=== PATIENT | female | born 1970 | race Caucasian/White ===

== ENCOUNTER 2023-01-23 13:32 | Outpatient (AMB) | payer MEDICARE, MEDICAID, SELFPAY ==
--- NOTE | 2023-01-23 13:34 | MHC.OFFVIS ---
Intake Vital Signs 01/23/23 13:39 Height 5 ft 1 in Weight 235 lb BMI 44.4 BP 168/77 H Blood Pressure Location Rt brachial Position Sitting Pulse 77 Intake Visit Reasons: Hyperparathyroidism Intake Note: Patient referred for hyperparathyroidism. Has records from Memo Eddy MD from [facility]. Recent labs dated October 2022. Director Of Strategic Initiatives Required: No Accompanied by: Self / Same As Patient Allergies No Known Allergies Allergy (Verified 01/23/23 13:41) HPI HPI Comments History of Present Illness Details Patient presents for evaluation of hypercalcemia from presumed left pa rathyroid adenoma. Patient initially have her workup in [place] where she was found have hypercalcemia. She had extensive workup from the outside facilities which according to the patient demonstrated the above-mentioned pathology. At present, we have written records but no other radiographic studies put the paperwork demonstrates findings of a parathyroid nuclear study suggestive of the above-mentioned pathology. Chart was reviewed patient evaluated. Patient has a collection of other comorbidities as well. [facility] Medical History (Updated 01/23/23 @ 13:45 by LUCIANO Villavicencio) Cataract Seasonal allergies Anxiety Depression HTN (hypertension) Sciatic leg pain Surgical History (Updated 01/26/23 @ 09:48 by Troy Hamlin MD) History of tonsillectomy Social History (Updated 01/23/23 @ 13:47 by LUCIANO Villavicencio) Alcohol intake: current Alcohol intake frequency: holidays/special occasions only Alcohol type: wine Patient Tobacco Use Status: Never used Tobacco Substance Use Type: Marijuana Substance Use Type Other:: Vape Substance Use Frequency: Daily Physical Exam Vital Signs: Last Vital Signs Pulse 77 01/23/23 13:39 BP 168/77 H 01/23/23 13:39 BMI result Body Mass Index 44.4 HEENT Other: No cervical periclavicular or axillary or groin adenopathy. No obvious neck soft tissue mass identified. Chest Other: Chest breath sounds bilaterally, HS 1 in 2 GI Other: Abdomen soft, corpulent, benign Extrem Other: Extremities all 4 grossly intact. Assessment & Plan Assessment & Plan (1) Hypercalcemia: Code(s): E83.52 - Hypercalcemia Plan Current plan is to obtain the patient's remaining records a radiographic studies and direct further therapy based on these results. Patient will contact us next week for further follow-up once we have received these from her prior facility. All questions were answered. Coding Level of Care Code New Pt Level 4 (07124) Diagnoses Hypercalcemia E83.52
[2023-01-23 13:39] VITALS: BP 168/77; PULSE 77; BMI 44.4
== END 2023-01-23 14:02 | disposition home or self-care (01) ==
PROVIDERS: Visit Provider Surgery
DX: E83.52 Hypercalcemia (principal)
CPT/HCPCS: 99204

== ENCOUNTER → 2023-01-23 13:32 | Outpatient (BNVA) | payer MEDICARE, MEDICAID, SELFPAY | PROVIDERS: Visit Provider Surgery ==

== ENCOUNTER 2023-02-02 10:45 | Outpatient (AMB) | payer MEDICARE, MEDICAID, SELFPAY ==
[2023-02-02 10:52] VITALS: PULSE 67; BMI 44.8
--- NOTE | 2023-02-02 10:52 | A.OFFVIS_ITS ---
Intake Vital Signs 02/02/23 10:52 Height 5 ft 1 in Weight 237 lb BMI 44.8 Pulse 67 Intake Visit Reasons: f/u Hyperparathyroidism Intake Note: Patient here to f/u hyperparathyroidism. Records from [place] received and reviewed. Casing Fluid Tender Required: No Accompanied by: Self / Same As Patient Allergies No Known Allergies Allergy (Verified 02/02/23 10:53) HPI HPI Comments History of Present Illness Details Patient presents for follow-up. We have received all her paperwork and credentials from her [place] facility regarding her left inferior parathyroid adenoma. Extensive discussion was had regarding risks, benefits and alternatives of left inferior parathyroidectomy which included but not limited to bleeding, infection, recurrence, numbness, pain, scarring, recurrent laryngeal nerve injury (with hoarseness) and the patient wishes to proceed. All questions were answered. The meantime, the hospital laboratory is in the process of obtaining a rapid PTH assay test. At the earliest, this may take approximately 2 weeks time to have this at the facility. The reason for the this availability is important for surgery because at the initial time of induction, patient will have a PTH level drawn and post tumor excision, approximately 15 minutes later a repeat value will be obtained to document reduction in PTH level, help to confirm that adenoma was removed. Consideration will also be made for day prior sestamibi/isotope injection to allow probe a identification of parathyroid adenoma at the time of surgery. [facility] Medical History Sleep apnea Type 2 diabetes mellitus Snoring Rosacea Iliotibial band syndrome, right leg Mitral valve prolapse Asymptomatic menopausal state Mitral valve disorder Neuralgia of both lower extremities Leg heaviness Morbid obesity Tendinosis of rotator cuff Vitamin D deficiency SANTI on CPAP Localized edema Chronic kidney disease, stage 3a PTSD (post-traumatic stress disorder) Bipolar 1 disorder Hyperparathyroidism Suicidal ideations Cataract Seasonal allergies Anxiety Depression HTN (hypertension) Sciatic leg pain Surgical History History of tonsillectomy Social History Alcohol intake: current Alcohol intake frequency: holidays/special occasions only Alcohol type: wine Patient Tobacco Use Status: Never used Tobacco Substance Use Type: Marijuana Physical Exam Vital Signs: Last Vital Signs Pulse 67 02/02/23 10:52 BMI result Body Mass Index 44.8 HEENT Other: No cervical, periclavicular, or axillary adenopathy. No obvious anterior neck pathology. Chest Other: Chest breath sounds bilaterally, HS 1 in 2 GI Other: Moderately corpulent, soft, benign Assessment & Plan Assessment & Plan (1) Parathyroid adenoma: Code(s): D35.1 - Benign neoplasm of parathyroid gland (2) Hypercalcemia: Code(s): E83.52 - Hypercalcemia Plan Current plan is to tentatively scheduled for surgery ,provided all the above- mentioned arrangements can be appropriately obtained. Coding Level of Care Code Est Pt Level 5 (57203) Diagnoses Parathyroid adenoma D35.1 Hypercalcemia E83.52
== END 2023-02-02 11:00 | disposition home or self-care (01) ==
PROVIDERS: Visit Provider Surgery
DX: D35.1 Benign neoplasm of parathyroid gland (principal); E83.52 Hypercalcemia
CPT/HCPCS: 99214

== ENCOUNTER → 2023-02-02 10:45 | Outpatient (BNVA) | payer MEDICARE, MEDICAID, SELFPAY | PROVIDERS: Visit Provider Surgery | DX: D35.1 Benign neoplasm of parathyroid gland (principal); E83.52 Hypercalcemia | CPT/HCPCS: 99212 ==

== ENCOUNTER 2023-02-04 08:57 | Emergency (ER) | payer MEDICARE, MEDICAID, SELFPAY ==
--- NOTE | ~2023-02-04 | XR_ITS ---
EXAMINATION: XR SHOULDER, RIGHT CLINICAL INFORMATION: Right shoulder pain. COMPARISON: None available. TECHNIQUE: AP, Grashey, and scapular Y views of the right shoulder. FINDINGS: Moderate glenohumeral joint space narrowing with small marginal osteophytes. Unremarkable acromioclavicular joint. No acute fracture or dislocation. No concerning lytic or blastic osseous lesion. No abnormal soft tissue calcification. XR/XR shoulder RT min 2V IMPRESSION: Moderate glenohumeral osteoarthritis.
[2023-02-04 09:16] VITALS: BP 193/98; PULSE 100; RESP 20; TEMP 36.6; O2SAT 96; BMI 44.3
--- NOTE | 2023-02-04 10:54 | ED.EXTPRO ---
HPI - Extremity Problem General Chief complaint: Extremity Problem Stated complaint: R shoulder/ L leg pain Time Seen by Provider: 02/04/23 10:37 Source: patient Mode of arrival: ambulatory Limitations: no limitations History of Present Illness HPI Narrative: This is a 52-year-old female history of parathyroid adenoma, hypercalcemia presenting to the emergency department for evaluation of right shoulder pain, patient reports right shoulder pain has been going on for months on improved in seems to be worsening. Patient recently got an MRI back in [place] has not yet received the results she recently moved here from [place]. Patient reports pain is worse with movement better at rest. She reports she is scheduled to see a new PCP here in the area in April and is scheduled to see the orthopedic team in March. Also reporting left-sided hip and leg pain however her primary concern is shoulder pain, she thinks her left leg pain is sciatica she has a history of this and has had imaging before.. Denies shortness of breath, leg swelling, long travel, smoking, sedentary lifestyle. No history of PE/DVT., Related Data Home Medications Medication Instructions Recorded Confirmed aripiprazole 5 mg tablet (Abilify) 5 mg PO BEDTIME 01/23/23 cholecalciferol (vitamin D3) 50 50 mcg PO DAILY 01/23/23 mcg (2,000 unit) capsule escitalopram oxalate 10 mg tablet 10 mg PO DAILY 01/23/23 (Lexapro) lamotrigine 150 mg tablet 150 mg PO BID 01/23/23 (Lamictal) loratadine 10 mg tablet (Claritin) 10 mg PO DAILY 01/23/23 losartan 100 mg tablet 100 mg PO DAILY 01/23/23 metoprolol succinate 100 mg 100 mg PO DAILY 01/23/23 tablet,extended release 24 hr Previous Rx's Medication Instructions Recorded ketorolac 10 mg tablet 10 mg PO TID PRN pain 5 days #15 02/04/23 tabs prednisone 50 mg tablet 50 mg PO DAILY 5 days #5 tabs 02/04/23 Allergies Allergy/AdvReac Type Severity Reaction Status Date / Time No Known Allergies Allergy Verified 02/04/23 09:16 Review of Systems Review of Systems: Constitutional : No Weight loss, No Fever, No Chills, No Fatigue, No Malaise ENT/Mouth : No sore throat, No Rhinorrhea Eyes: No Eye Pain, No Swelling, No Redness Cardiovascular : No Chest Pain, No SOB, No Dyspnea on Exertion, No Orthopnea, No Edema, No Palpitations Respiratory : No Cough, No Sputum, No Wheezing Gastrointestinal : No Nausea, No Vomiting, No Diarrhea, No Constipation, No abdominal Pain, No Hematochezia, No Melena Genitourinary : No Dysuria, No Urinary Frequency, No Hematuria, Musculoskeletal : + joint pain, No Myalgias, + Joint Swelling Skin : No Skin Lesions, No rash Neuro : No Weakness, No Numbness, No Dizziness, No Headache Psych : No Anxiety/Panic, No Depression All other systems reviewed and are negative Yes all other systems are reviewed and are negative [facility] Past Medical History Attestation statement: The following information was validated with the patient. Source: old records reviewed and nursing notes reviewed Medical History Sleep apnea Type 2 diabetes mellitus Snoring Rosacea Iliotibial band syndrome, right leg Mitral valve prolapse Asymptomatic menopausal state Mitral valve disorder Neuralgia of both lower extremities Leg heaviness Morbid obesity Tendinosis of rotator cuff Vitamin D deficiency SANTI on CPAP Localized edema Chronic kidney disease, stage 3a PTSD (post-traumatic stress disorder) Bipolar 1 disorder Hyperparathyroidism Suicidal ideations Cataract Seasonal allergies Anxiety Depression HTN (hypertension) Sciatic leg pain Surgical History History of tonsillectomy Social History Social History Alcohol intake: current Alcohol intake frequency: holidays/special occasions only Alcohol type: wine Patient Tobacco Use Status: Never used Tobacco Substance Use Type: Marijuana Advance Directives: No Advance Directives Information Provided: No Physical Exam Vital Signs: Vital Signs: Last Vital Signs Temp 98.5 F 02/04/23 11:28 Pulse 85 02/04/23 11:28 Resp 14 02/04/23 11:28 BP 187/83 H 02/04/23 11:28 Pulse Ox 95 02/04/23 11:28 O2 Del Method Room Air 02/04/23 11:28 BMI result Body Mass Index 44.3 vss Appearance: Alert.? Oriented X3.? No acute distress.? Head: Normocephalic, atraumatic, no step-offs or deformities Eyes: Pupils equal, round and reactive to light.? ENT: Pharynx normal.? Neck: Normal inspection.? Neck supple.? CVS: Normal heart rate and rhythm.? Pulses normal.? Respiratory: No respiratory distress.? Breath sounds normal.? Abdomen: Soft and nontender.? Skin: Skin warm and dry.? Normal skin color.? Normal skin turgor.? Extremities: No lower extremity edema.? No calf ttp, negative Carla. 5/5 strength to bilateral upper and lower extremities. Normal hand loaf counter bilaterally. No wrist drop. 2+ radial pulses equal bilateral. Capillary refill less than 2 seconds to bilateral upper extremities. Limited range of motion secondary to pain to right shoulder with tenderness to palpation overlying the right radial head/distal clavicle region. No step-offs or deformities. Normal left shoulder Back: No midline tenderness, no C-spine tenderness, full range of motion, no CVA tenderness bilaterally Neuro: Oriented X 3.? No motor deficit.? No sensory deficit. CN 2-12 intact . Ambulating with steady gait normal coordination. No saddle paresthesias Course Reevaluation(s) Reevaluation #1: X-ray pending. Educated patient on diagnosis and treatment plan, answered all question, patient verbalizes understanding. At this time patient will be discharged home, advised to return with new or worsening symptoms. Educated on worrisome signs and symptoms and when to return. At this time I feel comfortable discharge home. Time: 10:59 Reevaluation #2: I will call patient if there is any abnormalities on x-ray, however on my evaluation of x-ray no acute finding Time: 11:54 Medications Administered Discontinued Medications Generic Name Dose Route Start Last Admin Trade Name Sylvia PRN Reason Stop Dose Admin Ketorolac Tromethamine 30 mg 02/04/23 10:53 02/04/23 11:01 Ketorolac Tromethamine 30 Mg/Ml Vial IM 02/04/23 10:54 30 mg ONCE ONE Administration Medical Decision Making Medical Decision Making MDM Narrative: 52-year-old female presents with left-sided like pain/hip pain and right-sided shoulder pain, primary concern today is right shoulder. These pains have been going on unchanged for months. Physical exam significant for No lower extremity edema.? No calf ttp. 5/5 strength to bilateral upper and lower extremities. Normal hand loaf counter bilaterally. No wrist drop. 2+ radial pulses equal bilateral. Capillary refill less than 2 seconds to bilateral upper extremities. Limited range of motion secondary to pain to right shoulder with tenderness to palpation overlying the right radial head/distal clavicle region. No step-offs or deformities. Normal left shoulder Concerns for rotator cuff injury versus inflammatory arthritis lower extremity likely sciatic/arthritis. Unlikely threat to [place], neurovascular compromise, DVT, arterial occlusion, fracture dislocation. No signs of cauda equina or epidural abscess Plan x-ray of right shoulder. Patient has had imaging of lower back and hip, atraumatic no need for imaging at this time. Will give Toradol for pain control. Differential Diagnosis Differential Diagnoses: The differential diagnosis associated with the presentation includes Concerns for rotator cuff injury versus inflammatory arthritis lower extremity likely sciatic/arthritis. Unlikely threat to [place], neurovascular compromise, DVT, arterial occlusion, fracture dislocation. No signs of cauda equina or epidural abscess Admission/Observation Consideration of admission/observation: Escalation of care including admission/observation considered Unlikely Independent Interpretation I performed an independent interpretation of an: Plain X-Ray Radiology Impression Discussion of test interpretation with radiology: I have reviewed the radiologist's reading. Tests considered The following testing was considered but not selected: Pain to left lower extremity has been there for months, unchanged has had imaging in the past, no trauma no need for imaging of left lower extremity or hip, palpable pulses unlikely arterial occlusion no need for arterial scan, unlikely DVT no need for venous duplex. Prescription Management I considered prescription management with: Pain Medication Critical Care Time Critical Care Time Critical Care Time: No Discharge Plan Discharge Clinical Impression: Pain in right shoulder, Sciatica Patient Disposition: Home, Self-Care Instructions: Shoulder Pain (ED), Arm Pain (ED), Warm Compress or Soak (ED), Shoulder Impingement Syndrome (ED) Additional Instructions: Take your medications as prescribed. If you were prescribed antibiotics today, it is important that you take your medication to their entirety, do not skip any doses, do not finish them early. Follow-up with your primary care provider this week. Follow up with the orthopedic team. Return to the emergency department with new or worsening symptoms. Such as fevers, chills, chest pain, shortness of breath, nausea, vomiting, dizziness, headache, vision changes, lethargy In case of emergency call 911 Prednisone can increase her sugars please keep a close eye on your sugar levels, if there high please seek medical attention. Toradol has been sent to your pharmacy, you tolerated this well in the department. Please take this as prescribed do not take this with ibuprofen, or other NSAIDs, do not mix this with alcohol. Side effects of this medication including increased risk for bleeding and possible kidney injury. Prescriptions: New ketorolac 10 mg tablet 10 mg PO TID PRN (Reason: pain) 5 Days Qty: 15 0RF prednisone 50 mg tablet 50 mg PO DAILY 5 Days Qty: 5 0RF No Action losartan 100 mg tablet 100 mg PO DAILY metoprolol succinate 100 mg tablet extended release 24 hr 100 mg PO DAILY escitalopram oxalate [Lexapro] 10 mg tablet 10 mg PO DAILY aripiprazole [Abilify] 5 mg tablet 5 mg PO BEDTIME lamotrigine [Lamictal] 150 mg tablet 150 mg PO BID cholecalciferol (vitamin D3) 50 mcg (2,000 unit) capsule 50 mcg PO DAILY loratadine [Claritin] 10 mg tablet 10 mg PO DAILY Referrals: [facility] [facility] Surgeons [Provider Group] - 1 week Ashlee Tejeda MD [Physician] - 2 days Stand Alone Forms: Work/School Release
[2023-02-04] MEDS: Ketorolac Tromethamine 30 MG/ML VIAL IM (11:01)
[2023-02-04 11:28] VITALS: BP 187/83; PULSE 85; RESP 14; TEMP 36.9; O2SAT 95
== END 2023-02-04 12:41 | disposition home or self-care (01) ==
PROVIDERS: Emergency Provider Emergency Medicine Emergency Medical Services
DX: M25.511 Pain in right shoulder (principal); M54.32 Sciatica, left side; E11.22 Type 2 diabetes mellitus with diabetic chronic kidney disease; I12.9 Hypertensive chronic kidney disease with stage 1 through stage 4 chronic kidney disease, or unspecified chronic kidney disease; N18.30 Chronic kidney disease, stage 3 unspecified; F12.90 Cannabis use, unspecified, uncomplicated
CPT/HCPCS: 73030; 96372; 99284; J1885

== ENCOUNTER → 2023-03-04 08:02 | Outpatient (REF) | payer MEDICARE, MEDICAID, SELFPAY | LOC: HO.NUCMED 08:02 | PROVIDERS: Visit Provider Surgery | DX: Z13.89 Encounter for screening for other disorder (principal) ==

== ENCOUNTER 2023-03-10 09:55 | Outpatient (AMB) | payer MEDICARE, MEDICAID, SELFPAY ==
[2023-03-10 09:57] VITALS: BP 148/84; PULSE 74; BMI 45.4
--- NOTE | 2023-03-10 09:57 | MHC.OFFVIS ---
Intake Vital Signs 03/10/23 09:57 Height 5 ft 1 in Weight 240 lb 4.862 oz BMI 45.4 BP 148/84 H Blood Pressure Location Lt brachial Position Sitting Pulse 74 Intake Visit Reasons: Preop /Dr. Hamlin/ parathyroid surgery Intake Note: Pre-op parathyroid surgery with Dr Hamlin dx MVR c/o sob with little movement has chest pains at times Iron Pourer Required: No Allergies No Known Allergies Allergy (Verified 02/04/23 09:16) Medication List - Last Reconciled 03/10/23 by Yohan Sen MD aripiprazole (Abilify) 5 mg PO BEDTIME cholecalciferol (vitamin D3) 50 mcg PO DAILY escitalopram oxalate (Lexapro) 10 mg PO DAILY ketorolac 10 mg PO TID PRN lamotrigine (Lamictal) 150 mg PO BID loratadine (Claritin) 10 mg PO DAILY losartan 100 mg PO DAILY metoprolol succinate ER 100 mg PO DAILY HPI HPI Comments History of Present Illness Details I was consulted to see Leann in cardiology consultation today for preoperative cardiovascular risk stratification. Patient is a 52-year-old woman with prior history of hypertension, mild hyperlipidemia as per her, obstructive sleep apnea currently compliant with CPAP therapy and questionable mitral valve disease as per her total many years ago, noted to hypercalcemia secondary to parathyroid adenoma and plan to undergo parathyroid surgery under general anesthesia. Patient however says that with minimal exertion she does get symptoms of exertional shortness of breath and nighttime she also sometimes gets feeling of incomplete treatment with CPAP and choking sensation. Although she denies any clear orthopnea or PND as well as denies any significant leg edema or abdominal distension. She denies any exertional chest pain. Denies any prolonged palpitation irregular heartbeat. She says she cannot exercise much due to the left hip issue. In the last few months she has gained 20 lb as per her and said might be contributing to her suboptimal CPAP response. She is scheduled to undergo parathyroid surgery under general anesthesia which is considered intermediate risk surgery. FORMERLY [facility], [facility] Medical History Sleep apnea Type 2 diabetes mellitus Snoring Rosacea Iliotibial band syndrome, right leg Mitral valve prolapse Asymptomatic menopausal state Mitral valve disorder Neuralgia of both lower extremities Leg heaviness Morbid obesity Tendinosis of rotator cuff Vitamin D deficiency SANTI on CPAP Localized edema Chronic kidney disease, stage 3a PTSD (post-traumatic stress disorder) Bipolar 1 disorder Hyperparathyroidism Suicidal ideations Cataract Seasonal allergies Anxiety Depression HTN (hypertension) Sciatic leg pain Surgical History History of tonsillectomy Social History Alcohol intake: current Alcohol intake frequency: holidays/special occasions only Alcohol type: wine Patient Tobacco Use Status: Never used Tobacco Substance Use Type: Marijuana Review of Systems Const Denies chills, Denies daytime sleepiness, Denies fatigue, Denies fever(s), Denies frequent falls, Denies poor appetite, Denies snoring, Denies stops breathing during sleep, Denies weakness, Denies weight gain and Denies weight loss Eyes Denies loss of vision ENT Denies dizziness and Denies hearing loss Card Denies chest pain, Denies claudication, Denies leg edema, Denies lightheadedness, Denies palpitations, Denies dyspnea, Denies dyspnea on exertion and Denies orthopnea Resp Denies cough, Denies excessive phlegm production, Denies dyspnea, Denies dyspnea on exertion, Denies snoring and Denies wheezing GI Denies abdominal pain, Denies hematochezia, Denies change in bowel habits, Denies nausea and Denies vomiting Denies urinary frequency and Denies dysuria Musc Denies arthralgias, Denies muscle weakness, Denies numbness and Denies other (frequent falls) Skin/Breast Denies nail changes and Denies rash Neuro Denies Abnormal speech present, Denies dizziness, Denies frequent falls, Denies loss of vision, Denies memory loss, Denies numbness and Denies weakness Psych Denies depression and Denies memory loss Endo Denies fatigue and Denies palpitations To/Lymph Reports easy bruising and Reports other (anemia) Aller/Immun Denies wheezing Physical Exam Vital Signs: Last Vital Signs Pulse 74 03/10/23 09:57 BP 148/84 H 03/10/23 09:57 BMI result Body Mass Index 45.4 Const General: cooperative, comfortable, no acute distress, alert and awake Nutritional Appearance: obese Orientation/consciousness: patient oriented x3 Limitations: no limitations HEENT Head: Yes normocephalic and Yes atraumatic Neck Neck: Yes trachea midline, Yes supple and Yes no JVD Resp Effort & Inspection: normal respiratory effort Auscultation: clear to auscultation bilaterally Cardio Jugular venous distension: no JVD Palpation: other (Difficult to appreciate PMI) Rate: regular rate Rhythm: regular rhythm Heart sounds: S1 normal heart sound present, S2 normal heart sound present, no click, no gallops and no murmurs GI Inspection: Yes obesity Auscultation: normal bowel sounds Skin General skin exam: no rashes or lesions noted Neuro General: patient oriented x3 and no focal motor deficits Speech: No Abnormal speech present Extrem General: Yes no clubbing, cyanosis or edema Office Procedures EKG Details: EKG shows normal sinus rhythm with normal EKG [id number], Complete Assessment & Plan Assessment & Plan (1) SOB (shortness of breath) on exertion: Code(s): R06.02 - Shortness of breath Plan: Patient with limiting exertional shortness of breath with minimal exertion with multiple risk factors for coronary artery disease including hypertension, hyperlipidemia as well as obesity and poor functional status. Underlying cardiovascular disease needs to be ruled out. She does have prior history of questionable mitral valve disease. Will obtain echocardiogram to evaluate for valvular heart disease, LV systolic and diastolic function as well as to evaluate for pulmonary hypertension and chamber size. Also will assess for myocardial ischemia and given her inability to exercise pursue vasodilating myocardial perfusion imaging in near future. Further treatment based on the findings. If cardiac workup is within acceptable limits, focus on pulmonary workup with PFT to evaluate for pulmonary parenchymal disease and/or restrictive pulmonary disease needs to be pursued. Also possible shortness of breath is related to deconditioning and weight. This was discussed with her. If her myocardial perfusion imaging is within normal limits can pursue coronary calcium score for further risk assessment for atherosclerosis. (2) Preoperative cardiovascular examination: Code(s): Z01.810 - Encounter for preprocedural cardiovascular examination Plan: Preoperative cardiovascular risk stratification in middle-aged woman to undergo intermediate risk surgery with limited exercise capacity and symptoms of exertional shortness of breath. Workup as above including myocardial perfusion imaging as well as an echocardiogram. If these tests are within acceptable limits, her risk for perioperative cardiovascular morbidity mortality to be low. Continue management of blood pressure through surgery with losartan and metoprolol. Will follow up in the clinic in 2-3 weeks time, sooner p.r.n.. Thank you for allowing me to partake in her care Orders: Orders CA echo transthoracic complete Today R06.02 - Shortness of breath CA lexiscan stress w rosy Today R06.02 - Shortness of breath Medications: Changed From ketorolac 10 mg PO TID 5 days PRN 15 tabs 0RF pain To ketorolac 10 mg PO TID PRN pain Coding Level of Care Code New Pt Level 4 (88603) Diagnoses SOB (shortness of breath) on exertion R06.02 Preoperative cardiovascular examination Z01.810 CPT Codes EKG - CPT: 71651-[id number], Complete ([id number])
== END 2023-03-10 10:50 | disposition home or self-care (01) ==
PROVIDERS: PCP Nurse Practitioner Family; Visit Provider Internal Medicine Cardiovascular Disease
DX: R06.02 Shortness of breath (principal); Z01.810 Encounter for preprocedural cardiovascular examination
CPT/HCPCS: 93010; 99204

== ENCOUNTER → 2023-03-10 09:55 | Outpatient (BNVA) | payer MEDICARE, MEDICAID, SELFPAY | PROVIDERS: PCP Nurse Practitioner Family; Visit Provider Internal Medicine Cardiovascular Disease | DX: Z01.810 Encounter for preprocedural cardiovascular examination (principal); R06.02 Shortness of breath | CPT/HCPCS: 93005; 99202 ==

== ENCOUNTER → 2023-04-27 07:40 | Outpatient (REF) | payer MEDICARE, MEDICAID, SELFPAY ==
--- NOTE | ~2023-04-27 | NM_ITS ---
Lexiscan Myocardial perfusion study Indication: Shortness of breath, assess for coronary disease and ischemia Technique: The patient was brought in for a Lexiscan perfusion study on 04/27/2023 and was injected 0.4 mg of Lexiscan intravenously. Within a minute of this injection 35 mCi of sestamibi was given intravenously. Images were obtained using the SPECT gamma camera interlaced with the gating device. Images were obtained in supine position. Resting perfusion study was performed on 04/29/2023. Patient was administered 35 mCi of sestamibi intravenously at rest. Images were then obtained in supine position. Images were processed with the software and compared side to side in short axis, horizontal long axis and vertical long axis views. Total DLP 134mGy-cm. Findings: Raw acquisition reviewed. The stress perfusion study showed diminished tracer uptake in the distal part of anterior wall, septum as well as parts of inferior wall. However, with CT attenuation correction there is significant improvement and hence could all be from attenuation artifacts. The gated study shows normal LV systolic function with calculated LVEF of 71%. LV cavity is normal in size. The gated study shows normal wall thickening and contraction of segments. Resting study shows no significant perfusion abnormality. Gating at rest reveals normal wall motion with ejection fraction at 49%, but visually normal. The findings are consistent with mild reversible defects in the anterior wall, apex, lateral wall but improving with CT attenuation correction and hence probably artifactual. NM/NM rosy perf SPECT rest & str Impression: 1. Myocardial perfusion imaging study shows no clear evidence of any ischemia or infarction. Probably normal perfusion. 2. Gated LVEF is 71% during stress. Visually normal during rest. 3. Transient ischemic dilatation not present. EKG component of the test reported separately.
--- NOTE | 2023-04-27 07:43 | CA_ITS ---
Acquisition Time: 2023-04-27 09:12:35 Total Exercise Time: 00:02:00 Test Indications: SOB Medications: LEXAPRO LOSRATAN METOPROLOL Protocol: LEXISCAN Max HR: 096 BPM 57% of Pred: 167 BPM Max BP: 152/090 mmHG Max Work Load: 1.0 METS Pharmacological stress test with Lexsican injection, while sitting and kicking her legs, without anginal symptoms, without arrythmia, with normotensive response to injection, with nondiagnostic EKG for ischemia. Nuclear images pending. Test reviewed with Dr Perez. Referred By: Yohan Sen Overread By: YURY BREWER
--- NOTE | 2023-04-27 07:43 | CA_ITS ---
Transthoracic Echocardiogram Patient (Last, First, Middle): Tona Fischer Denise Gender: Female Date of : 1970 Age: 52 Procedure Date: 04/27/2023 Procedure Type: Transthoracic Echocardiogram Location: OP Height: 154.94 cm Weight: 106.6 kg BSA: 2.02 m2 Heart Rate: bpm BP: 140 / 98 mmHg Health/Safety Job Titles: TEE Referring MD: Yohan Sen MD Symptoms: R06.02 - Shortness of breath Study Quality: Adequate with contrast ECG Rhythm: Sinus Conclusions: - The left ventricular systolic function is normal. The calculated ejection fraction is 68% by biplane method. - No obvious valvular pathology seen on this study. Findings Procedure Information Contrast agent, definity, is being given per protocol without apparent complications. Left Ventricle Normal left ventricular cavity size. The left ventricular systolic function is normal. The calculated ejection fraction is 68% by biplane method. There is no evidence of regional wall motion abnormalities. Diastolic function is normal for age. There is mild septal asymmetric hypertrophy. Right Ventricle Mildly increased right ventricular cavity size. There is normal right ventricular systolic function. Atria The left atrium is mildly dilated. The right atrium is normal in size. Aortic Valve There is a normal trileaflet aortic valve. There is no aortic valve stenosis. There is no aortic valve regurgitation. Mitral Valve The mitral valve appears normal. There is mild mitral annular calcification. There is no mitral valve regurgitation. There is no mitral valve stenosis. Pulmonic Valve The pulmonic valve is likely normal. Tricuspid Valve Normal tricuspid valve structure. There is trace tricuspid valve regurgitation. Borderline RVSP. Great Vessels The asc aorta is normal in size. Venous The inferior vena cava is normal in size and collapses greater than 50% with inspiration. Pericardium/Pleural There is no evidence of pericardial effusion. Prior Study Comparison No prior study available for comparison. Recommendations, Care & Conclusions No obvious valvular pathology seen on this study. Measurements 2D Linear Measurements IVSd: 1.19 0.6-0.9/0.6-1.0 cm LVIDd: 4.45 3.9-5.3/4.2-5.9 cm LVIDd Index: 2.20 2.4-3.2/2.2-3.1 cm/m2 LVIDs: 2.74 2.0-3.6 cm LVPWd: 0.99 0.7-1.1 cm LA Diam: 3.00 2.7-3.8/3.0-4.0 cm LAIDs Index: 1.49 1.5-2.3 cm/m2 LV Mass: 211.99 67-162/88-224 g LV Mass Index: 104.95 43-95/49-115 g/m2 LVOT Diam: 2.00 3.0+(-)1.3 cm 2D Systolic Function EF 4C: 68.40 >55% EF 2C: 67.20 >55% EF BiP: 68.00 >55% Mitral Valve MV Pk E: 0.76 MV PK A: 0.80 MV Decel Time: 223.00 E/A: 1.00 E'Lateral: 11.20 E'Medial: 7.29 E/E' Med: 10.50 E/E' Lat: 6.80 PHT: 65.00 MVA PHT: 3.38 Decel [place]: 3.42 Aortic Valve AoV Pk Bridger: 1.46 AoV Mn Bridger: 1.03 AoV VTI: 0.34 AoV Pk Grad: 9.00 Aov Mn Grad: 5.00 RAHAT Cont.VTI: 2.47 LVOT LVOT Pk Bridger: 1.12 LVOT Mn Bridger: 0.77 LVOT VTI: 0.27 LVOT Pk Grad: 5.00 LVOT Mn Grad: 3.00 LVOT Diam: 2.00 LVOT Area: 3.14 Diastolic Function MV Pk E: 0.76 MV Pk A: 0.80 E/A: 1.00 E'Medial: 7.29 E/E' Med: 10.50 E' Laterial: 11.20 E/E' Lat: 6.80 Right Ventricle TAPSE (mm): 24.40 TVS' Bridger: 10.90 Tricuspid Valve TR Pk Bridger: 2.81 TR Pk Grad: 32.00 RA Press: 3.00 RVSP: 35.00 Great Vessels Aorta Sinus of Valsalva: 3.47 2.0-3.[address] [place]: 2.82 1.7-3.4 cm Ao Asc: 3.50 2.1-3.4 cm Updated in Other Vendor System with Status of Final Vince Blum MD electronically signed on 04/29/2023 6:12:33 AM with status of Final
== END ==
LOC: HO.CARD 07:40
PROVIDERS: PCP Nurse Practitioner Family; Visit Provider Internal Medicine Cardiovascular Disease
DX: R06.02 Shortness of breath (principal)
CPT/HCPCS: 78452; 93017; 93306; A9500; J0280; J2785; Q9957

== ENCOUNTER → 2023-04-27 07:43 | Outpatient (BNV) | payer MEDICARE, MEDICAID, SELFPAY | PROVIDERS: PCP Nurse Practitioner Family; Visit Provider Nurse Practitioner Family | DX: R06.02 Shortness of breath (principal) | CPT/HCPCS: 78452; 93016; 93018; 93306 ==

== ENCOUNTER 2023-05-05 09:36 | Outpatient (AMB) | payer MEDICARE, MEDICAID, SELFPAY ==
[2023-05-05 09:57] VITALS: BP 140/70; PULSE 72; BMI 44.5
--- NOTE | 2023-05-05 09:57 | A.OFFVIS_ITS ---
Intake Vital Signs 05/05/23 09:57 Height 5 ft 1 in Weight 235 lb 7.259 oz BMI 44.5 BP 140/70 H Blood Pressure Location Lt brachial Position Sitting Pulse 72 Pulse Source Pulse Oximeter Intake Visit Reasons: f/up echo/ nicolas preop surg Intake Note: f/up echo/nicolas preop surg pt its feeling fine Time Analysis Clerk Required: No Accompanied by: Self / Same As Patient Allergies No Known Allergies Allergy (Verified 02/04/23 09:16) Medication List - Last Reconciled 05/05/23 by Rosy Bolaños, PROCESS AUTOMATION ENGINEER-C aripiprazole (Abilify) 5 mg PO BEDTIME cholecalciferol (vitamin D3) 50 mcg PO DAILY escitalopram oxalate (Lexapro) 10 mg PO DAILY lamotrigine (Lamictal) 150 mg PO BID loratadine (Claritin) 10 mg PO DAILY losartan 100 mg PO DAILY metoprolol succinate ER 100 mg PO DAILY HPI f/up echo/ nicolas preop surg HPI Details Tona is a 52-year-old female with past medical history of hypertension, hyperlipidemia, diabetes, obstructive sleep apnea with CPAP use, reported mitral valve disorder who 1st presented to cardiology for preop evaluation. On last visit a echocardiogram and nuclear stress test were ordered. She now presents for follow-up. Today she reports that she has been feeling generally well. She has no chest discomfort at rest or with activity. She does have some exertional shortness of breath which she feels is related to her weight. No shortness of breath at rest, PND, orthopnea or edema. No lightheadedness, presyncope, syncope, falls. She has discomfort with her left leg that is being evaluated. This limits her ability to do routine physical activity. She takes her meds as directed. [facility] Medical History (Updated 05/05/23 @ 12:32 by Rosy Bolaños, PROCESS AUTOMATION ENGINEER-C) Sleep apnea Type 2 diabetes mellitus Snoring Rosacea Iliotibial band syndrome, right leg Mitral valve prolapse Asymptomatic menopausal state Mitral valve disorder Neuralgia of both lower extremities Leg heaviness Morbid obesity Tendinosis of rotator cuff Vitamin D deficiency SANTI on CPAP Localized edema Chronic kidney disease, stage 3a PTSD (post-traumatic stress disorder) Bipolar 1 disorder Hyperparathyroidism Suicidal ideations Cataract Seasonal allergies Anxiety Depression HTN (hypertension) Sciatic leg pain Surgical History History of tonsillectomy Social History Alcohol intake: current Alcohol intake frequency: holidays/special occasions only Alcohol type: wine Patient Tobacco Use Status: Never used Tobacco Substance Use Type: Marijuana Review of Systems Const Denies chills, Denies fatigue, Denies fever(s), Denies frequent falls, Denies weakness, Denies weight gain and Denies weight loss ENT Denies dizziness Card Denies chest pain, Denies leg edema, Denies lightheadedness, Denies palpitations, Denies dyspnea and Reports dyspnea on exertion Resp Denies cough, Denies dyspnea and Reports dyspnea on exertion GI Denies hematochezia Musc Denies abnormal gait, Denies muscle weakness, Denies numbness, Denies radiating pain into limb and Denies tingling Neuro Details: left leg pain Denies abnormal gait, Denies dizziness, Denies frequent falls, Denies numbness, Denies tingling and Denies weakness Endo Denies fatigue and Denies palpitations Physical Exam Vital Signs: Last Vital Signs Pulse 72 05/05/23 09:57 BP 140/70 H 05/05/23 09:57 BMI result Body Mass Index 44.5 Const General: cooperative, healthy appearing, comfortable and no acute distress Orientation/consciousness: patient oriented x3 Neck Neck: Yes normal visual inspection and Yes no JVD Carotids: normal carotid upstroke Resp Effort & Inspection: normal respiratory effort Auscultation: clear to auscultation bilaterally, no rales, no rhonchi and no wheezes Cardio Jugular venous distension: no JVD Rate: regular rate Rhythm: regular rhythm Heart sounds: S1 normal heart sound present, S2 normal heart sound present, no murmurs and no rubs Neuro General: patient oriented x3 Extrem General: Yes normal to inspection and No no pedal edema Psych Appearance: grossly normal Mental Status: mental status grossly normal Speech and movement: Normal speech and movement present Assessment & Plan Assessment & Plan (1) SOB (shortness of breath) on exertion: Code(s): R06.02 - Shortness of breath Plan: Reports of shortness of breath with activity. She is morbidly obese which can contribute. She has history of obstructive sleep apnea and reports compliance with CPAP. She does have multiple cardiac risk factors including hypertension, hyperlipidemia, diabetes and obesity. An EKG done last visit showed normal sinus rhythm with no acute ST or T-wave abnormalities, rate 74. Echocardiogram done 04/27/2023 showed EF 68%, no significant valve abnormalities, no regional wall motion abnormalities, mild septal asymmetric hypertrophy. A pharmacological nuclear stress test was done on 04/29/2023 showing no clear e vidence of ischemia or infarct, probably normal perfusion, EF 71%. Test results reviewed with her. Today she reports no anginal sounding symptoms. Reviewed cardiac risk factor modification with her. Need for good blood pressure control. Blood pressure mildly elevated. She is currently on losartan and metoprolol XL. Reviewed benefits of weight loss and she states understanding. She has inability to exercise due to left hip and leg issues. Reviewed need for good cholesterol and diabetic control. Offered coronary calcium score to further evaluate possibility of coronary artery disease and she declines as it is a self-pay test. Signs and symptoms of angina reviewed. Cardiology follow- up as needed (2) SANTI on CPAP: Code(s): G47.33 - Obstructive sleep apnea (adult) (pediatric) Plan: She reports compliance (3) Pre-operative cardiovascular examination: Code(s): Z01.810 - Encounter for preprocedural cardiovascular examination Plan: Preop for parathyroid surgery for adenoma with Dr. Hamlin. Requires general anesthesia. No date yet. She is low cardiac risk and may proceed as planned. Continue current antihypertensives. Call/consult Cardiology if needed. (4) Parathyroid adenoma: Code(s): D35.1 - Benign neoplasm of parathyroid gland Plan: As above (5) HTN (hypertension): Code(s): I10 - Essential (primary) hypertension Plan: Blood pressure mildly elevated today. Current reading 140/70. She is on losartan 100 mg daily metoprolol XL 100 mg daily. States blood pressure is managed by her PCP and it is checked frequently at office visits. Reviewed low- salt diet, weight loss and she states understanding. Plan Time spent on chart review, documentation, interview and assessment Coding Level of Care Code Est Pt Level 3 (73302) Diagnoses SOB (shortness of breath) on exertion R06.02 SANTI on CPAP G47.33 Pre-operative cardiovascular examination Z01.810 Parathyroid adenoma D35.1 HTN (hypertension) I10 Time Spent (min) 24
== END 2023-05-05 10:23 | disposition home or self-care (01) ==
PROVIDERS: PCP Nurse Practitioner Family; Visit Provider Nurse Practitioner Family
DX: R06.02 Shortness of breath (principal); G47.33 Obstructive sleep apnea (adult) (pediatric); Z01.810 Encounter for preprocedural cardiovascular examination; D35.1 Benign neoplasm of parathyroid gland; I10 Essential (primary) hypertension
CPT/HCPCS: 99213

== ENCOUNTER → 2023-05-05 09:36 | Outpatient (BNVA) | payer MEDICARE, MEDICAID, SELFPAY | PROVIDERS: PCP Nurse Practitioner Family; Visit Provider Nurse Practitioner Family | DX: Z01.810 Encounter for preprocedural cardiovascular examination (principal); R06.02 Shortness of breath; I10 Essential (primary) hypertension; G47.33 Obstructive sleep apnea (adult) (pediatric); D35.1 Benign neoplasm of parathyroid gland; Z79.899 Other long term (current) drug therapy; Z99.89 Dependence on other enabling machines and devices | CPT/HCPCS: 99212 ==

== ENCOUNTER → 2023-06-03 07:43 | Outpatient (REF) | payer MEDICARE, MEDICAID, SELFPAY ==
--- NOTE | ~2023-06-03 | NM_ITS ---
EXAMINATION: PARATHYROID SCAN WITH THYROID SCAN COMPARISON CLINICAL INFORMATION: Benign neoplasm of parathyroid. Patient scheduled for surgery 06/04/2023. COMPARISON: No previous radionuclide parathyroid or thyroid imaging studies are available for comparison. TECHNIQUE: A double radionuclide study of the thyroid bed region and upper chest in multiple projections was performed 2 hours after the oral administration of 980 microcuries I-123 sodium iodide. After completion of those images, 30 mCi technetium 99m sestamibi was injected intravenously and planar and SPECT images of the neck and upper chest were obtained approximately 2 hours later. FINDINGS: PLANAR IMAGES: There is homogeneous uptake of radioiodine throughout both lobes. The thyroid gland appears to be normal in size and shape. There are no focal areas of increased or diminished uptake. The technetium 99m Sestamibi images demonstrate homogeneous thyroid activity. There is a small discrete focus of increased activity adjacent to the mid left lobe. On the ARGENTINE spot view at both 20 minutes and 2 hours post injection this is demonstrated to be extrinsic to the thyroid gland, located posterior to the mid left lobe. On the other spot views, this is visualized as a focus of activity significantly more intense than the adjacent thyroid but is clearly from the thyroid gland only on the ARGENTINE views. The digital subtraction images show a very distinct focus of sestamibi excess posterior to the mid left lobe, corresponding to the focus described above on the sestamibi images and clearly extrinsic to the thyroid gland and posterior to approximately the junction of the middle and superior thirds of the left thyroid lobe. No other foci of abnormal sestamibi excess are present. NM/NM parathyroid IMPRESSION: A discrete focus of abnormal sestamibi excess is present posterior to the mid left thyroid lobe, at approximately the junction of the middle and superior thirds although this appears to be closer to the mid lobe. This is most consistent with a solitary parathyroid adenoma at this site. No additional abnormalities suspicious for other parathyroid lesions are present. The thyroid gland appears normal.
== END ==
LOC: HO.NUCMED 07:43
PROVIDERS: PCP Nurse Practitioner Family; Visit Provider Surgery
DX: D35.1 Benign neoplasm of parathyroid gland (principal)
CPT/HCPCS: 78070; A9500; A9516

== ENCOUNTER 2023-06-04 05:58 | Day surgery (SDC) | payer MEDICARE, MEDICAID, SELFPAY ==
--- NOTE | 2023-03-04 09:06 | HO.ANESPROP2 ---
HPI - Anesthesia Eval Consult details Narrative: 52yo F for Parathyroidectomy PMFSH Active Problems Active Problems: All Active Problems (Updated 02/02/23 @ 11:17 by Troy Hamlin MD) Parathyroid adenoma (Acute) Hypercalcemia (Acute) Past Medical History Medical History Sleep apnea Type 2 diabetes mellitus Snoring Rosacea Iliotibial band syndrome, right leg Mitral valve prolapse Asymptomatic menopausal state Mitral valve disorder Neuralgia of both lower extremities Leg heaviness Morbid obesity Tendinosis of rotator cuff Vitamin D deficiency SANTI on CPAP Localized edema Chronic kidney disease, stage 3a PTSD (post-traumatic stress disorder) Bipolar 1 disorder Hyperparathyroidism Suicidal ideations Cataract Seasonal allergies Anxiety Depression HTN (hypertension) Sciatic leg pain Surgical History Surgical History History of tonsillectomy Social History Social History Alcohol intake: current Alcohol intake frequency: holidays/special occasions only Alcohol type: wine Patient Tobacco Use Status: Never used Tobacco Substance Use Type: Marijuana Meds Allergies Allergy/AdvReac Type Severity Reaction Status Date / Time No Known Allergies Allergy Verified 02/04/23 09:16 Home Medications Medication Instructions Recorded Confirmed Last Taken Type aripiprazole 5 mg tablet (Abilify) 5 mg PO BEDTIME 01/23/23 Unknown History cholecalciferol (vitamin D3) 50 50 mcg PO DAILY 01/23/23 Unknown History mcg (2,000 unit) capsule escitalopram oxalate 10 mg tablet 10 mg PO DAILY 01/23/23 Unknown History (Lexapro) lamotrigine 150 mg tablet 150 mg PO BID 01/23/23 Unknown History (Lamictal) loratadine 10 mg tablet (Claritin) 10 mg PO DAILY 01/23/23 Unknown History losartan 100 mg tablet 100 mg PO DAILY 01/23/23 Unknown History metoprolol succinate 100 mg 100 mg PO DAILY 01/23/23 Unknown History tablet,extended release 24 hr
[2023-05-29 13:17] VITALS: BP 189/85; PULSE 66; RESP 16; O2SAT 94; BMI 44.4
--- NOTE | 2023-05-29 13:43 | P.CONAN_ITS ---
HPI - Anesthesia Eval Consult details Narrative: 52yo F for parathyroidectomy Cardiac cleared Pt declines blood products (no PRBC, platelets, plasma.) OK to receive immunoglobulins. No cell saver per Dr Boubacar srivastava possible malignancy. No recent illness Mild CP with anxiety (longstanding hx of anxiety), BP up at [facility]. Will monitor at home and bring log DOS. SANTI severe. CPAP QHS. Borderline DM. Does not check POC. Never been rx'd meds Mitral valve prolapse dx'd many years ago. Nml on 2023 echo [facility] Active Problems Active Problems: All Active Problems (Updated 05/29/23 @ 13:15 by Samantha Sandoval, CYRUS) Pre-operative cardiovascular examination (Acute) SOB (shortness of breath) on exertion (Acute) Parathyroid adenoma (Acute) Hypercalcemia (Acute) HTN (hypertension) (Acute) SANTI on CPAP (Acute) Past Medical History Medical History History of electroconvulsive therapy Sleep apnea Type 2 diabetes mellitus Snoring Rosacea Iliotibial band syndrome, right leg Mitral valve prolapse Asymptomatic menopausal state Mitral valve disorder Neuralgia of both lower extremities Leg heaviness Morbid obesity Tendinosis of rotator cuff Vitamin D deficiency SANTI on CPAP Localized edema Chronic kidney disease, stage 3a PTSD (post-traumatic stress disorder) Bipolar 1 disorder Hyperparathyroidism Suicidal ideations Cataract Seasonal allergies Anxiety Depression HTN (hypertension) Sciatic leg pain Family History Family history of problems with anesthesia: No (? mom to wake) Surgical History Surgical History Hx of colonoscopy History of surgery (2014) History of tonsillectomy History of Problems with Anesthesia: No Social History Social History Household Members: Significant Other Housing: Apartment Are you a primary lawn care professional to a significant other at home: No Do you presently have visiting nurse or other home services: No Alcohol intake: current Alcohol intake frequency: does not drink Alcohol type: wine Comment: COUNTS CORRECT Patient Tobacco Use Status: Never used Tobacco e-Cigarette/Vaping Use: Currently Using Substance Use Type: Marijuana Meds Allergies Allergy/AdvReac Type Severity Reaction Status Date / Time No Known Allergies Allergy Verified 06/04/23 06:13 Home Medications Medication Instructions Recorded Confirmed Last Taken Type aripiprazole 5 mg tablet (Abilify) 5 mg PO DAILY 01/23/23 06/04/23 06/04/23 05:30 History cholecalciferol (vitamin D3) 50 100 mcg PO DAILY 01/23/23 06/04/23 06/03/23 History mcg (2,000 unit) capsule escitalopram oxalate 10 mg tablet 10 mg PO DAILY 01/23/23 06/04/23 06/04/23 05:30 History (Lexapro) lamotrigine 150 mg tablet 300 mg PO DAILY 01/23/23 06/04/23 06/04/23 05:30 History (Lamictal) loratadine 10 mg tablet (Claritin) 10 mg PO DAILY 01/23/23 06/04/23 06/04/23 05:30 History losartan 100 mg tablet 100 mg PO DAILY 01/23/23 06/04/23 06/03/23 07:30 History metoprolol succinate 100 mg 100 mg PO DAILY 01/23/23 06/04/23 06/04/23 05:30 H istory tablet,extended release 24 hr acetaminophen 500 mg tablet 1,000 mg PO Q6H PRN Pain 05/29/23 06/04/23 06/03/23 18:00 History clonazepam 1 mg tablet 0.5 mg PO DAILY PRN Anxiety 05/29/23 06/04/23 05/28/23 History diphenhydramine HCl 50 mg capsule 50 mg PO Q6H PRN Pain 05/29/23 06/04/23 06/03/23 18:00 History gabapentin 300 mg capsule 300 mg PO BID 05/29/23 06/04/23 06/04/23 05:30 History ibuprofen 600 mg tablet 600 mg PO Q6H PRN Pain 05/29/23 06/04/23 06/03/23 18:00 History Exam Height,Weight and Vital Signs: Height 5 ft 1 in Weight 106.594 kg Last Vital Signs Pulse 66 05/29/23 13:17 Resp 16 05/29/23 13:17 BP 189/85 H 05/29/23 13:17 Pulse Ox 94 05/29/23 13:17 O2 Del Method Room Air 05/29/23 13:17 Pertinent Lab Results Pertinent Lab Results: Lab Results 02/23/24 Range/Units 14:14 WBC 11.1 H (4.8-10.8) X10*3/uL RBC 4.56 (4.20-5.50) X10*6/uL Hgb 14.3 (12.0-16.0) g/dl Hct 42.5 (37.0-47.0) % MCV 93.2 (80.0-98.0) fL MCH 31.4 (27.0-33.0) pg MCHC 33.6 (31.0-35.0) g/dl RDW 12.6 (11.0-16.0) % Plt Count 331 (160-400) X10*3/uL MPV 9.0 L (9.4-12.3) fL Absolute Nucleated RBC 0.000 (0.0-0.012) X10*3/uL Nucleated RBC % (auto) 0.0 (0.0-0.2) /100WBC Sodium 142 (135-145) mmol/L Potassium 4.0 (3.3-5.1) mmol/L Chloride 102 (96-108) mmol/L Carbon Dioxide 35 H (22-29) mmol/L Anion Gap 9 L (12-20) BUN 17 H (9-16) mg/dL Creatinine 0.76 (0.5-1.4) mg/dL Estim Creat Clear Calc 96.3 Estimated GFR > 60 Random Glucose 137 H (60-115) mg/dL Estimat Average Glucose 140 mg/dL Hemoglobin A1c % 6.5 H (<6.0) % Calcium 12.0 H (8.4-10.2) mg/dL Phosphorus 2.8 (2.7-4.5) mg/dL Magnesium 1.8 (1.6-2.6) mg/dL Total Bilirubin 0.4 (0.0-1.0) mg/dL AST 17 (5-31) U/L ALT 31 (0-31) U/L Alkaline Phosphatase 75 (39-117) U/L Total Protein 7.3 (6.5-8.0) g/dL Albumin 4.3 (3.5-5.0) g/dL 25-OH Vitamin D Total 34.7 (>30) ng/mL Narrative Narrative: EKG 03/2023 normal sinus rhythm with normal EKG ECHO 04/2023 Conclusions: - The left ventricular systolic function is normal. The calculated ejection fraction is 68% by biplane method. - No obvious valvular pathology seen on this study. NM rosy perf SPECT rest & str 04/2023 Impression: 1. Myocardial perfusion imaging study shows no clear evidence of any ischemia or infarction. Probably normal perfusion. 2. Gated LVEF is 71% during stress. Visually normal during rest. 3. Transient ischemic dilatation not present. EKG component of the test reported separately. Airway Mallampati Class: III (small mouth) TM Dist: <=3cm Neck ROM: Full Loose/Missing/Broken Teeth: Yes (molars slightly loose d/t gum disease, 2 x crowned molars) Heart: RRR Lungs: CTAB Assessment and Plan Assessment Anesthesia Assessment: Anesthesia Plan Discussed and PAT Visit Final Anesthetic Review Family History of Problems with Anesthesia: No (? mom to wake) History of Problems with Anesthesia: No
[2023-05-29 14:45] LABS: Hematocrit 42.5 % (37.0-47.0); Hemoglobin 14.3 g/dl (12.0-16.0); Mean Corpuscular HGB Conc 33.6 g/dl (31.0-35.0); Mean Corpuscular Hemoglobin 31.4 pg (27.0-33.0); Mean Corpuscular Volume 93.2 fL (80.0-98.0); Platelet Count 331 X10*3/uL (160-400); Red Blood Count 4.56 X10*6/uL (4.20-5.50); Red Cell Distribution Width 12.6 % (11.0-16.0); White Blood Count 11.1 X10*3/uL (4.8-10.8)
[2023-05-29 15:00] LABS: Estimated Average Glucose 140 mg/dL; Hemoglobin A1c % 6.5 % (<6.0)
[2023-05-29 15:44] LABS: Alanine Aminotransferase 31 U/L (0-31); Albumin Level 4.3 g/dL (3.5-5.0); Alkaline Phosphatase 75 U/L (39-117); Anion Gap 9 (12-20); Aspartate Amino Transferase 17 U/L (5-31); Bilirubin Total 0.4 mg/dL (0.0-1.0); Blood Urea Nitrogen 17 mg/dL (9-16); Carbon Dioxide 35 mmol/L (22-29); Chloride 102 mmol/L (96-108); Creatinine Clr Calc Pharmacy 96.3; Estimated Glomerular Filt Rate > 60; Glucose Random 137 mg/dL (60-115); Sodium 142 mmol/L (135-145); Total Protein 7.3 g/dL (6.5-8.0)
[2023-05-29 16:00] LABS: Vitamin D 25-OH Total 34.7 ng/mL (>30)
[2023-05-29 20:23] LABS: Magnesium 1.8 mg/dL (1.6-2.6); Phosphorus 2.8 mg/dL (2.7-4.5)
--- NOTE | 2023-06-03 13:16 | MHC.SHP ---
Pre-Procedural Eval Section A - 24 Hr Update-Section A only Date of Service: 06/03/23 The patient is an INPATIENT: No Changes since office visit: No Cold of Flu in the past 2 weeks, No New Medical Problems, No Changes in Medication and No Patient answered all questions The patient has been examined within 24 hours of the surgical procedure. The History & Physical has been completed within 30 days and I have reviewed it.: Yes Section B - Complete if H&P > 30 days Chief Complaint: Benign neoplasm of parathyroid gland,hypercalcemia Allergies: Allergies Allergy/AdvReac Type Severity Reaction Status Date / Time No Known Allergies Allergy Verified 05/29/23 13:12 Plan I have reviewed the history and physical and performed a pertinent physical examination on my patient. No changes have occurred unless specified. Time Spent With Patient Time: Total time managing care of this patient today ____ minutes.
[2023-06-04] VITALS (13 sets, daily range): BP systolic 141–188; BP diastolic 83–98; PULSE 59–95; RESP 16–20; TEMP 36–36.3; O2SAT 93–97; BMI 46.5
[2023-06-04 06:26] LABS: Glucose, Whole Blood 157 mg/dL (60-115)
[2023-06-04] MEDS: Lactated Ringers 1,000 ML 100 ML IVCONT ×2 (06:47→15:51)
--- NOTE | 2023-06-04 07:27 | MHC.SHP ---
Pre-Procedural Eval Section A - 24 Hr Update-Section A only Date of Service: 06/04/23 The patient is an INPATIENT: No Changes since office visit: No Cold of Flu in the past 2 weeks, No New Medical Problems, No Changes in Medication and No Patient answered all questions The patient has been examined within 24 hours of the surgical procedure. The History & Physical has been completed within 30 days and I have reviewed it.: Yes Section B - Complete if H&P > 30 days Chief Complaint: Benign neoplasm of parathyroid gland,hypercalcemia Details of Present Illness: Left inferior parathyroid adenoma Relevant Family History (Specify if Yes): No Relevant Social History: None Present Medications: see Short Stay Collaborative assessment Medical History: No relevant PMH History of Previous Operations: No relevant previous surgery Allergies: Allergies Allergy/AdvReac Type Severity Reaction Status Date / Time No Known Allergies Allergy Verified 06/04/23 06:13 Review of Systems Sugical H&P ROS: Negative: Constitution, Cardiovascular, Respiratory, Neurological, Psychiatric, Hem-Onc, Allergic/Immunologic, Gastrointestinal, Genitourinary, Musculoskeletal, Integumentary, Endocrine and Eyes/Ears/Nose/Throat Exam Surgical H&P Exam: Normal: Heart, Normal: Lungs and Normal: Abdomen Plan Diagnosis/Plan: Unchanged I have reviewed the history and physical and performed a pertinent physical examination on my patient. No changes have occurred unless specified. Time Spent With Patient Time: Total time managing care of this patient today ____ minutes.
--- NOTE | 2023-06-04 07:30 | PC.NURSE ---
Patient in preop. Last office note from Dr. Hamlin discussed PTH levels to be drawn day of surgery. Dr. Hamlin at bedside. New verbal order for PTH level to be drawn preop as well as repeat PTH level 10 minutes after parathyroid removal. Orders put in. Undergraduate Intern at bedside. Multiple green top no gel vials sent into OR with Anesthesiologist Dr. Fontenot for her to obtain. Verbal order from Dr. Fontenot for Calcium draw post parathyroid removal. Order put in and correct vial for this also sent into OR with her. OR nurse Mony Cruz made aware. All vials to be labeled with patient label, time, date, and pneumonics, as well as collected in computer when complete.
[2023-06-04 08:08] LABS: PTH Intact Intraoperative 133.2 pg/mL (8.7-77.1)
[2023-06-04 09:35] LABS: Calcium 9.7 mg/dL (8.4-10.2)
--- NOTE | 2023-06-04 09:37 | P.CONAN_ITS ---
[facility] Active Problems Active Problems: All Active Problems (Updated 05/29/23 @ 13:15 by Samantha Sandoval RN) Pre-operative cardiovascular examination (Acute) SOB (shortness of breath) on exertion (Acute) Parathyroid adenoma (Acute) Hypercalcemia (Acute) HTN (hypertension) (Acute) SANTI on CPAP (Acute) Past Medical History Medical History History of electroconvulsive therapy Sleep apnea Type 2 diabetes mellitus Snoring Rosacea Iliotibial band syndrome, right leg Mitral valve prolapse Asymptomatic menopausal state Mitral valve disorder Neuralgia of both lower extremities Leg heaviness Morbid obesity Tendinosis of rotator cuff Vitamin D deficiency SANTI on CPAP Localized edema Chronic kidney disease, stage 3a PTSD (post-traumatic stress disorder) Bipolar 1 disorder Hyperparathyroidism Suicidal ideations Cataract Seasonal allergies Anxiety Depression HTN (hypertension) Sciatic leg pain Functional capacity: independent ambulation Family History Family history of problems with anesthesia: No (? mom to wake) Surgical History Surgical History Hx of colonoscopy History of surgery (2014) History of tonsillectomy History of Problems with Anesthesia: No Social History Social History Are you a primary plant health care technician to a significant other at home: No Do you presently have visiting nurse or other home services: No Alcohol intake: current Alcohol intake frequency: does not drink Alcohol type: wine Patient Tobacco Use Status: Never used Tobacco Use of substances other than those prescribed or required for medical reasons: Yes Substance Use Type: Marijuana Substance Use Type Other:: vapes marijuana 3 x week Substance Use Frequency: Weekly Have you been hit, kicked, punched, or otherwise hurt by someone within the past year? If so, by whom?: No Are you DNR?: No Advance Directives: No Advance Directives Information Provided: Yes Advance Directives on File: No Recently lost weight without trying: No Nutrition Risks: No Nutritional Risk Patient : No : No Poor oral hygiene: No Meds Allergies Allergy/AdvReac Type Severity Reaction Status Date / Time No Known Allergies Allergy Verified 06/04/23 06:13 Active Medications: Current Medications Lactated Ringer's (Lr) 1,000 mls @ 100 mls/hr IVCONT .Q10H ARIADNA Last Admin: 06/04/23 06:47 Dose: 100 mls/hr Home Medications Medication Instructions Recorded Confirmed Last Taken Type aripiprazole 5 mg tablet (Abilify) 5 mg PO DAILY 01/23/23 06/04/23 06/04/23 05:30 History cholecalciferol (vitamin D3) 50 100 mcg PO DAILY 01/23/23 06/04/23 06/03/23 History mcg (2,000 unit) capsule escitalopram oxalate 10 mg tablet 10 mg PO DAILY 01/23/23 06/04/23 06/04/23 05:30 History (Lexapro) lamotrigine 150 mg tablet 300 mg PO DAILY 01/23/23 06/04/23 06/04/23 05:30 History (Lamictal) loratadine 10 mg tablet (Claritin) 10 mg PO DAILY 01/23/23 06/04/23 06/04/23 05:30 History losartan 100 mg tablet 100 mg PO DAILY 01/23/23 06/04/23 06/03/23 07:30 History metoprolol succinate 100 mg 100 mg PO DAILY 01/23/23 06/04/23 06/04/23 05:30 History tablet,extended release 24 hr acetaminophen 500 mg tablet 1,000 mg PO QID PRN Pain 05/29/23 06/04/23 06/03/23 18:00 History clonazepam 1 mg tablet 0.5 mg PO DAILY PRN Anxiety 05/29/23 06/04/23 05/28/23 History diphenhydramine HCl 50 mg capsule 50 mg PO TID PRN Pain 05/29/23 06/04/23 06/03/23 18:00 History gabapentin 300 mg capsule 300 mg PO BID 05/29/23 06/04/23 06/04/23 05:30 History ibuprofen 600 mg tablet 600 mg PO Q8H PRN Pain 05/29/23 06/04/23 06/03/23 18:00 History Exam Height,Weight and Vital Signs: Height 5 ft 1 in Weight 111.674 kg Last Vital Signs Temp 97.1 F 06/04/23 06:32 Pulse 73 06/04/23 06:32 Resp 16 06/04/23 06:32 BP 188/98 H 06/04/23 06:32 Pulse Ox 97 02/29/24 06:32 O2 Del Method Room Air 06/04/23 06:32 Pertinent Lab Results Pertinent Lab Results: Laboratory Tests 05/29/23 06/04/23 06/04/23 14:14 06:21 07:44 WBC 11.1 H RBC 4.56 Hgb 14.3 Hct 42.5 MCV 93.2 MCH 31.4 MCHC 33.6 RDW 12.6 Plt Count 331 MPV 9.0 L Absolute Nucleated RBC 0.000 Nucleated RBC % (auto) 0.0 Sodium 142 Potassium 4.0 Chloride 102 Carbon Dioxide 35 H Anion Gap 9 L BUN 17 H Creatinine 0.76 Estim Creat Clear Calc 96.3 Estimated GFR > 60 POC Glucose 157 H Random Glucose 137 H Estimat Average Glucose 140 Hemoglobin A1c % 6.5 H Calcium 12.0 H Phosphorus 2.8 Magnesium 1.8 Total Bilirubin 0.4 AST 17 ALT 31 Alkaline Phosphatase 75 Total Protein 7.3 Albumin 4.3 25-OH Vitamin D Total 34.7 PTH Intact Intraop 133.2 H 06/04/23 09:18 WBC RBC Hgb Hct MCV MCH MCHC RDW Plt Count MPV Absolute Nucleated RBC Nucleated RBC % (auto) Sodium Potassium Chloride Carbon Dioxide Anion Gap BUN Creatinine Estim Creat Clear Calc Estimated GFR POC Glucose Random Glucose Estimat Average Glucose Hemoglobin A1c % Calcium 9.7 D Phosphorus Magnesium Total Bilirubin AST ALT Alkaline Phosphatase Total Protein Albumin 25-OH Vitamin D Total PTH Intact Intraop Airway Mallampati Class: IV TM Dist: >3cm Neck ROM: Full Heart: RRR Lungs: CTA Assessment and Plan Assessment Anesthesia Assessment: Anesthesia Plan Discussed Final Anesthetic Review Family History of Problems with Anesthesia: No (? mom to wake) History of Problems with Anesthesia: No ASA Class: III Final Preanesthetic Review: Meds/Allgs Chart Reviewed, Consent Obtained/Reviewed and Anes Risks/Benef Reviewed Patient Risk: Intermediate Procedure Risk: Intermediate Anesthetic Plan Anesthetic Plan: GA Disposition: Standard PACU
[2023-06-04 09:48] LABS: PTH Intact Intraoperative 176.7 pg/mL (8.7-77.1)
[2023-06-04 10:18] LABS: PTH Intact Intraoperative 183.1 pg/mL (8.7-77.1)
[2023-06-04 11:18] LABS: PTH Intact Intraoperative 54.5 pg/mL (8.7-77.1)
--- NOTE | 2023-06-04 11:32 | W.PM.OPN ---
Operative Note Operative Note Date of Service: 06/04/23 Narrative: Preoperative diagnosis: Left inferior parathyroid adenoma Postop diagnosis: Same Procedure [] neck exploration, left inferior parathyroid resection, incidental excision of left lower lobe lateral thyroid mass. Surgeon: [] Boubacar Brand Recorder: [] Leland Sultana Anesthesia; general Findings: [] Patient had incidental finding of a left upper lobe thyroid mass. Using intraop localizer device, this initially identified with the probe as highly active area which was thought to be the parathyroid adenoma.. This was resected and a frozen section demonstrated the above. Next the left inferior parathyroid adenoma was identified in the retro parathyroid area in proximity to the left carotid sheath. During intubation and extubation, patient had symmetrical vocal cord motion. Intraoperative parathyroid assay demonstrated marked decrease to a normal level once the parathyroid adenoma was removed with a 10 minute wake for blood draw. Procedure; patient brought to the operating room, placed on operative table supine position, after adequate level of general anesthesia was induced, patient had a shoulder roll placed, neck extended, and the premarked area, sestamibi scan was identified. Neck and upper chest area were prepped and draped in usual sterile fashion. Using a transverse incision approximately 2 fingerbreadths above the sternal notch, this carried down through skin, subcutaneous tissue, down to platysma. Superior and inferior skin flaps were developed to the level of the thyroid cartilage and sternal notch respectively. Linea cervicalis was identified and opened. Strap muscles were retracted laterally. Left lobe of thyroid was brought onto the field. Left thyroid middle vein was isolated, skeletonized, and ligated proximally and distally with 2-0 silk ties, and transected. Using the Manuela counter probe which identified a hot spot in the left lower lobe part of the thyroid gland which was initially felt to be the parathyroid adenoma. During mobilization, left recurrent laryngeal in general nerve was identified and preserved throughout the procedure. This ?hot area ?was transected using clamps and tied using 2-0 silk ties, and sent for frozen section which demonstrated a thyroid nodule and not the parathyroid. Further exploration including the along the left carotid sheath demonstrated the pathologic left inferior parathyroid adenoma. This was circumferentially bluntly dissected down and uneventfully excised. Frozen section confirmed parathyroid adenoma. Once this was excised, and parathyroid hormone redrawn, there was a precipitous drop to a normal level of the parathyroid hormone compared to the pre surgery level.. Neck wound was irrigated and secured hemostasis. The wound Was closed in the following manner; linea cervicalis was reapproximated using running 2-0 Vicryl suture. Platysma muscle was closed using interrupted 3-0 Vicryl sutures. Interrupted inverted deep dermal 3-0 Vicryl sutures followed by running subcuticular 4-0 Vicryl sutures were placed. Steri-Strips and sterile dressings were applied. Wound was infiltrated 0.5% Marcaine at completion. EBL minimal Sponge, needle, and instrument counts reported correct. Patient tolerated the procedure well and emerged from anesthesia uneventfully. Both on initial intubation and Upon extubation, symmetrical bilateral vocal cord motion was demonstrated.
[2023-06-04] MEDS: Acetaminophen 1,000 MG/100 ML PIGGYBACK 400 MG IV ×2 (11:53→18:14)
--- NOTE | 2023-06-04 14:18 | PHA.MEDREC ---
Pharmacy Consult ? Medication Reconciliation Pharmacy has completed the medication reconciliation. Use pharmacy claims and spoke with patient. Patient is on a pain cocktail containing bendyl, tylenol, and ibuprofen Q6H.
[2023-06-04] MEDS: HYDROmorphone HCl 0.5 MG/0.5 ML SYRINGE IVPUSH (15:50)
[2023-06-04] MEDS: 0.9 % Sodium Chloride Flush 3 ML SYRINGE IVFLUSH (15:51)
[2023-06-04] MEDS: Docusate Sodium 100 MG CAPSULE PO (19:27)
[2023-06-04] MEDS: Gabapentin 300 MG CAPSULE PO (19:27)
[2023-06-04 20:44] LABS: Calcium 9.8 mg/dL (8.4-10.2)
[2023-06-05] MEDS: Acetaminophen 1,000 MG/100 ML PIGGYBACK 400 MG IV ×2 (00:08→05:55)
[2023-06-05] MEDS: Lactated Ringers 1,000 ML 100 ML IVCONT (02:02)
[2023-06-05 03:32] VITALS: BP 149/71; PULSE 79; RESP 18; TEMP 36.8; O2SAT 94
[2023-06-05 06:09] LABS: MANUAL DIFF FLAG NO
[2023-06-05 06:13] LABS: Basophils Percent Auto 0.2 % (0-2); Hematocrit 36.6 % (37.0-47.0); Hemoglobin 12.1 g/dl (12.0-16.0); Imm Gran Abs Auto 0.04 X10*3/uL (0.00-0.03); Imm Gran Pct Auto 0.3 % (0.0-0.4); Lymphocytes Absolute Auto 1.7 X10*3/uL (1.2-4.9); Lymphocytes Percent Auto 13.9 % (20-40); Mean Corpuscular HGB Conc 33.1 g/dl (31.0-35.0); Mean Corpuscular Hemoglobin 31.6 pg (27.0-33.0); Mean Corpuscular Volume 95.6 fL (80.0-98.0); Mean Platelet Volume 9.3 fL (9.4-12.3); Monocytes Absolute Auto 0.8 X10*3/uL (0.1-1.2); Monocytes Percent Auto 6.7 % (2-11); Neutrophils Absolute Auto 9.5 x10*3/uL (2.0-8.3); Neutrophils Percent Auto 78.9 % (45-73); Platelet Count 282 X10*3/uL (160-400); Red Blood Count 3.83 X10*6/uL (4.20-5.50); Red Cell Distribution Width 12.8 % (11.0-16.0); White Blood Count 12.1 X10*3/uL (4.8-10.8)
[2023-06-05 06:25] LABS: Anion Gap 14 (12-20); Blood Urea Nitrogen 17 mg/dL (9-16); Calcium 9.7 mg/dL (8.4-10.2); Carbon Dioxide 28 mmol/L (22-29); Chloride 104 mmol/L (96-108); Creatinine Clr Calc Pharmacy 112.4; Estimated Glomerular Filt Rate > 60; Glucose Fasting 181 mg/dL (60-99); Potassium 4.1 mmol/L (3.3-5.1); Sodium 142 mmol/L (135-145)
[2023-06-05 07:11] VITALS: BP 155/73; PULSE 81; RESP 18; TEMP 36.3; O2SAT 92
--- NOTE | 2023-06-05 07:39 | P.PNGS_ITS ---
Subjective Subjective Date of Service: 06/05/23 Interval history: Feels well this morning. Mild incisional pain. Tolerating solid diet. OOB to bathroom. Overall feels well and denies hoarseness but mild throat discomfort from ET tube. Physical Exam 2 Vital Signs: Vital Signs: Last Vital Signs Temp 97.3 F 06/05/23 07:11 Pulse 81 06/05/23 07:11 Resp 18 06/05/23 07:11 BP 155/73 H 06/05/23 07:11 Pulse Ox 92 06/05/23 07:11 O2 Del Method Room Air 06/05/23 07:11 O2 Flow Rate 2 06/04/23 19:32 BMI result Body Mass Index 46.5 Const: General: comfortable, no acute distress and alert O rientation/consciousness: patient oriented x3 Neck: Other: incision clean, steris intact, no edema or erythema, no evidence of hematoma Neck: Yes trachea midline and Yes no JVD Resp: Effort & Inspection: normal respiratory effort Skin: General skin exam: no rashes or lesions noted Neuro: General: patient oriented x3 and moves all extremities Objective Data Active Medications Al Hydroxide/Mg Hydroxide (Magnesium Hydrox/Alum Hydrox 30 Ml Oral.Susp) 30 ml PO Q4H PRN PRN Reason: Heartburn/Nausea Aripiprazole (Aripiprazole 5 Mg Tablet) 5 mg PO DAILY [facility] Clonazepam (Clonazepam 0.5 Mg Tablet) 0.5 mg PO DAILY PRN PRN Reason: Anxiety Docusate Sodium (Docusate Sodium 100 Mg Capsule) 100 mg PO BID [facility] Last Admin: 06/04/23 19:27 Dose: 100 mg Documented By: RENETTA Escitalopram Oxalate (Escitalopram Oxalate 10 Mg Tablet) 10 mg PO DAILY [facility] Gabapentin (Gabapentin 300 Mg Capsule) 300 mg PO BID [facility] Last Admin: 06/04/23 19:27 Dose: 300 mg Documented By: RENETTA Hydromorphone HCl (Hydromorphone Hcl 0.5 Mg/0.5 Ml Syringe) 0.5 mg IVPUSH Q3H PRN; Protocol PRN Reason: Pain, Severe (Pain Scale 7-10) Last Admin: 06/04/23 15:50 Dose: 0.5 mg Documented By: RENETTA Lactated Ringer's (Lr) 1,000 mls @ 100 mls/hr IVCONT .Q10H [facility] Last Admin: 06/05/23 02:02 Dose: 100 mls/hr Documented By: WIL Acetaminophen (Ofirmev) 1,000 mg in 100 mls @ 400 mls/hr IV Q6H [facility] Last Infusion: 06/05/23 06:19 Dose: Infused Documented By: WIL Lamotrigine (Lamotrigine 100 Mg Tablet) 300 mg PO DAILY [facility] Losartan Potassium (Losartan Potassium 50 Mg Tablet) 100 mg PO DAILY [facility]; Protocol Melatonin (Melatonin 3 Mg Tablet) 6 mg PO BEDTIME PRN PRN Reason: Insomnia Metoprolol Succinate (Metoprolol Succinate Er 100 Mg Tab.Er.24h) 100 mg PO DAILY [facility]; Protocol Ondansetron HCl (Ondansetron Hcl 4 Mg/2 Ml Vial) 4 mg IVPUSH Q8H PRN PRN Reason: Nausea and Vomiting Oxycodone HCl (Oxycodone Hcl Immed Release 5 Mg Tablet) 5 mg PO Q4H PRN PRN Reason: Pain, Moderate(Pain Scale 4-6) Sodium Chloride (0.9 % Sodium Chloride Flush 3 Ml Syringe) 3 ml IVFLUSH QSHIFT [facility] Last Admin: 06/05/23 00:13 Dose: Not Given Documented By: WIL Non-Admin Reason: IV Running Labs 06/05/23 05:31 06/05/23 05:31 Labs: Laboratory Results - last 24 hr 06/04/23 06/04/23 06/04/23 07:44 09:18 09:53 MCV MCH MCHC RDW Plt Count MPV Immature Gran % (Auto) Neut % (Auto) Lymph % (Auto) [place] % (Auto) Eos % (Auto) Baso % (Auto) Lymph # (Auto) [place] # (Auto) Eos # (Auto) Baso # (Auto) Abs Immat Gran (auto) Absolute Neuts (auto) Absolute Nucleated RBC Nucleated RBC % (auto) Anion Gap Estim Creat Clear Calc Estimated GFR Fasting Glucose Calcium 9.7 D PTH Intact Intraop 133.2 H 176.7 H 183.1 H 06/04/23 06/04/23 06/05/23 10:52 20:29 05:31 MCV 95.6 MCH 31.6 MCHC 33.1 RDW 12.8 Plt Count 282 MPV 9.3 L Immature Gran % (Auto) 0.3 Neut % (Auto) 78.9 H Lymph % (Auto) 13.9 L [place] % (Auto) 6.7 Eos % (Auto) 0.0 Baso % (Auto) 0.2 Lymph # (Auto) 1.7 [place] # (Auto) 0.8 Eos # (Auto) 0.0 Baso # (Auto) 0.0 Abs Immat Gran (auto) 0.04 H Absolute Neuts (auto) 9.5 H Absolute Nucleated RBC 0.000 Nucleated RBC % (auto) 0.0 Anion Gap 14 Estim Creat Clear Calc 112.4 Estimated GFR > 60 Fasting Glucose 181 H Calcium 9.8 9.7 PTH Intact Intraop 54.5 Procedures Date of Service Date of Service: 06/05/23 Progress Note: A&P Assessment and plan (1) S/P parathyroidectomy: Status: Acute Plan POD #1 s/p neck exploration, left inferior parathyroid resection, incidental excision of left lower lobe lateral thyroid mass. Doing well post op, mild incisional pain. Incision clean without evidence of hematoma. AM labs reveiwed- calcium remains stable and WNL. Stable for dc to home today. F/u in office in 1 week. Patient comfortable with plan. Time Spent With Patient Time: Total time managing care of this patient today ____ minutes. Quality Stroke Does the patient have a stroke diagnosis?: No VTE Prior VTE?: No VTE Risk Level:: Surgical - moderate VTE Device Contraindication: N/A - Device Ordered VTE Drug Contraindication: N/A - Med Ordered
[2023-06-05] MEDS: Metoprolol Succinate ER 100 MG TAB.ER.24H PO (08:35)
[2023-06-05] MEDS: Losartan Potassium 50 MG TABLET 100 MG PO (08:35)
[2023-06-05] MEDS: Escitalopram Oxalate 10 MG TABLET PO (08:35)
[2023-06-05] MEDS: Docusate Sodium 100 MG CAPSULE PO (08:35)
[2023-06-05] MEDS: Gabapentin 300 MG CAPSULE PO (08:35)
[2023-06-05] MEDS: lamoTRIgine 100 MG TABLET 300 MG PO (08:35)
[2023-06-05] MEDS: ARIPiprazole 5 MG TABLET PO (08:36)
--- NOTE | 2023-06-05 09:56 | MHC.CM.PN ---
CM ATTEMPTED TO SEE PT WHO WAS RECEIVING RN CARE WHEN CM RETURNED, PT HAD DISCHARGED PT DISCHARGED HOME WITH NO SERVICES VIA PRIVATE TRANSPORT
--- NOTE | 2023-06-05 15:04 | HO.POSTANES ---
Post Anesthesia Evaluation Post Anesthesia Evaluation Date of Service: 06/05/23 Vital Signs: Vital Signs Temp Pulse Resp BP Pulse Ox O2 Del Method 06/05/23 07:11 97.3 F 81 18 155/73 H 92 Room Air 06/05/23 03:32 98.3 F 79 18 149/71 H 94 CPAP Anesthesia: General Endotracheal-GETA Mental Status: Awake Pain Control: Satisfactory Nausea/Vomiting: None Hydration: Adequate Anesthesia-Related Issues: No Anes. Related Issues
--- NOTE | 2023-06-09 09:10 | PM.DS ---
DS: Providers Provider Date of Service: 06/05/23 Date of discharge: 06/05/23 Primary care physician: Cindy Llamas NP Attending physician on admission: Troy Hamlin Attending physician on discharge: Troy Hamlin DS: Diagnosis Discharge Diagnosis (1) S/P parathyroidectomy: Status: Acute DS: Summary Hospital Course Hospital Course: HPI AT ADMISSION: Patient presents for follow-up. We have received all her paperwork and credentials from her [place] facility regarding her left inferior parathyroid adenoma. Extensive discussion was had regarding risks, benefits and alternatives of left inferior parathyroidectomy which included but not limited to bleeding, infection, recurrence, numbness, pain, scarring, recurrent laryngeal nerve injury (with hoarseness) and the patient wishes to proceed. All questions were answered. The meantime, the hospital laboratory is in the process of obtaining a rapid PTH assay test. At the earliest, this may take approximately 2 weeks time to have this at the facility. The reason for the this availability is important for surgery because at the initial time of induction, patient will have a PTH level drawn and post tumor excision, approximately 15 minutes later a repeat value will be obtained to document reduction in PTH level, help to confirm that adenoma was removed. Consideration will also be made for day prior sestamibi/isotope injection to allow probe a identification of parathyroid adenoma at the time of surgery. HOSPITAL COURSE: On 06/04/23, neck exploration, left inferior parathyroid resection, incidental excision of left lower lobe lateral thyroid mass was performed by Dr. Hamlin without immediate complication. Frozen section confirmed parathyroid adenoma and parathyroid hormone was redrawn post excision and there was a precipitous drop to a normal level of the parathyroid hormone compared to the pre surgery level. The patient tolerated the procedure well and was admitted post operatively for observation. She had an uncomplicated recovery course. On POD #1, she felt well with mild incisional pain. She denied any hoarseness or throat pain. She was tolerating a solid diet. She was ambulating without difficulty. Her incision was clean. Her labs were WNL and calcium was stable. She felt ready for discharge. She was discharged to home on 06/05/23 in stable condition. She is to follow up with Dr. Hamlin in the office in 1 week. Status at Discharge Functional status at discharge: independent ambulation Overall status at discharge: patient is progressing back to baseline Time Attestation Discharge Coordination Time: discharge time of ____ minutes Quality: Safe Use of Opioids Does Pt have an Active Cancer Diagnosis on the Problem List?: No Quality: Stroke Does the patient have a stroke diagnosis?: No Physical Exam Vital Signs: Vital Signs: Last Vital Signs Temp 97.3 F 06/05/23 07:11 Pulse 81 06/05/23 07:11 Resp 18 06/05/23 07:11 BP 155/73 H 06/05/23 07:11 Pulse Ox 92 06/05/23 07:11 O2 Del Method Room Air 06/05/23 07:11 O2 Flow Rate 2 06/04/23 19:32 BMI result Body Mass Index 46.5 Const: General: comfortable, no acute distress, well developed and alert Orientation/consciousness: patient oriented x3 Neck: Other: incision clean and dry Resp: Effort & Inspection: normal respiratory effort, able to speak in complete sentences and no respiratory distress Cardio: Rate: regular rate Skin: General skin exam: no rashes or lesions noted and no jaundice Neuro: General: patient oriented x3 and moves all extremities DS: Data Data Completed and Pending Completed studies during hospitalization [Text1]: 06/04/23 09:09 Surgical [PTH] Stat A. Labeled left inferior parathyroid , excision: Benign thyroid tissue; no parathyroid present. B. Labeled tissue status post left parathyroidectomy , excision: Benign thyroid tissue; no parathyroid present. C. Labeled left inferior parathyroid #2 , excision: Fibrovascular and adipose tissue; no parathyroid present. D. Labeled left inferior parathyroid #3 , excision: Hypercellular parathyroid consistent with parathyroid adenoma. Pending studies at discharge: Pending at discharge 06/04/23 09:44 Surgical [PTH] Routine 06/04/23 10:35 Surgical [PTH] Stat 06/04/23 10:44 Surgical [PTH] Stat Discharge Plan Discharge Patient Disposition: Home, Self-Care Referrals: Cindy Llamas NP [Primary Care Provider] - 1 Week Troy Hamlin MD [Physician] - 1 Week Discharge Medications: New docusate sodium [Colace] 100 mg capsule 100 mg PO BID PRN (Reason: constipation) Qty: 30 0RF oxycodone 5 mg tablet 5 mg PO Q4H PRN (Reason: pain (scale score 7-10)) Qty: 24 0RF Rx Instructions: Partial Fill upon patient request. Continued diphenhydramine HCl 50 mg Capsule 50 mg PO Q6H PRN (Reason: Pain) clonazepam 1 mg tablet 0.5 mg PO DAILY PRN (Reason: Anxiety) acetaminophen 500 mg Tablet 1,000 mg PO Q6H PRN (Reason: Pain) gabapentin 300 mg capsule 300 mg PO BID ibuprofen 600 mg Tablet 600 mg PO Q6H PRN (Reason: Pain) losartan 100 mg tablet 100 mg PO DAILY metoprolol succinate 100 mg tablet extended release 24 hr 100 mg PO DAILY escitalopram oxalate [Lexapro] 10 mg tablet 10 mg PO DAILY aripiprazole [Abilify] 5 mg tablet 5 mg PO DAILY lamotrigine [Lamictal] 150 mg tablet 300 mg PO DAILY cholecalciferol (vitamin D3) 50 mcg (2,000 unit) capsule 100 mcg PO DAILY loratadine [Claritin] 10 mg tablet 10 mg PO DAILY No Action cefuroxime axetil 500 mg tablet 500 mg PO BID Qty: 14 0RF Discharge Orders: Discharge Order (Routine); Ordered 06/05/23 Ordered By: Dipti Ha Diet: Advance to usual diet Activity on Discharge: No heavy lifting Activity Restrictions/Additional Instructions: Apply an ice pack for short intervals (20 minutes on, followed by at least 20 minutes off) for the first 2 days. Do not apply heat. Do not use creams, lotions, or topical antibiotics. These can cause infection or allergic reaction. Ok to shower 48 hours after your surgery. You have steri strips (small white cloth strips) covering your incision- these will fall off ~1 week. Follow up in office with Dr. Hamlin in 1 week. ([phone]) No heavy lifting (>10lbs) or strenuous activity! Call Your Doctor If: -Your temperature exceeds 101.5? F -You experience excessive pain or swelling -You have an unexpected reaction to medication -You have excessive bleeding -You experience continued vomiting/nausea -Your incision begins to separate -Your incision shows signs of infection such as increased redness, swelling, excessive pain, drainage (light blood or clear fluid is normal) or heat Discharge Date/Time: 06/05/23 10:56
== END 2023-06-05 10:56 | disposition home or self-care (01) ==
LOC: HO.SSS 05:59 → HO.S3 12:44
PROVIDERS: Anesthesiology; Nurse Practitioner; Physician Assistant Surgical; PCP Nurse Practitioner Family; Visit Provider Surgery
PROC: (CPT 60500; principal; 2023-06-04 07:30)
DX: D35.1 Benign neoplasm of parathyroid gland (principal); E83.52 Hypercalcemia; G47.33 Obstructive sleep apnea (adult) (pediatric); R06.83 Snoring; R06.02 Shortness of breath; F31.9 Bipolar disorder, unspecified; I12.9 Hypertensive chronic kidney disease with stage 1 through stage 4 chronic kidney disease, or unspecified chronic kidney disease; E11.22 Type 2 diabetes mellitus with diabetic chronic kidney disease; N18.31 Chronic kidney disease, stage 3a; R45.851 Suicidal ideations; Z79.1 Long term (current) use of non-steroidal anti-inflammatories (NSAID); Z99.89 Dependence on other enabling machines and devices; Z79.899 Other long term (current) drug therapy
CPT/HCPCS: 60500; 36415; 78070; 80048; 80053; 82306; 82310; 82947; 83036; 83735; 83970; 84100; 85025; 85027; 88161; 88304; 88305; 88331; 88332; A9500; A9516; J0131; J0690; J1100; J1170; J1596; J2250; J2405; J2704; J2795; J3010; J7120

== ENCOUNTER → 2023-06-04 05:58 | Outpatient (BNV) | payer MEDICARE, MEDICAID, SELFPAY | PROVIDERS: PCP Nurse Practitioner Family; Visit Provider Physician Assistant Surgical | DX: Z98.890 Other specified postprocedural states (principal); Z90.89 Acquired absence of other organs | CPT/HCPCS: 60210; 60500; 99024 ==

== ENCOUNTER 2023-06-08 16:25 | Emergency (ER) | payer MEDICARE, MEDICAID, SELFPAY ==
--- NOTE | ~2023-06-08 | XR_ITS ---
EXAMINATION: XR CHEST CLINICAL INFORMATION: Chest pain and shortness of breath. Recent parathyroid surgery COMPARISON: None available. TECHNIQUE: 2 views of the chest were obtained. FINDINGS: Heart and pulmonary vessels appear normal. There is atelectasis/scarring at the left lung base. No infiltrates, effusions or lung masses are seen. Degenerative changes are seen in the spine. XR/XR chest 2V IMPRESSION: No acute intrathoracic disease.
--- NOTE | ~2023-06-08 | CT_ITS ---
EXAMINATION: CT ANGIOGRAM OF THE CHEST WITH AND WITHOUT CONTRAST (CT PULMONARY ANGIOGRAM FOR PE) CLINICAL INFORMATION: Reason for Exam S/p parathyroidectomy 3 days ago, SOB COMPARISON: Chest radiograph earlier today TECHNIQUE: Prior to contrast administration, noncontrast localization images were obtained. Subsequently, multidetector volumetric imaging was performed from the thoracic inlet to below the diaphragms following the administration of 65 mL Omnipaque 350 intravenous contrast. No contrast reaction reported Sagittal, coronal, and MIP oblique sagittal reformatted images were obtained on the CT workstation, uploaded to PACS, and reviewed. This CT examination was performed using dose optimization techniques as appropriate, variously including the following: *Automated exposure control *Adjustment of mA and/or kV according to patient size (this includes techniques or standardized protocols for targeted exams where dose is matched to indication/reason for exam; i.e. extremities or head) *Use of iterative reconstruction technique Total exam dose-length product 352 mGy-cm FINDINGS: QUALITY OF STUDY/CONTRAST BOLUS: Satisfactory. PULMONARY ARTERIES: No pulmonary emboli. THORACIC AORTA: No aneurysm. LUNG: No focal consolidation, nodules or masses. PLEURA: No pleural effusion or pneumothorax. MEDIASTINUM: Normal heart size. No pericardial effusion. No hilar or mediastinal lymphadenopathy. No evidence of septal bowing or right heart strain. CORONARY ARTERY CALCIFICATION: None visualized on this study. CHEST WALL/AXILLA: No axillary or internal mammary lymphadenopathy. OSSEOUS STRUCTURES: No acute or suspicious osseous abnormality. UPPER ABDOMEN: Small hiatal hernia is present. No reflux of contrast into the hepatic veins to suggest elevated right heart pressures. CT/CT angio chest PE protocol IMPRESSION: No evidence of pulmonary emboli. VTE: negative.
[2023-06-08 16:37] VITALS: BP 156/84; PULSE 79; RESP 18; TEMP 37; O2SAT 96; BMI 44.4
--- NOTE | 2023-06-08 16:37 | ED.GENADULT ---
HPI - General Adult General Chief complaint: General Medical Stated complaint: post surgery high bp Time Seen by Provider: 06/08/23 21:09 Source: patient and family (Spouse) Mode of arrival: ambulatory Limitations: no limitations History of Present Illness HPI narrative: This is a 52-year-old female s/p parathyroidectomy 3 days ago, patient was told surgery was uncomplicated just needed hospitalization for overnight patient was discharged with no complaint after the today at known time patient started to have chest pain and heaviness on her chest with exertional dyspnea. Patient declined lower extremity swelling or tenderness. Patient also is complaining of generalized weakness, blood pressure today was high. No fever, no chills, no discharge from the surgery site. Related Data Home Medications ?Medication ?Instructions ?Recorded ?Confirmed aripiprazole 5 mg tablet (Abilify) 5 mg PO DAILY 01/23/23 11/30/23 escitalopram oxalate 10 mg tablet 10 mg PO DAILY 01/23/23 11/30/23 (Lexapro) lamotrigine 150 mg tablet 300 mg PO DAILY 01/23/23 11/30/23 (Lamictal) loratadine 10 mg tablet (Claritin) 10 mg PO DAILY 01/23/23 11/30/23 losartan 100 mg tablet 100 mg PO DAILY 01/23/23 11/30/23 metoprolol succinate 100 mg 100 mg PO DAILY 01/23/23 11/30/23 tablet,extended release 24 hr acetaminophen 500 mg tablet 1,000 mg PO Q6H PRN Pain 05/29/23 11/30/23 clonazepam 1 mg tablet 0.5 mg PO DAILY PRN Anxiety 05/29/23 11/30/23 diphenhydramine HCl 50 mg capsule 50 mg PO Q6H PRN Pain 05/29/23 11/30/23 gabapentin 300 mg capsule 300 mg PO BID 05/29/23 11/30/23 ibuprofen 600 mg tablet 600 mg PO Q6H PRN Pain 05/29/23 11/30/23 tirzepatide 2.5 mg/0.5 mL mg subcut 07/30/23 11/30/23 subcutaneous pen injector (Treva) pregabalin 75 mg capsule (Lyrica) 75 mg PO DAILY 11/30/23 11/30/23 Previous Rx's ?Medication ?Instructions ?Recorded docusate sodium 100 mg capsule 100 mg PO BID PRN constipation #30 06/05/23 (Colace) sera oxycodone 5 mg tablet 5 mg PO Q4H PRN pain (scale score 06/05/23 7-10) #24 tabs cefuroxime axetil 500 mg tablet 500 mg PO BID #14 tabs 06/08/23 cholecalciferol (vitamin D3) 50 100 mcg (2 x 50 mcg (2,000 unit)) 07/30/23 mcg (2,000 unit) capsule PO DAILY #30 caps Allergies Allergy/AdvReac Type Severity Reaction Status Date / Time No Known Allergies Allergy Verified 11/30/23 08:57 Review of Systems Review of Systems: All other systems are reviewed and are negative Constitutional: Reports as per HPI and Reports no additional constitutional complaints Eyes: Reports as per HPI and Reports no additional eye complaints Reports system reviewed and no additional complaints, except as documented Cardiovascular: Reports as per HPI and Reports no additional cardiovascular complaints Respiratory: Reports as per HPI and Reports no additional respiratory complaints Gastrointestinal: Reports as per HPI and Reports no additional gastrointestinal complaints Genitourinary: Reports no additional female genitourinary complaints Musculoskeletal: Reports no additional musculoskeletal complaints Skin/Breast: Reports system reviewed and no additional complaints, except as docu Psychiatric: Reports no additional psychiatric complaints Endocrine: Reports no additional endocrine complaints Hematologic/Lymphatic: Reports no additional hematologic/lymphatic complaints Allergic/Immunologic: Reports no additional allergic/immunologic complaints Reports system reviewed and no additional complaints, except as documented and Reports Abnormal speech present [facility] Past Medical History Medical History History of electroconvulsive therapy Sleep apnea Type 2 diabetes mellitus Snoring Rosacea Iliotibial band syndrome, right leg Mitral valve prolapse Asymptomatic menopausal state Mitral valve disorder Neuralgia of both lower extremities Leg heaviness Morbid obesity Tendinosis of rotator cuff Vitamin D deficiency SANTI on CPAP Localized edema Chronic kidney disease, stage 3a PTSD (post-traumatic stress disorder) Bipolar 1 disorder Hyperparathyroidism Suicidal ideations Cataract Seasonal allergies Anxiety Depression HTN (hypertension) Sciatic leg pain Surgical History History of parathyroidectomy (06/04/23) Hx of colonoscopy History of surgery (2014) History of tonsillectomy Social History Social History Household Members: Significant Other Housing: Apartment Are you a primary home health aide caregiver to a significant other at home: No Do you presently have visiting nurse or other home services: No Alcohol intake: never Comment: COUNTS CORRECT Patient Tobacco Use Status: Never used Tobacco e-Cigarette/Vaping Use: Currently Using Substance Use Type: Marijuana Physical Exam ED Vital Signs: Vital Signs - 24 hr 06/08/23 16:37 06/08/23 19:41 06/08/23 20:57 Temperature 98.6 F 97.5 F 98.0 F Pulse Rate 79 89 76 Respiratory Rate 18 18 15 Blood Pressure 156/84 H 196/131 H 152/87 H Pulse Oximetry 96 94 93 Oxygen Delivery Method Room Air Room Air Room Air 06/08/23 23:16 Temperature Pulse Rate 75 Respiratory Rate 19 Blood Pressure 148/81 H Pulse Oximetry 90 L Oxygen Delivery Method Room Air BMI result Body Mass Index 44.4 Vital signs have been reviewed and appear to be correct. Blood pressure elevated. Heart rate normal. Respiratory rate normal. Temperature normal. Oxygen saturation normal. Appearance: Alert. Oriented X3. No acute distress. Head: Normal external exam. Normocephalic. Atraumatic. No [place] signs noted. No raccoon eyes noted Eyes: PERRLA. EOMI. Conjunctiva and sclera normal. Eyelids normal. ENT: Incision site is dry, clean, and intact no palpable fluctuation, no discharge. TM's Normal. Pharynx normal. Uvula midline. Moist mucous membranes. No trismus noted. No drooling noted. No muffled voice noted. Neck: Normal inspection. Neck supple. FROM. No adenopathy. Thyroid Normal. No meningeal signs. No neck mass noted. CVS: Normal heart rate and rhythm. Heart sound normal. No murmurs noted. Pulses normal throughout. Respiratory: No respiratory distress. Painless inspiration. Breath sounds normal. No wheezes/rales/rhonchi noted. Chest nontender. No accessory muscle usage noted or decreased air movement noted. Abdomen: Soft and nontender. Bowel sounds normal in all 4 quadrants. No distention noted. No organomegaly noted. No visible injury noted. Back: No CVA tenderness. Full range of motion noted. Skin: Skin warm and dry. Normal skin color. Normal skin turgor. No rashes/lesions/lacerations noted. Extremities: No lower extremity edema. Extremities exhibit normal range of motion. Extremities nontender. Neuro: Oriented X 3. Cranial nerve exam: II-XII are grossly intact No motor deficit. No sensory deficit. Reflexes normal. Course Course Course Narrative: OK 16:38PM 52-year-old female with a past medical history of parathyroid surgery on by PCP who is presenting to the ER with complaints of denies fatigue, malaise, weakness, dizziness, chest pain, sob, body aches. She denies any cough. She also noted her blood pressure was high she took all her medications today including her blood pressure medication. Plan: Will obtain labs, UA, COVID/RSV/flu swab, chest x-ray and EKG. Patient is stable to go back to the waiting room to be evaluated the ED. Reevaluation(s) Reevaluation #1: A/P parathyroidectomy presented with chest pain and shortness of breath 4 days after the surgery. ACS was ruled by 2 troponin with 3 hours apart and unremarkable EKG and the pain character is more or less constant. Pulmonary embolism was ruled out by diagnostic D-dimer and CT angiogram of the chest. Patient is hypomagnesemia magnesium was repleted. UTI will treat with cefuroxime and hydration. Will discharge and follow-up with PCP. Time: 23:22 Medications Administered Discontinued Medications Generic Name Dose Route Start Last Admin Trade Name Freq PRN Reason Stop Dose Admin Cefuroxime Axetil 500 mg 06/08/23 22:06 06/08/23 22:37 Cefuroxime Axetil 500 Mg Tablet PO 06/08/23 22:07 500 mg ONCE ONE Administration Magnesium Sulfate 2 gm in 50 mls @ 25 mls/hr 06/08/23 21:19 06/08/23 21:50 Magnesium Sulfate/H2o IV 06/08/23 23:18 25 mls/hr ONCE ONE Administration Iohexol 65 ml 06/08/23 22:09 06/08/23 22:10 Iohexol 350 Mg/Ml 100 Ml Infus..Btl IV 06/08/23 22:10 65 ml ONCE ONE Administration Ondansetron HCl 4 mg 06/08/23 21:47 06/08/23 21:50 Ondansetron Hcl 4 Mg/2 Ml Vial IVPUSH 06/08/23 21:48 4 mg ONCE ONE Administration Medical Decision Making Differential Diagnosis Differential Diagnoses: The differential diagnosis associated with the presentation includes (ACS, pneumonia, pleural effusion, rib fracture, costochondritis, electrolyte abnormality, dehydration, severe anemia, UTI, surgical incision infection.) Admission/Observation Consideration of admission/observation: Escalation of care including admission/observation considered Lab Data MDM Lab Attestation statement: I reviewed the patient's lab results. 06/08/23 16:57 06/08/23 16:57 Labs: Lab Results 06/08/23 06/08/23 06/08/23 Range/Units 16:57 21:29 21:30 WBC 12.6 H (4.8-10.8) X10*3/uL RBC 4.25 (4.20-5.50) X10*6/uL Hgb 13.5 (12.0-16.0) g/dl Hct 39.6 (37.0-47.0) % MCV 93.2 (80.0-98.0) fL MCH 31.8 (27.0-33.0) pg MCHC 34.1 (31.0-35.0) g/dl RDW 12.7 (11.0-16.0) % Plt Count 336 (160-400) X10*3/uL MPV 8.8 L (9.4-12.3) fL Immature Gran % (Auto) 0.4 (0.0-0.4) % Neut % (Auto) 72.2 (45-73) % Lymph % (Auto) 21.2 (20-40) % [place] % (Auto) 5.6 (2-11) % Eos % (Auto) 0.0 (0-4) % Baso % (Auto) 0.6 (0-2) % Lymph # (Auto) 2.7 (1.2-4.9) X10*3/uL [place] # (Auto) 0.7 (0.1-1.2) X10*3/uL Eos # (Auto) 0.0 (0.0-0.4) X10*3/uL Baso # (Auto) 0.1 (0.0-0.2) X10*3/uL Abs Immat Gran (auto) 0.05 H (0.00-0.03) X10*3/uL Absolute Neuts (auto) 9.1 H (2.0-8.3) x10*3/uL Absolute Nucleated RBC 0.000 (0.0-0.012) X10*3/uL Nucleated RBC % (auto) 0.0 (0.0-0.2) /100WBC PT 11.7 (11.1-13.3) SEC INR 1.0 (0.9-1.1) D-Dimer High Sensitivty 215 NG/ML Sodium 143 (135-145) mmol/L Potassium 3.8 (3.3-5.1) mmol/L Chloride 99 (96-108) mmol/L Carbon Dioxide 35 H (22-29) mmol/L Anion Gap 13 (12-20) BUN 15 (9-16) mg/dL Creatinine 0.77 (0.5-1.4) mg/dL Estim Creat Clear Calc 95.1 Estimated GFR > 60 Random Glucose 169 H (60-115) mg/dL Calcium 9.6 (8.4-10.2) mg/dL Magnesium 1.4 L* (1.6-2.6) mg/dL Total Bilirubin 0.5 (0.0-1.0) mg/dL AST 18 (5-31) U/L ALT 40 H (0-31) U/L Alkaline Phosphatase 71 (39-117) U/L Troponin I High Sens < 2.7 < 2.7 (<3.5-17.0) ng/L Total Protein 7.2 (6.5-8.0) g/dL Albumin 4.2 (3.5-5.0) g/dL Urine Color Yellow Urine Appearance Cloudy Urine pH 6.5 (5.0-9.0) Ur Specific [place] 1.020 (1.005-1.025) Urine Protein Negative (Neg-Trace) mg/dL Urine Glucose (UA) Negative (Negative) mg/dL Urine Ketones Negative (Negative) mg/dL Urine Blood Negative (Negative) Urine Nitrite Negative (Negative) Ur Leukocyte Esterase Small (1+) H (Negative) Urine RBC 0-2 (0-2) /HPF Urine WBC 21-50 H (0-5) /HPF Ur Squamous Epith Cells 11-20 (0-2) /HPF Urine Bacteria 2+ (None Seen) Hyaline Casts 0-2 (0-2) /LPF Urine Test NEGATIVE (NEGATIVE) Influenza Type A (PCR) NEGATIVE (Negative) Influenza Type B (PCR) NEGATIVE (Negative) RSV RNA Qual (PCR) NEGATIVE (Negative) SARS-CoV-2 RNA (RT-PCR) NEGATIVE (Negative) Independent Interpretation I performed an independent interpretation of an: EKG (Normal sinus rhythm at 73 beats per minutes, normal intervals, no ST-T changes.), Plain X-Ray (Chest: No acute pathology.) and CT Scan (Chest: No pulmonary embolism.) Radiology Impression Discussion of test interpretation with radiology: I have reviewed the radiologist's reading. Discharge Plan Discharge Clinical Impression: Hypomagnesemia, UTI (urinary tract infection) Patient Disposition: Home, Self-Care Instructions: Urinary Tract Infection in Women (ED) Prescriptions: New cefuroxime axetil 500 mg tablet 500 mg PO BID Qty: 14 0RF No Action diphenhydramine HCl 50 mg Capsule 50 mg PO Q6H PRN (Reason: Pain) clonazepam 1 mg tablet 0.5 mg PO DAILY PRN (Reason: Anxiety) acetaminophen 500 mg Tablet 1,000 mg PO Q6H PRN (Reason: Pain) gabapentin 300 mg capsule 300 mg PO BID ibuprofen 600 mg Tablet 600 mg PO Q6H PRN (Reason: Pain) docusate sodium [Colace] 100 mg capsule 100 mg PO BID PRN (Reason: constipation) Qty: 30 0RF oxycodone 5 mg tablet 5 mg PO Q4H PRN (Reason: pain (scale score 7-10)) Qty: 24 0RF Rx Instructions: Partial Fill upon patient request. losartan 100 mg tablet 100 mg PO DAILY metoprolol succinate 100 mg tablet extended release 24 hr 100 mg PO DAILY escitalopram oxalate [Lexapro] 10 mg tablet 10 mg PO DAILY aripiprazole [Abilify] 5 mg tablet 5 mg PO DAILY lamotrigine [Lamictal] 150 mg tablet 300 mg PO DAILY loratadine [Claritin] 10 mg tablet 10 mg PO DAILY Mounjaro 2.5 mg/0.5 mL pen injector subcut cholecalciferol (vitamin D3) 50 mcg (2,000 unit) capsule 100 mcg PO DAILY Qty: 30 4RF pregabalin [Lyrica] 75 mg capsule 75 mg PO DAILY Referrals: Trinity Chen PA [Primary Care Provider] - Interventions: ED Discharge Assessment Last Done: 06/08/23 23:50 Discharge Date/Time: 06/08/23 23:50 Print Language: Romansh
--- NOTE | 2023-06-08 16:40 | ECG_ITS ---
Test Reason : CHEST PAIN/SOB Blood Pressure : / mmHG Vent. Rate : 073 BPM Atrial Rate : 073 BPM P-R Int : 138 ms QRS Dur : 088 ms QT Int : 398 ms P-R-T Axes : 004 027 032 degrees QTc Int : 438 ms Normal sinus rhythm Normal ECG No previous ECGs available Referred By: Lisbet Israel Electronically Signed By:Sergey Perez
[2023-06-08 17:03] LABS: MANUAL DIFF FLAG NO
[2023-06-08 17:12] LABS: Basophils Absolute Auto 0.1 X10*3/uL (0.0-0.2); Basophils Percent Auto 0.6 % (0-2); Hematocrit 39.6 % (37.0-47.0); Hemoglobin 13.5 g/dl (12.0-16.0); Imm Gran Abs Auto 0.05 X10*3/uL (0.00-0.03); Imm Gran Pct Auto 0.4 % (0.0-0.4); Lymphocytes Absolute Auto 2.7 X10*3/uL (1.2-4.9); Lymphocytes Percent Auto 21.2 % (20-40); Mean Corpuscular HGB Conc 34.1 g/dl (31.0-35.0); Mean Corpuscular Hemoglobin 31.8 pg (27.0-33.0); Mean Corpuscular Volume 93.2 fL (80.0-98.0); Mean Platelet Volume 8.8 fL (9.4-12.3); Monocytes Absolute Auto 0.7 X10*3/uL (0.1-1.2); Monocytes Percent Auto 5.6 % (2-11); Neutrophils Absolute Auto 9.1 x10*3/uL (2.0-8.3); Neutrophils Percent Auto 72.2 % (45-73); Platelet Count 336 X10*3/uL (160-400); Red Blood Count 4.25 X10*6/uL (4.20-5.50); Red Cell Distribution Width 12.7 % (11.0-16.0); White Blood Count 12.6 X10*3/uL (4.8-10.8)
[2023-06-08 17:23] LABS: Prothrombin Time 11.7 SEC (11.1-13.3)
[2023-06-08 17:36] LABS: Alanine Aminotransferase 40 U/L (0-31); Albumin Level 4.2 g/dL (3.5-5.0); Alkaline Phosphatase 71 U/L (39-117); Anion Gap 13 (12-20); Aspartate Amino Transferase 18 U/L (5-31); Bilirubin Total 0.5 mg/dL (0.0-1.0); Blood Urea Nitrogen 15 mg/dL (9-16); Calcium 9.6 mg/dL (8.4-10.2); Carbon Dioxide 35 mmol/L (22-29); Chloride 99 mmol/L (96-108); Creatinine Clr Calc Pharmacy 95.1; Estimated Glomerular Filt Rate > 60; Glucose Random 169 mg/dL (60-115); Magnesium 1.4 mg/dL (1.6-2.6); Potassium 3.8 mmol/L (3.3-5.1); Sodium 143 mmol/L (135-145); Total Protein 7.2 g/dL (6.5-8.0); Troponin-I High Sensitivity < 2.7 ng/L (<3.5-17.0)
[2023-06-08 17:49] LABS: Influenza A PCR NEGATIVE (Negative); Influenza B PCR NEGATIVE (Negative); Resp Syncy Virus RNA Qual PCR NEGATIVE (Negative); SARS COV2 PCR INHOUSE NEGATIVE (Negative)
[2023-06-08 19:41] VITALS: BP 196/131; PULSE 89; RESP 18; TEMP 36.4; O2SAT 94
[2023-06-08 20:57] VITALS: BP 152/87; PULSE 76; RESP 15; TEMP 36.7; O2SAT 93
[2023-06-08 21:45] LABS: Appearance Urine Cloudy; Color Urine Yellow; Glucose Urine UA Negative (Negative); Leukocyte Esterase Urine Small (1+) (Negative); Nitrite Urine Negative (Negative); PH 6.5 (5.0-9.0); UMIC TRIGGER UACC YES; UPreg QC Valid YES; Urine Blood Negative (Negative); Urine Ketones Negative (Negative); Urine Pregnancy NEGATIVE (NEGATIVE); Urine Protein Negative (Neg-Trace)
[2023-06-08 21:49] LABS: Bacteria Urine 2+ (None Seen); Hyaline Casts Urine 0-2 /LPF (0-2); RBC Urine 0-2 /HPF (0-2); UACC Culture Trigger YES; WBC Urine 21-50 /HPF (0-5)
[2023-06-08] MEDS: ondansetron HCL 4 MG/2 ML VIAL IVPUSH (21:50)
[2023-06-08] MEDS: Magnesium Sulfate/H2O 2 GM/50 ML PIGGYBACK IV (21:50)
[2023-06-08 21:51] LABS: D Dimer High Sensitivity 215 NG/ML
[2023-06-08 22:06] LABS: Troponin-I High Sensitivity < 2.7 ng/L (<3.5-17.0)
[2023-06-08] MEDS: iohexoL 350 MG/ML 100 ML INFUS..BTL 65 ML IV (22:10)
[2023-06-08] MEDS: cefuroxime axetiL 500 MG TABLET PO (22:37)
[2023-06-08 23:16] VITALS: BP 148/81; PULSE 75; RESP 19; O2SAT 90
[2023-06-08 23:50] VITALS: BP 169/90; PULSE 87; RESP 22; TEMP 36.8; O2SAT 95
== END 2023-06-08 23:50 | disposition home or self-care (01) ==
PROVIDERS: Physician Assistant Medical; Emergency Provider Emergency Medicine; PCP Physician Assistant
DX: N39.0 Urinary tract infection, site not specified (principal); E83.42 Hypomagnesemia; I12.9 Hypertensive chronic kidney disease with stage 1 through stage 4 chronic kidney disease, or unspecified chronic kidney disease; E11.22 Type 2 diabetes mellitus with diabetic chronic kidney disease; N18.31 Chronic kidney disease, stage 3a; Z98.890 Other specified postprocedural states; Z11.52 Encounter for screening for COVID-19; Z20.828 Contact with and (suspected) exposure to other viral communicable diseases
CPT/HCPCS: 0241U; 36415; 71046; 71275; 80053; 81001; 81025; 83735; 84484; 85025; 85379; 85610; 87086; 93005; 96374; 96375; 99284; J2405; J3475; Q9967

== ENCOUNTER → 2023-06-08 16:40 | Outpatient (BNV) | payer MEDICARE, MEDICAID, SELFPAY | PROVIDERS: Emergency Provider Emergency Medicine; PCP Physician Assistant; Visit Provider Internal Medicine Cardiovascular Disease | DX: R07.9 Chest pain, unspecified (principal); R06.02 Shortness of breath | CPT/HCPCS: 93010 ==

== ENCOUNTER 2023-06-15 10:45 | Outpatient (AMB) | payer MEDICARE, MEDICAID, SELFPAY ==
[2023-06-15 10:55] VITALS: BP 172/78; PULSE 78
--- NOTE | 2023-06-15 10:55 | A.OFFVIS_ITS ---
Intake Vital Signs 06/15/23 10:55 Weight 243 lb BP 172/78 H Blood Pressure Location Rt brachial Position Sitting Pulse 78 Intake Visit Reasons: S/P Lt. parathyroidectomy Intake Note: Patient here s/p parathyroidectomy on 06-04-23. Reports incision healing well. Denies bleeding, pain. Was seen at ER on 06-08-23 and diagnosed with UTI. Lithographic Etcher Required: No Accompanied by: Self / Same As Patient Allergies No Known Allergies Allergy (Verified 06/15/23 10:57) HPI HPI Comments History of Present Illness Details Patient presents for follow-up. She has no wound issues or complaints. She is tolerating her diet. She is having regular bowel habits. She has no respiratory issues. No voice issues Patient had last week some respiratory issues which were worked up and ER all negative. Pathology was reviewed. [facility] Medical History History of electroconvulsive therapy Sleep apnea Type 2 diabetes mellitus Snoring Rosacea Iliotibial band syndrome, right leg Mitral valve prolapse Asymptomatic menopausal state Mitral valve disorder Neuralgia of both lower extremities Leg heaviness Morbid obesity Tendinosis of rotator cuff Vitamin D deficiency SANTI on CPAP Localized edema Chronic kidney disease, stage 3a PTSD (post-traumatic stress disorder) Bipolar 1 disorder Hyperparathyroidism Suicidal ideations Cataract Seasonal allergies Anxiety Depression HTN (hypertension) Sciatic leg pain Surgical History History of parathyroidectomy (06/04/23) Hx of colonoscopy History of surgery (2014) History of tonsillectomy Social History Household Members: Significant Other Housing: Apartment Are you a primary pet care worker to a significant other at home: No Do you presently have visiting nurse or other home services: No Alcohol intake: never Comment: COUNTS CORRECT Patient Tobacco Use Status: Never used Tobacco e-Cigarette/Vaping Use: Currently Using Substance Use Type: Marijuana Physical Exam Vital Signs: Last Vital Signs Pulse 78 06/15/23 10:55 BP 172/78 H 06/15/23 10:55 Neck Other: Wound healing very well with 1st intention. Assessment & Plan Assessment & Plan (1) S/P parathyroidectomy: Code(s): Z98.890 - Other specified postprocedural states; Z90.89 - Acquired absence of other organs Plan Patient has been given local instructions, and will follow-up p.r.n.. We will also arrange for in-house endocrinology consult. Patient ingot passer was in [place] , but she now lives locally. All questions answered. Orders: Referrals Endocrinology Referral D35.1 - Benign neoplasm of parathyroid gland, E83.52 - Hypercalcemia Coding Level of Care Code Global (79445) Diagnoses S/P parathyroidectomy Z98.890; Z90.89
== END 2023-06-15 11:01 | disposition home or self-care (01) ==
PROVIDERS: PCP Nurse Practitioner Family; Visit Provider Surgery
DX: Z98.890 Other specified postprocedural states (principal); Z90.89 Acquired absence of other organs
CPT/HCPCS: 99024

== ENCOUNTER → 2023-06-15 10:45 | Outpatient (BNVA) | payer MEDICARE, MEDICAID, SELFPAY | PROVIDERS: PCP Nurse Practitioner Family; Visit Provider Surgery | DX: Z98.890 Other specified postprocedural states (principal); Z90.89 Acquired absence of other organs | CPT/HCPCS: 99212 ==

== ENCOUNTER 2023-07-29 14:14 | Outpatient (REF) | payer MEDICARE, MEDICAID, SELFPAY ==
[2023-07-29 15:33] LABS: Albumin Level 4.1 g/dL (3.5-5.0); Calcium 9.3 mg/dL (8.4-10.2)
[2023-07-29 15:55] LABS: Parathyroid Hormone Intact 87.9 pg/mL (8.7-77.1)
[2023-07-29 15:56] LABS: Vitamin D 25-OH Total 28.5 ng/mL (>30)
== END 2023-07-29 14:15 | disposition home or self-care (01) ==
LOC: HO.LAB 14:14
PROVIDERS: PCP Physician Assistant; Visit Provider Internal Medicine Endocrinology, Diabetes & Metabolism
DX: E83.52 Hypercalcemia (principal)
CPT/HCPCS: 36415; 82040; 82306; 82310; 83970

== ENCOUNTER 2023-07-30 16:05 | Outpatient (AMB) | payer MEDICARE, MEDICAID, SELFPAY ==
--- NOTE | 2023-07-30 16:12 | MHC.OFFVIS ---
Vital Signs 07/30/23 16:16 Height 5 ft 1 in Weight 240 lb 1.334 oz BMI 45.4 BP 152/82 H Blood Pressure Location Rt brachial Position Sitting Pulse 75 Pulse Source Pulse Oximeter Intake Visit Reasons: Hypercalcemia-scheduled per Tali/lvm Intake Note: Patient present today for Hypercalcemia follow up visit. Patient reports she is taking fish oil, unsure of the mg. Mixed Crop And Livestock Farmer Required: No Accompanied by: Self / Same As Patient Allergies No Known Allergies Allergy (Verified 07/30/23 16:16) HPI Comments Details: 52 YO F with PMHx [] who is seen in consultation at the request of PCP for Hypercalcemia. And primary hyperparathyroidism status post parathyroidectomy by Dr. Hamlin. First noted to have high calcium 2 yrs ago . Not Currently using Calcium supplement. Takes 2000 IU of Vitamin D daily. Off VitaminD Currently not using HCTZ. Kidney stones: No Osteoporosis:Had DEXA in past No History of [place] use: back in Bi[place] use: No Family history of high calcium or kidney stones: No Renal imaging: No DXA: Labs: [facility] Medical History History of electroconvulsive therapy Sleep apnea Type 2 diabetes mellitus Snoring Rosacea Iliotibial band syndrome, right leg Mitral valve prolapse Asymptomatic menopausal state Mitral valve disorder Neuralgia of both lower extremities Leg heaviness Morbid obesity Tendinosis of rotator cuff Vitamin D deficiency SANTI on CPAP Localized edema Chronic kidney disease, stage 3a PTSD (post-traumatic stress disorder) Bipolar 1 disorder Hyperparathyroidism Suicidal ideations Cataract Seasonal allergies Anxiety Depression HTN (hypertension) Sciatic leg pain Surgical History History of parathyroidectomy (06/04/23) Hx of colonoscopy History of surgery (2014) History of tonsillectomy Social History Household Members: Significant Other Housing: Apartment Are you a primary pharmacy care coordinator to a significant other at home: No Do you presently have visiting nurse or other home services: No Alcohol intake: never Comment: COUNTS CORRECT Patient Tobacco Use Status: Never used Tobacco e-Cigarette/Vaping Use: Currently Using Substance Use Type: Marijuana Physical Exam Vital Signs: BMI result Body Mass Index 45.4 Const Other: Neck examination reveals a normal size thyroid by 15 g size. There are no thyroid nodules palpated. There are no neck masses palpated Assessment & Plan Assessment & Plan (1) Parathyroid adenoma: Code(s): D35.1 - Benign neoplasm of parathyroid gland Category: Surgical Plan: This is a 52-year-old white female with a history of primary hyperparathyroidism status post parathyroidectomy with removal of left inferior parathyroid. Calcium normalized but PTH remains elevated with low normal calcium. Plan is to increase the vitamin D3 to 3000 IU/day. Will repeat calcium, PTH, 25 hydroxy vitamin-D and albumin as well as 24 hour urine for calcium and creatinine in 3 months at [facility]. If PTH remains elevated would consider obtaining previous DEXA bone density as well as a renal ultrasound to see if the patient warrants re-exploration. Orders: Orders Calcium 12 Weeks D35.1 - Benign neoplasm of parathyroid gland Albumin Level 12 Weeks D35.1 - Benign neoplasm of parathyroid gland Parathyroid Hormone Intact 12 Weeks D35.1 - Benign neoplasm of parathyroid gland Vitamin D 25-OH Total 12 Weeks D35.1 - Benign neoplasm of parathyroid gland Calcium, 24 Hr Ur 3 Months D35.1 - Benign neoplasm of parathyroid gland Creatinine, 24 Hr Group 3 Months D35.1 - Benign neoplasm of parathyroid gland Medications: New cholecalciferol (vitamin D3) 100 mcg (2 x 50 mcg (2,000 unit)) PO DAILY 30 caps 4RF Coding Level of Care Code New Pt Level 4 (46505) Diagnoses Parathyroid adenoma D35.1
[2023-07-30 16:16] VITALS: BP 152/82; PULSE 75; BMI 45.4
== END 2023-07-30 16:47 | disposition home or self-care (01) ==
PROVIDERS: PCP Nurse Practitioner Family; Visit Provider Internal Medicine Endocrinology, Diabetes & Metabolism
DX: D35.1 Benign neoplasm of parathyroid gland (principal)
CPT/HCPCS: 99204

== ENCOUNTER → 2023-07-30 16:05 | Outpatient (BNVA) | payer MEDICARE, MEDICAID, SELFPAY | PROVIDERS: PCP Nurse Practitioner Family; Visit Provider Internal Medicine Endocrinology, Diabetes & Metabolism | DX: D35.1 Benign neoplasm of parathyroid gland (principal); E83.52 Hypercalcemia | CPT/HCPCS: 99202 ==

== ENCOUNTER 2023-08-19 11:37 | Outpatient (REF) | payer MEDICARE, MEDICAID, SELFPAY ==
[2023-08-19 12:06] LABS: MANUAL DIFF FLAG NO
[2023-08-19 12:29] LABS: Basophils Absolute Auto 0.1 X10*3/uL (0.0-0.2); Basophils Percent Auto 0.6 % (0-2); Eosinophils Absolute Auto 0.1 X10*3/uL (0.0-0.4); Hemoglobin 13.8 g/dl (12.0-16.0); Imm Gran Abs Auto 0.04 X10*3/uL (0.00-0.03); Imm Gran Pct Auto 0.4 % (0.0-0.4); Lymphocytes Absolute Auto 2.5 X10*3/uL (1.2-4.9); Lymphocytes Percent Auto 21.7 % (20-40); Mean Corpuscular HGB Conc 32.9 g/dl (31.0-35.0); Mean Corpuscular Hemoglobin 31.1 pg (27.0-33.0); Mean Corpuscular Volume 94.6 fL (80.0-98.0); Mean Platelet Volume 8.8 fL (9.4-12.3); Monocytes Absolute Auto 0.7 X10*3/uL (0.1-1.2); Monocytes Percent Auto 5.8 % (2-11); Neutrophils Percent Auto 70.5 % (45-73); Platelet Count 354 X10*3/uL (160-400); Red Blood Count 4.44 X10*6/uL (4.20-5.50); Red Cell Distribution Width 12.7 % (11.0-16.0); White Blood Count 11.4 X10*3/uL (4.8-10.8)
[2023-08-19 12:46] LABS: Estimated Average Glucose 140 mg/dL; Hemoglobin A1C 170.0748 umol/L; Hemoglobin A1c % 6.5 % (<6.0)
[2023-08-19 12:57] LABS: Alanine Aminotransferase 25 U/L (0-31); Albumin Level 4.3 g/dL (3.5-5.0); Alkaline Phosphatase 57 U/L (39-117); Anion Gap 12 (12-20); Aspartate Amino Transferase 18 U/L (5-31); Bilirubin Total 0.4 mg/dL (0.0-1.0); Blood Urea Nitrogen 18 mg/dL (9-16); Calcium 10.2 mg/dL (8.4-10.2); Carbon Dioxide 32 mmol/L (22-29); Chloride 101 mmol/L (96-108); Cholesterol 194 mg/dL (<200); Estimated Glomerular Filt Rate > 60; Glucose Random 98 mg/dL (60-115); HDL Cholesterol 45 mg/dL (>40); LDL Cholesterol Calculated 123 mg/dL (<100); Potassium 4.2 mmol/L (3.3-5.1); Sodium 141 mmol/L (135-145); Total Protein 7.2 g/dL (6.5-8.0); Triglycerides 130 mg/dL (<150)
[2023-08-19 13:22] LABS: Creatinine Urine 40.03 mg/dL; Microalbum/Creatinine Ratio Ur 37.4 ug/mg cr (<30)
== END 2023-08-19 11:38 | disposition home or self-care (01) ==
LOC: HO.LAB 11:37
PROVIDERS: PCP Family Medicine; Visit Provider Family Medicine
DX: E11.65 Type 2 diabetes mellitus with hyperglycemia (principal); E21.3 Hyperparathyroidism, unspecified; I10 Essential (primary) hypertension
CPT/HCPCS: 36415; 80053; 80061; 82043; 82570; 83036; 85025

== ENCOUNTER 2023-10-30 10:02 | Outpatient (REF) | payer MEDICARE, MEDICAID, SELFPAY ==
[2023-10-30 10:29] LABS: MANUAL DIFF FLAG NO
[2023-10-30 10:41] LABS: Basophils Absolute Auto 0.1 X10*3/uL (0.0-0.2); Basophils Percent Auto 0.7 % (0-2); Eosinophils Absolute Auto 0.4 X10*3/uL (0.0-0.4); Eosinophils Percent Auto 3.1 % (0-4); Hematocrit 41.1 % (37.0-47.0); Hemoglobin 13.8 g/dl (12.0-16.0); Imm Gran Abs Auto 0.06 X10*3/uL (0.00-0.03); Imm Gran Pct Auto 0.5 % (0.0-0.4); Lymphocytes Absolute Auto 2.6 X10*3/uL (1.2-4.9); Lymphocytes Percent Auto 21.1 % (20-40); Mean Corpuscular HGB Conc 33.6 g/dl (31.0-35.0); Mean Corpuscular Hemoglobin 31.4 pg (27.0-33.0); Mean Corpuscular Volume 93.4 fL (80.0-98.0); Mean Platelet Volume 8.8 fL (9.4-12.3); Monocytes Absolute Auto 0.6 X10*3/uL (0.1-1.2); Monocytes Percent Auto 4.9 % (2-11); Neutrophils Absolute Auto 8.6 x10*3/uL (2.0-8.3); Neutrophils Percent Auto 69.7 % (45-73); Platelet Count 359 X10*3/uL (160-400); Red Cell Distribution Width 13.6 % (11.0-16.0); White Blood Count 12.4 X10*3/uL (4.8-10.8)
[2023-10-30 10:58] LABS: Estimated Average Glucose 114 mg/dL; Hemoglobin A1c % 5.6 % (<6.0)
[2023-10-30 11:00] LABS: Albumin Level 4.5 g/dL (3.5-5.0); Calcium 9.8 mg/dL (8.4-10.2)
[2023-10-30 11:08] LABS: Alanine Aminotransferase 21 U/L (0-31); Albumin Level 4.5 g/dL (3.5-5.0); Alkaline Phosphatase 75 U/L (39-117); Anion Gap 13 (12-20); Aspartate Amino Transferase 15 U/L (5-31); Bilirubin Total 0.7 mg/dL (0.0-1.0); Blood Urea Nitrogen 17 mg/dL (9-16); Carbon Dioxide 29 mmol/L (22-29); Chloride 104 mmol/L (96-108); Cholesterol 216 mg/dL (<200); Estimated Glomerular Filt Rate > 60; Glucose Random 107 mg/dL (60-115); HDL Cholesterol 42 mg/dL (>40); LDL Cholesterol Calculated 146 mg/dL (<100); Potassium 4.4 mmol/L (3.3-5.1); Sodium 142 mmol/L (135-145); Total Protein 7.6 g/dL (6.5-8.0); Triglycerides 142 mg/dL (<150)
[2023-10-30 11:11] LABS: Parathyroid Hormone Intact 88.9 pg/mL (8.7-77.1)
[2023-10-30 11:29] LABS: Vitamin D 25-OH Total 55.5 ng/mL (>30)
== END 2023-10-30 10:03 | disposition home or self-care (01) ==
LOC: HO.LAB 10:02
PROVIDERS: Absent Provider Internal Medicine Endocrinology, Diabetes & Metabolism; PCP Family Medicine; Visit Provider Nurse Practitioner Family
DX: Z00.00 Encounter for general adult medical examination without abnormal findings (principal); E21.3 Hyperparathyroidism, unspecified; D72.829 Elevated white blood cell count, unspecified; E11.65 Type 2 diabetes mellitus with hyperglycemia; Z13.220 Encounter for screening for lipoid disorders; D35.1 Benign neoplasm of parathyroid gland
CPT/HCPCS: 36415; 80053; 80061; 82040; 82306; 82310; 83036; 83970; 85025

== ENCOUNTER 2023-11-13 11:30 | Outpatient (REF) | payer OTHER, SELFPAY ==
[2023-11-13 12:18] LABS: Creatinine, mg/dL 54.65
[2023-11-13 15:47] LABS: Creatinine, 24Hr Urine 1.2 G/Day (1.0-2.0); Total Volume 24 Hour Urine 2275 mL
[2023-11-16 18:23] LABS: Calcium, 24 Hr Urine 187 mg/24 h; Calcium/Creatinine Ratio 141 mg/g creat (30-275); Creatinine 24Hr Urine 1.32 g/24 h (0.50-2.15)
== END 2023-11-13 11:31 | disposition home or self-care (01) ==
LOC: HO.LNP 11:30
PROVIDERS: Visit Provider Internal Medicine Endocrinology, Diabetes & Metabolism
DX: D35.1 Benign neoplasm of parathyroid gland (principal)
CPT/HCPCS: 82340; 82570

== ENCOUNTER 2023-11-30 08:49 | Outpatient (AMB) | payer MEDICARE, MEDICAID, SELFPAY ==
[2023-11-30 08:55] VITALS: BP 124/88; PULSE 79; BMI 43.3
--- NOTE | 2023-11-30 08:55 | A.OFFVIS_ITS ---
Vital Signs 11/30/23 08:55 Height 5 ft 1 in Weight 229 lb 4.492 oz BMI 43.3 BP 124/88 Blood Pressure Location Rt brachial Position Sitting Pulse 79 Pulse Source Pulse Oximeter Intake Visit Reasons: f/u hyperparathyroidism-lvm Intake Note: Patient present today for Hyperparathyroidism follow up visit. Float Operator Required: No Accompanied by: Self / Same As Patient Allergies No Known Allergies Allergy (Verified 11/30/23 08:57) Medication List - Last Reconciled 11/30/23 by Magdaleno Mae MD acetaminophen 1,000 mg PO Q6H PRN aripiprazole (Abilify) 5 mg PO DAILY cefuroxime axetil 500 mg PO BID cholecalciferol (vitamin D3) 100 mcg (2 x 50 mcg (2,000 unit)) PO DAILY clonazepam 0.5 mg PO DAILY PRN diphenhydramine HCl 50 mg PO Q6H PRN docusate sodium (Colace) 100 mg PO BID PRN escitalopram oxalate (Lexapro) 10 mg PO DAILY gabapentin 300 mg PO BID ibuprofen 600 mg PO Q6H PRN lamotrigine (Lamictal) 300 mg PO DAILY loratadine (Claritin) 10 mg PO DAILY losartan 100 mg PO DAILY metoprolol succinate ER 100 mg PO DAILY oxycodone 5 mg PO Q4H PRN pregabalin (Lyrica) 75 mg PO DAILY tirzepatide (Mounjaro) mg subcut HPI Comments Details: 53 YO F with PMHx [] who is seen in consultation at the request of PCP for Hypercalcemia. And primary hyperparathyroidism status post parathyroidectomy by Dr. Hamlin. First noted to have high calcium 2 yrs ago . Not Currently using Calcium supplement. Takes 2000 IU of Vitamin D daily. Off VitaminD Currently not using HCTZ. Kidney stones: No Osteoporosis:Had DEXA in past No History of [place] use: back in 1990s Biotin use: No Family history of high calcium or kidney stones: No Renal imaging: No DXA: Labs: Laboratory values shows persistent elevation of PTH with normal calcium, normal vitamin-D and normal 24 hour urine for calcium [facility] Medical History History of electroconvulsive therapy Sleep apnea Type 2 diabetes mellitus Snoring Rosacea Iliotibial band syndrome, right leg Mitral valve prolapse Asymptomatic menopausal state Mitral valve disorder Neuralgia of both lower extremities Leg heaviness Morbid obesity Tendinosis of rotator cuff Vitamin D deficiency SANTI on CPAP Localized edema Chronic kidney disease, stage 3a PTSD (post-traumatic stress disorder) Bipolar 1 disorder Hyperparathyroidism Suicidal ideations Cataract Seasonal allergies Anxiety Depression HTN (hypertension) Sciatic leg pain Surgical History History of parathyroidectomy (06/04/23) Hx of colonoscopy History of surgery (2014) History of tonsillectomy Social History Household Members: Significant Other Housing: Apartment Are you a primary health care law specialist to a significant other at home: No Do you presently have visiting nurse or other home services: No Alcohol intake: never Comment: COUNTS CORRECT Patient Tobacco Use Status: Never used Tobacco e-Cigarette/Vaping Use: Currently Using Substance Use Type: Marijuana Physical Exam Vital Signs: BMI result Body Mass Index 43.3 Assessment & Plan Assessment & Plan (1) Parathyroid adenoma: Code(s): D35.1 - Benign neoplasm of parathyroid gland Category: Surgical Plan: This is a 53-year-old white female with a history of primary hyperparathyroidism status post parathyroidectomy with removal of left inferior parathyroid. Calcium normalized but PTH remains elevated with normal calcium. Plan is to repeat calcium and PTH at [facility]). If PTH remains elevated would consider obtaining previous DEXA bone density as well as a renal ultrasound to see if the patient warrants re-exploration. Orders: Orders Parathyroid Hormone Intact Today D35.1 - Benign neoplasm of parathyroid gland Calcium Today D35.1 - Benign neoplasm of parathyroid gland Albumin Level Today D35.1 - Benign neoplasm of parathyroid gland Coding Level of Care Code Est Pt Level 3 (73201) Diagnoses Parathyroid adenoma D35.1
== END 2023-11-30 09:18 | disposition home or self-care (01) ==
PROVIDERS: PCP Nurse Practitioner Family; Visit Provider Internal Medicine Endocrinology, Diabetes & Metabolism
DX: D35.1 Benign neoplasm of parathyroid gland (principal)
CPT/HCPCS: 99213

== ENCOUNTER → 2023-11-30 08:49 | Outpatient (BNVA) | payer OTHER, SELFPAY | PROVIDERS: PCP Nurse Practitioner Family; Visit Provider Internal Medicine Endocrinology, Diabetes & Metabolism | DX: D35.1 Benign neoplasm of parathyroid gland (principal); E83.52 Hypercalcemia | CPT/HCPCS: 99212 ==

== ENCOUNTER 2024-03-24 08:57 | Outpatient (AMB) | payer MEDICARE, MEDICAID, SELFPAY ==
--- NOTE | 2024-03-24 09:03 | A.OFFVIS_ITS ---
Vital Signs 03/24/24 09:04 Height 5 ft 1 in Weight 223 lb 5.252 oz BMI 42.2 BP 100/70 Blood Pressure Location Rt brachial Position Sitting Pulse 82 Pulse Source Pulse Oximeter Intake Visit Reasons: Hyperthyroidism Intake Note: Patient present today for Hyperthyroidism follow up. Information Services Manager Required: No Accompanied by: Self / Same As Patient Allergies No Known Allergies Allergy (Verified 03/24/24 09:04) Medication List - Last Reconciled 03/24/24 by Magdaleno Mae MD acetaminophen 1,000 mg PO Q6H PRN aripiprazole (Abilify) 5 mg PO DAILY cefuroxime axetil 500 mg PO BID cholecalciferol (vitamin D3) 100 mcg (2 x 50 mcg (2,000 unit)) PO DAILY clonazepam 0.5 mg PO DAILY PRN diphenhydramine HCl 50 mg PO Q6H PRN docusate sodium (Colace) 100 mg PO BID PRN escitalopram oxalate (Lexapro) 10 mg PO DAILY gabapentin 300 mg PO BID ibuprofen 600 mg PO Q6H PRN lamotrigine (Lamictal) 300 mg PO DAILY loratadine (Claritin) 10 mg PO DAILY losartan 100 mg PO DAILY metoprolol succinate ER 100 mg PO DAILY oxycodone 5 mg PO Q4H PRN pregabalin (Lyrica) 75 mg PO DAILY tirzepatide (Mounjaro) 5 mg subcut HPI Comments Details: 53 YO F with PMHx [] who is seen in consultation at the request of PCP for Hypercalcemia. And primary hyperparathyroidism status post parathyroidectomy by Dr. Hamlin. First noted to have high calcium 2 yrs ago . Not Currently using Calcium supplement. Takes 2000 IU of Vitamin D daily. Off V itaminD Currently not using HCTZ. Kidney stones: No Osteoporosis:Had DEXA in past No History of [place] use: back in Biotin use: No Family history of high calcium or kidney stones: No Renal imaging: No DXA: Labs: Laboratory values shows persistent elevation of PTH with normal calcium, normal vitamin-D and normal 24 hour urine for calcium Repeat labs at [facility] ([facility]) showed normal PTH and calcium PFSH Medical History History of electroconvulsive therapy Sleep apnea Type 2 diabetes mellitus Snoring Rosacea Iliotibial band syndrome, right leg Mitral valve prolapse Asymptomatic menopausal state Mitral valve disorder Neuralgia of both lower extremities Leg heaviness Morbid obesity Tendinosis of rotator cuff Vitamin D deficiency SANTI on CPAP Localized edema Chronic kidney disease, stage 3a PTSD (post-traumatic stress disorder) Bipolar 1 disorder Hyperparathyroidism Suicidal ideations Cataract Seasonal allergies Anxiety Depression HTN (hypertension) Sciatic leg pain Surgical History History of parathyroidectomy (06/04/23) Hx of colonoscopy History of surgery (2014) History of tonsillectomy Social History Household Members: Significant Other Housing: Apartment Are you a primary district manager primary care sales to a significant other at home: No Do you presently have visiting nurse or other home services: No Alcohol intake: never Comment: COUNTS CORRECT Patient Tobacco Use Status: Never used Tobacco e-Cigarette/Vaping Use: Currently Using Substance Use Type: Marijuana Physical Exam Vital Signs: BMI result Body Mass Index 42.2 Assessment & Plan Assessment & Plan (1) Parathyroid adenoma: Code(s): D35.1 - Benign neoplasm of parathyroid gland Category: Surgical Plan: This is a 53-year-old white female with a history of primary hyperparathyroidism status post parathyroidectomy with removal of left inferior parathyroid. Repeat calcium and PTH were normal at [facility] There was no need for any further endocrine workup or follow-up with this point. Patient has returned to care of her primary care provider returned back to endocrinology as needed Coding Level of Care Code Est Pt Level 3 (70222) Diagnoses Parathyroid adenoma D35.1
[2024-03-24 09:04] VITALS: BP 100/70; PULSE 82; BMI 42.2
--- OUTSIDE RECORDS SUMMARY | 2024-03-24 09:12 | XMS_ITS | Continuity of Care Document ---
Author Organization [facility] [place], [facility] Address [address] [place] [address]- Care Team Providers Care Electrical Power Station Technician Name Role Phone Magdaleno Goodson DO Primary Care Physician Encounter [facility] ACCT R [id number] Date(s): 01/25/24 - 02/24/24 [facility] [place] [address] [place] [address]- Encounter Type: Triage Allergies, Adverse Reactions, Alerts No Known Medication Allergies Immunizations Given and Recorded Vaccine Date Status Refusal Reason influenza virus vaccine, inactivated 01/03/23 Jorge rded SARS-CoV-2(COVID-19)mRNA-LNP vac([id number]) 01/03/23 Recorded tetanus/diphtheria/pertussis, acel(Tdap) 1 12/27/20 Recorded SARS-CoV-2 (COVID-19) mRNA BNT-162b2 vac 07/26/20 Recorded SARS-CoV-2 (COVID-19) mRNA BNT-162b2 vac 07/05/20 Recorded 1Result Comment: [facility] Problem List Condition Confirmation Course Effective Dates Status Health Status Informant Bipolar disorder Confirmed Active Diverticulosis Confirmed Active Leg edema, right Confirmed Active Essential hypertension Confirmed Active Hyperparathyroidism Confirmed Active Leukocytosis Confirmed Active Low back pain Confirmed Active Lumbar radiculopathy Confirmed Active Major depression in remission Confirmed Active Left leg pain Confirmed Active Palpitations Confirmed Active PTSD (post-traumatic stress disorder) Confirmed Active Severe obesity Confirmed Active Controlled type 2 diabetes mellitus Confirmed Active Social History Social History Type Response Smoking Status Never (less than 100 in lifetime) entered on: 07/09/23 Sex Sex Representation Female (finding) Patient Care team information Care Team Personnel Name: Magdaleno Goodson DO Position: [facility] Physician - Primary Care Member Role: PCP Address: [address] [place] [phone] Telecom: Care Team Related Persons Name: SHANEL CORBETT Name: KARISSA REES Name: RENNY HA Insurance Providers Guarantor name: DESTINEE MCGRATH Health Plan Information #: 1 Payer: [facility] Member Number: NA Policy Number: NA Group Number: NA Health Plan Information #: 2 Payer: [facility] Member Number: NA Policy Number: NA Group Number: NA
== END 2024-03-24 09:13 | disposition home or self-care (01) ==
PROVIDERS: PCP Nurse Practitioner Family; Visit Provider Internal Medicine Endocrinology, Diabetes & Metabolism
DX: D35.1 Benign neoplasm of parathyroid gland (principal)
CPT/HCPCS: 99213

== ENCOUNTER → 2024-03-24 08:57 | Outpatient (BNVA) | payer MEDICARE, MEDICAID, SELFPAY | PROVIDERS: PCP Nurse Practitioner Family; Visit Provider Internal Medicine Endocrinology, Diabetes & Metabolism | DX: E89.2 Postprocedural hypoparathyroidism (principal) | CPT/HCPCS: 99212 ==

== ENCOUNTER 2024-04-18 08:48 | Outpatient (REF) | payer OTHER, SELFPAY ==
--- NOTE | ~2024-04-18 | XR_ITS ---
EXAMINATION: XR ANKLE 1-2 VIEWS LEFT HISTORY: PAIN COMPARISON: There are no prior studies available for comparison. FINDINGS: Three views of the left ankle are submitted. Osseous mineralization is normal. There is no fracture or dislocation. The joint spaces are preserved. The soft tissues are unremarkable. XR/XR ankle LT 2V IMPRESSION: Unremarkable examination of the left ankle. Electronically signed by: Magdaleno Ochoa MD 04/21/2024 09:17 AM BAUDILIO
--- NOTE | ~2024-04-18 | XR_ITS ---
EXAMINATION: XR ANKLE 2 VIEWS RIGHT HISTORY: PAIN COMPARISON: There are no prior studies available for comparison. FINDINGS: Three views of the right ankle are submitted. Osseous mineralization is normal. There is no fracture or dislocation. The joint spaces are preserved. The soft tissues are unremarkable. XR/XR ankle RT 2V IMPRESSION: Unremarkable examination of the right ankle. Electronically signed by: Magdaleno Ochoa MD 04/21/2024 09:18 AM EST
--- OUTSIDE RECORDS SUMMARY | 2024-04-18 09:11 | XMS_ITS | Continuity of Care Document ---
Author Organization [facility] ter Address [address] [place] [id number]- Care Team Providers Care Local Sales Associate Name Role Phone Magdaleno Goodson DO Primary Care Physician Encounter 04/15/24 - 04/16/[address] [address]- Attending Physician: Not on Staff, Attending MD Referring Physician: Not on Staff, Referring MD Encounter Type: SMRI Allergies, Adverse Reactions, Alerts Substance Criticality Severity Reaction Reaction Severity Status Haldol throat swells Active Immunizations Given and Recorded Vaccine Date Status Refusal Reason influenza virus vaccine, inactivated 01/03/23 Jorge rded SARS-CoV-2(COVID-19)mRNA-LNP vac([id number]) 01/03/23 Recorded tetanus/diphtheria/pertussis, acel(Tdap) 1 12/27/20 Recorded SARS-CoV-2 (COVID-19) mRNA BNT-162b2 vac 07/26/20 Recorded SARS-CoV-2 (COVID-19) mRNA BNT-162b2 vac 07/05/20 Recorded 1Result Comment: [facility] Department Family Health Problem List Condition Confirmation Course [...] Team Personnel Name: Magdaleno Goodson DO Position: [facility] Physician - Primary Care Member Role: PCP Address: [address] [place] [id number]- Telecom: Care Team Related Persons Name: SHANEL CORBETT Name: KARISSA REES Name: RENNY HA Insurance Providers Guarantor name: DESTINEE [facility] Plan Information #: 1 Payer: [facility] Member Number: NA Policy Number: NA Group Number: NA
--- OUTSIDE RECORDS SUMMARY | 2024-04-18 09:11 | XMS_ITS | Continuity of Care Document ---
Author Organization [facility] Edis lt Address [address] [place] [address]- Care Team Providers Care Regulatory Assistant Name Role Phone Magdlaeno Goodson DO Primary Care Physician [id number] Date(s): 03/04/24 - 04/03/24 [facility] Adult [address] [place] [address]- Encounter Type: Triage Allergies, Adverse Reactions, Alerts No Known Medication Allergies Immunizations Given and Recorded Vaccine Date Status Refusal Reason influenza virus vaccine, inactivated 01/03/23 Jorge rded SARS-CoV-2(COVID-19)mRNA-LNP vac([id number]) 01/03/23 Recorded tetanus/diphtheria/pertussis, acel(Tdap) 1 12/27/20 Recorded SARS-CoV-2 (COVID-19) mRNA BNT-162b2 vac 07/26/20 Recorded SARS-CoV-2 (COVID-19) mRNA BNT-162b2 vac 07/05/20 Recorded 1Result Comment: [facility] Family Health Problem List Condition Confirmation Course [...] Team Personnel Name: Magdaleno Goodson DO Position: [facility] Physician - Primary Care Member Role: PCP Address: [address] [place] [address]- Telecom: Care Team Related Persons Name: SHANEL CORBETT Name: KARISSA REES Name: RENNY HA Insurance Providers Guarantor name: DESTINEE [facility] Health Plan Information #: 1 Payer: NA Member Number: NA Policy Number: NA Group Number: NA Health Plan Information #: 2 Payer: MEDICARE PART B OUTPT Member Number: NA Policy Number: NA Group Number: NA Health Plan Information #: 3 Payer: [place] Member Number: NA Policy Number: NA Group Number: NA
[2024-04-18 10:44] LABS: Thyroid Stimulating Hormone 0.96 uIU/mL (0.32-4.0)
[2024-04-18 11:39] LABS: Folate 4.6 ng/mL (> or = 4.0); Vitamin B12 393 pg/mL (200-900)
[2024-04-19 21:58] LABS: Ceruloplasmin 32 mg/dL (14-48)
== END 2024-04-18 08:49 | disposition home or self-care (01) ==
LOC: HO.XRAY 08:48
PROVIDERS: Absent Provider Student in an Organized Health Care Education/Training Program; PCP Family Medicine; Visit Provider Psychiatry & Neurology Neurology
DX: M25.571 Pain in right ankle and joints of right foot (principal); R25.1 Tremor, unspecified
CPT/HCPCS: 36415; 73600; 82390; 82607; 82746; 84443

== ENCOUNTER → 2024-04-18 09:17 | Outpatient (BNV) | payer OTHER, SELFPAY | PROVIDERS: Absent Provider Student in an Organized Health Care Education/Training Program; PCP Family Medicine; Visit Provider Radiology Diagnostic Radiology | DX: M25.572 Pain in left ankle and joints of left foot (principal); M25.571 Pain in right ankle and joints of right foot | CPT/HCPCS: 73600 ==

== ENCOUNTER 2024-06-22 10:15 | Outpatient (REF) | payer OTHER, SELFPAY ==
[2024-06-22 10:43] LABS: MANUAL DIFF FLAG NO
[2024-06-22 11:07] LABS: Basophils Absolute Auto 0.1 X10*3/uL (0.0-0.2); Basophils Percent Auto 0.8 % (0-2); Eosinophils Absolute Auto 0.4 X10*3/uL (0.0-0.4); Eosinophils Percent Auto 3.3 % (0-4); Hematocrit 42.4 % (37.0-47.0); Hemoglobin 14.4 g/dl (12.0-16.0); Imm Gran Abs Auto 0.06 X10*3/uL (0.00-0.03); Imm Gran Pct Auto 0.6 % (0.0-0.4); Lymphocytes Absolute Auto 3.4 X10*3/uL (1.2-4.9); Lymphocytes Percent Auto 32.2 % (20-40); Mean Corpuscular Hemoglobin 31.2 pg (27.0-33.0); Mean Corpuscular Volume 91.8 fL (80.0-98.0); Mean Platelet Volume 8.9 fL (9.4-12.3); Monocytes Absolute Auto 0.6 X10*3/uL (0.1-1.2); Monocytes Percent Auto 5.7 % (2-11); Neutrophils Absolute Auto 6.1 x10*3/uL (2.0-8.3); Neutrophils Percent Auto 57.4 % (45-73); Platelet Count 357 X10*3/uL (160-400); Red Blood Count 4.62 X10*6/uL (4.20-5.50); White Blood Count 10.6 X10*3/uL (4.8-10.8)
[2024-06-22 11:50] LABS: Alanine Aminotransferase 27 U/L (0-31); Albumin Level 4.4 g/dL (3.5-5.0); Alkaline Phosphatase 71 U/L (39-117); Anion Gap 12 (12-20); Aspartate Amino Transferase 19 U/L (5-31); Bilirubin Total 0.4 mg/dL (0.0-1.0); Blood Urea Nitrogen 14 mg/dL (9-16); Calcium 9.8 mg/dL (8.4-10.2); Carbon Dioxide 31 mmol/L (22-29); Chloride 103 mmol/L (96-108); Estimated Glomerular Filt Rate > 60; Glucose Random 95 mg/dL (60-115); Sodium 142 mmol/L (135-145); Total Protein 7.9 g/dL (6.5-8.0)
[2024-06-22 12:12] LABS: Creatinine Urine 15.31 mg/dL; Microalbumin Urine < 5.0 mg/L
== END 2024-06-22 10:16 | disposition home or self-care (01) ==
LOC: HO.LAB 10:15
PROVIDERS: PCP Family Medicine; Visit Provider Family Medicine
DX: Z00.00 Encounter for general adult medical examination without abnormal findings (principal); E11.9 Type 2 diabetes mellitus without complications; E21.3 Hyperparathyroidism, unspecified; E66.01 Morbid (severe) obesity due to excess calories; I10 Essential (primary) hypertension
CPT/HCPCS: 36415; 80053; 82043; 82570; 85025

== ENCOUNTER 2024-06-23 15:07 | Outpatient (REF) | payer OTHER, SELFPAY ==
[2024-06-23 15:56] LABS: Appearance Urine Clear; Color Urine Yellow; Glucose Urine UA Negative (Negative); Leukocyte Esterase Urine Moderate (2+) (Negative); Nitrite Urine Negative (Negative); UMIC TRIGGER UA YES; UMIC TRIGGER UACC YES; Urine Blood Negative (Negative); Urine Ketones Negative (Negative); Urine Protein Negative (Neg-Trace)
[2024-06-23 15:58] LABS: Bacteria Urine Trace (None Seen); Hyaline Casts Urine 0-2 /LPF (0-2); RBC Urine 0-2 /HPF (0-2); Squamous Epithelial Cell Urine 0-2 /HPF (0-2); UACC Culture Trigger YES; WBC Urine >50 /HPF (0-5)
== END 2024-06-23 15:08 | disposition home or self-care (01) ==
LOC: HO.LAB 15:07
PROVIDERS: PCP Family Medicine; Visit Provider Family Medicine
DX: R30.9 Painful micturition, unspecified (principal)
CPT/HCPCS: 81001; 87086; 87088; 87186

== ENCOUNTER 2024-07-01 20:20 | Emergency (ER) | payer OTHER, SELFPAY ==
--- NOTE | ~2024-07-01 | XR_ITS ---
CLINICAL HISTORY: pain after fall 4 view left shoulder Comparison: None Findings: No fractures or dislocations. The left humeral head is appropriately positioned with respect to the left glenoid. No radiopaque foreign body. IMPRESSION: 1. No acute fracture or dislocation injury identified at the left shoulder. This document has been electronically signed by: Jayant Dillard MD on 07/01/2024 21:13:16
[2024-07-01 20:28] VITALS: BP 131/78; PULSE 76; RESP 17; TEMP 36.9; O2SAT 98; BMI 41.3
--- NOTE | 2024-07-01 20:29 | ED_ITS ---
HPI - General Adult General Chief complaint: Fall Stated complaint: Fall at work/left sided pain shoulder hip Time Seen by Provider: 07/02/24 01:20 Source: patient Limitations: no limitations History of Present Illness ED Provider: Tona Garcia PA-C HPI narrative: 53-year-old female presents for evaluation of left shoulder pain radiating into her neck after a fall today. Patient states she was sitting in a chair, leaning on a table there was a prop, it collapse, she subsequently landed with her full weight onto her left side. Now patient has left shoulder pain. Patient able to range the left upper extremity. Denies weakness or paresthesia. Related Data Home Medications ?Medication ?Instructions ?Recorded ?Confirmed aripiprazole 5 mg tablet (Abilify) 5 mg PO DAILY 01/23/23 03/24/24 escitalopram oxalate 10 mg tablet 10 mg PO DAILY 01/23/23 03/24/24 (Lexapro) lamotrigine 150 mg tablet 300 mg PO DAILY 01/23/23 03/24/24 (Lamictal) loratadine 10 mg tablet (Claritin) 10 mg PO DAILY 01/23/23 03/24/24 losartan 100 mg tablet 100 mg PO DAILY 01/23/23 03/24/24 metoprolol succinate 100 mg 100 mg PO DAILY 01/23/23 03/24/24 tablet,extended release 24 hr acetaminophen 500 mg tablet 1,000 mg PO Q6H PRN Pain 05/29/23 03/24/24 clonazepam 1 mg tablet 0.5 mg PO DAILY PRN Anxiety 05/29/23 03/24/24 diphenhydramine HCl 50 mg capsule 50 mg PO Q6H PRN Pain 05/29/23 03/24/24 gabapentin 300 mg capsule 300 mg PO BID 05/29/23 03/24/24 ibuprofen 600 mg tablet 600 mg PO Q6H PRN Pain 05/29/23 03/24/24 pregabalin 75 mg capsule (Lyrica) 75 mg PO DAILY 11/30/23 03/24/24 tirzepatide 2.5 mg/0.5 mL 5 mg subcut 03/24/24 03/24/24 subcutaneous pen injector (Treva) Previous Rx's ?Medication ?Instructions ?Recorded docusate sodium 100 mg capsule 100 mg PO BID PRN constipation #30 06/05/23 (Colace) caps oxycodone 5 mg tablet 5 mg PO Q4H PRN pain (scale score 06/05/23 7-10) #24 tabs cefuroxime axetil 500 mg tablet 500 mg PO BID #14 tabs 06/08/23 cholecalciferol (vitamin D3) 50 100 mcg (2 x 50 mcg (2,000 unit)) 07/30/23 mcg (2,000 unit) capsule PO DAILY #30 caps methocarbamol 750 mg tablet 750 mg PO Q8H PRN pain, moderate 07/02/24 #10 tabs Allergies Allergy/AdvReac Type Severity Reaction Status Date / Time No Known Allergies Allergy Verified 07/01/24 20:30 Review of Systems Review of Systems: Yes all other systems are reviewed and are negative Constitutional: Constitutional: Denies fatigue and Denies fever(s) Musculoskeletal: Musculoskeletal: Reports arthralgias and Denies joint swelling Endocrine: Endocrine: Denies fatigue PMFSH Past Medical History Attestation statement: The following information was validated with the patient. Medical History History of electroconvulsive therapy Sleep apnea Type 2 diabetes mellitus Snoring Rosacea Iliotibial band syndrome, right leg Mitral valve prolapse Asymptomatic menopausal state Mitral valve disorder Neuralgia of both lower extremities Leg heaviness Morbid obesity Tendinosis of rotator cuff Vitamin D deficiency SANTI on CPAP Localized edema Chronic kidney disease, stage 3a PTSD (post-traumatic stress disorder) Bipolar 1 disorder Hyperparathyroidism Suicidal ideations Cataract Seasonal allergies Anxiety Depression HTN (hypertension) Sciatic leg pain Surgical History History of parathyroidectomy (06/04/23) Hx of colonoscopy History of surgery (2014) History of tonsillectomy Social History Social History Household Members: Significant Other Housing: Apartment Are you a primary critical care physician assistant to a significant other at home: No Do you presently have visiting nurse or other home services: No Alcohol intake: never Comment: COUNTS CORRECT Patient Tobacco Use Status: Never used Tobacco e-Cigarette/Vaping Use: Currently Using Substance Use Type: Marijuana Advance Directives: No Advance Directives Information Provided: Yes Do you have a plan to hurt others: No Plan Physical Exam ED Vital Signs: Vital Signs - 24 hr 07/01/24 20:28 07/02/24 00:52 Temperature 98.5 F 98.1 F Pulse Rate 76 75 Respiratory Rate 17 16 Blood Pressure 131/78 113/61 Pulse Oximetry 98 97 Oxygen Delivery Method Room Air BMI result Body Mass Index 41.3 Const Other: Alert Orientation/consciousness: patient oriented x3 Neck Neck: Yes full ROM Resp Effort & Inspection: normal respiratory effort Cardio Other: Normal peripheral perfusion Skin Other: Warm dry no rash Neuro General: patient oriented x3, gait normal, no focal motor deficits and CN's II- XI intact bilaterally Psych Other: Cooperative Course Course Course Narrative: RME, this is a rapid medical exam performed by Lewis Connolly please refer to primary provider for complete H&P- 53-year-old female presents for evaluation of left shoulder pain radiating into her neck after a fall today. She reports that she fell at work. She did land on her left hip and has some discomfort but is ambulatory and her pain to her left hip is mild. Plan for x-ray of the left shoulder only. She did not hit her head or lose consciousness. I discussed possible hip x-ray with her and she deferred which I feel is appropriate Medical Decision Making Medical Decision Making MDM Narrative: 53-year-old female presents for evaluation of left shoulder pain radiating into her neck after a fall today. Patient states she was sitting in a chair, leaning on a table there was a prop, it collapse, she subsequently landed with her full weight onto her left side. Now patient has left shoulder pain. Patient able to range the left upper extremity. Denies weakness or paresthesia. No chronic issues History: Per patient I have considered the following differential diagnoses: Fracture, dislocation, contusion, sprain, cervical radiculopathy Plan: X-ray ordered from triage there was no fracture or dislocation, the patient was sustained a contusion. She has no radicular symptoms. We will send with home care instructions. I have independently reviewed the following tests: X-ray left shoulder:IMPRESSION: 1. No acute fracture or dislocation injury identified at the left shoulder. Discharge Plan Discharge Clinical Impression: Contusion of left shoulder Patient Disposition: Home, Self-Care Instructions: Contusion in Adults (ED) Additional Instructions: The x-ray was negative for fracture or dislocation, you have a contusion. See home care instructions. Use [id number] ibuprofen 600 mg taken every 6 hours with food, use the methocarbamol for further pain. This is a muscle relaxant, it will cause drowsiness, do not drive or operate machinery while taking the medication. Follow up with primary care as needed. Prescriptions: New methocarbamol 750 mg tablet 750 mg PO Q8H PRN (Reason: pain, moderate) Qty: 10 0RF No Action cefuroxime axetil 500 mg tablet 500 mg PO BID Qty: 14 0RF diphenhydramine HCl 50 mg Capsule 50 mg PO Q6H PRN (Reason: Pain) clonazepam 1 mg tablet 0.5 mg PO DAILY PRN (Reason: Anxiety) acetaminophen 500 mg Tablet 1,000 mg PO Q6H PRN (Reason: Pain) gabapentin 300 mg capsule 300 mg PO BID ibuprofen 600 mg Tablet 600 mg PO Q6H PRN (Reason: Pain) docusate sodium [Colace] 100 mg capsule 100 mg PO BID PRN (Reason: constipation) Qty: 30 0RF oxycodone 5 mg tablet 5 mg PO Q4H PRN (Reason: pain (scale score 7-10)) Qty: 24 0RF Rx Instructions: Partial Fill upon patient request. losartan 100 mg tablet 100 mg PO DAILY metoprolol succinate 100 mg tablet extended release 24 hr 100 mg PO DAILY escitalopram oxalate [Lexapro] 10 mg tablet 10 mg PO DAILY aripiprazole [Abilify] 5 mg tablet 5 mg PO DAILY lamotrigine [Lamictal] 150 mg tablet 300 mg PO DAILY loratadine [Claritin] 10 mg tablet 10 mg PO DAILY cholecalciferol (vitamin D3) 50 mcg (2,000 unit) capsule 100 mcg PO DAILY Qty: 30 4RF Mounjaro 2.5 mg/0.5 mL pen injector 5 mg subcut pregabalin [Lyrica] 75 mg capsule 75 mg PO DAILY Stand Alone Forms: Work/School Release Print Language: Yemeni
[2024-07-02 00:52] VITALS: BP 113/61; PULSE 75; RESP 16; TEMP 36.7; O2SAT 97
[2024-07-02] MEDS: methocarbamoL 750 MG TABLET PO (01:40)
[2024-07-02 01:42] VITALS: BP 113/61; PULSE 75; RESP 16; TEMP 36.7; O2SAT 97
== END 2024-07-02 01:46 | disposition home or self-care (01) ==
PROVIDERS: Emergency Provider Emergency Medicine Emergency Medical Services; PCP Family Medicine
DX: S40.012A Contusion of left shoulder, initial encounter (principal); W07.XXXA Fall from chair, initial encounter; Y93.89 Activity, other specified; Y92.009 Unspecified place in unspecified non-institutional (private) residence as the place of occurrence of the external cause; Y99.9 Unspecified external cause status
CPT/HCPCS: 73030; 99283; 99284

== ENCOUNTER → 2024-07-01 20:29 | Outpatient (BNV) | payer OTHER, SELFPAY | PROVIDERS: PCP Family Medicine; Visit Provider Radiology Diagnostic Radiology | DX: M25.512 Pain in left shoulder (principal); W19.XXXA Unspecified fall, initial encounter | CPT/HCPCS: 73030 ==

== ENCOUNTER 2024-07-26 10:27 | Emergency (ER) | payer OTHER, SELFPAY ==
--- NOTE | ~2024-07-26 | CT_ITS ---
EXAMINATION: CT ANGIOGRAM HEAD AND NECK CLINICAL INFORMATION: Severe dizziness. COMPARISON: None available. TECHNIQUE: Noncontrast axial imaging of the head was performed. This was followed by test bolus sequences and head and neck intravenous bolus administration 70 mL of Isovue 350. Helical imaging was performed in the axial plane from the aortic arch to the skull vertex. The data was processed at the wood technologist's workstation for generation of MIP sequences. Angled MIPs and volume rendered reformatted images were also generated at an offline 3D workstation. Stenoses are assessed in accordance with NASCET criteria unless otherwise indicated. This CT examination was performed using dose optimization techniques as appropriate, variously including the following: *Automated exposure control *Adjustment of mA and/or kV according to patient size (this includes techniques or standardized protocols for targeted exams where dose is matched to indication/reason for exam; i.e. extremities or head) *Use of iterative reconstruction technique FINDINGS: NONCONTRAST HEAD CT: There is no evidence of intracranial hemorrhage or extra-axial fluid collection. There is no mass effect, or edema. No CT evidence of acute territorial infarct. Ventricles, sulci, and cisterns are normal in size and configuration for patient age. No hydrocephalus. No midline shift. No significant white matter abnormalities. Globes and orbital contents image normally. There are bilateral lens replacements. No extracranial soft tissue abnormalities. The paranasal sinuses, mastoid air cells, and tympanic cavities are normally aerated. No suspicious bony abnormalities. NECK CTA: -AORTIC ARCH: Normal in caliber. Mild atheromatous calcification. 2-vessel branching pattern. -GREAT VESSEL ORIGINS: Widely patent. No stenosis. -RIGHT COMMON CAROTID ARTERY: Normal in course and caliber to the level of the bifurcation. -CERVICAL RIGHT INTERNAL CAROTID ARTERY: Normal opacification without focal stenosis or occlusion. -LEFT COMMON CAROTID ARTERY: Normal in course and caliber to the level of the bifurcation. -CERVICAL LEFT INTERNAL CAROTID ARTERY: Normal opacification without focal stenosis or occlusion. -CERVICAL RIGHT VERTEBRAL ARTERY: Codominant. Origin mildly obscured by motion. Normal in course and caliber into the skull base. -CERVICAL LEFT VERTEBRAL ARTERY: Codominant. Origin mildly obscured by motion. Normal in course and caliber into the skull base. OTHER, SOFT TISSUES: -No lymphadenopathy or mass. No abnormal fluid collection or soft tissue swelling. -Probable left thyroidectomy. -Imaged superior mediastinal structures normal. -Imaged lung apices mildly motion obscured, however grossly clear. Mosaic appearance is likely secondary to expiratory state. CTA OF THE BRAIN: -INTRACRANIAL INTERNAL CAROTID ARTERIES: Calcific atherosclerotic disease of the intracranial internal carotid arteries without occlusion or flow-limiting stenosis. -RIGHT ANTERIOR CEREBRAL ARTERY: Normal A1 segment.. Normal arborization of the distal segments. -LEFT ANTERIOR CEREBRAL ARTERY: Normal A1 segment.. Normal arborization of the distal segments. -ANTERIOR COMMUNICATING ARTERY: Normal. -RIGHT MIDDLE CEREBRAL ARTERY: Normal M1 segment of the MCA without focal stenosis or occlusion. Normal arborization of the distal segments. -LEFT MIDDLE CEREBRAL ARTERY: Normal M1 segment of the MCA without focal stenosis or occlusion. Normal arborization of the distal segments. -RIGHT VERTEBRAL ARTERY V4: Normal in course and caliber. Normal PICA branch. -LEFT VERTEBRAL ARTERY V4: Normal in course and caliber. Normal PICA branch. -BASILAR ARTERY: Normal without focal stenosis or occlusion. Normal appearance of the proximal superior cerebellar arteries. Normal basilar tip. -RIGHT POSTERIOR CEREBRAL ARTERY: Normal P1 segment. Normal opacification of the distal WIRED MUSIC OPERATOR segments. -LEFT POSTERIOR CEREBRAL ARTERY: Normal P1 segment. Normal opacification of the distal WIRED MUSIC OPERATOR segments. -POSTERIOR COMMUNICATING ARTERIES: Diminutive bilaterally. Normal opacification of the superior sagittal, straight, transverse, and sigmoid sinuses. No venous thrombosis. No space-occupying hemorrhage or definite evolving infarct. CT/CT angio head neck IMPRESSION: NONCONTRAST HEAD CT: 1. No intracranial hemorrhage or mass effect. No CT evidence of acute territorial infarct. 2. No middle ear or mastoid disease. CTA NECK: 1. No evidence of significant arterial stenosis, occlusion, dissection, or aneurysm. 2. Patent jugular veins. 3. Probable left thyroidectomy. CTA HEAD: 1. No evidence of significant arterial occlusion, stenosis, dissection, or aneurysm. 2. Major cortical and dural venous sinuses are patent. Electronically signed by: Elías Lino MD 07/26/2024 02:16 PM EDT
[2024-07-26 10:37] VITALS: BP 134/70; PULSE 60; O2SAT 100
--- NOTE | 2024-07-26 10:41 | ECG_ITS ---
Test Reason : DIZZINESS Blood Pressure : */* mmHG Vent. Rate : 64 BPM Atrial Rate : 64 BPM P-R Int : 158 ms QRS Dur : 90 ms QT Int : 424 ms P-R-T Axes : 13 34 37 degrees QTcB Int : 437 ms Normal sinus rhythm Normal ECG When compared with ECG of 08-Jun-2023 16:51, No significant change was found Referred By: Generic ED Physician Electronically Signed By: GEOVANNA VILLANUEVA
[2024-07-26 10:48] VITALS: BP 140/78; PULSE 56; RESP 16; TEMP 36.8; O2SAT 96; BMI 42.0
[2024-07-26 11:22] VITALS: BP 158/82; PULSE 63
[2024-07-26 11:23] VITALS: BP 153/78; BP 154/84; PULSE 62; PULSE 67
--- NOTE | 2024-07-26 12:29 | ED.DIZZY ---
HPI - Dizziness General Chief Complaint: Dizziness Stated Complaint: VERTIGO FROM DR GREENE PER EMS Time Seen by Provider: 07/26/24 11:41 Source: patient Limitations: no limitations History of Present Illness HPI Narrative: Patient presented to emergency department with a chief complaint of dizziness the dizziness he has been ongoing for about a week. She went to see the PCP today was sent to the emergency department. Patient has been started recently on Lyrica 75 mg daily and caplyta . MD elicited complaint: dizziness Pertinent past history: other (Depression anxiety) Onset (ago): week(s) Timing: gradual onset Severity: moderate Description: sense of movement History of similar symptoms: No Related Data Home Medications ?Medication ?Instructions ?Recorded ?Confirmed aripiprazole 5 mg tablet (Abilify) 5 mg PO DAILY 01/23/23 03/24/24 escitalopram oxalate 10 mg tablet 10 mg PO DAILY 01/23/23 03/24/24 (Lexapro) lamotrigine 150 mg tablet 300 mg PO DAILY 01/23/23 03/24/24 (Lamictal) loratadine 10 mg tablet (Claritin) 10 mg PO DAILY 01/23/23 03/24/24 losartan 100 mg tablet 100 mg PO DAILY 01/23/23 03/24/24 metoprolol succinate 100 mg 100 mg PO DAILY 01/23/23 03/24/24 tablet,extended release 24 hr acetaminophen 500 mg tablet 1,000 mg PO Q6H PRN Pain 05/29/23 03/24/24 clonazepam 1 mg tablet 0.5 mg PO DAILY PRN Anxiety 05/29/23 03/24/24 diphenhydramine HCl 50 mg capsule 50 mg PO Q6H PRN Pain 05/29/23 03/24/24 gabapentin 300 mg capsule 300 mg PO BID 05/29/23 03/24/24 ibuprofen 600 mg tablet 600 mg PO Q6H PRN Pain 05/29/23 03/24/24 pregabalin 75 mg capsule (Lyrica) 75 mg PO DAILY 11/30/23 03/24/24 tirzepatide 2.5 mg/0.5 mL 5 mg subcut 03/24/24 03/24/24 subcutaneous pen injector (Treva) Previous Rx's ?Medication ?Instructions ?Recorded docusate sodium 100 mg capsule 100 mg PO BID PRN constipation #30 06/05/23 (Colace) caps oxycodone 5 mg tablet 5 mg PO Q4H PRN pain (scale score 06/05/23 7-10) #24 tabs cefuroxime axetil 500 mg tablet 500 mg PO BID #14 tabs 06/08/23 cholecalciferol (vitamin D3) 50 100 mcg (2 x 50 mcg (2,000 unit)) 07/30/23 mcg (2,000 unit) capsule PO DAILY #30 caps methocarbamol 750 mg tablet 750 mg PO Q8H PRN pain, moderate 07/02/24 #10 tabs meclizine 25 mg tablet 25 mg PO TID PRN dizziness #15 tabs 07/26/24 Allergies Allergy/AdvReac Type Severity Reaction Status Date / Time haloperidol [From Haldol] Allergy Angioedema Verified 07/26/24 10:50 Review of Systems Constitutional: Constitutional: Reports no additional constitutional complaints Musculoskeletal: Musculoskeletal: Reports no additional musculoskeletal complaints Neurologic: Reports as per [facility] Past Medical History Reminder: Not acute distress comfortable in the stretcher Medical History History of electroconvulsive therapy Sleep apnea Type 2 diabetes mellitus Snoring Rosacea Iliotibial band syndrome, right leg Mitral valve prolapse Asymptomatic menopausal state Mitral valve disorder Neuralgia of both lower extremities Leg heaviness Morbid obesity Tendinosis of rotator cuff Vitamin D deficiency SANTI on CPAP Localized edema Chronic kidney disease, stage 3a PTSD (post-traumatic stress disorder) Bipolar 1 disorder Hyperparathyroidism Suicidal ideations Cataract Seasonal allergies Anxiety Depression HTN (hypertension) Sciatic leg pain Surgical History History of parathyroidectomy (06/04/23) Hx of colonoscopy History of surgery (2014) History of tonsillectomy Social History Social History Household Members: Significant Other Housing: Apartment Are you a primary care connector to a significant other at home: No Do you presently have visiting nurse or other home services: No Alcohol intake: never Comment: COUNTS CORRECT Patient Tobacco Use Status: Never used Tobacco Smoked in Last 30 Days: No e-Cigarette/Vaping Use: Currently Using Use of substances other than those prescribed or required for medical reasons: Yes Substance Use Type: Marijuana Advance Directives: Yes Advance Directives Information Provided: Yes Advance Directives on File: No Do you have a plan to hurt others: No Plan Patient : No Physical Exam Vital Signs: Vital Signs: Last Vital Signs Temp 98.2 F 07/26/24 10:48 Pulse 67 07/26/24 11:23 Resp 16 07/26/24 10:48 BP 154/84 H 07/26/24 11:23 Pulse Ox 96 07/26/24 10:48 O2 Del Method Room Air 07/26/24 10:48 BMI result Body Mass Index 42.0 No acute distress HEENT: Head: Yes normal to inspection Face and sinus: Yes normal facial exam Throat: Yes posterior oropharynx normal Neck: Neck: Yes normal visual inspection Chest: Chest palpation & inspection: normal inspection of the chest Resp: Effort & Inspection: normal respiratory effort Cardio: Jugular venous distension: no JVD Rate: regular rate Rhythm: regular rhythm GI: Inspection: Yes normal to inspection Palpation (GI): Soft to palpation, not firm and nontender Auscultation: normal bowel sounds Skin: General skin exam: no rashes or lesions noted Course Reevaluation(s) Reevaluation #1: Re-examined she is feeling much better anticipate discharge CTA negative Time: 16:09 Medications Administered Discontinued Medications Generic Name Dose Route Start Last Admin Trade Name Sylvia PRN Reason Stop Dose Admin Iohexol 100 ml 07/26/24 13:44 07/26/24 13:45 Iohexol 350 Mg/Ml 100 Ml Infus..Btl IV 07/26/24 13:45 70 ml ONCE ONE Administration Meclizine HCl 25 mg 07/26/24 12:27 07/26/24 12:54 Meclizine Hcl 25 Mg Tablet PO 07/26/24 12:28 25 mg ONCE ONE Administration Medical Decision Making Medical Decision Making MDM Narrative: Patient is here complaining of dizziness Differential Diagnosis Differential Diagnoses: The differential diagnosis associated with the presentation includes Viral syndrome/vertigo unlikely CVA the neuro exam is normal Admission/Observation Consideration of admission/observation: Escalation of care including admission/observation considered Lab Data MDM Lab Attestation statement: I reviewed the patient's lab results. 07/26/24 12:41 07/26/24 12:41 Labs: Lab Results 04/22/25 04/22/25 04/22/25 Range/Units 12:41 12:51 14:21 WBC 9.2 (4.8-10.8) X10*3/uL RBC 4.66 (4.20-5.50) X10*6/uL Hgb 14.2 (12.0-16.0) g/dl Hct 42.4 (37.0-47.0) % MCV 91.0 (80.0-98.0) fL MCH 30.5 (27.0-33.0) pg MCHC 33.5 (31.0-35.0) g/dl RDW 12.8 (11.0-16.0) % Plt Count 336 (160-400) X10*3/uL MPV 8.7 L (9.4-12.3) fL Immature Gran % (Auto) 0.2 (0.0-0.4) % Neut % (Auto) 63.0 (45-73) % Lymph % (Auto) 30.4 (20-40) % [place] % (Auto) 5.6 (2-11) % Eos % (Auto) 0.0 (0-4) % Baso % (Auto) 0.8 (0-2) % Lymph # (Auto) 2.8 (1.2-4.9) X10*3/uL [place] # (Auto) 0.5 (0.1-1.2) X10*3/uL Eos # (Auto) 0.0 (0.0-0.4) X10*3/uL Baso # (Auto) 0.1 (0.0-0.2) X10*3/uL Abs Immat Gran (auto) 0.02 (0.00-0.03) X10*3/uL Absolute Neuts (auto) 5.8 (2.0-8.3) x10*3/uL Absolute Nucleated RBC 0.000 (0.0-0.012) X10*3/uL Nucleated RBC % (auto) 0.0 (0.0-0.2) /100WBC Sodium 143 (135-145) mmol/L Potassium 3.7 (3.3-5.1) mmol/L Chloride 103 (96-108) mmol/L Carbon Dioxide 33 H (22-29) mmol/L Anion Gap 11 L (12-20) BUN 12 (9-16) mg/dL Creatinine 0.71 (0.5-1.4) mg/dL Estim Creat Clear Calc 94.8 Estimated GFR > 60 POC Glucose 79 63 (60-115) mg/dL Random Glucose 80 (60-115) mg/dL Calcium 9.4 (8.4-10.2) mg/dL Total Bilirubin 0.5 (0.0-1.0) mg/dL AST 17 (5-31) U/L ALT 30 (0-31) U/L Alkaline Phosphatase 69 (39-117) U/L Troponin I High Sens < 2.7 (<3.5-17.0) ng/L Total Protein 7.2 (6.5-8.0) g/dL Albumin 4.3 (3.5-5.0) g/dL Urine Color Yellow Urine Appearance Clear Urine pH 7.5 (5.0-9.0) Ur Specific [place] 1.010 (1.005-1.025) Urine Protein Negative (Neg-Trace) mg/dL Urine Glucose (UA) Negative (Negative) mg/dL Urine Ketones Negative (Negative) mg/dL Urine Blood Negative (Negative) Urine Nitrite Negative (Negative) Ur Leukocyte Esterase Negative (Negative) Independent Interpretation I performed an independent interpretation of an: CT Scan Radiology Impression Discussion of test interpretation with radiology: I have reviewed the radiologist's reading. Radiologist Impression: EBRAL ARTERY: Normal P1 segment. Normal opacification of the distal DRY PAN OPERATOR segments. -LEFT POSTERIOR CEREBRAL ARTERY: Normal P1 segment. Normal opacification of the distal DRY PAN OPERATOR segments. -POSTERIOR COMMUNICATING ARTERIES: Diminutive bilaterally. Normal opacification of the superior sagittal, straight, transverse, and sigmoid sinuses. No venous thrombosis. No space-occupying hemorrhage or definite evolving infarct. CT/CT angio head neck IMPRESSION: NONCONTRAST HEAD CT: 1. No intracranial hemorrhage or mass effect. No CT evidence of acute territorial infarct. 2. No middle ear or mastoid disease. CTA NECK: 1. No evidence of significant arterial stenosis, occlusion, dissection, or aneurysm. 2. Patent jugular veins. 3. Probable left thyroidectomy. CTA HEAD: 1. No evidence of significant arterial occlusion, stenosis, dissection, or aneurysm. 2. Major cortical and dural venous sinuses are patent. Electronically signed by: Elías Lino MD 07/26/2024 02:16 PM EDT RP Discharge Plan Discharge Clinical Impression: Dizziness Patient Disposition: Home, Self-Care Instructions: Dizziness (ED) Additional Instructions: Follow-up with your primary care physician return to the emergency room if you worse any concern Prescriptions: New meclizine 25 mg tablet 25 mg PO TID PRN (Reason: dizziness) Qty: 15 0RF No Action cefuroxime axetil 500 mg tablet 500 mg PO BID Qty: 14 0RF diphenhydramine HCl 50 mg Capsule 50 mg PO Q6H PRN (Reason: Pain) clonazepam 1 mg tablet 0.5 mg PO DAILY PRN (Reason: Anxiety) acetaminophen 500 mg Tablet 1,000 mg PO Q6H PRN (Reason: Pain) gabapentin 300 mg capsule 300 mg PO BID ibuprofen 600 mg Tablet 600 mg PO Q6H PRN (Reason: Pain) docusate sodium [Colace] 100 mg capsule 100 mg PO BID PRN (Reason: constipation) Qty: 30 0RF oxycodone 5 mg tablet 5 mg PO Q4H PRN (Reason: pain (scale score 7-10)) Qty: 24 0RF Rx Instructions: Partial Fill upon patient request. methocarbamol 750 mg tablet 750 mg PO Q8H PRN (Reason: pain, moderate) Qty: 10 0RF losartan 100 mg tablet 100 mg PO DAILY metoprolol succinate 100 mg tablet extended release 24 hr 100 mg PO DAILY escitalopram oxalate [Lexapro] 10 mg tablet 10 mg PO DAILY aripiprazole [Abilify] 5 mg tablet 5 mg PO DAILY lamotrigine [Lamictal] 150 mg tablet 300 mg PO DAILY loratadine [Claritin] 10 mg tablet 10 mg PO DAILY cholecalciferol (vitamin D3) 50 mcg (2,000 unit) capsule 100 mcg PO DAILY Qty: 30 4RF Mounjaro 2.5 mg/0.5 mL pen injector 5 mg subcut pregabalin [Lyrica] 75 mg capsule 75 mg PO DAILY Print Language: Turkmen
[2024-07-26 12:47] LABS: Basophils Absolute Auto 0.1 X10*3/uL (0.0-0.2); Basophils Percent Auto 0.8 % (0-2); Hematocrit 42.4 % (37.0-47.0); Hemoglobin 14.2 g/dl (12.0-16.0); Imm Gran Abs Auto 0.02 X10*3/uL (0.00-0.03); Imm Gran Pct Auto 0.2 % (0.0-0.4); Lymphocytes Absolute Auto 2.8 X10*3/uL (1.2-4.9); Lymphocytes Percent Auto 30.4 % (20-40); MANUAL DIFF FLAG NO; Mean Corpuscular HGB Conc 33.5 g/dl (31.0-35.0); Mean Corpuscular Hemoglobin 30.5 pg (27.0-33.0); Mean Platelet Volume 8.7 fL (9.4-12.3); Monocytes Absolute Auto 0.5 X10*3/uL (0.1-1.2); Monocytes Percent Auto 5.6 % (2-11); Neutrophils Absolute Auto 5.8 x10*3/uL (2.0-8.3); Platelet Count 336 X10*3/uL (160-400); Red Blood Count 4.66 X10*6/uL (4.20-5.50); Red Cell Distribution Width 12.8 % (11.0-16.0); White Blood Count 9.2 X10*3/uL (4.8-10.8)
[2024-07-26 12:49] LABS: Appearance Urine Clear; Color Urine Yellow; Glucose Urine UA Negative (Negative); Leukocyte Esterase Urine Negative (Negative); Nitrite Urine Negative (Negative); PH 7.5 (5.0-9.0); Urine Blood Negative (Negative); Urine Ketones Negative (Negative); Urine Protein Negative (Neg-Trace)
[2024-07-26] MEDS: Meclizine HCl 25 MG TABLET PO (12:54)
[2024-07-26 12:55] LABS: Glucose, Whole Blood 79 mg/dL (60-115)
[2024-07-26 13:05] LABS: Alanine Aminotransferase 30 U/L (0-31); Albumin Level 4.3 g/dL (3.5-5.0); Anion Gap 11 (12-20); Aspartate Amino Transferase 17 U/L (5-31); Bilirubin Total 0.5 mg/dL (0.0-1.0); Blood Urea Nitrogen 12 mg/dL (9-16); Calcium 9.4 mg/dL (8.4-10.2); Carbon Dioxide 33 mmol/L (22-29); Chloride 103 mmol/L (96-108); Creatinine Clr Calc Pharmacy 94.8; Estimated Glomerular Filt Rate > 60; Glucose Random 80 mg/dL (60-115); Potassium 3.7 mmol/L (3.3-5.1); Sodium 143 mmol/L (135-145); Total Protein 7.2 g/dL (6.5-8.0)
[2024-07-26 13:08] LABS: Troponin-I High Sensitivity < 2.7 ng/L (<3.5-17.0)
--- OUTSIDE RECORDS SUMMARY | 2024-07-26 13:19 | XMS_ITS | Data Portability ---
Author Organization [facility], [facility]- Address [address] [place] [address] Care Team Providers Care Wildlife Biostation Research Ecologist Name Role Phone CROW DAVID Primary Care Provider Assessment No assessment recorded. Plan of Treatment Reminders Order Date Submit Date Provider Last Modified By Organization Details Last Modified Time Details Appointments None recorded. Lab biopsy, tissue - R nasal columella 2018 019 [facility], [address] [place] [address], [id number], 9 17:55:13 Referral None recorded. Procedures None recorded. Surgeries None recorded. Imaging None recorded. Medication Orders None recorded. Patient TargetsNo targets recorded. Patient InstructionsNo instructions recorded. Reason for Referral None Reported. Results Created Date Observation Date Name Description Value Unit Range Abnormal Flag Note LastModifiedBy Organization Detail LastModifiedTime Result Notes None recorded. Procedures Surgical History Date Name Laterality Status Provider Name and Address Organization Details Recorded Time 9 Biopsy Shave completed Elías Ferraro MD [address] [address], [place], [address], [facility] 12/16/2018 09:32:15 Imaging Results None recorded. Procedure Notes None recorded. Medical Equipment None Reported. Allergies No known drug allergies Medications Name Sig Start Date Stop Date Status Note LastModified by Organization Details LastModified Time fluoxetine 40 mg capsule TAKE ONE (1) CAPSULE BY MOUTH EVERY MORNING COMBINE WITH 20 MG CAP active Not Available Not Available No t Available methylphenid ate 10 mg tablet TAKE 1 TABLET BY MOUTH THREE TIMES A DAY active Not Available Not Available Not Available chlorthalido ne 25 mg tablet TAKE 1 TABLET BY MOUTH EVERY DAY IN THE MORNING WITH FOOD active Not Available Not Available No t Available betamethason e valerate 0.1 % topical cream APPLY TO AFFECTED AREA ONCE A DAY NEEDED EXTERNALLY 30 DAYS active Not Available Not Available No t Available losartan 25 mg tablet TAKE 1 TABLET BY MOUTH EVERY DAY FOR BLOOD PRESSURE active Not Available Not Available No t Available lisinopril 5 mg tablet TAKE 1 TABLET BY MOUTH EVERY DAY active Not Available Not Available No t Available hydrochlorot hiazide 25 mg tablet TAKE 1 TABLET BY MOUTH EVERY DAY active Not Available Not Available No t Available fluoxetine 20 mg capsule TAKE ONE (1) CAPSULE BY MOUTH EVERY MORNING COMBINE WITH 40 MG CAP TOTAL DAILY DOSE =60MG active Not Available Not Available No t Available aripiprazole 5 mg tablet TAKE ONE (1) TABLET BY MOUTH DIRECTED AT NIGHT ( MAY TAKE 1/2 TAB ON WEEKENDS IF SOMNOLENT) active Not Available Not Available N ot Available nitrofuranto in monohydrate/ macrocrystal s 100 mg capsule TAKE 1 CAPSULE BY MOUTH TWICE A DAY active Not Available Not Available No t Available Alyacen 1/35 (28) 1 mg-35 mcg tablet TAKE 1 TABLET BY MOUTH EVERY DAY active Not Available Not Available No t Available Vitals Date Recorded Body height Body mass index (BMI) Body weight Provider Name and Address Organization Details Last Updated DateTime 12/16/2018 154.94 cm 40.6 kg/m2 68399.36 g MICKIE Bond [facility] 12/16/2018 09:26:19 Social History Question Answer Notes LastModified by Organizat ion Details LastModified Time Tobacco Smoking Status [facility] 12/16/2018 09:26:27 What Is Your Level Of Alcohol Consumption? None [email or web address] Information not available 12/16/2018 What Is Your Level Of Caffeine Consumption? Occasional 1 [email or web address] Information not available 12/16/2018 Sex: Unknown Functional Status None recorded. Mental Status None recorded. Family History Nothing Reported. Medical History Condition Response Allergies/Hayfever N Acid reflux (GERD) N Heart Conditions N Liver Disease/Jaundice N Emphysema N Migraines N Thyroid Problems N Glaucoma N Depression N HIV/Sexually Transmitted Disease N Anemia N Heart Attack ([place]) N N Diabetes N Bleeding Disorder N Hearing Loss N Arthritis N Cancer N Stroke N Asthma N Sleep Disorder N Hypertension Y Speech Delay N Kidney Disease N Gynecological HistoryNo gynecological history recorded. Obstetrics History GPAL:G 0 P 0 0 0 0 Past Encounters Encounter ID Performer Location Encounter Start Date Encounter Closed Date Diagnosis/Indication Diagnosis SNOMED-CT Code Diagnosis ICD10 Code Diagnosis Note [id number] Elías Ferraro MD Main Office [address] [facility],[address] [place] [address] 12/16/2018 09:19:48 12/16/2018 09:54:48 Neoplasm of uncertain behavior of skin 51525412 D48.5 -Skin lesion of uncertain etiology of R nasal columella -Shave biopsy performed today in the office -Keep the site moist with Bacitracin for three days and then transition to Vaseline -Follow-up in 1 week for wound eval and path review Health Concerns Section Related Observation LastModified by Organization Detai ls LastModified Time None Recorded Concern Status LastModified by Organization Details LastModified Time None Recorded Advance Directives Directive None Recorded Payers Encounter Date Sequence Insurance Name Policy Number Policy Easley Covered Member ID Easley Member ID Guarantor Name 12/16/2018 1 [place] [employer] Tona D Zurdo [id number] Tona Zurdo 12/16/2018 2 [place] [facility] Tona Zurdo [id number] Tona Zurdo Notes Date Note Type Note Provider Name a nd Address Organization Details Recorded Time 9 text/html Here for eval of R columellar lesion. Developed over the past couple of years. Occ scratches the site and tends to bleed. Has unsuccessfully tried to remove the lesion. Can't find anything to improve the area. No other hx of skin lesions or skin cancer. Elías Ferraro MD [address], [place], [address], [facility] 12/16/2018 09:44:31 OBGyn Episode No OBEpisode recorded.
--- OUTSIDE RECORDS SUMMARY | 2024-07-26 13:19 | XMS_ITS | Encounter Summary ---
Author Organization [facility] Address [address] [place] [address] Phone Care Team Providers Care Game Protector Name Role Phone Magdaleno Goodson DO Primary Care Provider [phone] Encounter Details Date Type Department Care Team (Late st Contact Info) Description 08/10/2023 Documentation Only [facility], [address] [place] [address] [address] [address] [place] [address] Social History Tobacco Use Types Packs/Day Years Used Date Smoking Tobacco: Never Assessed Comments Unknown Sex and Gender Information Value Date Recorded Sex Assigned at Not on file Legal Sex Female 3:14 PM EDT Gender Identity Not on file Sexual Orientation Not on file documented as of this encounter Plan of Treatment Not on file documented as of this encounter Visit Diagnoses Not on filedocumented in this encounter Care Teams Game Protector Relationship Specialty Start Date End Date Magdaleno Goodson DO [address] [place] [id number] PCP - General Family Medicine 08/10/23 documented as of this encounter
--- OUTSIDE RECORDS SUMMARY | 2024-07-26 13:19 | XMS_ITS | Clinical Summary ---
Author Organization [facility], Address [address] [facility] [place] [address] Phone Care Team Providers Care Spanish Interpreter Name Role Phone Magdaleno Goodson DO Primary Care Provider [phone] Allergies No known active allergies Medications ARIPiprazole (ABILIFY) 5 MG tablet Take 5 mg by mouth 1 (one) time each day Active cholecalciferol (VITAMIN D-3) 50 MCG (1999 UT) capsule Take 4,000 Units by mouth 1 (one) time each day 4 Active escitalopram (LEXAPRO) 20 MG tablet Take 20 mg by mouth 1 (one) time each day 4 Active felodipine (PLENDIL) 5 MG 24 hr tablet Take 5 mg by mouth 1 (one) time each day 4 Active lamoTRIgine (LaMICtal) 150 MG tablet TAKE 2 TABLETS BY MOUTH DAILY DIRECTED 4 Active losartan (COZAAR) 100 MG tablet Take 100 mg by mouth 1 (one) time each day Active metoprolol succinate XL (TOPROL-XL) 100 MG 24 hr tablet Take 150 mg by mouth 1 (one) time each day 4 Active pregabalin (LYRICA) 75 MG capsule Take 75 mg by mouth in the morning and 75 mg in the evening. 4 Active Mounjaro 5 MG/0.5ML solution pen-injector INJECT 5MG SUBCUTANEOUS INJECTION ONE DAY A WEEK. ROTATE INJECTION SITES 4 Active traMADol (ULTRAM) 50 MG tablet Take 50 mg by mouth in the morning and 50 mg at noon and 50 mg in the evening. 4 Active Active Problems Problem Noted Date Diagnosed Date Essential hypertension 02/01/2015 Immunizations Immunization Administration Dates Next Due PPD Test 11/29/2015,11/27/2015 Social History Tobacco Use Types Packs/Day Years Used Date Smoking Tobacco: Never Assessed Comments Unknown Sex and Gender Information Value Date Recorded Sex Assigned at Not on file Legal Sex Female 3:14 PM EDT Gender Identity Not on file Sexual Orientation Not on file Plan of Treatment Health Maintenance Due Date Last Done Comments Breast Cancer Screening 1970 Hepatitis B Vaccine (1 of 3 - 19+ 3-dose series) 09/17 Colorectal Cancer Screening: Annual FOBT 2018 Colorectal Cancer Screening: Colonoscopy 2018 Colorectal Cancer Screening: Sigmoidoscopy 2018 Pneumococcal Vaccine: 50+ Years (1 of 1 - PCV) 020 Diabetes: Hemoglobin A1C 11/25/2023 06/22/2017 Diabetes: Ophthalmology Exam 11/25/2023 Diabetes: Pedal Pulse Checked 11/25/2023 Diabetes: Sensory Foot Exam 11/25/2023 Diabetes: Visual Foot Exam 11/25/2023 Influenza Vaccine (Season Ended) 2024 Insurance [facility] Dual SNP ([id number]) [place]ON[place]YS [id number] Care Teams Spanish Interpreter Relationship Specialty Start Date End Date Magdaleno Goodson DO [address] [place] [address] PCP - General Family Medicine 08/10/23
[2024-07-26] MEDS: iohexoL 350 MG/ML 100 ML INFUS..BTL IV (13:45)
[2024-07-26 14:25] LABS: Glucose, Whole Blood 63 mg/dL (60-115)
[2024-07-26 14:50] LABS: Alkaline Phosphatase 69 U/L (39-117)
[2024-07-26 16:40] VITALS: BP 145/84; PULSE 67; RESP 16; TEMP 36.5; O2SAT 98
[2024-07-26 16:45] VITALS: BP 145/84; PULSE 67; RESP 16; TEMP 36.5; O2SAT 98
== END 2024-07-26 16:45 | disposition home or self-care (01) ==
PROVIDERS: Emergency Provider Emergency Medicine
DX: R42 Dizziness and giddiness (principal); F41.9 Anxiety disorder, unspecified; F33.1 Major depressive disorder, recurrent, moderate; E11.9 Type 2 diabetes mellitus without complications; Z79.899 Other long term (current) drug therapy
CPT/HCPCS: 36415; 70496; 70498; 80053; 81003; 82947; 84484; 85025; 93005; 99283; 99285; Q9967

== ENCOUNTER → 2024-07-26 10:41 | Outpatient (BNV) | payer OTHER, SELFPAY | PROVIDERS: Emergency Provider Emergency Medicine; Visit Provider Internal Medicine | DX: R42 Dizziness and giddiness (principal) | CPT/HCPCS: 93010 ==

== ENCOUNTER → 2024-07-26 12:28 | Outpatient (BNV) | payer OTHER, SELFPAY | PROVIDERS: Emergency Provider Emergency Medicine; Visit Provider Radiology Diagnostic Radiology | DX: R42 Dizziness and giddiness (principal) | CPT/HCPCS: 70496; 70498 ==

== ENCOUNTER 2024-08-09 11:26 | Emergency (ER) | payer OTHER, SELFPAY ==
[2024-08-09 11:48] VITALS: BP 129/68; PULSE 67; RESP 18; TEMP 37; O2SAT 98; BMI 35.6
--- NOTE | 2024-08-09 11:55 | ECG_ITS ---
Test Reason : DIZZINESS Blood Pressure : */* mmHG Vent. Rate : 57 BPM Atrial Rate : 57 BPM P-R Int : 134 ms QRS Dur : 86 ms QT Int : 430 ms P-R-T Axes : 25 26 45 degrees QTcB Int : 418 ms Sinus bradycardia Nonspecific T wave abnormality Abnormal ECG When compared with ECG of 26-Jul-2024 11:11, No significant change was found Referred By: Alvin Allen Electronically Signed By: GEOVANNA VILLANUEVA
--- NOTE | 2024-08-09 11:59 | ED_ITS ---
HPI - General Adult General Chief complaint: Dizziness Stated complaint: Dizziness Time Seen by Provider: 08/09/24 13:57 History of Present Illness HPI narrative: Patient is a 53-year-old female with a history of vertigo. The symptoms seems to get worse when she turns her head to the right side it is spinning it is extreme it is better when she stays still patient has been taking meclizine with moderate effect. Patient from home. There is no focal weakness. There is no chest pain there is no diaphoresis patient was seen 2 weeks ago had a CT head CTA head and neck done. Both were grossly negative per patient. No fever no nausea no neck pain. Positive history diabetes. Sugar has been checked in the past. Patient denies any fever chills no diaphoresis. Related Data Home Medications ?Medication ?Instructions ?Recorded ?Confirmed aripiprazole 5 mg tablet (Abilify) 5 mg PO DAILY 01/23/23 03/24/24 escitalopram oxalate 10 mg tablet 10 mg PO DAILY 01/23/23 03/24/24 (Lexapro) lamotrigine 150 mg tablet 300 mg PO DAILY 01/23/23 03/24/24 (Lamictal) loratadine 10 mg tablet (Claritin) 10 mg PO DAILY 01/23/23 03/24/24 losartan 100 mg tablet 100 mg PO DAILY 01/23/23 03/24/24 metoprolol succinate 100 mg 100 mg PO DAILY 01/23/23 03/24/24 tablet,extended release 24 hr acetaminophen 500 mg tablet 1,000 mg PO Q6H PRN Pain 05/29/23 03/24/24 clonazepam 1 mg tablet 0.5 mg PO DAILY PRN Anxiety 05/29/23 03/24/24 diphenhydramine HCl 50 mg capsule 50 mg PO Q6H PRN Pain 05/29/23 03/24/24 gabapentin 300 mg capsule 300 mg PO BID 05/29/23 03/24/24 ibuprofen 600 mg tablet 600 mg PO Q6H PRN Pain 05/29/23 03/24/24 pregabalin 75 mg capsule (Lyrica) 75 mg PO DAILY 11/30/23 03/24/24 tirzepatide 2.5 mg/0.5 mL 5 mg subcut 03/24/24 03/24/24 subcutaneous pen injector (Treva) Previous Rx's ?Medication ?Instructions ?Recorded docusate sodium 100 mg capsule 100 mg PO BID PRN constipation #30 06/05/23 (Colace) caps oxycodone 5 mg tablet 5 mg PO Q4H PRN pain (scale score 06/05/23 7-10) #24 tabs cefuroxime axetil 500 mg tablet 500 mg PO BID #14 tabs 06/08/23 cholecalciferol (vitamin D3) 50 100 mcg (2 x 50 mcg (2,000 unit)) 07/30/23 mcg (2,000 unit) capsule PO DAILY #30 caps methocarbamol 750 mg tablet 750 mg PO Q8H PRN pain, moderate 07/02/24 #10 tabs meclizine 25 mg tablet 25 mg PO TID PRN dizziness #15 tabs 07/26/24 Allergies Allergy/AdvReac Type Severity Reaction Status Date / Time haloperidol [From Haldol] Allergy Angioedema Verified 08/09/24 11:51 Review of Systems 2 Review of Systems: Positive spinning sensation Yes all other systems are reviewed and are negative PMFSH Past Medical History Attestation statement: The following information was validated with the patient. Medical History History of electroconvulsive therapy Sleep apnea Type 2 diabetes mellitus Snoring Rosacea Iliotibial band syndrome, right leg Mitral valve prolapse Asymptomatic menopausal state Mitral valve disorder Neuralgia of both lower extremities Leg heaviness Morbid obesity Tendinosis of rotator cuff Vitamin D deficiency SANTI on CPAP Localized edema Chronic kidney disease, stage 3a PTSD (post-traumatic stress disorder) Bipolar 1 disorder Hyperparathyroidism Suicidal ideations Cataract Seasonal allergies Anxiety Depression HTN (hypertension) Sciatic leg pain Surgical History History of parathyroidectomy (06/04/23) Hx of colonoscopy History of surgery (2014) History of tonsillectomy Social History Social History Household Members: Significant Other Housing: Apartment Are you a primary progressive care unit registered nurse to a significant other at home: No Do you presently have visiting nurse or other home services: No Alcohol intake: never Comment: COUNTS CORRECT Patient Tobacco Use Status: Never used Tobacco Smoked in Last 30 Days: No e-Cigarette/Vaping Use: Currently Using Use of substances other than those prescribed or required for medical reasons: Yes Substance Use Type: Marijuana Advance Directives: No Advance Directives Information Provided: Yes Physical Exam ED Vital Signs: Vital Signs - 24 hr 08/09/24 11:48 08/09/24 14:04 Temperature 98.6 F Pulse Rate 67 68 Respiratory Rate 18 18 Blood Pressure 129/68 Pulse Oximetry 98 Oxygen Delivery Method Room Air BMI result Body Mass Index 35.6 Appearance: Alert. Oriented X3. No acute distress. Eyes: Pupils equal, round and reactive to light. ENT: Pharynx normal. Neck: Normal inspection. Neck supple. No lymph nodes noted. No crepitus CVS: Normal heart rate and rhythm. Pulses normal. Normal S1 and S2 Respiratory: No respiratory distress. Breath sounds normal. No Wheezing. No rales Abdomen: Soft and nontender. No rigidity. No distention. good BS x4 Skin: Skin warm and dry. Normal skin color. Normal skin turgor. Extremities: No lower extremity edema. Neurovascular intact to all extremities. No Lacerations. No Rash Neuro: Oriented X 3. No motor deficit. No sensory deficit. Moving all extermities. No slurred speech. Turning patient's head to the right side reproduces the symptoms of vertigo. Positive Barbara-Hallpike Course Course Course Narrative: RME: 53-year-old female presents to ED for dizziness described as the room spinning. Patient has had this before. Patient had normal head CTA on 07/26/2024 in his hospital. Patient denies any slurred speech facial droop paralysis of extremities. Patient needs follow-up for ENT but has not been able to have an appointment. Negative for any neuro deficits. NIH score is 0. Labs EKG ordered. Medical Decision Making Medical Decision Making MDM Narrative: Patient well appearing no acute distress. Has spinning sensation that is extreme. Worse with change in position. Meclizine seems to help. Patient had CT head CTA done for the same about 2 weeks ago it was grossly negative no large vessel occlusion no bleed no mass. Will discharge patient home. Have patient follow-up on an outpatient basis. Continue current treatment. Patient's white count is normal patient's hemoglobin is 14 there is no evidence for anemia there is no evidence for intracranial bleed there is no evidence for mass as patient had a recent CT head CTA patient's electrolytes were normal with a normal creatinine. Glucose was 108 no signs of extreme hyper or hypoglycemia. Troponin is negative. My interpretation of patient's EKG showed a sinus rhythm heart rate is 60 WI QRS QTC normal there is no acute ST segment elevation this diffuse T-wave flattening noted. Differential Diagnosis Differential Diagnoses: The differential diagnosis associated with the presentation includes Vertigo, peripheral vertigo, central vertigo, hypoglycemia, intracranial mass Admission/Observation Consideration of admission/observation: Escalation of care including admission/observation considered Lab Data MDM Lab Attestation statement: I reviewed the patient's lab results. 08/09/24 12:16 08/09/24 12:16 Labs: Lab Results 08/09/24 Range/Units 12:16 WBC 8.9 (4.8-10.8) X10*3/uL RBC 4.60 (4.20-5.50) X10*6/uL Hgb 14.0 (12.0-16.0) g/dl Hct 41.7 (37.0-47.0) % MCV 90.7 (80.0-98.0) fL MCH 30.4 (27.0-33.0) pg MCHC 33.6 (31.0-35.0) g/dl RDW 12.8 (11.0-16.0) % Plt Count 280 (160-400) X10*3/uL MPV 8.5 L (9.4-12.3) fL Immature Gran % (Auto) 0.2 (0.0-0.4) % Neut % (Auto) 62.3 (45-73) % Lymph % (Auto) 28.5 (20-40) % Erie % (Auto) 6.2 (2-11) % Eos % (Auto) 1.9 (0-4) % Baso % (Auto) 0.9 (0-2) % Lymph # (Auto) 2.5 (1.2-4.9) X10*3/uL Erie # (Auto) 0.6 (0.1-1.2) X10*3/uL Eos # (Auto) 0.2 (0.0-0.4) X10*3/uL Baso # (Auto) 0.1 (0.0-0.2) X10*3/uL Abs Immat Gran (auto) 0.02 (0.00-0.03) X10*3/uL Absolute Neuts (auto) 5.6 (2.0-8.3) x10*3/uL Absolute Nucleated RBC 0.000 (0.0-0.012) X10*3/uL Nucleated RBC % (auto) 0.0 (0.0-0.2) /100WBC Sodium 144 (135-145) mmol/L Potassium 3.9 (3.3-5.1) mmol/L Chloride 102 (96-108) mmol/L Carbon Dioxide 35 H (22-29) mmol/L Anion Gap 11 L (12-20) BUN 13 (9-16) mg/dL Creatinine 0.73 (0.5-1.4) mg/dL Estim Creat Clear Calc 101.6 Estimated GFR > 60 Random Glucose 108 (60-115) mg/dL Calcium 9.5 (8.4-10.2) mg/dL Magnesium 2.0 (1.6-2.6) mg/dL Total Bilirubin 0.4 (0.0-1.0) mg/dL AST 18 (5-31) U/L ALT 23 (0-31) U/L Troponin I High Sens < 2.7 (<3.5-17.0) ng/L Total Protein 7.1 (6.5-8.0) g/dL Albumin 4.2 (3.5-5.0) g/dL Beta HCG, Quant 5 mIU/mL Independent Interpretation I performed an independent interpretation of an: EKG (Sinus heart rate is 60 WI QRS QTC normal no acute ST segment elevation) Radiology Impression Discussion of test interpretation with radiology: I have reviewed the radiologist's reading. (Previous CT head CTA reviewed) External Record Review Previous radiology's record reviewed Chronic Conditions Patient?s care impacted by: Diabetes Discharge Plan Discharge Clinical Impression: Peripheral positional vertigo Patient Disposition: Home, Self-Care Instructions: Vertigo (DC) Prescriptions: No Action cefuroxime axetil 500 mg tablet 500 mg PO BID Qty: 14 0RF meclizine 25 mg tablet 25 mg PO TID PRN (Reason: dizziness) Qty: 15 0RF diphenhydramine HCl 50 mg Capsule 50 mg PO Q6H PRN (Reason: Pain) clonazepam 1 mg tablet 0.5 mg PO DAILY PRN (Reason: Anxiety) acetaminophen 500 mg Tablet 1,000 mg PO Q6H PRN (Reason: Pain) gabapentin 300 mg capsule 300 mg PO BID ibuprofen 600 mg Tablet 600 mg PO Q6H PRN (Reason: Pain) docusate sodium [Colace] 100 mg capsule 100 mg PO BID PRN (Reason: constipation) Qty: 30 0RF oxycodone 5 mg tablet 5 mg PO Q4H PRN (Reason: pain (scale score 7-10)) Qty: 24 0RF Rx Instructions: Partial Fill upon patient request. methocarbamol 750 mg tablet 750 mg PO Q8H PRN (Reason: pain, moderate) Qty: 10 0RF losartan 100 mg tablet 100 mg PO DAILY metoprolol succinate 100 mg tablet extended release 24 hr 100 mg PO DAILY escitalopram oxalate [Lexapro] 10 mg tablet 10 mg PO DAILY aripiprazole [Abilify] 5 mg tablet 5 mg PO DAILY lamotrigine [Lamictal] 150 mg tablet 300 mg PO DAILY loratadine [Claritin] 10 mg tablet 10 mg PO DAILY cholecalciferol (vitamin D3) 50 mcg (2,000 unit) capsule 100 mcg PO DAILY Qty: 30 4RF Mounjaro 2.5 mg/0.5 mL pen injector 5 mg subcut pregabalin [Lyrica] 75 mg capsule 75 mg PO DAILY Referrals: Cici Miller MD [Primary Care Provider] - 08/11/24 Print Language: Telugu
[2024-08-09 12:26] LABS: MANUAL DIFF FLAG NO
[2024-08-09 12:27] LABS: Hematocrit 41.7 % (37.0-47.0); White Blood Count 8.9 X10*3/uL (4.8-10.8)
[2024-08-09 12:28] LABS: Basophils Absolute Auto 0.1 X10*3/uL (0.0-0.2); Basophils Percent Auto 0.9 % (0-2); Eosinophils Absolute Auto 0.2 X10*3/uL (0.0-0.4); Eosinophils Percent Auto 1.9 % (0-4); Imm Gran Abs Auto 0.02 X10*3/uL (0.00-0.03); Imm Gran Pct Auto 0.2 % (0.0-0.4); Lymphocytes Absolute Auto 2.5 X10*3/uL (1.2-4.9); Lymphocytes Percent Auto 28.5 % (20-40); Mean Corpuscular HGB Conc 33.6 g/dl (31.0-35.0); Mean Corpuscular Hemoglobin 30.4 pg (27.0-33.0); Mean Corpuscular Volume 90.7 fL (80.0-98.0); Mean Platelet Volume 8.5 fL (9.4-12.3); Monocytes Absolute Auto 0.6 X10*3/uL (0.1-1.2); Monocytes Percent Auto 6.2 % (2-11); Neutrophils Absolute Auto 5.6 x10*3/uL (2.0-8.3); Neutrophils Percent Auto 62.3 % (45-73); Platelet Count 280 X10*3/uL (160-400); Red Cell Distribution Width 12.8 % (11.0-16.0)
[2024-08-09 12:52] LABS: Alanine Aminotransferase 23 U/L (0-31); Albumin Level 4.2 g/dL (3.5-5.0); Anion Gap 11 (12-20); Aspartate Amino Transferase 18 U/L (5-31); Bilirubin Total 0.4 mg/dL (0.0-1.0); Blood Urea Nitrogen 13 mg/dL (9-16); Calcium 9.5 mg/dL (8.4-10.2); Carbon Dioxide 35 mmol/L (22-29); Chloride 102 mmol/L (96-108); Creatinine Clr Calc Pharmacy 101.6; Estimated Glomerular Filt Rate > 60; Glucose Random 108 mg/dL (60-115); Potassium 3.9 mmol/L (3.3-5.1); Sodium 144 mmol/L (135-145); Total Protein 7.1 g/dL (6.5-8.0)
[2024-08-09 12:56] LABS: HCG Quantitative 5 mIU/mL
[2024-08-09 13:16] LABS: Troponin-I High Sensitivity < 2.7 ng/L (<3.5-17.0)
[2024-08-09 14:04] VITALS: PULSE 68; RESP 18
--- OUTSIDE RECORDS SUMMARY | 2024-08-09 15:18 | XMS_ITS | Encounter Summary ---
Author Organization [facility] Address [address] [place] [address] Phone Care Team Providers Care Control And Recovery Special Tactics Name Role Phone Magdaleno Goodson DO Primary Care Provider [phone] Encounter Details Date Type Department Care Team (Late st Contact Info) Description 08/10/2023 Documentation Only [facility], [address] [place] [address] [place] [address] [place] [address] Social History Tobacco Use Types [...] on filedocumented in this encounter Care Teams Control And Recovery Special Tactics Relationship Specialty Start Date End Date Magdaleno Goodson DO [address] [place] [id number] PCP - General Family Medicine 08/10/23 documented as of this encounter
--- OUTSIDE RECORDS SUMMARY | 2024-08-09 15:18 | XMS_ITS | Data Portability ---
Author Organization [facility], [facility]- Address [address] [place] [address] Care Team Providers Care Wood Fence Installer Name Role Phone CROW DAVID Primary Care Provider [phone] Assessment No assessment recorded. Plan of Treatment Reminders Order Date Submit Date Provider Last Modified By Organization Details Last Modified Time Details Appointments None recorded. Lab biopsy, tissue - R nasal columella 2018 019 [facility], [address] [place] [address], [id number], 9 17:55:13 Referral None recorded. Procedures None [...] Biopsy Shave completed Elías Ferraro MD [address] [address], [place], [address], [facility] ENT 12/16/2018 09:32:15 Imaging Results None [...] Updated DateTime 12/16/2018 154.94 cm 40.6 kg/m2 68044.36 g MICKIE [facility] 12/16/2018 09:26:19 Social History Question Answer Notes LastModified by Organizat ion Details LastModified Time Tobacco Smoking Status [facility]/16/2018 09:26:27 What Is Your Level Of Alcohol Consumption? None [email or web address] Information not available 12/16/2018 What Is Your Level Of Caffeine Consumption? Occasional 1 [email or web address] Information not available 12/16/2018 Sex: Unknown Functional Status None recorded. Mental Status None recorded. Family History Nothing Reported. Medical History Condition Response Allergies/Hayfever N Acid reflux (GERD) N Heart Conditions N Liver Disease/Jaundice N Emphysema N Migraines N Thyroid Problems N Depression N Glaucoma N HIV/Sexually Transmitted Disease N Anemia N Heart Attack ([place]) N N Diabetes N Bleeding Disorder N Arthritis N Hearing Loss N Cancer N Stroke N Asthma N Sleep Disorder N Hypertension Y Speech Delay N Kidney Disease N Gynecological HistoryNo gynecological history recorded. Obstetrics History GPAL:G 0 P 0 0 0 0 Past Encounters Encounter ID Performer Location Encounter Start Date Encounter Closed Date Diagnosis/Indication Diagnosis SNOMED-CT Code Diagnosis ICD10 Code Diagnosis Note [id number] Elías Ferraro MD Main Office [address] [place] [address] 12/16/2018 09:19:48 12/16/2018 09:54:48 Neoplasm of uncertain behavior of skin 52931200 D48.5 -Skin lesion of uncertain etiology of [...] ID Guarantor Name 12/16/2018 1 [place]ICARE B-[place]: [employer] Tona D Zurdo [id number] Tona Zurdo 12/16/2018 2 MEDICAID-[facility]: [facility] Tona Zurdo [id number] Tona Zurdo Notes Date Note Type Note [...] or skin cancer. Elías Ferraro MD [address] [facility] [facility] [address], [place], [address], [facility]NT 12/16/2018 09:44:31 OBGyn Episode No OBEpisode recorded.
--- OUTSIDE RECORDS SUMMARY | 2024-08-09 15:18 | XMS_ITS | Clinical Summary ---
Author Organization [facility], Address [address] [facility] [address] [place] [address] Phone Care Team Providers Care Yarn Packer Name Role Phone Magdaleno Goodson DO Primary Care Provider [phone] Allergies No known active allergies Medications ARIPiprazole [...] 11/25/2023 Influenza Vaccine (Season Ended) 2024 Insurance [facility] Care Dual SNP ([id number]) RONNI MAYS [id number] Care Teams Yarn Packer Relationship Specialty Start Date End Date Magdaleno Goodson DO [address] [place] [address] PCP - General Family Medicine 08/10/23
[2024-08-09 16:29] VITALS: BP 124/74; PULSE 66; RESP 16; TEMP 36.2; O2SAT 95
[2024-08-09 17:30] LABS: Alkaline Phosphatase 64 U/L (39-117)
== END 2024-08-09 16:31 | disposition home or self-care (01) ==
PROVIDERS: Physician Assistant; Emergency Provider Emergency Medicine Emergency Medical Services; PCP Student in an Organized Health Care Education/Training Program
DX: H81.399 Other peripheral vertigo, unspecified ear (principal); E11.9 Type 2 diabetes mellitus without complications; I10 Essential (primary) hypertension; Z79.899 Other long term (current) drug therapy
CPT/HCPCS: 36415; 80053; 83735; 84484; 84702; 85025; 93005; 99283; 99284

== ENCOUNTER → 2024-08-09 11:55 | Outpatient (BNV) | payer OTHER, SELFPAY | PROVIDERS: Emergency Provider Emergency Medicine Emergency Medical Services; PCP Student in an Organized Health Care Education/Training Program; Visit Provider Internal Medicine | DX: R00.1 Bradycardia, unspecified (principal) | CPT/HCPCS: 93010 ==

== ENCOUNTER 2024-08-11 11:47 | Inpatient (IN) | payer OTHER, SELFPAY ==
[2024-08-11] VITALS (10 sets, daily range): BP systolic 120–148; BP diastolic 62–86; PULSE 59–72; RESP 18–20; TEMP 36.6–37.1; O2SAT 87–93; BMI 42.0
--- NOTE | ~2024-08-11 | MR_ITS ---
CLINICAL HISTORY: Severe vertigo and vomiting, R O cerebellar infarc MR Brain without gadolinium Comparison: CT/HI/SR - CT ANGIO HEAD NECK - 07/26/24 13:32 EDT Findings: No restricted diffusion. The major intracranial vascular flow-related signal voids are maintained. A few punctate foci of increased T2 signal are seen in the deep and periventricular white matter of both cerebral hemispheres. No findings of mass effect or midline shift. No unexpected intracranial susceptibility. Ventricles and basilar cisterns are patent. Orbital structures normal. Paranasal sinuses and mastoid air cells clear. IMPRESSION: No acute infarct or other acute intracranial finding. Early mild chronic microvascular ischemic changes noted. This document has been electronically signed by: Willian Whitaker MD on 08/11/2024 20:38:29
--- NOTE | ~2024-08-11 | CT_ITS ---
CLINICAL HISTORY: Hypoxic CT angiography chest with contrast. 3D Postprocessing. Comparison: CT/NC - CT ANGIO CHEST PE PROTOCOL - 06/08/23 21:59 EST Findings: Mild cardiomegaly. No pericardial effusion. Normal caliber thoracic aorta. No findings of aortic dissection. No threshold enlarged thoracic lymph node by CT size criteria. Normal diameter main pulmonary trunk. No pulmonary artery filling defect. Mosaic attenuation in the lungs may reflect mild pulmonary edema. No acute airspace opacity otherwise. No pleural effusion or pneumothorax. No acute finding in the partially visualized upper abdomen. No acute or suspicious bone finding. IMPRESSION: 1. No pulmonary embolism. Mild cardiomegaly with findings suggestive of mild pulmonary edema. Correlate for CHF. This document has been electronically signed by: Willian Whitaker MD on 08/11/2024 23:06:45
--- NOTE | 2024-08-11 11:57 | ED_ITS ---
HPI - General Adult General Chief complaint: Dizziness Stated complaint: Heart palpitations, dizziness Related Data Home Medications ?Medication ?Instructions ?Recorded ?Confirmed aripiprazole 5 mg tablet (Abilify) 5 mg PO DAILY 01/23/23 03/24/24 escitalopram oxalate 10 mg tablet 10 mg PO DAILY 01/23/23 03/24/24 (Lexapro) lamotrigine 150 mg tablet 300 mg PO DAILY 01/23/23 03/24/24 (Lamictal) loratadine 10 mg tablet (Claritin) 10 mg PO DAILY 01/23/23 03/24/24 losartan 100 mg tablet 100 mg PO DAILY 01/23/23 03/24/24 metoprolol succinate 100 mg 100 mg PO DAILY 01/23/23 03/24/24 tablet,extended release 24 hr acetaminophen 500 mg tablet 1,000 mg PO Q6H PRN Pain 05/29/23 03/24/24 clonazepam 1 mg tablet 0.5 mg PO DAILY PRN Anxiety 05/29/23 03/24/24 diphenhydramine HCl 50 mg capsule 50 mg PO Q6H PRN Pain 05/29/23 03/24/24 gabapentin 300 mg capsule 300 mg PO BID 05/29/23 03/24/24 ibuprofen 600 mg tablet 600 mg PO Q6H PRN Pain 05/29/23 03/24/24 pregabalin 75 mg capsule (Lyrica) 75 mg PO DAILY 11/30/23 03/24/24 tirzepatide 2.5 mg/0.5 mL 5 mg subcut 03/24/24 03/24/24 subcutaneous pen injector (Treva) Previous Rx's ?Medication ?Instructions ?Recorded docusate sodium 100 mg capsule 100 mg PO BID PRN constipation #30 06/05/23 (Colace) caps oxycodone 5 mg tablet 5 mg PO Q4H PRN pain (scale score 06/05/23 7-10) #24 tabs cefuroxime axetil 500 mg tablet 500 mg PO BID #14 tabs 06/08/23 cholecalciferol (vitamin D3) 50 100 mcg (2 x 50 mcg (2,000 unit)) 07/30/23 mcg (2,000 unit) capsule PO DAILY #30 caps methocarbamol 750 mg tablet 750 mg PO Q8H PRN pain, moderate 07/02/24 #10 tabs meclizine 25 mg tablet 25 mg PO TID PRN dizziness #15 tabs 07/26/24 Allergies Allergy/AdvReac Type Severity Reaction Status Date / Time haloperidol [From Haldol] Allergy Angioedema Verified 08/11/24 11:59 PMFSH Past Medical History Medical History History of electroconvulsive therapy Sleep apnea Type 2 diabetes mellitus Snoring Rosacea Iliotibial band syndrome, right leg Mitral valve prolapse Asymptomatic menopausal state Mitral valve disorder Neuralgia of both lower extremities Leg heaviness Morbid obesity Tendinosis of rotator cuff Vitamin D deficiency SANTI on CPAP Localized edema Chronic kidney disease, stage 3a PTSD (post-traumatic stress disorder) Bipolar 1 disorder Hyperparathyroidism Suicidal ideations Cataract Seasonal allergies Anxiety Depression HTN (hypertension) Sciatic leg pain Surgical History History of parathyroidectomy (06/04/23) Hx of colonoscopy History of surgery (2014) History of tonsillectomy Social History Social History Household Members: Significant Other Housing: Apartment Are you a primary school childcare attendant to a significant other at home: No Do you presently have visiting nurse or other home services: No Alcohol intake: never Comment: COUNTS CORRECT Patient Tobacco Use Status: Never used Tobacco e-Cigarette/Vaping Use: Currently Using Substance Use Type: Marijuana Physical Exam ED Vital Signs: Vital Signs - 24 hr 08/11/24 11:58 Temperature 98.8 F Pulse Rate 72 Respiratory Rate 18 Blood Pressure 145/86 H Pulse Oximetry 93 Oxygen Delivery Method Room Air BMI result Body Mass Index 42.0 Course Course Course Narrative: This is a rapid medical exam performed by Jet Higginbotham NP: Additional HPI, ROS, PE not included below will be deferred to primary provider. 53 yo female with PMHx of HTN, SANTI, T2DM, S/P parathyroidectomy presents to the ED due to dizziness x 1 month. She reports she began feeling sick last night with diarrhea, nausea, and tunnel vision . She states she feels as if everything is spinning and is experiencing palpitations and is mildly SOB. 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 States recently sick with same nausea symptoms after eating the same restaurant food. She denies chest pain, vomiting, black/bloody stool PE: A&O x3, airway patent, in no acute distress, no active vomiting in triage. In wheelchair due to feeling dizzy cannot assess gait Discharge Plan Discharge Prescriptions: No Action cefuroxime axetil 500 mg tablet 500 mg PO BID Qty: 14 0RF meclizine 25 mg tablet 25 mg PO TID PRN (Reason: dizziness) Qty: 15 0RF diphenhydramine HCl 50 mg Capsule 50 mg PO Q6H PRN (Reason: Pain) clonazepam 1 mg tablet 0.5 mg PO DAILY PRN (Reason: Anxiety) acetaminophen 500 mg Tablet 1,000 mg PO Q6H PRN (Reason: Pain) gabapentin 300 mg capsule 300 mg PO BID ibuprofen 600 mg Tablet 600 mg PO Q6H PRN (Reason: Pain) docusate sodium [Colace] 100 mg capsule 100 mg PO BID PRN (Reason: constipation) Qty: 30 0RF oxycodone 5 mg tablet 5 mg PO Q4H PRN (Reason: pain (scale score 7-10)) Qty: 24 0RF Rx Instructions: Partial Fill upon patient request. methocarbamol 750 mg tablet 750 mg PO Q8H PRN (Reason: pain, moderate) Qty: 10 0RF losartan 100 mg tablet 100 mg PO DAILY metoprolol succinate 100 mg tablet extended release 24 hr 100 mg PO DAILY escitalopram oxalate [Lexapro] 10 mg tablet 10 mg PO DAILY aripiprazole [Abilify] 5 mg tablet 5 mg PO DAILY lamotrigine [Lamictal] 150 mg tablet 300 mg PO DAILY loratadine [Claritin] 10 mg tablet 10 mg PO DAILY cholecalciferol (vitamin D3) 50 mcg (2,000 unit) capsule 100 mcg PO DAILY Qty: 30 4RF Mounjaro 2.5 mg/0.5 mL pen injector 5 mg subcut pregabalin [Lyrica] 75 mg capsule 75 mg PO DAILY Print Language: Frisian
--- NOTE | 2024-08-11 12:01 | ECG_ITS ---
Test Reason : palpitations Blood Pressure : */* mmHG Vent. Rate : 69 BPM Atrial Rate : 69 BPM P-R Int : 138 ms QRS Dur : 88 ms QT Int : 408 ms P-R-T Axes : 11 21 32 degrees QTcB Int : 437 ms Normal sinus rhythm Nonspecific ST and T wave abnormality Borderline ECG When compared with ECG of 09-Aug-2024 12:06, No significant change was found Referred By: Sharon Higginbotham Electronically Signed By: GEOVANNA VILLANUEVA
[2024-08-11 12:25] LABS: MANUAL DIFF FLAG NO
[2024-08-11 12:29] LABS: Basophils Absolute Auto 0.1 X10*3/uL (0.0-0.2); Basophils Percent Auto 0.6 % (0-2); Hematocrit 41.1 % (37.0-47.0); Imm Gran Abs Auto 0.03 X10*3/uL (0.00-0.03); Imm Gran Pct Auto 0.3 % (0.0-0.4); Lymphocytes Absolute Auto 2.9 X10*3/uL (1.2-4.9); Lymphocytes Percent Auto 30.5 % (20-40); Mean Corpuscular HGB Conc 34.1 g/dl (31.0-35.0); Mean Corpuscular Hemoglobin 30.2 pg (27.0-33.0); Mean Corpuscular Volume 88.6 fL (80.0-98.0); Mean Platelet Volume 8.7 fL (9.4-12.3); Monocytes Absolute Auto 0.6 X10*3/uL (0.1-1.2); Neutrophils Absolute Auto 5.9 x10*3/uL (2.0-8.3); Neutrophils Percent Auto 62.6 % (45-73); Platelet Count 291 X10*3/uL (160-400); Red Blood Count 4.64 X10*6/uL (4.20-5.50); Red Cell Distribution Width 12.4 % (11.0-16.0); White Blood Count 9.4 X10*3/uL (4.8-10.8)
--- NOTE | 2024-08-11 12:39 | ED_ITS ---
HPI - Dizziness General Chief Complaint: Dizziness Stated Complaint: Heart palpitations, dizziness Time Seen by Provider: 08/11/24 12:25 Source: patient Mode of arrival: ambulatory Limitations: no limitations History of Present Illness ED Provider: DR. Melendez HPI Narrative: 53-year-old female history of vertigo for the past month on and off, patient was seen on 07/24 for similar symptoms had CTA of the head and neck that showed no vascular occlusion or stenosis, symptoms has been reoccurring intermittently for the past month, triggered by movement and changing position mostly, no sick contacts, no recent travel, patient stated that she feels like she has been having a food poisoning with a sensation of nausea and vomiting with nonbloody watery diarrhea patient declined eating bad food in the last few days. Related Data Home Medications ?Medication ?Instructions ?Recorded ?Confirmed escitalopram oxalate 10 mg tablet 20 mg PO DAILY 01/23/23 08/12/24 (Lexapro) lamotrigine 150 mg tablet 200 mg PO DAILY 01/23/23 08/12/24 (Lamictal) loratadine 10 mg tablet (Claritin) 10 mg PO DAILY 01/23/23 08/12/24 losartan 100 mg tablet 100 mg PO DAILY 01/23/23 08/12/24 metoprolol succinate 100 mg 50 mg PO DAILY 01/23/23 08/12/24 tablet,extended release 24 hr tirzepatide 2.5 mg/0.5 mL 5 mg subcut MO 03/24/24 08/12/24 subcutaneous pen injector (Mounjaro) cholecalciferol (vitamin D3) 50 100 mcg PO DAILY 08/12/24 08/12/24 mcg (2,000 unit) capsule docusate sodium 100 mg capsule 100 mg PO DAILY constipation 08/12/24 08/12/24 (Colace) lumateperone 42 mg capsule 42 mg PO QPM 08/12/24 08/12/24 (Caplyta) pregabalin 100 mg capsule 100 mg PO TID 08/12/24 08/12/24 Previous Rx's ?Medication ?Instructions ?Recorded meclizine 25 mg tablet 25 mg PO TID PRN dizziness #15 tabs 07/26/24 Allergies Allergy/AdvReac Type Severity Reaction Status Date / Time haloperidol [From Haldol] Allergy Angioedema Verified 08/11/24 11:59 Review of Systems 2 Review of Systems: All other systems are reviewed and are negative Constitutional: Reports as per HPI and Reports no additional constitutional complaints Eyes: Reports as per HPI and Reports no additional eye complaints Reports system reviewed and no additional complaints, except as documented Cardiovascular: Reports as per HPI and Reports no additional cardiovascular complaints Respiratory: Reports as per HPI and Reports no additional respiratory complaints Gastrointestinal: Reports as per HPI and Reports no additional gastrointestinal complaints Genitourinary: Reports no additional female genitourinary complaints Musculoskeletal: Reports no additional musculoskeletal complaints Skin/Breast: Reports system reviewed and no additional complaints, except as docu Psychiatric: Reports no additional psychiatric complaints Endocrine: Reports no additional endocrine complaints Hematologic/Lymphatic: Reports no additional hematologic/lymphatic complaints Allergic/Immunologic: Reports no additional allergic/immunologic complaints Reports system reviewed and no additional complaints, except as documented and Reports Abnormal speech present PMFSH Past Medical History Medical History History of electroconvulsive therapy Sleep apnea Type 2 diabetes mellitus Snoring Rosacea Iliotibial band syndrome, right leg Mitral valve prolapse Asymptomatic menopausal state Mitral valve disorder Neuralgia of both lower extremities Leg heaviness Morbid obesity Tendinosis of rotator cuff Vitamin D deficiency SANTI on CPAP Localized edema Chronic kidney disease, stage 3a PTSD (post-traumatic stress disorder) Bipolar 1 disorder Hyperparathyroidism Suicidal ideations Cataract Seasonal allergies Anxiety Depression HTN (hypertension) Sciatic leg pain Surgical History History of parathyroidectomy (06/04/23) Hx of colonoscopy History of surgery (2014) History of tonsillectomy Social History Social History Household Members: Significant Other Housing: Apartment Are you a primary manager medicare to a significant other at home: No Do you presently have visiting nurse or other home services: No Alcohol intake: current Alcohol intake frequency: holidays/special occasions only Alcohol type: wine Comment: COUNTS CORRECT Patient Tobacco Use Status: Never used Tobacco e-Cigarette/Vaping Use: Currently Using Substance Use Type: Other service: No Physical Exam 2 Vital Signs: Vital Signs: Last Vital Signs Temp 97.6 F 08/12/24 12:00 Pulse 68 08/12/24 12:00 Resp 16 08/12/24 12:00 BP 144/89 H 08/12/24 12:00 Pulse Ox 94 08/12/24 12:00 O2 Del Method Room Air 08/12/24 12:00 O2 Flow Rate 2 08/12/24 00:58 BMI result Body Mass Index 42.0 Vital signs have been reviewed and appear to be correct. Blood pressure elevated. Heart rate normal. Respiratory rate normal. Temperature normal. Oxygen saturation normal. Appearance: Alert. Oriented X3. No acute distress. Head: Normal external exam. Normocephalic. Atraumatic. No Barbosa signs noted. No raccoon eyes noted Eyes: PERRLA. EOMI. Conjunctiva and sclera normal. Eyelids normal. ENT: TM's Normal. Pharynx normal. Uvula midline. Moist mucous membranes. No trismus noted. No drooling noted. No muffled voice noted. Neck: Normal inspection. Neck supple. FROM. No adenopathy. Thyroid Normal. No meningeal signs. No neck mass noted. CVS: Normal heart rate and rhythm. Heart sound normal. No murmurs noted. Pulses normal throughout. Respiratory: No respiratory distress. Painless inspiration. Breath sounds normal. No wheezes/rales/rhonchi noted. Chest nontender. No accessory muscle usage noted or decreased air movement noted. Abdomen: Soft and nontender. Bowel sounds normal in all 4 quadrants. No distention noted. No organomegaly noted. No visible injury noted. Back: No CVA tenderness. Full range of motion noted. Skin: Skin warm and dry. Normal skin color. Normal skin turgor. No rashes/lesions/lacerations noted. Extremities: No lower extremity edema. Extremities exhibit normal range of motion. Extremities nontender. Neuro: Mental status: Normal attention, orientation, memory, and affect. Cranial nerves: Pupils are equal, round and reactive to light, EOMI, visual luna are fall, face is symmetric, facial sensations are normal. Motor examination normal muscle tone, strength to 4 extremities. DTR are +2, planter's are flexor. Sensory exam; normal coordination, no ataxia, gait stable. Cerebellar exam: Bhynau-ad-iked and nhpz-wl-vhpe is normal. Extrapyramidal system: No tremors, no rigidity with normal facial expressions. Pronator drift not present NIH Stroke Scale Time: 12:43 Level of Consciousness: Alert Level of Consciousness Questions: Answers both questions correctly Level of Consciousness Commands: Performs both tasks correctly Best Gaze: Normal Visual: No visual loss Facial Palsy: Normal Motor Arm (Right): No drift Motor Arm (Left): No drift Motor Leg (Right): No drift Motor Leg (Left): No drift Limb Ataxia: Absent Sensory: Normal Best Language: No aphasia Dysarthia: Normal Extinction and Inattention: No abnormality Score: 0 Course Reevaluation(s) Reevaluation #1: A 53-year-old female with chronic vertigo, had an MRI of the brain shows no acute infarction, appeared to be a peripheral vertigo, patient had 1 episode of hypoxia to 88% while she was in bed, went to 82% with exertion in the ED, patient has no recent travel, no lower extremity swelling or pain. Will consider workup for hypoxia including CTA of the chest, check EKG, check labs. Signed out to Dr. Mercer. Time: 21:21 Medications Administered Discontinued Medications Generic Name Dose Route Start Last Admin Trade Name Freq PRN Reason Stop Dose Admin Diazepam 5 mg 08/11/24 12:35 08/11/24 13:04 Diazepam 10 Mg/2 Ml Cartridge IVPUSH 08/11/24 12:36 5 mg STAT STA Administration Docusate Sodium 100 mg 08/12/24 09:00 08/12/24 08:48 Docusate Sodium 100 Mg Capsule PO 100 mg DAILY ARIADNA Administration Enoxaparin Sodium 40 mg 08/12/24 09:00 08/12/24 08:52 Enoxaparin Sodium 40 Mg/0.4 Ml Syringe SUBCUT Not Given Q24H ARIADNA Escitalopram Oxalate 20 mg 08/12/24 09:00 08/12/24 08:48 Escitalopram Oxalate 20 Mg Tablet PO 20 mg DAILY ARIADNA Administration Furosemide 20 mg 08/12/24 00:17 08/12/24 00:46 Furosemide 20 Mg/2 Ml Vial IVPUSH 08/12/24 00:18 20 mg ONCE ONE Administration Protocol Lactated Ringer's 1,000 mls @ 999 mls/hr 08/11/24 12:45 08/11/24 16:14 Lr IV 08/11/24 13:45 Infused .Q1H1M ARIADNA Infusion Insulin Human Lispro 0 unit 08/12/24 07:30 08/12/24 11:12 Insulin Lispro 100 Unit/Ml 3 Ml Vial SUBCUT Not Given QIDACHS [facility] Protocol Iohexol 65 ml 08/11/24 22:33 08/11/24 22:33 Iohexol 350 Mg/Ml 100 Ml Infus..Btl IV 08/11/24 22:34 65 ml ONCE ONE Administration Lamotrigine 200 mg 08/12/24 09:00 08/12/24 08:48 Lamotrigine 100 Mg Tablet PO 200 mg DAILY ARIADNA Administration Loratadine 10 mg 08/12/24 09:00 08/12/24 08:48 Loratadine 10 Mg Tablet PO 10 mg DAILY ARIADNA Administration Losartan Potassium 100 mg 08/12/24 09:00 08/12/24 08:48 Losartan Potassium 50 Mg Tablet PO 100 mg DAILY [facility] Administration Protocol Meclizine HCl 25 mg 08/11/24 12:35 08/11/24 13:04 Meclizine Hcl 25 Mg Tablet PO 08/11/24 12:36 25 mg ONCE ONE Administration Metoprolol Succinate 50 mg 08/12/24 09:00 08/12/24 08:49 Metoprolol Succinate Er 50 Mg Tab.Er.24h PO 50 mg DAILY [facility] Administration Protocol Ondansetron HCl 4 mg 08/11/24 12:35 08/11/24 13:04 Ondansetron Hcl 4 Mg/2 Ml Vial IVPUSH 08/11/24 12:36 4 mg ONCE ONE Administration Pregabalin 100 mg 08/12/24 09:00 08/12/24 14:35 Pregabalin 100 Mg Capsule PO 100 mg TID ARIADNA Administration Sodium Chloride 3 ml 08/12/24 08:00 08/12/24 08:49 0.9 % Sodium Chloride Flush 3 Ml Syringe IVFLUSH 3 ml QSHIFT [facility] Administration Medical Decision Making Medical Decision Making [facility] Narrative: patient with history of sleep apnea with benign positional vertigo workup is negative noted to be hypoxic on ambulation dropping to 87% room air no prior history of hypoxia patient not on jovel within uses CPAP at night not clear who has a patient has diastolic heart failure will admit patient for respiratory failure with hypoxia Differential Diagnosis Differential Diagnoses: The differential diagnosis associated with the presentation includes (Peripheral vertigo, central vertigo, pulmonary embolism, pneumonia, pneumothorax, pleural effusion.) Admission/Observation Consideration of admission/observation: Escalation of care including admission/observation considered Lab Data [facility] Lab Attestation statement: I reviewed the patient's lab results. 08/12/24 06:51 08/12/24 06:51 Labs: Lab Results 08/11/24 08/11/24 08/11/24 Range/Units 12:18 22:09 22:18 WBC 9.4 (4.8-10.8) X10*3/uL RBC 4.64 (4.20-5.50) X10*6/uL Hgb 14.0 (12.0-16.0) g/dl Hct 41.1 (37.0-47.0) % MCV 88.6 (80.0-98.0) fL MCH 30.2 (27.0-33.0) pg MCHC 34.1 (31.0-35.0) g/dl RDW 12.4 (11.0-16.0) % Plt Count 291 (160-400) X10*3/uL MPV 8.7 L (9.4-12.3) fL Immature Gran % (Auto) 0.3 (0.0-0.4) % Neut % (Auto) 62.6 (45-73) % Lymph % (Auto) 30.5 (20-40) % [place]oto % (Auto) 6.0 (2-11) % Eos % (Auto) 0.0 (0-4) % Baso % (Auto) 0.6 (0-2) % Lymph # (Auto) 2.9 (1.2-4.9) X10*3/uL [place] # (Auto) 0.6 (0.1-1.2) X10*3/uL Eos # (Auto) 0.0 (0.0-0.4) X10*3/uL Baso # (Auto) 0.1 (0.0-0.2) X10*3/uL Abs Immat Gran (auto) 0.03 (0.00-0.03) X10*3/uL Absolute Neuts (auto) 5.9 (2.0-8.3) x10*3/uL Absolute Nucleated RBC 0.000 (0.0-0.012) X10*3/uL Nucleated RBC % (auto) 0.0 (0.0-0.2) /100WBC Hold Blue Top SEE NOTE VBG pH 7.41 (7.32-7.43) VBG pCO2 62 mmHg VBG pO2 61 mmHg VBG HCO3 40 H (22-26) mmol/L VBG O2 Saturation 90.0 % VBG Base Excess 12.7 mmol/L Sodium 141 (135-145) mmol/L Potassium 3.8 (3.3-5.1) mmol/L Chloride 103 (96-108) mmol/L Carbon Dioxide 31 H (22-29) mmol/L Anion Gap 11 L (12-20) BUN 11 (9-16) mg/dL Creatinine 0.68 (0.5-1.4) mg/dL Estim Creat Clear Calc 98.9 Estimated GFR > 60 Random Glucose 108 (60-115) mg/dL Calcium 9.5 (8.4-10.2) mg/dL Magnesium 1.8 (1.6-2.6) mg/dL Total Bilirubin 0.6 (0.0-1.0) mg/dL AST 20 (5-31) U/L ALT 25 (0-31) U/L Alkaline Phosphatase 67 (39-117) U/L Troponin I High Sens < 2.7 < 2.7 (<3.5-17.0) ng/L B-Natriuretic Peptide 41 (<100) pg/mL Total Protein 7.0 (6.5-8.0) g/dL Albumin 4.1 (3.5-5.0) g/dL Lipase 66 (8-78) U/L TSH 1.36 (0.32-4.0) uIU/mL Influenza Type A (PCR) NEGATIVE (Negative) Influenza Type B (PCR) NEGATIVE (Negative) RSV RNA Qual (PCR) NEGATIVE (Negative) SARS-CoV-2 RNA (RT-PCR) NEGATIVE (Negative) Independent Interpretation I performed an independent interpretation of an: EKG and CT Scan Interpretation: normal sinus rhythm heart rate 69 beats per minute normal interval normal axis nonspecific STT wave changes no acute ischemia Radiology Impression Discussion of test interpretation with radiology: I have reviewed the radiologist's reading. Radiologist Impression: negative MRI brain CTA chest negative for PE Discharge Plan Discharge Clinical Impression: Hypoxia, Benign paroxysmal positional vertigo, SANTI on CPAP Patient Disposition: Admitted As Inpatient Interventions: Admission Worksheet (ED) Last Done: 08/12/24 01:16 Discharge Date/Time: 08/12/24 02:51
[2024-08-11 12:48] LABS: Alanine Aminotransferase 25 U/L (0-31); Albumin Level 4.1 g/dL (3.5-5.0); Alkaline Phosphatase 67 U/L (39-117); Anion Gap 11 (12-20); Aspartate Amino Transferase 20 U/L (5-31); Bilirubin Total 0.6 mg/dL (0.0-1.0); Blood Urea Nitrogen 11 mg/dL (9-16); Calcium 9.5 mg/dL (8.4-10.2); Carbon Dioxide 31 mmol/L (22-29); Chloride 103 mmol/L (96-108); Creatinine Clr Calc Pharmacy 98.9; Estimated Glomerular Filt Rate > 60; Glucose Random 108 mg/dL (60-115); Lipase 66 U/L (8-78); Magnesium 1.8 mg/dL (1.6-2.6); Potassium 3.8 mmol/L (3.3-5.1); Sodium 141 mmol/L (135-145)
[2024-08-11 12:57] LABS: Troponin-I High Sensitivity < 2.7 ng/L (<3.5-17.0)
[2024-08-11 13:03] LABS: TSH reflex Free T4 1.36 uIU/mL (0.32-4.0)
[2024-08-11] MEDS: ondansetron HCL 4 MG/2 ML VIAL IVPUSH (13:04)
[2024-08-11] MEDS: diazePAM 10 MG/2 ML CARTRIDGE 5 MG IVPUSH (13:04)
[2024-08-11] MEDS: Meclizine HCl 25 MG TABLET PO (13:04)
[2024-08-11] MEDS: Lactated Ringers 1,000 ML 999 ML IV (13:04)
[2024-08-11 13:06] LABS: Influenza A PCR NEGATIVE (Negative); Influenza B PCR NEGATIVE (Negative); Resp Syncy Virus RNA Qual PCR NEGATIVE (Negative); SARS COV2 PCR INHOUSE NEGATIVE (Negative)
--- OUTSIDE RECORDS SUMMARY | 2024-08-11 13:46 | XMS_ITS | Clinical Summary ---
Author Organization [facility], Address [address] [place] [address] Phone Care Team Providers Care Instruments Sales Representative Name Role Phone Magdaleno Goodson DO Primary Care Provider [phone] Allergies No known active allergies Medications ARIPiprazole [...] 11/25/2023 Influenza Vaccine (Season Ended) [address] [facility] Care Dual SNP ([id number]) [place] [id number] Care Teams Instruments Sales Representative Relationship Specialty Start Date End Date Magdaleno Goodson DO [address] [place] [id number] PCP - General Family Medicine 08/10/23
--- OUTSIDE RECORDS SUMMARY | 2024-08-11 13:46 | XMS_ITS | Encounter Summary ---
Author Organization [facility] Address [address] [place] [address] Phone Care Team Providers Care Online Merchandising Manager Name Role Phone Magdaleno Goodson DO Primary Care Provider [phone] Encounter Details Date Type Department Care Team (Late st Contact Info) Description 08/10/2023 Documentation Only [facility], [address] [place] [address] [address] [place] [address] [place] [address] Social History Tobacco Use Types [...] on filedocumented in this encounter Care Teams Online Merchandising Manager Relationship Specialty Start Date End Date Magdaleno Goodson DO [address] [place] [id number] PCP - General Family Medicine 08/10/23 documented as of this encounter
--- OUTSIDE RECORDS SUMMARY | 2024-08-11 13:46 | XMS_ITS | Data Portability ---
Author Organization [facility]- Address [address] [place] [address] Care Team Providers Care Plastics Seasoner Operator Name Role Phone CROW DAVID Primary Care Provider Assessment No assessment recorded. Plan of Treatment Reminders Order Date Submit Date Provider Last Modified By Organization Details Last Modified Time Details Appointments None recorded. Lab biopsy, tissue - R nasal columella 2018 019 [facility], [address] [place] [address], [id number], 9 17:55:13 Referral None recorded. Procedures None [...] Biopsy Shave completed Elías Ferraro MD [address] [address], [place], [address], [facility] 12/16/2018 09:32:15 Imaging Results None recorded. [...] Updated DateTime 12/16/2018 154.94 cm 40.6 kg/m2 85010.36 g MICKIE [facility] 12/16/2018 09:26:19 Social History Question Answer Notes LastModified by Organizat ion Details LastModified Time Tobacco Smoking Status Never Smoker [facility] 12/16/2018 09:26:27 What Is Your Level Of Alcohol Consumption? None [email or web address] Information not available 12/16/2018 What Is Your Level Of Caffeine Consumption? Occasional 1 [email or web address] Information not available 12/16/2018 Sex: Unknown Functional Status None recorded. Mental Status None recorded. Family History Nothing Reported. Medical History Condition Response Allergies/Hayfever N Acid reflux (GERD) N Heart Conditions N Liver Disease/Jaundice N Emphysema N Migraines N Thyroid Problems N Glaucoma N Depression N HIV/Sexually Transmitted Disease N Anemia N Heart Attack (NM) N N Diabetes N Bleeding Disorder N [...] SNOMED-CT Code Diagnosis ICD10 Code Diagnosis Note [id number] Elías Ferraro MD Main Office [address] [place] [address] 12/16/2018 09:19:48 12/16/2018 09:54:48 Neoplasm of uncertain behavior of skin 90949577 D48.5 -Skin lesion of uncertain etiology of [...] ID Guarantor Name 12/16/2018 1 [place]IC[place] B[place] [employer] Tona D Zurdo [id number] Tona Zurdo 12/16/2018 2 [place] [facility] Tona Zurdo [id number] Tona Zurdo Notes Date Note Type Note [...] or skin cancer. Elías Ferraro MD [address], [place], [address], [facility] 12/16/2018 09:44:31 OBGyn Episode No OBEpisode recorded.
--- NOTE | 2024-08-11 13:48 | MHC.EDTECH ---
Patient resting quietly. States she is comfortable. Call fischer placed within reach. Respirations even and unlabored.
--- NOTE | 2024-08-11 19:15 | PC.NURSE ---
pt noted to desat to 89% on RA w/ a good pleth - no sob/wob noted. respirations even/unlabored. pt denies hx asthma/copd/chf. pt placed on 2L via NC w/ good effect. otherwise vss and up to date. nsr on the equipment monitor phototypesetting. pt waiting to go to MRI at this time. plan of care ongoing. call fischer placed within reach.
--- NOTE | 2024-08-11 19:25 | PC.NURSE ---
patient to MRI at this time.
--- NOTE | 2024-08-11 21:19 | ECG_ITS ---
Test Reason : DIZZINESS Blood Pressure : */* mmHG Vent. Rate : 69 BPM Atrial Rate : 69 BPM P-R Int : 150 ms QRS Dur : 94 ms QT Int : 420 ms P-R-T Axes : 44 39 61 degrees QTcB Int : 450 ms Normal sinus rhythm Nonspecific T wave abnormality Abnormal ECG When compared with ECG of 11-Aug-2024 12:08, No significant change was found Referred By: Lloyd Melendez Electronically Signed By: GEOVANNA VILLANUEVA
--- NOTE | 2024-08-11 21:33 | PC.NURSE ---
ambulatory O2 trial completed - pt noted to desat to 87% on RA with associated dizziness while ambulating. 1:1 assist needed d/t unsteady gait. pt assisted back into bed. provider notified/aware of results. CTA ordered. new 20gIV placed in the left AC. tech bedside completing ekg/obtaining labs. plan of care ongoing.
--- NOTE | 2024-08-11 22:20 | PC.NURSE ---
labs obtained/sent to lab by tech. ekf performed. pt to CT at this time.
[2024-08-11 22:22] LABS: VBG Base Excess 12.7 mmol/L; VBG HCO3 40 mmol/L (22-26); VBG pCO2 62 mmHg; VBG pH 7.41 (7.32-7.43); VBG pO2 61 mmHg
[2024-08-11 22:24] LABS: Venous Blood Gas Refer to POC result
[2024-08-11] MEDS: iohexoL 350 MG/ML 100 ML INFUS..BTL 65 ML IV (22:33)
[2024-08-11 22:39] LABS: B Type Natriuretic Peptide 41 pg/mL (<100); Troponin-I High Sensitivity < 2.7 ng/L (<3.5-17.0)
[2024-08-12] VITALS (9 sets, daily range): BP systolic 120–144; BP diastolic 62–89; PULSE 62–89; RESP 14–18; TEMP 36.3–36.7; O2SAT 86–95; BMI 40.4
--- NOTE | 2024-08-12 00:15 | PC.NURSE ---
2nd ambulating O2 trial performed per provider order. pt still reporting increased dizziness. 1:1 assist still needed to ambulate. pt noted to desat to 86% on RA w/ exertion. pt assisted back into bed - SPO2 @ 92% on RA at rest.
--- NOTE | 2024-08-12 00:39 | P.HPHOSP_ITS ---
History of Present Illness Date of Service: 08/12/24 Attending physician on admission: Yeison Carreon Chief Complaint: vertigo Patient is a 53-year-old female with a past medical history significant for vertigo, HTN, SANTI on CPAP, parathyroid adenoma status post parathyroidectomy, and type 2 diabetes on Mounjaro, who presented to the ED due to dizziness for the past month with nausea and diarrhea last night. Patient reports tunnel vision and spinning room with near syncopal sensation. She has been taking meclizine x1 week without any improvement. She reports that she has a history of vertigo which felt exactly the same. These episodes occur mostly with movement however can happen while sitting still. She reports that her seasonal allergies have been very bad recently and she feels that this is triggering her vertigo. She denies any cough, shortness of breath, chest pain, fever, chills. No current nausea or diarrhea. While in the ED the patient failed ambulatory trial with oxygen saturation dropping down to 87%. The patient reports that she was asymptomatic and did not feel short of breath. Review of Systems 2 Constitutional: Constitutional: Denies body ache(s), Denies chills, Denies fatigue, Denies fever(s) and Denies headache(s) Eyes: Eyes: Denies change in vision, Denies photophobia and Reports tunnel vision ENT: Denies headache(s), Reports nasal congestion, Reports nasal discharge and Denies sore throat Cardiovascular: Cardiovascular: Denies chest pain, Denies rapid heart rate, Denies leg edema, Reports lightheadedness and Denies dyspnea Respiratory: Respiratory: Denies chest congestion, Denies cough, Denies dyspnea and Denies wheezing Gastrointestinal: Gastrointestinal: Denies abdominal pain, Denies melena, Denies coffee ground emesis, Reports diarrhea, Reports nausea, Reports vomiting and Denies hematemesis Genitourinary: Genitourinary: Denies difficulty voiding, Denies dysuria and Denies urinary urgency Musculoskeletal: Musculoskeletal: Denies back pain and Denies myalgias Integumentary/Breasts: Skin/Breast: Denies rash Neurologic: Denies confusion and Denies headache(s) Psychiatric: Psychiatric: Denies confusion Endocrine: Endocrine: Denies fatigue Hematologic/Lymphatic: Hematologic/Lymphatic: Denies easy bleeding and Denies easy bruising Allergic/Immunologic: Allergic/Immunologic: Reports seasonal rhinorrhea and Denies wheezing [facility] Medical History History of electroconvulsive therapy Sleep apnea Type 2 diabetes mellitus Snoring Rosacea Iliotibial band syndrome, right leg Mitral valve prolapse Asymptomatic menopausal state Mitral valve disorder Neuralgia of both lower extremities Leg heaviness Morbid obesity Tendinosis of rotator cuff Vitamin D deficiency SANTI on CPAP Localized edema Chronic kidney disease, stage 3a PTSD (post-traumatic stress disorder) Bipolar 1 disorder Hyperparathyroidism Suicidal ideations Cataract Seasonal allergies Anxiety Depression HTN (hypertension) Sciatic leg pain Functional capacity: independent ambulation Surgical History History of parathyroidectomy (06/04/23) Hx of colonoscopy History of surgery (2014) History of tonsillectomy Social History Household Members: Significant Other Housing: Apartment Are you a primary medicare interviewer to a significant other at home: No Do you presently have visiting nurse or other home services: No Alcohol intake: current Alcohol intake frequency: holidays/special occasions only Alcohol type: wine Comment: COUNTS CORRECT Patient Tobacco Use Status: Never used Tobacco e-Cigarette/Vaping Use: Currently Using Use of substances other than those prescribed or required for medical reasons: No Substance Use Type: Marijuana Advance Directives: No Advance Directives Information Provided: Yes Nutrition Risks: No Nutritional Risk Patient : No Narrative: Vapes occasionally, no alcohol or drug use Meds Allergies Allergy/AdvReac Type Severity Reaction Status Date / Time haloperidol [From Haldol] Allergy Angioedema Verified 08/11/24 11:59 Home Medications ?Medication ?Instructions ?Recorded ?Confirmed ?Last Taken ?Type aripiprazole 5 mg tablet (Abilify) 5 mg PO DAILY 01/23/23 03/24/24 06/04/23 05:30 History escitalopram oxalate 10 mg tablet 10 mg PO DAILY 01/23/23 03/24/24 06/04/23 05:30 History (Lexapro) lamotrigine 150 mg tablet 300 mg PO DAILY 01/23/23 03/24/24 06/04/23 05:30 History (Lamictal) loratadine 10 mg tablet (Claritin) 10 mg PO DAILY 01/23/23 03/24/24 06/04/23 05:30 History losartan 100 mg tablet 100 mg PO DAILY 01/23/23 03/24/24 06/03/23 07:30 History metoprolol succinate 100 mg 100 mg PO DAILY 01/23/23 03/24/24 06/04/23 05:30 History tablet,extended release 24 hr acetaminophen 500 mg tablet 1,000 mg PO Q6H PRN Pain 05/29/23 03/24/24 06/03/23 18:00 History clonazepam 1 mg tablet 0.5 mg PO DAILY PRN Anxiety 05/29/23 03/24/24 05/28/23 History diphenhydramine HCl 50 mg capsule 50 mg PO Q6H PRN Pain 05/29/23 03/24/24 06/03/23 18:00 History gabapentin 300 mg capsule 300 mg PO BID 05/29/23 03/24/24 06/04/23 05:30 History ibuprofen 600 mg tablet 600 mg PO Q6H PRN Pain 05/29/23 03/24/24 06/03/23 18:00 History pregabalin 75 mg capsule (Lyrica) 75 mg PO DAILY 11/30/23 03/24/24 Unknown History tirzepatide 2.5 mg/0.5 mL 5 mg subcut 03/24/24 03/24/24 Unknown History subcutaneous pen injector (Mounjaro) Physical Exam 2 Vital Signs and Narrative: Vital Signs: Last Vital Signs Temp 98.1 F 08/11/24 23:41 Pulse 68 08/11/24 23:41 Resp 20 08/11/24 23:41 BP 120/62 08/11/24 23:41 Pulse Ox 86 L 08/12/24 00:14 O2 Del Method Room Air 08/11/24 23:41 O2 Flow Rate 2 08/11/24 19:22 BMI result Body Mass Index 42.0 General: AOx3, no acute distress Resp: Crackles left lower lung base, no wheezing CVS: Regular rate, regular rhythm ?murmur GI: +BS, NT, no distention Skin: Warm, dry Neuro: Cranial nerves II-XII grossly intact bilaterally. Motor grossly intact bilaterally Extremities: No LE edema Psych: Appropriate affect Const: General: No confusion Orientation/consciousness: No confusion Eyes: Direct Ophthalmoscopy: No photophobia Neuro: General: No confusion Results Labs 08/11/24 12:18 08/11/24 12:18 Labs: Laboratory Results - last 24 hr 08/11/24 08/11/24 08/11/24 12:18 22:09 22:18 MCV 88.6 MCH 30.2 MCHC 34.1 RDW 12.4 Plt Count 291 MPV 8.7 L Immature Gran % (Auto) 0.3 Neut % (Auto) 62.6 Lymph % (Auto) 30.5 [place] % (Auto) 6.0 Eos % (Auto) 0.0 Baso % (Auto) 0.6 Lymph # (Auto) 2.9 [place] # (Auto) 0.6 Eos # (Auto) 0.0 Baso # (Auto) 0.1 Abs Immat Gran (auto) 0.03 Absolute Neuts (auto) 5.9 Absolute Nucleated RBC 0.000 Nucleated RBC % (auto) 0.0 Hold Blue Top SEE NOTE VBG pH 7.41 VBG pCO2 62 VBG pO2 61 VBG HCO3 40 H VBG O2 Saturation 90.0 VBG Base Excess 12.7 Anion Gap 11 L Estim Creat Clear Calc 98.9 Estimated GFR > 60 Random Glucose 108 Calcium 9.5 Magnesium 1.8 Total Bilirubin 0.6 AST 20 ALT 25 Alkaline Phosphatase 67 B-Natriuretic Peptide 41 Total Protein 7.0 Albumin 4.1 Lipase 66 TSH 1.36 Influenza Type A (PCR) NEGATIVE Influenza Type B (PCR) NEGATIVE RSV RNA Qual (PCR) NEGATIVE SARS-CoV-2 RNA (RT-PCR) NEGATIVE Assessment and Plan (1) Acute hypoxic respiratory failure: Status: Acute (2) Benign paroxysmal positional vertigo: Status: Acute (3) Class 3 obesity: Status: Acute Plan Patient is a 53-year-old female with a past medical history significant for vertigo, HTN, SANTI on CPAP, parathyroid adenoma status post parathyroidectomy, and type 2 diabetes on Mounjaro, who presented to the ED due to dizziness for the past month with nausea and diarrhea last night. While in the ED, the patient failed and ambulatory trial with oxygen saturations dropping to 87%, the patient was asymptomatic. Acute hypoxic respiratory failure -- pulmonary edema vs SANTI vs OHS - WBC 9.4, no fever, no tachycardia or tachypnea, no infectious etiology - CTA negative for PE but did show possible mild pulmonary edema - COVID/flu/RSV negative - BNP 41 - echo 04/2023 normal - given 20mg IV lasix in ED - echo in AM - consider re-checking VBG vs ABG in AM - oxygen protocol PRN - CPAP at bedtime BPPV - likely triggered by seasonal allergies - MRI brain negative - meclizine PRN - PT eval HTN - continue home meds SANTI - CPAP at bedtime T2DM - sliding scale insulin - diabetic diet - not due for Carlounkelsiero until 08/15 Class 3 obesity - BMI 42.0 - on GLP1 Patient with acute hypoxic respiratory failure secondary to pulmonary edema versus SANTI versus OHS, requiring admission for at least 2 midnights stay for IV diuresis further evaluation and monitoring. Quality Stroke Does the patient have a stroke diagnosis?: No VTE Prior VTE?: No VTE Risk Level:: Medical - moderate - high VTE Device Contraindication: Treatment Not Indicated VTE Drug Contraindication: N/A - Med Ordered
[2024-08-12] MEDS: Furosemide 20 MG/2 ML VIAL IVPUSH (00:46)
--- NOTE | 2024-08-12 00:59 | PC.NURSE ---
medication administered per provider order. commode placed bedside for convenience d/t unsteady gait. pt noted to desat to 89% on RA - pt placed on 2L via NC. otherwise vss and up to date. nsr on the security monitor. pt remains in no apparent respiratory distress. no sob/wob noted. respirations even/unlabored. pending bed assignment. plan of care ongoing. call fischer placed within reach.
[2024-08-12 01:42] LABS: Appearance Urine Clear; Color Urine Yellow; Glucose Urine UA Negative (Negative); Leukocyte Esterase Urine Negative (Negative); Nitrite Urine Negative (Negative); PH 6.5 (5.0-9.0); Urine Blood Negative (Negative); Urine Ketones Negative (Negative); Urine Protein Negative (Neg-Trace)
[2024-08-12 06:58] LABS: Venous Blood Gas Refer to POC result
[2024-08-12 07:00] LABS: VBG Base Excess 15.4 mmol/L; VBG HCO3 43 mmol/L (22-26); VBG pCO2 67 mmHg; VBG pH 7.41 (7.32-7.43); VBG pO2 34 mmHg
--- NOTE | 2024-08-12 07:00 | CA_ITS ---
Transthoracic Echocardiogram Patient (Last, First, Middle): Tona Fischer D Gender: Female Date of : 1970 Age: 53 Procedure Date: 08/12/2024 Procedure Type: Transthoracic Echocardiogram Location: S3W Height: 152.4 cm Weight: 93.9 kg BSA: 1.89 m2 Heart Rate: bpm BP: 138 / 68 mmHg Spring Upholsterer: Referring MD: Mya Marie PA-C Symptoms: ?CHF Study Quality: Adequate ECG Rhythm: Sinus Conclusions: - The left ventricular systolic function is normal. The calculated ejection fraction is 61% by biplane method. - No obvious valvular pathology seen on this study. Findings Left Ventricle Normal left ventricular cavity size. There is mildly increased left ventricular wall thickness. The left ventricular systolic function is normal. The calculated ejection fraction is 61% by biplane method. There is no evidence of regional wall motion abnormalities. Diastolic function is normal for age. Right Ventricle Normal right ventricular cavity size and systolic function. Atria Both atria are normal in size. Aortic Valve There is a normal trileaflet aortic valve. There is no aortic valve stenosis. There is no aortic valve regurgitation. Mitral Valve The mitral valve appears normal. There is no mitral valve regurgitation. There is no mitral valve stenosis. Pulmonic Valve The pulmonic valve is likely normal. Tricuspid Valve Normal tricuspid valve structure. There is mild tricuspid valve regurgitation. There is no evidence of pulmonary hypertension. Great Vessels The asc aorta is normal in size. Venous The inferior vena cava is normal in size and collapses greater than 50% with inspiration. Pericardium/Pleural There is no evidence of pericardial effusion. Prior Study Comparison No significant change compared to prior study dated: 04/27/2023. Recommendations, Care & Conclusions No obvious valvular pathology seen on this study. Measurements 2D Linear Measurements IVSd: 1.10 0.6-0.9/0.6-1.0 cm LVIDd: 4.57 3.9-5.3/4.2-5.9 cm LVIDd Index: 2.42 2.4-3.2/2.2-3.1 cm/m2 LVIDs: 2.85 2.0-3.6 cm LVPWd: 1.12 0.7-1.1 cm Ao Root: 3.40 2.1-3.5 cm LA Diam: 4.00 2.7-3.8/3.0-4.0 cm LAIDs Index: 2.12 1.5-2.3 cm/m2 LV Mass: 226.31 67-162/88-224 g LV Mass Index: 119.74 43-95/49-115 g/m2 LVOT Diam: 2.20 3.0+(-)1.3 cm 2D Systolic Function EF 4C: 61.60 >55% EF 2C: 59.80 >55% EF BiP: 61.00 >55% Mitral Valve MV Pk E: 0.72 MV PK A: 0.61 MV Decel Time: 209.00 E/A: 1.20 E'Lateral: 10.40 E'Medial: 6.74 E/E' Med: 10.60 E/E' Lat: 6.90 PHT: 61.00 MVA PHT: 3.61 Decel [place]: 3.42 Aortic Valve AoV Pk Bridger: 1.49 AoV Mn Bridger: 0.95 AoV VTI: 0.36 AoV Pk Grad: 9.00 Aov Mn Grad: 4.00 RAHAT Cont.VTI: 1.93 LVOT LVOT Pk Bridger: 0.73 LVOT Mn Bridger: 0.49 LVOT VTI: 0.18 LVOT Pk Grad: 2.00 LVOT Mn Grad: 1.00 LVOT Diam: 2.20 LVOT Area: 3.80 Diastolic Function MV Pk E: 0.72 MV Pk A: 0.61 E/A: 1.20 E'Medial: 6.74 E/E' Med: 10.60 E' Laterial: 10.40 E/E' Lat: 6.90 Right Ventricle TAPSE (mm): 30.00 TVS' Bridger: 11.00 Tricuspid Valve TR Pk Bridger: 2.75 TR Pk Grad: 30.00 Great Vessels Aorta Ao Root-2D: 3.40 2.0-3.7 cm Ao Asc: 3.50 2.1-3.4 cm Pulmonary Valve PV Pk Bridger: 0.82 Peak PV Grad: 3.00 Updated in Other Vendor System with Status of Final Vince Blum MD electronically signed on 08/12/2024 12:34:00 PM with status of Final
[2024-08-12 07:28] LABS: Hematocrit 40.2 % (37.0-47.0); Hemoglobin 13.8 g/dl (12.0-16.0); Mean Corpuscular HGB Conc 34.3 g/dl (31.0-35.0); Mean Corpuscular Hemoglobin 30.7 pg (27.0-33.0); Mean Corpuscular Volume 89.5 fL (80.0-98.0); Mean Platelet Volume 8.8 fL (9.4-12.3); Platelet Count 279 X10*3/uL (160-400); Red Blood Count 4.49 X10*6/uL (4.20-5.50); Red Cell Distribution Width 12.6 % (11.0-16.0); White Blood Count 8.9 X10*3/uL (4.8-10.8)
[2024-08-12 07:30] LABS: Glucose, Whole Blood 81 mg/dL (60-115)
[2024-08-12 07:41] LABS: Anion Gap 12 (12-20); Blood Urea Nitrogen 13 mg/dL (9-16); Calcium 9.2 mg/dL (8.4-10.2); Carbon Dioxide 34 mmol/L (22-29); Chloride 102 mmol/L (96-108); Creatinine Clr Calc Pharmacy 85.5; Estimated Glomerular Filt Rate > 60; Glucose Random 83 mg/dL (60-115); Potassium 3.8 mmol/L (3.3-5.1); Sodium 144 mmol/L (135-145)
--- NOTE | 2024-08-12 08:09 | PHA.MEDREC ---
Pharmacy Consult ? Medication Reconciliation Pharmacy has completed the medication reconciliation. Patient had a list on their phone. Patient confirmed she discontinued felodipine and methocarbamol.
[2024-08-12] MEDS: Loratadine 10 MG TABLET PO (08:48)
[2024-08-12] MEDS: Docusate Sodium 100 MG CAPSULE PO (08:48)
[2024-08-12] MEDS: Losartan Potassium 50 MG TABLET 100 MG PO (08:48)
[2024-08-12] MEDS: lamoTRIgine 100 MG TABLET 200 MG PO (08:48)
[2024-08-12] MEDS: Escitalopram Oxalate 20 MG TABLET PO (08:48)
[2024-08-12] MEDS: 0.9 % Sodium Chloride Flush 3 ML SYRINGE IVFLUSH (08:49)
[2024-08-12] MEDS: Metoprolol Succinate ER 50 MG TAB.ER.24H PO (08:49)
[2024-08-12] MEDS: Pregabalin 100 MG CAPSULE PO ×2 (08:49→14:35)
[2024-08-12 08:55] LABS: Glucose, Whole Blood 137 mg/dL (60-115)
[2024-08-12 11:14] LABS: Glucose, Whole Blood 88 mg/dL (60-115)
--- NOTE | 2024-08-12 11:48 | MHC.CM.PN ---
pt lives with boyfriend has a ride home dc plan home n/s
--- NOTE | 2024-08-12 13:10 | PM.DS ---
DS: Providers Provider Date of Service: 08/12/24 Date of admission: 08/12/24 00:13 Date of discharge: 08/12/24 Primary care physician: Cici Miller MD Attending physician on discharge: [facility] Discharging clinician: Marianela Gomez DS: Diagnosis Discharge Diagnosis (1) Benign paroxysmal positional vertigo: Status: Acute (2) Class 3 obesity: Status: Acute DS: Summary Hospital Course Hospital Course: From H&P on the day of admission Patient is a 53-year-old female with a past medical history significant for vertigo, HTN, SANTI on CPAP, parathyroid adenoma status post parathyroidectomy, and type 2 diabetes on Mounjaro, who presented to the ED due to dizziness for the past month with nausea and diarrhea last night. Patient reports tunnel vision and spinning room with near syncopal sensation. She has been taking meclizine x1 week without any improvement. She reports that she has a history of vertigo which felt exactly the same. These episodes occur mostly with movement however can happen while sitting still. She reports that her seasonal allergies have been very bad recently and she feels that this is triggering her vertigo. She denies any cough, shortness of breath, chest pain, fever, chills. No current nausea or diarrhea. While in the ED the patient failed ambulatory trial with oxygen saturation dropping down to 87%. The patient reports that she was asymptomatic and did not feel short of breath. Documented hypoxia Patient has remained asymptomatic. Echocardiogram was obtained and was normal. CTA negative for PE. BNP low, no history of lung disease or heart disease. Had home oxygen evaluation and had no episodes of hypoxia with ambulation, did not qualify for home oxygen Vertigo- BPPV MRI brain negative. Symptoms resolved, patient able to ambulate independently. Outpatient follow-up for vestibular therapy for recurrent episodes. Time Attestation Discharge Coordination Time (in mins): 32 Quality: Safe Use of Opioids Does Pt have an Active Cancer Diagnosis on the Problem List?: No Quality: Stroke Does the patient have a stroke diagnosis?: No Physical Exam Vital Signs: Vital Signs: Last Vital Signs Temp 97.6 F 08/12/24 12:00 Pulse 68 08/12/24 12:00 Resp 16 08/12/24 12:00 BP 144/89 H 08/12/24 12:00 Pulse Ox 94 08/12/24 12:00 O2 Del Method Room Air 08/12/24 12:00 O2 Flow Rate 2 08/12/24 00:58 BMI result Body Mass Index 40.4 Const: General: cooperative, comfortable, no acute distress, alert and awake Nutritional Appearance: average body habitus Orientation/consciousness: patient oriented x3 Resp: Effort & Inspection: normal respiratory effort, able to speak in complete sentences, no respiratory distress and no use of accessory muscles Cardio: Rate: regular rate GI: Inspection: No distended Palpation (GI): Soft to palpation and nontender Neuro: General: patient oriented x3, moves all extremities and CN's II-XI intact bilaterally Extrem: General: Yes no pedal edema DS: Data Data Completed and Pending Labs on day of discharge: Laboratory Results - last 24 hr 08/11/24 08/11/24 08/12/24 22:09 22:18 01:33 WBC RBC Hgb Hct MCV MCH MCHC RDW Plt Count MPV Absolute Nucleated RBC Nucleated RBC % (auto) Hold Blue Top SEE NOTE VBG pH 7.41 VBG pCO2 62 VBG pO2 61 VBG HCO3 40 H VBG O2 Saturation 90.0 VBG Base Excess 12.7 Sodium Potassium Chloride Carbon Dioxide Anion Gap BUN Creatinine Estim Creat Clear Calc Estimated GFR POC Glucose Random Glucose Calcium Troponin I High Sens < 2.7 B-Natriuretic Peptide 41 Urine Color Yellow Urine Appearance Clear Urine pH 6.5 Ur Specific [place] 1.010 Urine Protein Negative Urine Glucose (UA) Negative Urine Ketones Negative Urine Blood Negative Urine Nitrite Negative Ur Leukocyte Esterase Negative 08/12/24 08/12/24 08/12/24 06:51 06:54 07:27 WBC 8.9 RBC 4.49 Hgb 13.8 Hct 40.2 MCV 89.5 MCH 30.7 MCHC 34.3 RDW 12.6 Plt Count 279 MPV 8.8 L Absolute Nucleated RBC 0.000 Nucleated RBC % (auto) 0.0 Hold Blue Top VBG pH 7.41 VBG pCO2 67 VBG pO2 34 VBG HCO3 43 H VBG O2 Saturation 53.0 VBG Base Excess 15.4 Sodium 144 Potassium 3.8 Chloride 102 Carbon Dioxide 34 H Anion Gap 12 BUN 13 Creatinine 0.77 Estim Creat Clear Calc 85.5 Estimated GFR > 60 POC Glucose 81 Random Glucose 83 Calcium 9.2 Troponin I High Sens B-Natriuretic Peptide Urine Color Urine Appearance Urine pH Ur Specific [place] Urine Protein Urine Glucose (UA) Urine Ketones Urine Blood Urine Nitrite Ur Leukocyte Esterase 08/12/24 08/12/24 08:49 11:09 WBC RBC Hgb Hct MCV MCH MCHC RDW Plt Count MPV Absolute Nucleated RBC Nucleated RBC % (auto) Hold Blue Top VBG pH VBG pCO2 VBG pO2 VBG HCO3 VBG O2 Saturation VBG Base Excess Sodium Potassium Chloride Carbon Dioxide Anion Gap BUN Creatinine Estim Creat Clear Calc Estimated GFR POC Glucose 137 H 88 Random Glucose Calcium Troponin I High Sens B-Natriuretic Peptide Urine Color Urine Appearance Urine pH Ur Specific [place] Urine Protein Urine Glucose (UA) Urine Ketones Urine Blood Urine Nitrite Ur Leukocyte Esterase Discharge Plan Discharge Anticipated Discharge Date/Time: 08/12/24 13:28 Patient Disposition: Home, Self-Care Discharge Diagnosis: episode of hypoxia vertigo, stroke ruled out Referrals: Cici Miller MD [Primary Care Provider] - 1 Week Discharge Medications: Continued meclizine 25 mg tablet 25 mg PO TID PRN (Reason: dizziness) Qty: 15 0RF pregabalin 100 mg capsule 100 mg PO TID Caplyta 42 mg capsule 42 mg PO QPM Rx Instructions: with dinner docusate sodium [Colace] 100 mg capsule 100 mg PO DAILY cholecalciferol (vitamin D3) 50 mcg (2,000 unit) capsule 100 mcg PO DAILY losartan 100 mg tablet 100 mg PO DAILY metoprolol succinate 100 mg tablet extended release 24 hr 50 mg PO DAILY escitalopram oxalate [Lexapro] 10 mg tablet 20 mg PO DAILY lamotrigine [Lamictal] 150 mg tablet 200 mg PO DAILY loratadine [Claritin] 10 mg tablet 10 mg PO DAILY Mounjaro 2.5 mg/0.5 mL pen injector 5 mg subcut MO Discharge Orders: Discharge Order (Routine); Ordered 08/12/24 Ordered By: Marianela Gomez Activity on Discharge: As tolerated Stand Alone Forms: Patient Portal Discharge page Print Language: Guyanese Care Plan Goals: See below Health Concerns: Vertigo Episode of hypoxia Plan of Treatment: No further episodes of hypoxia at rest or with ambulation. Echocardiogram normal Vertigo, resolved. MRI negative for acute stroke. Caplyta does have side effect of dizziness, discuss with provider if this could be contributing to symptoms. Do not stop any medications without direct discussion with prescribing provider. Outpatient physical therapy for vestibular therapy Assessment: See discharge summary
--- NOTE | 2024-08-12 13:49 | MHC.CM.PN ---
PT DCD HOME SELF CARE
== END 2024-08-12 14:47 | disposition home or self-care (01) | DRG 149 ==
LOC: HO.ED 08-12 00:20 → HO.EDOVER 08-12 00:27 → HO.S3 08-12 01:15
PROVIDERS: Physician Assistant; Registered Nurse Emergency; Admitting Provider Student in an Organized Health Care Education/Training Program; Emergency Provider Emergency Medicine; PCP Student in an Organized Health Care Education/Training Program; Visit Provider Physician Assistant Medical
DX: H81.10 Benign paroxysmal vertigo, unspecified ear (principal); J96.01 Acute respiratory failure with hypoxia; E66.2 Morbid (severe) obesity with alveolar hypoventilation; Z68.41 Body mass index [BMI] 40.0-44.9, adult; Z20.822 Contact with and (suspected) exposure to COVID-19; G47.33 Obstructive sleep apnea (adult) (pediatric); E11.9 Type 2 diabetes mellitus without complications; Z79.85 Long-term (current) use of injectable non-insulin antidiabetic drugs; Z79.899 Other long term (current) drug therapy
CPT/HCPCS: 0241U; 36415; 70551; 71275; 80048; 80053; 81003; 82803; 82947; 83690; 83735; 83880; 84443; 84484; 84702; 85025; 85027; 93005; 93306; 97161; 99283; 99285; J1650; J1938; J2405; J3360; J7120; Q9957; Q9967

== ENCOUNTER → 2024-08-11 12:01 | Outpatient (BNV) | payer OTHER, SELFPAY | PROVIDERS: Emergency Provider Emergency Medicine; PCP Student in an Organized Health Care Education/Training Program; Visit Provider Internal Medicine | DX: R94.31 Abnormal electrocardiogram [ECG] [EKG] (principal); R42 Dizziness and giddiness | CPT/HCPCS: 93010 ==

== ENCOUNTER → 2024-08-11 12:38 | Outpatient (BNV) | payer OTHER, SELFPAY | PROVIDERS: Emergency Provider Emergency Medicine; PCP Student in an Organized Health Care Education/Training Program; Visit Provider Radiology Diagnostic Radiology | DX: R42 Dizziness and giddiness (principal); R11.10 Vomiting, unspecified | CPT/HCPCS: 70551; 71275 ==

== ENCOUNTER 2024-08-12 00:13 | Outpatient (BNV) | payer OTHER, SELFPAY | END 2024-08-12 07:00 | PROVIDERS: Admitting Provider Student in an Organized Health Care Education/Training Program; Emergency Provider Emergency Medicine; PCP Student in an Organized Health Care Education/Training Program; Visit Provider Internal Medicine | DX: I36.1 Nonrheumatic tricuspid (valve) insufficiency (principal) | CPT/HCPCS: 93306 ==

== ENCOUNTER → 2024-08-12 00:13 | Outpatient (BNV) | payer OTHER, SELFPAY | PROVIDERS: Admitting Provider Student in an Organized Health Care Education/Training Program; Emergency Provider Emergency Medicine; PCP Student in an Organized Health Care Education/Training Program; Visit Provider Physician Assistant | DX: J96.01 Acute respiratory failure with hypoxia (principal); H81.10 Benign paroxysmal vertigo, unspecified ear; E66.813 Obesity, class 3; Z68.41 Body mass index [BMI] 40.0-44.9, adult | CPT/HCPCS: 99235; 99499 ==

== ENCOUNTER 2024-09-09 12:39 | Outpatient (REF) | payer OTHER, SELFPAY ==
--- OUTSIDE RECORDS SUMMARY | 2024-09-09 12:42 | XMS_ITS | Data Portability ---
Author Organization [facility], [facility]- Address [address] [place] [address] Care Team Providers Care Technical Manager Name Role Phone CROW DAVID Primary Care Provider [phone] Assessment No assessment recorded. Plan of Treatment Reminders Order Date Submit Date Provider Last Modified By Organization Details Last Modified Time Details Appointments None recorded. Lab biopsy, tissue - R nasal columella 2018 019 [facility], [address] [place] [address], [address], 9 17:55:13 Referral None recorded. Procedures None [...] Biopsy Shave completed Elías Ferraro MD [address] [address], [place], [address], [facility] 12/16/2018 09:32:15 Imaging Results None recorded. [...] Updated DateTime 12/16/2018 154.94 cm 40.6 kg/m2 55686.36 g MICKIE Sevilla [place] [facility] 12/16/2018 09:26:19 Social History Question Answer Notes LastModified by Organizat ion Details LastModified Time Tobacco Smoking Status Never Smoker MICKIE rick [facility] 12/16/2018 09:26:27 What Is Your Level Of Caffeine Consumption? Occasional 1 [email or web address] Information not available 12/16/2018 Sex: Unknown Functional Status Question Answer Note LastModified by Organization D etails LastModified Time What is your level of alcohol consumption? None [email or web address] Information not available 12/16/2018 Mental Status None recorded. Family History Nothing Reported. Medical History Condition Response Allergies/Hayfever N Acid reflux (GERD) N Heart Conditions N Liver Disease/Jaundice N Emphysema N Migraines N Thyroid Problems N Glaucoma N Depression N HIV/Sexually Transmitted Disease N Anemia N Heart Attack (OK) N N Diabetes N Bleeding Disorder N [...] SNOMED-CT Code Diagnosis ICD10 Code Diagnosis Note [id number] Elías Ferraro MD Main Office [address] [facility],[address] [place] [address] 12/16/2018 09:19:48 12/16/2018 09:54:48 Neoplasm of uncertain behavior of skin 02999802 D48.5 -Skin lesion of uncertain etiology of [...] ID Guarantor Name 12/16/2018 1 [place]IC[place] B[place] [employer] Tona D Zurdo [id number] Tona Zurdo 12/16/2018 2 [place] [facility] Tona Zurdo [id number] Tona Zurdo Notes Date Note Type Note [...] or skin cancer. Elías Ferraro MD [address] [facility] [address], [place], [address], [facility] 12/16/2018 09:44:31 OBGyn Episode No OBEpisode recorded.
--- NOTE | 2024-09-09 12:46 | ECG_ITS ---
Test Reason : R/O QTC PROLONGATION Blood Pressure : */* mmHG Vent. Rate : 71 BPM Atrial Rate : 71 BPM P-R Int : 124 ms QRS Dur : 92 ms QT Int : 418 ms P-R-T Axes : 39 24 39 degrees QTcB Int : 454 ms Normal sinus rhythm Normal ECG When compared with ECG of 11-Aug-2024 21:45, Nonspecific T wave abnormality no longer evident in Anterior leads Referred By: Heidi Johnson Electronically Signed By: GEOVANNA VILLANUEVA
[2024-09-09 13:12] LABS: MANUAL DIFF FLAG NO
[2024-09-09 13:38] LABS: Appearance Urine Clear; Color Urine Yellow; Glucose Urine UA Negative (Negative); Leukocyte Esterase Urine Negative (Negative); Nitrite Urine Negative (Negative); Urine Blood Negative (Negative); Urine Ketones Negative (Negative); Urine Protein Negative (Neg-Trace)
[2024-09-09 13:41] LABS: Basophils Absolute Auto 0.1 X10*3/uL (0.0-0.2); Basophils Percent Auto 0.9 % (0-2); Eosinophils Absolute Auto 0.1 X10*3/uL (0.0-0.4); Eosinophils Percent Auto 1.3 % (0-4); Hematocrit 43.1 % (37.0-47.0); Hemoglobin 14.2 g/dl (12.0-16.0); Imm Gran Abs Auto 0.02 X10*3/uL (0.00-0.03); Imm Gran Pct Auto 0.2 % (0.0-0.4); Lymphocytes Absolute Auto 3.2 X10*3/uL (1.2-4.9); Lymphocytes Percent Auto 29.3 % (20-40); Mean Corpuscular HGB Conc 32.9 g/dl (31.0-35.0); Mean Corpuscular Hemoglobin 29.8 pg (27.0-33.0); Mean Corpuscular Volume 90.5 fL (80.0-98.0); Mean Platelet Volume 8.9 fL (9.4-12.3); Monocytes Absolute Auto 0.6 X10*3/uL (0.1-1.2); Monocytes Percent Auto 5.4 % (2-11); Neutrophils Absolute Auto 6.8 x10*3/uL (2.0-8.3); Neutrophils Percent Auto 62.9 % (45-73); Platelet Count 372 X10*3/uL (160-400); Red Blood Count 4.76 X10*6/uL (4.20-5.50); Red Cell Distribution Width 12.7 % (11.0-16.0); White Blood Count 10.8 X10*3/uL (4.8-10.8)
[2024-09-09 14:02] LABS: Estimated Average Glucose 105 mg/dL; Hemoglobin A1c % 5.3 % (<6.0)
[2024-09-09 14:16] LABS: Erythrocyte Sedimentation Rate 28 MM/HR (0-20)
[2024-09-09 14:23] LABS: Alanine Aminotransferase 33 U/L (0-31); Albumin Level 4.5 g/dL (3.5-5.0); Alkaline Phosphatase 64 U/L (39-117); Anion Gap 10 (12-20); Aspartate Amino Transferase 23 U/L (5-31); Bilirubin Total 0.4 mg/dL (0.0-1.0); Blood Urea Nitrogen 13 mg/dL (9-16); C Reactive Protein 2.68 mg/dL (< or = 0.50); Calcium 9.9 mg/dL (8.4-10.2); Carbon Dioxide 32 mmol/L (22-29); Chloride 104 mmol/L (96-108); Estimated Glomerular Filt Rate > 60; Glucose Random 75 mg/dL (60-115); Potassium 3.9 mmol/L (3.3-5.1); Sodium 142 mmol/L (135-145); Total Protein 7.4 g/dL (6.5-8.0); Unsaturated Iron Binding 196 ug/dL
[2024-09-09 14:26] LABS: Parathyroid Hormone Intact 61.6 pg/mL (8.7-77.1)
[2024-09-09 14:38] LABS: Free T4 (Free Thyroxine) 1.26 ng/dL (0.71-1.85); Vitamin D 25-OH Total 55.8 ng/mL (>30)
[2024-09-09 14:40] LABS: Cortisol Random 5.9 ug/dL
[2024-09-09 14:48] LABS: Folate 9.6 ng/mL (> or = 4.0); Vitamin B12 658 pg/mL (200-900)
[2024-09-09 18:58] LABS: Iron 34 mcg/dL (30-160); Percent Iron Saturation 15 % (15-50); Total Iron Binding Capacity 230 mcg/dL (228-428)
[2024-09-10 05:44] LABS: Triiodothyronine T3 Free 3.2 pg/mL (2.3-4.2); Triiodothyronine T3 Total 106 ng/dL (76-181)
[2024-09-12 17:13] LABS: Calcium, Ionized 5.1 mg/dL (4.7-5.5)
[2024-09-12 21:29] LABS: Lyme Abs Screen <0.90 index
[2024-09-13 10:59] LABS: Homocysteine 13.2 umol/L (< or = 13.4)
[2024-09-15 10:35] LABS: Anti Nuclear Antibody Pattern Nuclear, Speckled; Anti Nuclear Antibody Screen POSITIVE (NEGATIVE)
[2024-09-15 16:13] LABS: Vitamin B1 12 nmol/L (8-30)
== END 2024-09-09 12:40 | disposition home or self-care (01) ==
LOC: HO.LAB 12:39
PROVIDERS: PCP Student in an Organized Health Care Education/Training Program; Visit Provider Psychiatry & Neurology Psychiatry
DX: F33.2 Major depressive disorder, recurrent severe without psychotic features (principal); F41.1 Generalized anxiety disorder; E09.9 Drug or chemical induced diabetes mellitus without complications; T50.905A Adverse effect of unspecified drugs, medicaments and biological substances, initial encounter; Y92.9 Unspecified place or not applicable
CPT/HCPCS: 36415; 80053; 81003; 82306; 82330; 82533; 82607; 82746; 83036; 83090; 83540; 83735; 83970; 84100; 84425; 84439; 84480; 84481; 85025; 85652; 86038; 86039; 86140; 86617; 86618; 93005

== ENCOUNTER → 2024-09-09 12:46 | Outpatient (BNV) | payer OTHER, SELFPAY | PROVIDERS: PCP Student in an Organized Health Care Education/Training Program; Visit Provider Internal Medicine | DX: Z13.6 Encounter for screening for cardiovascular disorders (principal) | CPT/HCPCS: 93010 ==

== ENCOUNTER → 2024-09-15 09:15 | Outpatient (BNV) | payer OTHER, SELFPAY | PROVIDERS: Visit Provider Psychiatry & Neurology Psychiatry | DX: F31.30 Bipolar disorder, current episode depressed, mild or moderate severity, unspecified (principal); F41.1 Generalized anxiety disorder; F45.42 Pain disorder with related psychological factors | CPT/HCPCS: 99499 ==

== ENCOUNTER 2024-09-17 10:15 | Outpatient (REF) | payer OTHER, SELFPAY ==
[2024-09-17 11:49] LABS: Erythrocyte Sedimentation Rate 28 MM/HR (0-20)
[2024-09-17 12:01] LABS: Lactate Dehydrogenase 190 U/L (122-220)
[2024-09-19 18:38] LABS: RNP Antibodies 1.1 POS AI (<1.0 NEG)
[2024-09-19 18:43] LABS: Anti DNA DS Antibody 14 IU/mL; JO 1 Antibody <1.0 NEG AI (<1.0 NEG); SM/Ribonucleoprotein Ab <1.0 NEG AI (<1.0 NEG); Scleroderma 70 Antibody <1.0 NEG AI (<1.0 NEG); Smith Protein <1.0 NEG AI (<1.0 NEG)
[2024-09-27 14:24] LABS: Cardiolipin IgG Ab <2.0
[2024-09-27 14:25] LABS: Cardiolipin IgM Ab 10.5
[2024-09-27 14:26] LABS: Cardiolipin IgA 10.5
[2024-09-27 14:29] LABS: Beta-2 Glycoprotein I Ab IgG <2.0
[2024-09-27 14:30] LABS: Beta-2 Glycoprotein I Ab IgM 10.1
[2024-09-27 14:32] LABS: Phosphatidylserine IgG <9
[2024-09-27 14:33] LABS: Beta-2 Glycoprotein I Ab, IgA 12.9
== END 2024-09-17 10:16 | disposition home or self-care (01) ==
LOC: HO.LAB 10:15
PROVIDERS: PCP Student in an Organized Health Care Education/Training Program; Visit Provider Psychiatry & Neurology Psychiatry
DX: M06.9 Rheumatoid arthritis, unspecified (principal)
CPT/HCPCS: 36415; 82550; 83516; 83615; 84182; 85652; 86146; 86147; 86160; 86225; 86235

== ENCOUNTER 2024-09-22 09:15 | Outpatient (RCR) | payer OTHER, SELFPAY ==
[2024-09-06 09:28] VITALS: BP 164/100; PULSE 64
[2024-09-06 09:29] VITALS: BP 130/90
[2024-09-06 12:07] VITALS: BMI 40.3
--- NOTE | 2024-09-06 12:48 | PC.ADMIT ---
Patient is a 53 year old partnered female who was referred to [facility] by her therapist secondary to increased depression and anxiety. Patient reports she also gets agitated easily and would like to be able to manage that. Patient reports feeling overwhelmed with medical issues since Covid. She reports that her health issues is a major contributing factor to her declining mental health. Patient reports that her boyfriend is very supportive. Patient is alert and oriented x4. She is calm and cooperative. She presented with depressed mood and anxious affect. She denied SI, no HI. She was given a copy of her safety plan if needed. Medications updated with patient and patient's pharmacy. Patient stated that she took her medications this morning however she forgot to take her anti-hypertensive medication. Patients Orthostatic BP: Sitting 164/100 P 64. Standing 130/90 (unable to get her pulse as patient sat down). Dr. Johnson is aware. Patient ambulates with a cane.
--- NOTE | 2024-09-06 13:05 | PC.NURSE ---
Patient stated the following medications she no longer is taking and have been discontinued by her provider: Wellbutrin secondary to dizziness, Caplyta secondary to dizziness, Felodipine, and Pregabalin-did not work.
--- NOTE | 2024-09-06 22:45 | P.HPPSP_ITS ---
HPI Date of Service: 09/06/24 Chief Complaint: depression,anxiety,bipolar Sources of Information: patient interviewed, chart reviewed and crisis/core team assessment reviewed HPI Narrative: Patient is a partnered 53 yo female with chronic depression and complex medical issues referred to PHP by her therapist. I have a lot of health issues that really make me depressed and feel hopeless. [facility] Medical History (Updated 09/06/24 @ 09:57 by Key Ortega RN) Vertigo Class 3 obesity History of electroconvulsive therapy Sleep apnea Type 2 diabetes mellitus Snoring Rosacea Iliotibial band syndrome, right leg Mitral valve prolapse Asymptomatic menopausal state Mitral valve disorder Neuralgia of both lower extremities Leg heaviness Morbid obesity Tendinosis of rotator cuff Vitamin D deficiency SANTI on CPAP Localized edema Chronic kidney disease, stage 3a PTSD (post-traumatic stress disorder) Bipolar 1 disorder Hyperparathyroidism Suicidal ideations Cataract Seasonal allergies Anxiety Depression HTN (hypertension) Sciatic leg pain Surgical History (Updated 08/17/24 @ 00:02 by Nuris Colon) History of parathyroidectomy (06/04/23) Hx of colonoscopy History of surgery (2014) History of tonsillectomy Diagnostics Vital Signs (24Hr): BMI result Body Mass Index 40.3 Meds/Allergies Meds Home Medications ?Medication ?Instructions ?Recorded ?Confirmed ?Type loratadine 10 mg tablet (Claritin) 10 mg PO DAILY 01/23/23 09/06/24 History losartan 100 mg tablet 100 mg PO DAILY 01/23/23 09/06/24 History metoprolol succinate 100 mg 150 mg PO DAILY 01/23/23 09/06/24 History tablet,extended release 24 hr cholecalciferol (vitamin D3) 50 100 mcg PO DAILY 08/12/24 09/06/24 History mcg (2,000 unit) capsule docusate sodium 100 mg capsule 100 mg PO DAILY constipation 08/12/24 09/06/24 History (Colace) lamotrigine 200 mg tablet 200 mg PO DAILY 09/06/24 09/06/24 History tirzepatide 7.5 mg/0.5 mL 7.5 mg subcut QWEEK 09/06/24 09/06/24 History subcutaneous pen injector (Mounjaro) Allergies Allergies Allergy/AdvReac Type Severity Reaction Status Date / Time haloperidol [From Haldol] Allergy Angioedema Verified 08/11/24 11:59 Assessment & Plan Assessment & Plan Plan Admit to [facility] VS reviewed: afebrile, BP ;? bpm decrease escitalopram to 15 mg qd continue other regular medications for now Routine lab work as indicated EKG, routine for baseline QTc for medication considerations as indicated UDS as indicated MassPat reviewed Continue to monitor as per protocol I certify that the patient needs IOP Services for a minimum of 9 hours per week of therapeutic services. I certify the patient is experiencing symptoms of such intensity that they are unable to be safely treated in a less intensive setting and would otherwise require?admission to a more intensive level of care. Patient educated on: diagnosis and medication risk/benefits Informed Consent: understands Reason for continued partial hosp. stay Substantial Risk for: inability to function and med/psych decompensation Certification I certify that the patient needs IOP Services for a minimum of 9 hours per week of therapeutic services. I certify the patient is experiencing symptoms of such intensity that they are unable to be safely treated in a less intensive setting and would otherwise require?admission to a more intensive level of care. Time Spent With Patient Time: Total time managing care of this patient today __90__ minutes.
[2024-09-08 09:40] VITALS: BP 134/90; PULSE 64
--- NOTE | 2024-09-08 16:20 | HO.IOP ---
Clients case was opened and reviewed in teams today.
--- NOTE | 2024-09-09 12:25 | P.PNPSP_ITS ---
Subjective Subjective Date of Service: 09/09/24 Reason For Visit: depression,anxiety,bipolar Diagnostics Vital Signs (24Hr): BMI result Body Mass Index 40.3 Assessment & Plan Assessment & Plan (1) Bipolar affect, depressed: Status: Acute Code(s): F31.30 - Bipolar disorder, current episode depressed, mild or moderate severity, unspecified (2) MICHELLE (generalized anxiety disorder): Status: Acute Code(s): F41.1 - Generalized anxiety disorder (3) Pain disorder associated with psychological and physical factors: Status: Acute Code(s): F45.42 - Pain disorder with related psychological factors Patient educated on: diagnosis and medication risk/benefits Informed Consent: understands Reason for contiued partial hosp. stay Substantial Risk for: med/psych decompensation Certification I certify that partial hospital treatment is medically necessary due to the sym ptoms and problems resulting from the patient's mental illness and the failure to treat the patient at the partial hospital level of care would likely result in the patient requiring inpatient psychiatric care which could not be prevented at a less intensive level of care. Total time managing care of this patient today ____ minutes. Discharge Plan Discharge Attending provider: Heidi Johnson Medications: New escitalopram oxalate 10 mg tablet 15 mg PO DAILY Qty: 45 0RF clonazepam 0.5 mg tablet 0.5 mg PO BID PRN (Reason: anxiety) Qty: 20 0RF Continued lamotrigine 200 mg Tablet 200 mg PO DAILY Mounjaro 7.5 mg/0.5 mL pen injector 7.5 mg SUBCUT QWEEK docusate sodium [Colace] 100 mg capsule 100 mg PO DAILY Patient Comments: Patient stated she takes once a day. losartan 100 mg tablet 100 mg PO DAILY metoprolol succinate 100 mg tablet extended release 24 hr 150 mg PO DAILY Rx Instructions: Take one and a half tabs daily. loratadine [Claritin] 10 mg tablet 10 mg PO DAILY Discontinued escitalopram oxalate [Lexapro] 10 mg tablet 20 mg PO DAILY No Action meclizine 25 mg tablet 25 mg PO TID PRN (Reason: dizziness) Qty: 15 0RF cholecalciferol (vitamin D3) 50 mcg (2,000 unit) capsule 100 mcg PO DAILY Print Language: Ghanaian
--- NOTE | 2024-09-16 18:02 | P.PNPSP_ITS ---
Subjective Subjective Date of Service: 09/16/24 Reason For Visit: depression,anxiety,bipolar Interim History: Patient called out and was followed up with by phone. Continues in IOP program. Reports no considerable change since admission to program. Aside from today, she does feel encouraged by her efforts to get here regularly despite struggling with pain Diagnostics Vital Signs (24Hr): BMI result Body Mass Index 40.3 Assessment & Plan Assessment & Plan (1) Bipolar affect, depressed: Status: Acute Code(s): F31.30 - Bipolar disorder, current episode depressed, mild or moderate severity, unspecified (2) MICHELLE (generalized anxiety disorder): Status: Acute Code(s): F41.1 - Generalized anxiety disorder (3) Pain disorder associated with psychological and physical factors: Status: Acute Code(s): F45.42 - Pain disorder with related psychological factors Plan Admit to [facility] VS reviewed: afebrile, BP 134/90;?64 bpm decrease escitalopram to 15 mg qd continue other regular medications for now Routine lab work as indicated EKG, routine for baseline QTc for medication considerations as indicated UDS as indicated MassPat reviewed Continue to monitor as per protocol I certify that the patient needs IOP Services for a minimum of 9 hours per week of therapeutic services. I certify the patient is experiencing symptoms of such intensity that they are unable to be safely treated in a less intensive setting and would otherwise require?admission to a more intensive level of care. Patient educated on: diagnosis and medication risk/benefits Informed Consent: understands Reason for contiued partial hosp. stay Substantial Risk for: inability to function, rapid decompensation and med/psych decompensation Certification I certify that the patient needs IOP Services for a minimum of 9 hours per week of therapeutic services. I certify the patient is experiencing symptoms of such intensity that they are unable to be safely treated in a less intensive setting and would otherwise require?admission to a more intensive level of care. Total time managing care of this patient today _30___ minutes. Discharge Plan Discharge Attending provider: Heidi Johnson Medications: New escitalopram oxalate 10 mg tablet 15 mg PO DAILY Qty: 45 0RF clonazepam 0.5 mg tablet 0.5 mg PO BID PRN (Reason: anxiety) Qty: 20 0RF Continued lamotrigine 200 mg Tablet 200 mg PO DAILY Mounjaro 7.5 mg/0.5 mL pen injector 7.5 mg SUBCUT QWEEK docusate sodium [Colace] 100 mg capsule 100 mg PO DAILY Patient Comments: Patient stated she takes once a day. losartan 100 mg tablet 100 mg PO DAILY metoprolol succinate 100 mg tablet extended release 24 hr 150 mg PO DAILY Rx Instructions: Take one and a half tabs daily. loratadine [Claritin] 10 mg tablet 10 mg PO DAILY Discontinued escitalopram oxalate [Lexapro] 10 mg tablet 20 mg PO DAILY No Action meclizine 25 mg tablet 25 mg PO TID PRN (Reason: dizziness) Qty: 15 0RF cholecalciferol (vitamin D3) 50 mcg (2,000 unit) capsule 100 mcg PO DAILY Print Language: Indonesian
--- NOTE | 2024-09-19 07:11 | PM.EVENT ---
Event Note Date of Service: 09/19/24 Event Note: Patient called out sick and was followed up with by phone. Continues in IOP program. Reports no considerable change since admission to program. Still feeling very depressed and demoralized. Aside from today due to leg and feet pain, she does feel encouraged by her own efforts to get here regularly despite struggling with her health issues. We reviewed recent lab work which including high TOMMY titer. She has had extensive work-up with specialists outside of primary care and said she had to be persistent in order for her PCP to agree to referral for MD which is in December. We reviewed ROS, predominently profound exhaustion, migratory muscle pain, sometimes weakness necessitating ambulating with cane. Denies thoughts of harming self or others. Denies AH or VH. She is agreeable to returning to lab tomorrow AM to follow up on further antibody testing. Time Spent With Patient Time: Total time managing care of this patient today __30__ minutes.
--- NOTE | 2024-09-20 21:26 | HO.PHPPROGNO ---
Subjective Subjective Date of Service: 09/20/24 Reason For Visit: depression,anxiety,bipolar Medication Compliance: Yes Side effects from medications: No Attending Groups: Yes Review of Systems Acute medical concerns: No Diagnostics Vital Signs (24Hr): BMI result Body Mass Index 40.3 Assessment & Plan Certification I certify that partial hospital treatment is medically necessary due to the symptoms and problems resulting from the patient's mental illness and the failure to treat the patient at the partial hospital level of care would likely result in the patient requiring inpatient psychiatric care which could not be prevented at a less intensive level of care. Total time managing care of this patient today ____ minutes. Discharge Plan Discharge Attending provider: Heidi Johnson Medications: New escitalopram oxalate 10 mg tablet 15 mg PO DAILY Qty: 45 0RF clonazepam 0.5 mg tablet 0.5 mg PO BID PRN (Reason: anxiety) Qty: 20 0RF Continued lamotrigine 200 mg Tablet 200 mg PO DAILY Mounjaro 7.5 mg/0.5 mL pen injector 7.5 mg SUBCUT QWEEK docusate sodium [Colace] 100 mg capsule 100 mg PO DAILY Patient Comments: Patient stated she takes once a day. losartan 100 mg tablet 100 mg PO DAILY metoprolol succinate 100 mg tablet extended release 24 hr 150 mg PO DAILY Rx Instructions: Take one and a half tabs daily. loratadine [Claritin] 10 mg tablet 10 mg PO DAILY Discontinued escitalopram oxalate [Lexapro] 10 mg tablet 20 mg PO DAILY No Action meclizine 25 mg tablet 25 mg PO TID PRN (Reason: dizziness) Qty: 15 0RF cholecalciferol (vitamin D3) 50 mcg (2,000 unit) capsule 100 mcg PO DAILY Print Language: Divehi
--- NOTE | 2024-09-22 16:26 | HO.PHP ---
[facility] staff member received a message from Tona stating that she is aware that tomorrow is her last day but she is not going to come into the program due to group therapy not being for her. Tona noted the only reason that she stuck it out was because of Dr. Johnson. [facility] staff member reached out to Tona asking if she is able to come in to the program at 8 AM to complete the discharge paperwork. [facility] staff member expressed that she would not have to stay for the day if she is uncomfortable in the group setting. [facility] staff member is awaiting on a call back from Tona.
--- NOTE | 2024-09-29 15:44 | PC.NURSE ---
Addendum entered by Key Ortega RN 09/30/24 15:21: Dr Johnson is also aware of PS/PT Igm 35, C3 214. Original Note: Dr. Johnson reviewed lab results including: TOMMY Titer 1:320, TOMMY pattern Speckled, CO2 32, Gap 10, ALT 33, CRP 2.68MPV 8.9, ESR 28, Positive TOMMY.
== END 2024-09-30 05:41 | disposition home or self-care (01) ==
LOC: HO.IOP 09:15
PROVIDERS: Visit Provider Psychiatry & Neurology Psychiatry
DX: F31.30 Bipolar disorder, current episode depressed, mild or moderate severity, unspecified (principal); F41.1 Generalized anxiety disorder; F45.42 Pain disorder with related psychological factors
CPT/HCPCS: 90791; H0015; S9480

== ENCOUNTER 2024-12-20 08:17 | Outpatient (REF) | payer OTHER, SELFPAY ==
[2024-12-20 08:44] LABS: MANUAL DIFF FLAG NO
[2024-12-20 09:24] LABS: Hematocrit 41.8 % (37.0-47.0); Hemoglobin 14.1 g/dl (12.0-16.0); Imm Gran Abs Auto 0.01 X10*3/uL (0.00-0.03); Imm Gran Pct Auto 0.1 % (0.0-0.4); Lymphocytes Absolute Auto 2.8 X10*3/uL (1.2-4.9); Mean Corpuscular HGB Conc 33.7 g/dl (31.0-35.0); Mean Corpuscular Hemoglobin 30.2 pg (27.0-33.0); Mean Corpuscular Volume 89.5 fL (80.0-98.0); NRBC Abs Auto 0.000 X10*3/uL (0.0-0.012); NRBC Pct Auto 0.0 /100WBC (0.0-0.2); Platelet Count 329 X10*3/uL (160-400); Red Blood Count 4.67 X10*6/uL (4.20-5.50); White Blood Count 8.6 X10*3/uL (4.8-10.8)
[2024-12-20 09:35] LABS: Hemoglobin A1C 144.9634 umol/L; Total Hemoglobin (HGBA1C) 3741.4824 umol/L
--- OUTSIDE RECORDS SUMMARY | 2024-12-20 09:39 | XMS_ITS | Clinical Summary ---
Author Organization [facility], Address [address] [facility] [address] [place] [address] Phone Care Team Providers Care Principal Account Clerk Name Role Phone Magdaleno Goodson DO Primary Care Provider [phone] Allergies No known active allergies Medications ARIPiprazole [...] Diabetes: Visual Foot Exam 11/25/2023 Influenza Vaccine (#1) 2024 Insurance [facility] Care Dual SNP ([id number]) [place]YS [id number] Care Teams Principal Account Clerk Relationship Specialty Start Date End Date Magdaleno Goodson DO [address] [place] [id number] PCP - General Family Medicine 08/10/23
--- OUTSIDE RECORDS SUMMARY | 2024-12-20 09:39 | XMS_ITS | Encounter Summary ---
Author Organization [facility] Address [address] [place] [address] Phone Care Team Providers Care Volunteer Recruitment Coordinator Name Role Phone Magdaleno Goodson DO Primary Care Provider [phone] Encounter Details Date Type Department Care Team (Late st Contact Info) Description 08/10/2023 Documentation Only [facility], [address] [place] [address] [address] [place] [address] [place] [address] Social History Tobacco Use Types [...] on filedocumented in this encounter Care Teams Volunteer Recruitment Coordinator Relationship Specialty Start Date End Date Magdaleno Goodson DO [address] [place] [id number] PCP - General Family Medicine 08/10/23 documented as of this encounter
[2024-12-20 10:01] LABS: Alanine Aminotransferase 15 U/L (0-31); Albumin Level 4.6 g/dL (3.5-5.0); Alkaline Phosphatase 68 U/L (39-117); Anion Gap 12 (12-20); Aspartate Amino Transferase 17 U/L (5-31); Blood Urea Nitrogen 18 mg/dL (9-16); Calcium 9.5 mg/dL (8.4-10.2); Carbon Dioxide 31 mmol/L (22-29); Chloride 105 mmol/L (96-108); Cholesterol 221 mg/dL (<200); Estimated Glomerular Filt Rate > 60; HDL Cholesterol 41 mg/dL (>40); Potassium 4.0 mmol/L (3.3-5.1); Sodium 144 mmol/L (135-145); Total Protein 7.3 g/dL (6.5-8.0); Triglycerides 101 mg/dL (<150)
[2024-12-20 10:25] LABS: Thyroid Stimulating Hormone 1.85 uIU/mL (0.32-4.0)
== END 2024-12-20 08:18 | disposition home or self-care (01) ==
LOC: HO.LAB 08:17
PROVIDERS: Visit Provider Dietitian, Registered
DX: Z13.1 Encounter for screening for diabetes mellitus (principal); Z13.6 Encounter for screening for cardiovascular disorders; F31.81 Bipolar II disorder
CPT/HCPCS: 36415; 80053; 80061; 83036; 84443; 85025

== ENCOUNTER 2025-02-12 20:08 | Inpatient (IN) | payer OTHER, SELFPAY ==
--- OUTSIDE RECORDS SUMMARY | 2025-02-08 23:59 | XMS_ITS | Continuity of Care Document ---
Author Organization [facility] Address [address] [place] [address]- Care Team Providers Care Vascular Manager Name Role Phone Angela COSTELLO, Cici Primary Care Physician [phone] Encounter [facility] Date(s): 01/09/25 - 02/08/25 [facility] [address] [place] [id number] Encounter Type: Triage Allergies, Adverse Reactions, Alerts Substance Criticality Severity Reaction Reaction Severity Status Haldol throat swells Active Immunizations Given and Recorded Vaccine Date Status Refusal Reason zoster vaccine, inactivated 07/12/24 Recorded zoster vaccine, inactivated 05/13/24 Recorded SARS-CoV-2(COVID-19)mRNA-LNP vac([id number]) 07/12/24 Recorded SARS-CoV-2(COVID-19)mRNA-LNP vac([id number]) 03/13/24 Recorded SARS-CoV-2(COVID-19)mRNA-LNP vac(hig030) 01/03/23 Recorded influenza virus vaccine, inactivated 03/13/24 Jorge rded influenza virus vaccine, inactivated 01/03/23 Jorge rded tetanus/diphtheria/pertussis, acel(Tdap) 1 12/27/20 Recorded SARS-CoV-2 (COVID-19) mRNA BNT-162b2 vac 07/26/20 Recorded SARS-CoV-2 (COVID-19) mRNA BNT-162b2 vac 07/05/20 Recorded 1Result Comment: [facility] Medications Alcohol Pads See Instructions, # 200 each, Refills 3, Tot. Refills 3, Maintenance, Check Glucose twice daily andas needed for signs and symptoms of High or low blood glucose symptoms. Wipe finger with alcohol pad, and allow to copmpletely to dry, before checking glucose. Dx Code T2DM E 11.9, 07/17/23 4:32:00 PMEDT, Supply, 155, cm, 07/09/23 11:33:00 EDT, Height Start Date: 07/17/23 Status: Ordered Medication Dispense Status: Completed Quantity: 200.0 Unit: each Total Allowed Fills: 4 Fills Dispensed: 0 amLODIPine 5 mg oral tablet 5 mg, 1, tablet, By Mouth, Daily, # 30 tablet, Refills 5, Tot. Refills 5, Maintenance, 12/21/24 11:23:00 AM EDT, Route to Pharmacy Electronically, [facility] #[id number], Partial fill upon patient request if the prescription is for a schedule II opioid drug., 155, cm, 12/21/24 10:58:00 EDT, Height Start Date: 12/21/24 Status: Ordered Medication Dispense Status: Completed Quantity: 30.0 Unit: tablet Total Allowed Fills: 6 Fills Dispensed: 0 Indications: Essential (primary) hypertension; Backless Shower Chair Backless Shower Chair, See Instructions, # 1 each, Refills 0, Tot. Refills 0, Maintenance, BacklessShower Chair use as directed DX Impaired Mobility Lumbar Radiculopathy ICD 10 R26.89 M54.16 Length of need Lifetime Weight 96.6kg Height 155 cm, 09/21/24 8:06:00 AM EDT, Supply, 155, cm, 08/25/24 9:40:00 EDT, Height Start Date: 09/21/24 Status: Ordered Medication Dispense Status: Completed Quantity: 1.0 Unit: each Total Allowed Fills: 1 Fills Dispensed: 0 Claritin 10 mg oral tablet 10 mg, 1, tablet, By Mouth, Daily, # 30 tablet, Refills 0, Maintenance, 05/04/23 2:45:00 PM EST, Partial fill upon patient request if the prescription is for a schedule II opioid drug. Start Date: 05/04/23 Status: Ordered Medication Dispense Status: Completed Quantity: 30.0 Unit: tablet Total Allowed Fills: 1 Fills Dispensed: 0 escitalopram 10 mg oral tablet 1.5 tablet = 15 mg, By Mouth, Daily, # 45 tablet, 2 Refills, Maintenance, 04/23/23 11:11:00 AM EST, [facility] #[id number], Partial fill upon patient request if the prescription is for a scheduleII opioid drug. Start Date: 04/23/23 Status: Ordered Medication Dispense Status: Completed Quantity: 45.0 Unit: tablet Total Allowed Fills: 3 Fills Dispensed: 0 isopropyl alcohol 70% topical pad See Instructions, DIRECTED TO TEST BLOOD SUGARS TWICE DAILY AND NEEDED, # 200 Unknown, 1 Refills, Maintenance, 07/28/24 7:37:00 AM EDT, [facility] #[id number], 90, DIRECTED TO TEST BLOODSUGARS TWICE DAILY AND NEEDED, 155, cm, 07/26/24 9:11:00 EDT, Height Start Date: 07/28/24 Status: Ordered Medication Dispense Status: Completed Quantity: 200.0 Unit: Unknown Total Allowed Fills: 2 Fills Dispensed: 0 lamotrigine 150 mg oral tablet 2 tablet = 300 mg, By Mouth, Daily, # 60 tablet, 2 Refills, Maintenance, 06/25/23 10:33:00 AM EDT, [facility] #[id number], Partial fill upon patient request if the prescription is for a schedule II opioid drug. Start Date: 06/25/23 Status: Ordered Medication Dispense Status: Completed Quantity: 60.0 Unit: tablet Total Allowed Fills: 3 Fills Dispensed: 0 losartan 100 mg oral tablet 1 tablet = 100 mg, By Mouth, Daily, # 90 tablet, 3 Refills, Maintenance, 12/23/24 5:11:00 PM EDT, Tablet, [facility] #[id number], Partial fill upon patient request if the prescription is for a schedule II opioid drug., 155, cm, 12/21/24 11:26:00 EDT, Height Start Date: 12/23/24 Status: Ordered Medication Dispense Status: Completed Quantity: 90.0 Unit: tablet Total Allowed Fills: 4 Fills Dispensed: 0 metoprolol 100 mg oral tablet, extended release 100 mg, 1, tablet, By Mouth, Daily, # 90 tablet, Refills 3, Tot. Refills 3, Maintenance, 02/06/25 5:36:00 PM EST, Route to Pharmacy Electronically, [facility] #[id number], Partial fill upon patient request if the prescription is for a schedule II opioid drug., 155, cm, 02/06/25 13:56:00 EST, Height Start Date: 02/06/25 Status: Ordered Medication Dispense Status: Completed Quantity: 90.0 Unit: tablet Total Allowed Fills: 4 Fills Dispensed: 0 metoprolol 25 mg oral tablet, extended release 25 mg, 1, tablet, By Mouth, Daily, # 90 tablet, Refills 3, Tot. Refills 3, Maintenance, 02/06/25 5:36:00 PM EST, Route to Pharmacy Electronically, [facility] #[id number], Partial fill upon patient request if the prescription is for a schedule II opioid drug., 155, cm, 02/06/25 13:56:00 EST, Height Start Date: 02/06/25 Status: Ordered Medication Dispense Status: Completed Quantity: 90.0 Unit: tablet Total Allowed Fills: 4 Fills Dispensed: 0 Indications: Essential (primary) hypertension; MiraLax oral powder for reconstitution = 17 Gm, By Mouth, Daily, dissolve in water or juice. My increase to 2-3 times a day as needed for constipation, # 255 Gm, 2 Refills, Maintenance, 12/01/24 10:43:00 AM EDT, [facility] #[id number], Partial fill upon patient request if the prescription is for a schedule II opioid drug., 17 Gm By Mouth Daily,x30 days,Instr:dissolve in water or juice. My increase to 2-3 times a day as needed for constipation, 155, cm, 12/01/24 10:10:00 EDT, Height Start Date: 12/01/24 Stop Date: 03/01/25 Status: Ordered Medication Dispense Status: Completed Quantity: 255.0 Unit: g Total Allowed Fills: 3 Fills Dispensed: 0 One Touch Delica Lancets See Instructions, # 200 each, Refills 3, Tot. Refills 3, Maintenance, Check Glucose twice daily andas needed for signs and symptoms of High or low blood glucose symptoms. E11.9 Dx T2DM, 11/11/23 10:44:00 AM EDT, Supply, 155, cm, 11/04/23 11:21:00 EDT, Height Start Date: 11/11/23 Status: Ordered Medication Dispense Status: Completed Quantity: 200.0 Unit: each Total Allowed Fills: 4 Fills Dispensed: 0 One Touch Delica Lancing System See Instructions, # 1 each, Refills 0, Tot. Refills 0, Maintenance, Check Glucose twice daily and as needed for signs and symptoms of High or low blood glucose symptoms. E11.9 Dx T2DM, 07/17/23 4:33:00 PM EDT, Supply, 155, cm, 07/09/23 11:33:00 EDT, Height Start Date: 07/17/23 Status: Ordered Medication Dispense Status: Completed Quantity: 1.0 Unit: each Total Allowed Fills: 1 Fills Dispensed: 0 One Touch Ultra 2 Glucose Meter See Instructions, # 1 each, Refills 0, Tot. Refills 0, Maintenance, Check Glucose twice daily and as needed for signs and symptoms of High or low blood glucose symptoms. E11.9 Dx T2DM, 07/17/23 4:32:00 PM EDT, Supply, 155, cm, 07/09/23 11:33:00 EDT, Height Start Date: 07/17/23 Status: Ordered Medication Dispense Status: Completed Quantity: 1.0 Unit: each Total Allowed Fills: 1 Fills Dispensed: 0 One Touch Ultra Test Strips See Instructions, # 200 each, Refills 3, Tot. Refills 3, Maintenance, Check Glucose twice daily andas needed for signs and symptoms of High or low blood glucose symptoms. E11.9 Dx T2DM, 11/11/23 10:44:00 AM EDT, Supply, 155, cm, 11/04/23 11:21:00 EDT, Height Start Date: 11/11/23 Status: Ordered Medication Dispense Status: Completed Quantity: 200.0 Unit: each Total Allowed Fills: 4 Fills Dispensed: 0 predniSONE 5 mg oral tablet 3 tablet = 15 mg, By Mouth, Daily, # 90 tablet, 0 Refills, Maintenance, 12/22/24 5:53:00 PM EDT, [facility] #[id number], Partial fill upon patient request if the prescription is for a schedule IIopioid drug., 155, cm, 12/21/24 11:26:00 EDT, Height Start Date: 12/22/24 Status: Ordered Medication Dispense Status: Completed Quantity: 90.0 Unit: tablet Total Allowed Fills: 1 Fills Dispensed: 0 Suprep Bowel Prep Kit oral liquid See Instructions, per colonoscopy instructions, # 1 kit, 0 Refills, Maintenance, 02/07/25 7:26:00 PMEST, [facility] #[id number], Partial fill upon patient request if the prescription is for a schedule II opioid drug., per colonoscopy instructions, 155, cm, 02/06/25 13:56:00 EST, Height Start Date: 02/07/25 Status: Ordered Medication Dispense Status: Completed Quantity: 1.0 Unit: kit Total Allowed Fills: 1 Fills Dispensed: 0 tiZANidine 4 mg oral tablet 4 mg, 1, tablet, By Mouth, 3 times a day, # 21 tablet, Refills 0, Tot. Refills 0, Maintenance, 02/06/25 2:35:00 PM EST, Route to Pharmacy Electronically, [facility] #[id number], Partial fill uponpatient request if the prescription is for a schedule II opioid drug., 155, cm, 02/06/25 13:56:00 EST, Height Start Date: 02/06/25 Status: Ordered Medication Dispense Status: Completed Quantity: 21.0 Unit: tablet Total Allowed Fills: 1 Fills Dispensed: 0 Indications: Other muscle spasm; Vitamin D3 50 mcg (2000 intl units) oral tablet, chewable 1 tablet = 50 mcg, By Mouth, Daily, 0 Refills, Maintenance, 12/16/24 12:59:00 PM EDT, Partial fill upon patient request if the prescription is for a schedule II opioid drug. Start Date: 12/16/24 Status: Ordered Medication Dispense Status: Completed Total Allowed Fills: 1 Fills Dispensed: 0 Problem List Condition Confirmation Course Effective Dates Status Health Status Informant Bipolar disorder Confirmed Active Mixed connective tissue disease Confirmed Active Diverticulosis Confirmed Active Essential hypertension Confirmed Active Generalized body aches Confirmed Active Generalized anxiety disorder Confirmed Active Hyperparathyroidism Confirmed Active Generalized joint pain Confirmed Active Elevated LFTs Confirmed Active Lumbar radiculopathy Confirmed Active Mixed hyperlipidemia Confirmed Active PTSD (post-traumatic stress disorder) Confirmed Active Resting tremor Confirmed Active Severe obesity (BMI 35.0-39.9) with comorbidity Confirmed Active Systemic lupus erythematosus Confirmed Active Controlled type 2 diabetes mellitus Confirmed Active Social History Social History Type Response Smoking Status Never (less than 100 in lifetime) entered on: 07/09/23 Sexual Orientation Self described orien tation: ; Straight or heterosexual Sex Sex Representation Female (finding) Patient Care team information Care Team Personnel Name: Cici Miller MD Position: [facility] Physician - Primary Care Member Role: PCP Address: [address] [place] [id number] [place] Tele[employer]: Name: Ruby Santoyo RN Position: [facility] AMB Nurse Member Role: Primary Care Nurse Care Team Related Persons Name: SHANEL CORBETT Name: KARISSA REES Name: RENNY HA Insurance Providers Guarantor name: [employer] Plan Information #: 1 Payer: [facility] Payer Identifier: NA Member Number: [id number] Group Number: [id number] Subscriber Identifier: NA Relationship to Subscriber: self Coverage Type: Medicare Managed Care (Includes Medicare Advantage Plans) Coverage Verification Date: NA Telecom: NA Address: NA
--- NOTE | 2025-02-12 | ECG_ITS ---
Test Reason : TOOK UNKNOWN MEDICATION Blood Pressure : */* mmHG Vent. Rate : 53 BPM Atrial Rate : 53 BPM P-R Int : 144 ms QRS Dur : 94 ms QT Int : 460 ms P-R-T Axes : 33 20 26 degrees QTcB Int : 431 ms Sinus bradycardia Otherwise normal ECG When compared with ECG of 09-Sep-2024 12:50, No significant change was found Referred By: Generic ED Physician Electronically Signed By: HEIDI MANDEL MD
--- NOTE | ~2025-02-12 | XR_ITS ---
CLINICAL HISTORY: Injury 2 views sternum Comparison: None Findings: No fractures or dislocations. No radiopaque foreign body. Impression: 1. Normal sternum This document has been electronically signed by: Paulino Garcia MD on 02/16/2025 18:18:41
[2025-02-12 20:16] VITALS: BP 117/77; PULSE 62; O2SAT 95
[2025-02-12 20:19] VITALS: BMI 33.7
--- NOTE | 2025-02-12 20:29 | PC.NURSE ---
pt biba from home, boyfriend called due to pt increased depression. Pt denies SI/HI, admits to taking prescribed medication and may have taken more than prescribed dose today. Pt unable to tell me what she is prescribed and what she may have taken today, stating my medication was recently changed . Pt reports chronic L ankle pain, denies recent injury. Pt very subdue, not answering questions in timely manor.
--- NOTE | 2025-02-12 20:30 | MHC.EDTECH ---
belongings list done and belongings stored in [facility] shelf 1
--- NOTE | 2025-02-12 20:38 | PC.NURSE ---
pt SP02 dropped to 86% room air, pt placed on nasal canula at 2L, MD aware.
[2025-02-12 20:49] LABS: MANUAL DIFF FLAG NO
[2025-02-12 20:50] LABS: Hematocrit 43.3 % (37.0-47.0); Hemoglobin 14.6 g/dl (12.0-16.0); Imm Gran Abs Auto 0.03 X10*3/uL (0.00-0.03); Imm Gran Pct Auto 0.2 % (0.0-0.4); Lymphocytes Absolute Auto 3.7 X10*3/uL (1.2-4.9); Mean Corpuscular HGB Conc 33.7 g/dl (31.0-35.0); Mean Corpuscular Hemoglobin 30.7 pg (27.0-33.0); Mean Corpuscular Volume 91.2 fL (80.0-98.0); NRBC Abs Auto 0.000 X10*3/uL (0.0-0.012); NRBC Pct Auto 0.0 /100WBC (0.0-0.2); Platelet Count 348 X10*3/uL (160-400); Red Blood Count 4.75 X10*6/uL (4.20-5.50); White Blood Count 12.3 X10*3/uL (4.8-10.8)
[2025-02-12 21:05] LABS: Alanine Aminotransferase 17 U/L (0-31); Albumin Level 4.6 g/dL (3.5-5.0); Alkaline Phosphatase 68 U/L (39-117); Anion Gap 15 (12-20); Aspartate Amino Transferase 17 U/L (5-31); Blood Urea Nitrogen 19 mg/dL (9-16); Calcium 9.9 mg/dL (8.4-10.2); Carbon Dioxide 29 mmol/L (22-29); Chloride 102 mmol/L (96-108); Creatinine Clr Calc Pharmacy 70.8; Estimated Glomerular Filt Rate 60; Potassium 4.1 mmol/L (3.3-5.1); Sodium 142 mmol/L (135-145); Total Protein 7.3 g/dL (6.5-8.0)
[2025-02-12 21:09] LABS: Acetaminophen LAB < 3 mcg/mL (<30); Salicylate < 5.0 mg/dL (15-30)
--- NOTE | 2025-02-12 21:25 | PC.NURSE ---
pt 1:1 sitter and boyfriend at bedside. prior to visitor coming into room, a safety check was performed by security..
[2025-02-12 21:35] LABS: Troponin-I High Sensitivity < 2.7 ng/L (<3.5-17.0)
--- NOTE | 2025-02-12 21:52 | PC.NURSE ---
conversation with boyfriend, this RN and cupola charger insulation. Boyfriend expresses increased expression over the last month. Recent diagnosis of lupus has exacerbated the depression. pt expresses support for pt, helping her ea and sleep over the last two weeks. He reports pt expressing giving up on making decisions for herself.
[2025-02-12 22:23] VITALS: BP 115/59; PULSE 59; RESP 19; O2SAT 92
[2025-02-12 23:06] LABS: Appearance Urine Cloudy; Glucose Urine UA Negative (Negative); PH 5.5 (5.0-9.0); Specific Gravity - Urine 1.025 (1.005-1.025); UMIC TRIGGER UACC YES; UPreg QC Valid YES
[2025-02-12 23:11] LABS: UACC Culture Trigger YES
[2025-02-12 23:16] LABS: Cannabinoid Screen Urine POSITIVE (Not Detect)
--- NOTE | 2025-02-13 01:29 | ED.PSYCH ---
HPI - Psych General Chief Complaint: Psychiatric Symptoms Stated Complaint: crisis, states has not eaten in a week Time Seen by Provider: 02/12/25 23:42 Source: patient, family and EMS Mode of arrival: EMS Limitations: no limitations History of Present Illness ED Provider: Dr. Shima Gordillo HPI Narrative: 54-year-old female with extensive past medical history including diabetes, CKD, bipolar depression, hypertension, recent diagnosis of lupus, irritable bowel disease, and abnormal mammogram presenting with decreased oral intake, severe depression associated with her plethora of medical conditions. Patient's provides much of her history. Patient is ?too tired to tell the whole story?. According to the , she has been dealing with worsening medical problems including irritable bowel syndrome with severe constipation alternating with bouts of diarrhea as well as a recent diagnosis of lupus and an abnormal mammogram which upset her very much. She stopped eating or drinking this week, though does admit to eating two scrambled eggs this morning around 11am. She was started on tizanidine and Klonopin this week by her ?psychiatric provider?. This was reportedly for tension in her shoulders which she believes is associated to stress. She has been sleeping around the clock according to her . Has been taking Klonopin twice a day to sleep. States that instead of dealing with her issues, she ?just wants to sleep them away?. Endorses suicidality with a plan to ?step in front of a truck?. Has a history of suicidality, multiple suicide attempts and overdoses. Otherwise, she denies fever, cough or cold-type symptoms, changes in her constipation/diarrhea, hematochezia, melena, vomiting, urinary complaints. Denies visual or auditory hallucinations, drug or alcohol use. Related Data Home Medications ?Medication ?Instructions ?Recorded ?Confirmed losartan 100 mg tablet 100 mg PO DAILY 01/23/23 02/13/25 lamotrigine 200 mg tablet 400 mg PO DAILY 09/06/24 02/13/25 amlodipine 5 mg tablet 5 mg PO DAILY 02/13/25 02/13/25 clonazepam 0.5 mg tablet 0.5 - 1 mg PO DAILY PRN anxiety 02/13/25 02/13/25 metoprolol succinate 100 mg 100 mg PO DAILY 02/13/25 02/13/25 tablet,extended release 24 hr metoprolol succinate 25 mg 25 mg PO DAILY 02/13/25 02/13/25 tablet,extended release 24 hr quetiapine 25 mg tablet 25 mg PO DAILY 02/13/25 02/13/25 tizanidine 4 mg tablet 4 mg PO TID 02/13/25 02/13/25 Allergies Allergy/AdvReac Type Severity Reaction Status Date / Time haloperidol (From Haldol) Allergy Angioedema Verified 02/12/25 20:21 Review of Systems Review of Systems: as per HPI, full review of systems performed and negative but for the above mentioned pertinent positives and negatives. [facility] Past Medical History Medical History Vertigo Class 3 obesity History of electroconvulsive therapy Sleep apnea Type 2 diabetes mellitus Snoring Rosacea Iliotibial band syndrome, right leg Mitral valve prolapse Asymptomatic menopausal state Mitral valve disorder Neuralgia of both lower extremities Leg heaviness Morbid obesity Tendinosis of rotator cuff Vitamin D deficiency SANTI on CPAP Localized edema Chronic kidney disease, stage 3a PTSD (post-traumatic stress disorder) Bipolar 1 disorder Hyperparathyroidism Suicidal ideations Cataract Seasonal allergies Anxiety Depression HTN (hypertension) Sciatic leg pain Surgical History History of parathyroidectomy (06/04/23) Hx of colonoscopy History of surgery (2014) History of tonsillectomy Social History Social History Household Members: Significant Other Housing: Apartment Are you a primary home care and home health aides teacher to a significant other at home: No Do you presently have visiting nurse or other home services: No Alcohol intake: current Alcohol intake frequency: holidays/special occasions only Alcohol type: wine Comment: COUNTS CORRECT Patient Tobacco Use Status: Never used Tobacco e-Cigarette/Vaping Use: Currently Using Substance Use Type: Other Advance Directives: No Advance Directives Information Provided: Yes Nutrition Risks: No Nutritional Risk service: No Physical Exam Exam: Exam: GENERAL: Anxious, tearful. SKIN: Normal skin color for ethnicity, warm, dry, intact, no rashes noted. HEENT: Normocephalic, atraumatic, no stridor, posterior oropharynx nonerythematous, dentition intact, EOMI. NECK: Soft, supple, full ROM, midline structures nontender, no step-offs, no deformities, no lymphadenopathy. CHEST: Heart regular tachycardia, no murmurs, symmetric chest rise and fall, no crepitus. PULMONARY: Clear to auscultation bilaterally, no labored breathing, no wheezes/rhales/ rhonchi. ABDOMINAL: Soft, nondistended, nontender, quiet bowel sounds in all quadrants. : Deferred. MUSCULOSKELETAL: Normal tone, full range of motion, no deformities, no peripheral edema. NEURO: Alert and oriented x3, CN II through XII intact, equal strength and sensation bilateral upper and lower extremities, no focal neurologic deficits. PSYCHIATRIC: Anxious affect, tearful, fluid speech, good eye contact and appropriate demeanor. Vital Signs: Vital Signs: Last Vital Signs Temp 97.4 F 02/13/25 03:52 Pulse 61 02/13/25 03:52 Resp 18 02/13/25 03:52 BP 119/66 02/13/25 03:52 Pulse Ox 93 02/13/25 03:52 O2 Del Method Nasal Cannula 02/13/25 03:52 O2 Flow Rate 1 02/13/25 03:52 BMI result Body Mass Index 33.7 Course Course Course Narrative: Time: 10:35 Date: 02/13/25 Provider: Shawna Srivastava, DO Patient in physician observation for psychiatric evaluation.? No acute events reported overnight. No current complaints. VS stable.? Patient is in bed search status. I did started on Ceftin b.i.d. for 5 additional days for UTI Will continue to monitor. 11:38 AM 02/13/2025 (MOAR SALDIVAR): Physician observation ended at this time patient to be admitted inpatient psychiatric unit Medications Administered Generic Name Dose Route Start Last Admin Trade Name Freq PRN Reason Stop Dose Admin Prednisone 15 mg 02/13/25 10:45 02/13/25 11:15 Prednisone 5 Mg Tablet PO Not Given DAILY ARIADNA Tizanidine HCl 4 mg 02/13/25 10:45 02/13/25 11:14 Tizanidine Hcl 4 Mg Tablet PO Not Given TID ARIADNA Discontinued Medications Generic Name Dose Route Start Last Admin Trade Name Freq PRN Reason Stop Dose Admin Cefuroxime Axetil 500 mg 02/13/25 02:43 02/13/25 02:50 Cefuroxime Axetil 500 Mg Tablet PO 02/13/25 02:44 500 mg ONCE ONE Administration Polyethylene Glycol 17 gm 02/13/25 01:29 02/13/25 02:50 Polyethylene Glycol 3350 17 Gm Powd.Pack PO 02/13/25 01:30 17 gm ONCE ONE Administration Medical Decision Making Medical Decision Making [facility] Narrative: Patient presents with psychologic complaints. Differential diagnosis includes suicidal ideations, homicidal ideations, depression, anxiety, mood disorder, decompensated mental illnesses such as schizophrenia or bipolar disorder, medication noncompliance, among many others. Medical clearance protocol was initiated. I suspect that a lot of her problem is related to the multiple medications that she is taking, certainly at risk for polypharmacy. She tells me she has not least 12 doctors and they ?do not talk to each other?. Certainly the combination of tizanidine and clonazepam could be worsening her depressive state. Given her plan for suicide, severe depression, I think she can benefit from an inpatient psychiatric treatment. Placed on a 72 hour section 12 hold. Patient has evidence of urinary tract infection. We will medicate with cefdinir which she has had previously. Awaiting placement for behavioral health. Differential Diagnosis Differential Diagnoses: The differential diagnosis associated with the presentation includes (as above) Admission/Observation Consideration of admission/observation: Escalation of care including admission/observation considered Consult Healthcare Provider Management of the patient was discussed with: Behavioral Health Provider Lab Data [facility] Lab Attestation statement: I reviewed the patient's lab results. 02/12/25 20:45 02/12/25 20:45 Labs: Lab Results 02/12/25 02/12/25 Range/Units 20:45 22:47 WBC 12.3 H (4.8-10.8) X10*3/uL RBC 4.75 (4.20-5.50) X10*6/uL Hgb 14.6 (12.0-16.0) g/dl Hct 43.3 (37.0-47.0) % MCV 91.2 (80.0-98.0) fL MCH 30.7 (27.0-33.0) pg MCHC 33.7 (31.0-35.0) g/dl RDW 12.9 (11.0-16.0) % Plt Count 348 (160-400) X10*3/uL MPV 8.7 L (9.4-12.3) fL Immature Gran % (Auto) 0.2 (0.0-0.4) % Neut % (Auto) 63.4 (45-73) % Lymph % (Auto) 30.1 (20-40) % Carbon % (Auto) 5.6 (2-11) % Eos % (Auto) 0.0 (0-4) % Baso % (Auto) 0.7 (0-2) % Lymph # (Auto) 3.7 (1.2-4.9) X10*3/uL [place] # (Auto) 0.7 (0.1-1.2) X10*3/uL Eos # (Auto) 0.0 (0.0-0.4) X10*3/uL Baso # (Auto) 0.1 (0.0-0.2) X10*3/uL Abs Immat Gran (auto) 0.03 (0.00-0.03) X10*3/uL Absolute Neuts (auto) 7.8 (2.0-8.3) x10*3/uL Absolute Nucleated RBC 0.000 (0.0-0.012) X10*3/uL Nucleated RBC % (auto) 0.0 (0.0-0.2) /100WBC Sodium 142 (135-145) mmol/L Potassium 4.1 (3.3-5.1) mmol/L Chloride 102 (96-108) mmol/L Carbon Dioxide 29 (22-29) mmol/L Anion Gap 15 (12-20) BUN 19 H (9-16) mg/dL Creatinine 0.97 (0.5-1.4) mg/dL Estim Creat Clear Calc 70.8 Estimated GFR 60 Random Glucose 99 (60-115) mg/dL Calcium 9.9 (8.4-10.2) mg/dL Total Bilirubin 0.6 (0.0-1.0) mg/dL AST 17 (5-31) U/L ALT 17 (0-31) U/L Alkaline Phosphatase 68 (39-117) U/L Troponin I High Sens < 2.7 (<3.5-17.0) ng/L Total Protein 7.3 (6.5-8.0) g/dL Albumin 4.6 (3.5-5.0) g/dL Urine Color Dark Yellow Urine Appearance Cloudy Urine pH 5.5 (5.0-9.0) Ur Specific [place] 1.025 (1.005-1.025) Urine Protein Trace (Neg-Trace) mg/dL Urine Glucose (UA) Negative (Negative) mg/dL Urine Ketones 15 (Negative) mg/dL Urine Blood Negative (Negative) Urine Nitrite Negative (Negative) Ur Leukocyte Esterase Small (1+) H (Negative) Urine RBC 0-2 (0-2) /HPF Urine WBC 21-50 H (0-5) /HPF Ur Squamous Epith Cells >20 (0-2) /HPF Urine Bacteria 4+ (None Seen) Hyaline Casts 3-5 (0-2) /LPF Urine Test NEGATIVE (NEGATIVE) Salicylates < 5.0 L (15-30) mg/dL Urine Opiates Screen Not Detected (Not Detect) Ur Buprenorphine Scrn Not Detected (Not Detect) ng/mL Ur Oxycodone Screen Not Detected (Not Detect) ng/mL Urine Methadone Screen Not Detected (Not Detect) ng/mL Urine Fentanyl Screen Not Detected (Not Detect) Acetaminophen < 3 (<30) mcg/mL Ur Barbiturates Screen Not Detected (Not Detect) Ur Phencyclidine Scrn Not Detected (Not Detect) Ur Amphetamines Screen Not Detected (Not Detect) U Benzodiazepines Scrn POSITIVE H (Not Detect) Urine Cocaine Screen Not Detected (Not Detect) U Marijuana (THC) Screen POSITIVE H (Not Detect) Ethyl Alcohol < 10 mg/dL Independent Interpretation Interpretation: My independent interpretation of the ECG reveals normal sinus bradycardia with rate of 53, normal axis, normal intervals, no ST elevations or depressions to suggest ischemic changes, relatively unchanged from previous on 09/09/24. Independent Historian Clinical information obtained from an independent historian. History obtained from or confirmed by: Spouse and EMS External Record Review External record reviewed: Inpatient record Prescription Management I considered prescription management with: Antibiotic Chronic Conditions Patient?s care impacted by: Diabetes, Hypertension and Other (IBS, Lupus) Discharge Plan Discharge Clinical Impression: Depression with suicidal ideation UTI (urinary tract infection) Qualifiers: Urinary tract infection type: acute cystitis Hematuria presence: without hematuria Qualified Code(s): N30.00 - Acute cystitis without hematuria Patient Disposition: Admitted As Inpatient Interventions: [facility]-Suicide Risk Severity Scale Last Done: 02/12/25 20:23 Print Language: Indonesian
--- NOTE | 2025-02-13 01:44 | ED.PSYCH ---
HPI - Psych General Chief Complaint: Psychiatric Symptoms Stated Complaint: crisis, states has not eaten in a week Time Seen by Provider: 02/12/25 23:42 Source: patient, family and EMS Mode of arrival: EMS Related Data Home Medications ?Medication ?Instructions ?Recorded ?Confirmed loratadine 10 mg tablet (Claritin) 10 mg PO DAILY 01/23/23 09/06/24 losartan 100 mg tablet 100 mg PO DAILY 01/23/23 09/06/24 metoprolol succinate 100 mg 150 mg PO DAILY 01/23/23 09/06/24 tablet,extended release 24 hr cholecalciferol (vitamin D3) 50 100 mcg PO DAILY 08/12/24 09/06/24 mcg (2,000 unit) capsule docusate sodium 100 mg capsule 100 mg PO DAILY constipation 08/12/24 09/06/24 (Colace) lamotrigine 200 mg tablet 200 mg PO DAILY 09/06/24 09/06/24 tirzepatide 7.5 mg/0.5 mL 7.5 mg subcut QWEEK 09/06/24 09/06/24 subcutaneous pen injector (Treva) Previous Rx's ?Medication ?Instructions ?Recorded meclizine 25 mg tablet 25 mg PO TID PRN dizziness #15 tabs 07/26/24 escitalopram oxalate 10 mg tablet 15 mg (1.5 x 10 mg) PO DAILY #45 09/07/24 tabs clonazepam 0.5 mg tablet 0.5 mg PO BID PRN anxiety #20 tabs 09/10/24 Allergies Allergy/AdvReac Type Severity Reaction Status Date / Time haloperidol (From Haldol) Allergy Angioedema Verified 02/12/25 20:21 [facility] Past Medical History Medical History (Updated 09/13/24 @ 08:29 by Heidi Johnson MD) Vertigo Class 3 obesity History of electroconvulsive therapy Sleep apnea Type 2 diabetes mellitus Snoring Rosacea Iliotibial band syndrome, right leg Mitral valve prolapse Asymptomatic menopausal state Mitral valve disorder Neuralgia of both lower extremities Leg heaviness Morbid obesity Tendinosis of rotator cuff Vitamin D deficiency SANTI on CPAP Localized edema Chronic kidney disease, stage 3a PTSD (post-traumatic stress disorder) Bipolar 1 disorder Hyperparathyroidism Suicidal ideations Cataract Seasonal allergies Anxiety Depression HTN (hypertension) Sciatic leg pain Surgical History (Updated 08/17/24 @ 00:02 by Nuris Colon) History of parathyroidectomy (06/04/23) Hx of colonoscopy History of surgery (2014) History of tonsillectomy Social History Social History Household Members: Significant Other Housing: Apartment Are you a primary health care coach to a significant other at home: No Do you presently have visiting nurse or other home services: No Alcohol intake: current Alcohol intake frequency: holidays/special occasions only Alcohol type: wine Comment: COUNTS CORRECT Patient Tobacco Use Status: Never used Tobacco e-Cigarette/Vaping Use: Currently Using Substance Use Type: Other Advance Directives: No Advance Directives Information Provided: Yes service: No Physical Exam Vital Signs: Vital Signs: Last Vital Signs Pulse 59 02/12/25 22:23 Resp 19 02/12/25 22:23 BP 115/59 L 02/12/25 22:23 Pulse Ox 92 02/12/25 22:23 O2 Del Method Room Air 02/12/25 22:23 BMI result Body Mass Index 33.7 Medical Decision Making Lab Data 02/12/25 20:45 02/12/25 20:45 Labs: Lab Results 02/12/25 02/12/25 Range/Units 20:45 22:47 WBC 12.3 H (4.8-10.8) X10*3/uL RBC 4.75 (4.20-5.50) X10*6/uL Hgb 14.6 (12.0-16.0) g/dl Hct 43.3 (37.0-47.0) % MCV 91.2 (80.0-98.0) fL MCH 30.7 (27.0-33.0) pg MCHC 33.7 (31.0-35.0) g/dl RDW 12.9 (11.0-16.0) % Plt Count 348 (160-400) X10*3/uL MPV 8.7 L (9.4-12.3) fL Immature Gran % (Auto) 0.2 (0.0-0.4) % Neut % (Auto) 63.4 (45-73) % Lymph % (Auto) 30.1 (20-40) % [place] % (Auto) 5.6 (2-11) % Eos % (Auto) 0.0 (0-4) % Baso % (Auto) 0.7 (0-2) % Lymph # (Auto) 3.7 (1.2-4.9) X10*3/uL [place] # (Auto) 0.7 (0.1-1.2) X10*3/uL Eos # (Auto) 0.0 (0.0-0.4) X10*3/uL Baso # (Auto) 0.1 (0.0-0.2) X10*3/uL Abs Immat Gran (auto) 0.03 (0.00-0.03) X10*3/uL Absolute Neuts (auto) 7.8 (2.0-8.3) x10*3/uL Absolute Nucleated RBC 0.000 (0.0-0.012) X10*3/uL Nucleated RBC % (auto) 0.0 (0.0-0.2) /100WBC Sodium 142 (135-145) mmol/L Potassium 4.1 (3.3-5.1) mmol/L Chloride 102 (96-108) mmol/L Carbon Dioxide 29 (22-29) mmol/L Anion Gap 15 (12-20) BUN 19 H (9-16) mg/dL Creatinine 0.97 (0.5-1.4) mg/dL Estim Creat Clear Calc 70.8 Estimated GFR 60 Random Glucose 99 (60-115) mg/dL Calcium 9.9 (8.4-10.2) mg/dL Total Bilirubin 0.6 (0.0-1.0) mg/dL AST 17 (5-31) U/L ALT 17 (0-31) U/L Alkaline Phosphatase 68 (39-117) U/L Troponin I High Sens < 2.7 (<3.5-17.0) ng/L Total Protein 7.3 (6.5-8.0) g/dL Albumin 4.6 (3.5-5.0) g/dL Urine Color Dark Yellow Urine Appearance Cloudy Urine pH 5.5 (5.0-9.0) Ur Specific [place] 1.025 (1.005-1.025) Urine Protein Trace (Neg-Trace) mg/dL Urine Glucose (UA) Negative (Negative) mg/dL Urine Ketones 15 (Negative) mg/dL Urine Blood Negative (Negative) Urine Nitrite Negative (Negative) Ur Leukocyte Esterase Small (1+) H (Negative) Urine RBC 0-2 (0-2) /HPF Urine WBC 21-50 H (0-5) /HPF Ur Squamous Epith Cells >20 (0-2) /HPF Urine Bacteria 4+ (None Seen) Hyaline Casts 3-5 (0-2) /LPF Urine Test NEGATIVE (NEGATIVE) Salicylates < 5.0 L (15-30) mg/dL Urine Opiates Screen Not Detected (Not Detect) Ur Buprenorphine Scrn Not Detected (Not Detect) ng/mL Ur Oxycodone Screen Not Detected (Not Detect) ng/mL Urine Methadone Screen Not Detected (Not Detect) ng/mL Urine Fentanyl Screen Not Detected (Not Detect) Acetaminophen < 3 (<30) mcg/mL Ur Barbiturates Screen Not Detected (Not Detect) Ur Phencyclidine Scrn Not Detected (Not Detect) Ur Amphetamines Screen Not Detected (Not Detect) U Benzodiazepines Scrn POSITIVE H (Not Detect) Urine Cocaine Screen Not Detected (Not Detect) U Marijuana (THC) Screen POSITIVE H (Not Detect) Ethyl Alcohol < 10 mg/dL Discharge Plan Discharge Prescriptions: No Action lamotrigine 200 mg Tablet 200 mg PO DAILY Mounjaro 7.5 mg/0.5 mL pen injector 7.5 mg SUBCUT QWEEK escitalopram oxalate 10 mg tablet 15 mg PO DAILY Qty: 45 0RF clonazepam 0.5 mg tablet 0.5 mg PO BID PRN (Reason: anxiety) Qty: 20 0RF meclizine 25 mg tablet 25 mg PO TID PRN (Reason: dizziness) Qty: 15 0RF docusate sodium [Colace] 100 mg capsule 100 mg PO DAILY Patient Comments: Patient stated she takes once a day. cholecalciferol (vitamin D3) 50 mcg (2,000 unit) capsule 100 mcg PO DAILY losartan 100 mg tablet 100 mg PO DAILY metoprolol succinate 100 mg tablet extended release 24 hr 150 mg PO DAILY Rx Instructions: Take one and a half tabs daily. loratadine [Claritin] 10 mg tablet 10 mg PO DAILY Interventions: [place]-Suicide Risk Severity Scale Last Done: 02/12/25 20:23 Print Language: Tuvaluan
[2025-02-13 03:52] VITALS: BP 119/66; PULSE 61; RESP 18; TEMP 36.3; O2SAT 93
--- NOTE | 2025-02-13 06:51 | PC.NURSE ---
Assumed care of patient at 0645, patient moved from ED 17 to 2, ambulates with walker. Continue plan of care for [facility]
--- NOTE | 2025-02-13 10:42 | PC.NURSE ---
RE: med rec This RN completed med rec while speaking with patient to confirm. Pt reports that she does not take Hydroxychloroquine or Prednisone at this time. she also reports she takes a total of 400mg Lamotrigine and 125mg Metoprolol despite apparent recent prescription changes
[2025-02-13 12:11] VITALS: BP 118/60; PULSE 61; RESP 16; TEMP 36.8; O2SAT 95
[2025-02-13] MEDS: Metoprolol Succinate ER 25 MG TAB.ER.24H PO (12:12)
[2025-02-13] MEDS: Metoprolol Succinate ER 100 MG TAB.ER.24H PO (12:12)
[2025-02-13 13:10] VITALS: BP 123/78; PULSE 65; RESP 18; TEMP 36.3; O2SAT 98
--- NOTE | 2025-02-13 14:25 | HO.PSYADMNOT ---
HPI Date of Service: 02/13/25 Chief Complaint: SI Sources of Information: patient interviewed, chart reviewed and crisis/core team assessment reviewed HPI Subjective Notes: [place] Warning and Conditional Voluntary Narrative: Patient is a 54 year old female with hx of Bipolar d/o and PTSD who presented to ER via ambulance d/t suicidal ideation secondary to increased depression and medical problems. Per crisis report, patient reports suicidal ideation with a plan to walk in front of a truck. Patient stated, I have a lot of issues, I'm just fed up . Patient reports over the last 5 years she has been diagnosed with multiple medical problems which has caused an increase in depression. Patient reports she has not left her bed over the past week and has not been able to eat as much as she usually does. Patient reports sleeping more than usual. Tearful throughout evaluation. Denies HI/VH/AH. History of multiple inpatient psychiatric hospitalizations. History of respite admissions and PHP. hx of 2 suicide attempts via ingesting a bottle of medications. History of self-injurious behavior via cutting however, reports she has not cut in 15 years. History of receiving ECT treatments in 2011. Patient reports marijuana use. Utox positive for marijuana and benzodiazepines. During admission assessment, patient presents alert and oriented x3. Calm and cooperative. Patient reports feeling depressed ; patient stated, I was having gastro problems and didn't want to eat. I was so weak that way boyfriend called hospital. I never said I was suicidal. I just said that I wish I could poof and disappear. I would never do anything to harm myself. I feel depressed and hopeless because every function of my body is breaking down. I have multiple doctors who just throw medication at me . Patient denies SI/HI/VH/AH however, she does present with passive SI. Patient stated, I don't have active thoughts of wanting to go out and do something. I didn't have, nor do I have any intention. I shouldn't have said that . When discussing medication history patient reports she does not want to be started on anything until she speaks with her outpatient prescriber. Past Psychiatric History: hx of multiple inpatient psychiatric admissions. SA: x2 via overdose on medications; last time being in 2011. SIB: scratching currently on occasion, cutting in the past. Psychiatrist: Dr. Narayan at [facility] Therapist: Claudia Kilgore at [facility] Previous trials: Prozac, Wellbutrin, Caplyta, Abilify, Lyrica, years on Zoloft Ritalin for a while, gabapentin, lorazepam, clonazepam, lithium, Haldol Medical Evaluation Reviewed: Yes [facility] Medical History (Updated 02/13/25 @ 15:51 by Diana Grace NP) Vertigo Class 3 obesity History of electroconvulsive therapy Sleep apnea Type 2 diabetes mellitus Snoring Rosacea Iliotibial band syndrome, right leg Mitral valve prolapse Asymptomatic menopausal state Mitral valve disorder Neuralgia of both lower extremities Leg heaviness Morbid obesity Tendinosis of rotator cuff Vitamin D deficiency SANTI on CPAP Localized edema Chronic kidney disease, stage 3a PTSD (post-traumatic stress disorder) Bipolar 1 disorder Hyperparathyroidism Suicidal ideations Cataract Seasonal allergies Anxiety Depression HTN (hypertension) Sciatic leg pain Surgical History History of parathyroidectomy (06/04/23) Hx of colonoscopy History of surgery (2014) History of tonsillectomy Family History: denies Social History: Lives with boyfriend. . no kids. disability. high school diploma. Substance History: regine. denies any other substance use. Trauma History: yes Diagnostics Vital Signs (24Hr): Vital Signs - 24 hr 02/12/25 22:23 02/13/25 03:52 02/13/25 12:11 Temperature 97.4 F 98.2 F Pulse Rate 59 61 61 Respiratory Rate 19 18 16 Blood Pressure 115/59 L 119/66 118/60 Pulse Oximetry 92 93 95 Oxygen Delivery Method Room Air Nasal Cannula Room Air Oxygen Flow Rate 1 BMI result Body Mass Index 33.7 Labs 02/12/25 20:45 02/12/25 20:45 Labs: Laboratory Results - last 48 hr 02/12/25 02/12/25 20:45 22:47 WBC 12.3 H RBC 4.75 Hgb 14.6 Hct 43.3 MCV 91.2 MCH 30.7 MCHC 33.7 RDW 12.9 Plt Count 348 MPV 8.7 L Immature Gran % (Auto) 0.2 Neut % (Auto) 63.4 Lymph % (Auto) 30.1 [place] % (Auto) 5.6 Eos % (Auto) 0.0 Baso % (Auto) 0.7 Lymph # (Auto) 3.7 [place] # (Auto) 0.7 Eos # (Auto) 0.0 Baso # (Auto) 0.1 Abs Immat Gran (auto) 0.03 Absolute Neuts (auto) 7.8 Absolute Nucleated RBC 0.000 Nucleated RBC % (auto) 0.0 Sodium 142 Potassium 4.1 Chloride 102 Carbon Dioxide 29 Anion Gap 15 BUN 19 H Creatinine 0.97 Estim Creat Clear Calc 70.8 Estimated GFR 60 Random Glucose 99 Calcium 9.9 Total Bilirubin 0.6 AST 17 ALT 17 Alkaline Phosphatase 68 Troponin I High Sens < 2.7 Total Protein 7.3 Albumin 4.6 Urine Color Dark Yellow Urine Appearance Cloudy Urine pH 5.5 Ur Specific [place] 1.025 Urine Protein Trace Urine Glucose (UA) Negative Urine Ketones 15 Urine Blood Negative Urine Nitrite Negative Ur Leukocyte Esterase Small (1+) H Urine RBC 0-2 Urine WBC 21-50 H Ur Squamous Epith Cells >20 Urine Bacteria 4+ Hyaline Casts 3-5 Urine Test NEGATIVE Salicylates < 5.0 L Urine Opiates Screen Not Detected Ur Buprenorphine Scrn Not Detected Ur Oxycodone Screen Not Detected Urine Methadone Screen Not Detected Urine Fentanyl Screen Not Detected Acetaminophen < 3 Ur Barbiturates Screen Not Detected Ur Phencyclidine Scrn Not Detected Ur Amphetamines Screen Not Detected U Benzodiazepines Scrn POSITIVE H Urine Cocaine Screen Not Detected U Marijuana (THC) Screen POSITIVE H Ethyl Alcohol < 10 Meds/Allergies Meds Home Medications ?Medication ?Instructions ?Recorded ?Confirmed ?Type losartan 100 mg tablet 100 mg PO DAILY 01/23/23 02/13/25 History lamotrigine 200 mg tablet 400 mg PO DAILY 09/06/24 02/13/25 History amlodipine 5 mg tablet 5 mg PO DAILY 02/13/25 02/13/25 History clonazepam 0.5 mg tablet 0.5 - 1 mg PO DAILY PRN anxiety 02/13/25 02/13/25 History metoprolol succinate 100 mg 100 mg PO DAILY 02/13/25 02/13/25 History tablet,extended release 24 hr metoprolol succinate 25 mg 25 mg PO DAILY 02/13/25 02/13/25 History tablet,extended release 24 hr quetiapine 25 mg tablet 25 mg PO DAILY 02/13/25 02/13/25 History tizanidine 4 mg tablet 4 mg PO TID 02/13/25 02/13/25 History Allergies Allergies Allergy/AdvReac Type Severity Reaction Status Date / Time haloperidol (From Haldol) Allergy Angioedema Verified 02/12/25 20:21 Mental Status Exam Mental Status Exam Patient Appearance: Appropriate Patient Orientation: Person, Place, Time and Situation Level of Consciousness: Awake and Alert Patient Behavior: Appropriate, Cooperative and Good Eye Contact Mood Description: Depressed Affect Description: Depressed Ability to Follow Directions: Good Speech Pattern: Clear Memory Description: Intact Hallucinations: None Delusions: Not Present Thought Process: Intact Thought Content: positive for Intact Assessment & Plan Assessment & Plan (1) Bipolar 1 disorder: Status: Acute Code(s): F31.9 - Bipolar disorder, unspecified (2) PTSD (post-traumatic stress disorder): Status: Acute Code(s): F43.10 - Post-traumatic stress disorder, unspecified Plan Patient is a 54 year old female with hx of Bipolar d/o and PTSD who presented to ER via ambulance d/t suicidal ideation secondary to increased depression and medical problems. Plan: CV 5 minute safety checks continue home medications obtain collateral encourage groups discharge planning Patient educated on: diagnosis and medication risk/benefits Reason for continued inpatient stay Substantial Risk for: med/psych decompensation Statement Statement: I have reviewed the history and physical and performed a pertinent examination on my patient. No changes have occurred unless specified. If the History and Physical was not performed prior to admission, the Hospitalist's service will be consulted for completing the admission physical. Time Spent With Patient Time: Total time managing care of this patient today _60___ minutes.
[2025-02-13 14:56] VITALS: BMI 41.0
--- NOTE | 2025-02-13 17:44 | PC.ADMIT ---
Nursing admission note: 54 year old female DX: Major depressive disorder, recurrent. Signed conditional voluntary for admission. Referred for treatment by CARE team. Patient brought in by ambulance secondary to increased depression and inability to care for self. Presented with suicidal ideation to walk in front of a truck. Patient engaged easily. Intermittent eye contact, dressed in hospital attire. [facility] admission to [facility] [place] history of multiple in patient admissions, including ECT treatment. . Patient endorses depressed mood with passive SI. Denies plan or intent at this time. History of scratching and cutting. Healing scratches to outer thighs observed. States she is able to engage staff if suicidal feelings intensify. Affect congruent, tearful at times. Denies perceptual disturbances, no overt psychosis or expressed delusions. Denies A/V hallucinations. Thought process is clear, linear and organized. Expansive. Speech is clear, normal rate, tone, prosody. Reports feelings of hopelessness, feels like a burden on others. States she is unable to care for self, is dependent on progressive care manager bf. States she needs assist with dressing, getting into bed, showering and cooking. States she has had recent med changes. Dr. Narayan office called for current medication list. Patient reports pharmacy list is not accurate. Patient is unable to list medications at this time. Reports she has not been able to eat due to stomach discomfort, gastro pain . Medical history includes sleep apnea, uses CPAP at night. Reports excessive sleeping. Reported intermittent tremor in left foot, intermittent numbness in hands and feet. History of HTN, mitral valve disorder. Hyperparathyroidism. Utilizing walker for ambulation. Reddened area under abdominal fold noted. Provider [place] notified. States she can't deal with things any longer. TOX screen positive for THC and benzo. Non cigarette user. Patient oriented to unit, placed on 5 minute safety checks. See nursing assessment/crisis evaluation for complete details.
[2025-02-13 20:00] VITALS: BP 124/58; PULSE 92; RESP 16; TEMP 36.8; O2SAT 95
[2025-02-14 07:42] VITALS: BP 136/65; PULSE 81; RESP 16; TEMP 36.2; O2SAT 92
--- NOTE | 2025-02-14 08:14 | HO.PM.IMCN ---
History of Present Illness Data of Consult Service Date: 02/14/25 Primary Care Provider: Unknown Physician HPI Reason for consult: Medical H&P 54-year-old female with history of PTSD, bipolar 1 disorder, generalized anxiety disorder, major depressive disorder, SANTI, diabetes, chronic kidney disease, MVP, hyperparathyroidism, hypertension, lupus, IBS who presented to the emergency room with severe depression and suicidal ideation. Patient has increased depression due to her recent diagnosis of lupus and abnormal mammogram. Found to have a UTI in the emergency room started on Ceftin. On exam patient has multiple medical issues which were reviewed in detail. Lupus-patient reports that lupus was diagnosed recently. Patient was trialed on prednisone which she was unable to tolerate. It was also recommended that she take hydroxychloroquine which she is not taking due to concerns about medication. She is scheduled to follow up with Dr. Desai from Rheumatology in 4 weeks. Abnormal mammogram- patient reports she is not worried about this she has a follow up appointment for an ultrasound regarding an area that was abnormal on mammogram. She has had ultrasounds in the past with benign breast changes. Hypertension-currently controlled on current regime Vertigo-reports an ongoing history of vertigo, this is unchanged, has tried several medications. She feels is under control. Abdominal issues including constipation gas pain and diarrhea- patient has known diverticulosis, is followed by a GI doctor outpatient Dr. Ambriz. Persistent foot tremor/paresthesias- patient reports she has had a significant neurological workup for this with no known etiology. Patient's total cholesterol 230, LDL 171, HDL 33. TSH within normal limits. She has no physical complaints at this time. Walking with a walker due to ?leg problem that she reports she has had several workups for and the etiology is unclear patient noted to be moving her left foot and a circular motion when describing a tremor that she has not her left foot. Not noted when patient is at rest. Review of Systems Review of Systems: Denies any shortness of breath, chest pain, headaches, dysuria, abdominal pain or discomfort, nausea, vomiting or diarrhea. Denies fever or chills. Reports left foot tremor, leg weakness. [facility] Medical History (Updated 02/14/25 @ 16:05 by Brittaney Reddy DNP) Vertigo Class 3 obesity History of electroconvulsive therapy Sleep apnea Type 2 diabetes mellitus Snoring Rosacea Iliotibial band syndrome, right leg Mitral valve prolapse Asymptomatic menopausal state Mitral valve disorder Neuralgia of both lower extremities Leg heaviness Morbid obesity Tendinosis of rotator cuff Vitamin D deficiency SANTI on CPAP Localized edema Chronic kidney disease, stage 3a PTSD (post-traumatic stress disorder) Bipolar 1 disorder Hyperparathyroidism Suicidal ideations Cataract Seasonal allergies Anxiety Depression HTN (hypertension) Sciatic leg pain Surgical History History of parathyroidectomy (06/04/23) Hx of colonoscopy History of surgery (2014) History of tonsillectomy Social History Household Members: Significant Other Household Members Other:: 1 Housing: Apartment Are you a primary managed care specialist to a significant other at home: No Do you presently have visiting nurse or other home services: Yes (Annual visit from [facility]) Alcohol intake: current Alcohol intake frequency: holidays/special occasions only Alcohol type: wine Comment: COUNTS CORRECT Patient Tobacco Use Status: Never used Tobacco Smoked in Last 30 Days: Yes e-Cigarette/Vaping Use: Currently Using Frequency of e-Cigarette/Vaping Use: frequently at night Patient Interested in Nicotine Replacement: No Patient Given Instructions on How to Stop Smoking: No Second Hand Smoke Exposure: No Substance Use Type: Other Currently Displaying Signs/Symptoms of Drug Intoxication Withdrawal: No Have you been hit, kicked, punched, or otherwise hurt by someone within the past year? If so, by whom?: No Do you feel safe in your current relationship?: Yes Is there a partner from a previous relationship who is making you feel unsafe now?: Yes (not currently in the picture ) Are you made to feel afraid or neglected: No [facility] Practices: Not practicing [facility] Advance Directives: No Advance Directives Information Provided: Yes Do you have thoughts of harming others: None Do you have a plan to hurt others: No Plan Recently lost weight without trying: Unsure How much weight loss: 14-23 pounds Eating poorly because of decreased appetite: No Nutrition screen score: 4 Nutrition Risks: No Nutritional Risk Patient : No : No service: No Sexual orientation: Straight/Heterosexual Meds Allergies Allergy/AdvReac Type Severity Reaction Status Date / Time haloperidol (From Haldol) Allergy Angioedema Verified 02/12/25 20:21 Active Medications: Current Medications Acetaminophen (Acetaminophen 325 Mg Tablet) 650 mg PO Q6H PRN PRN Reason: Headache/Pain, Scale 1-10 Al Hydroxide/Mg Hydroxide (Magnesium Hydrox/Alum Hydrox 30 Ml Oral.Susp) 30 ml PO Q6H PRN PRN Reason: Heartburn/Nausea Amlodipine Besylate (Amlodipine Besylate 5 Mg Tablet) 5 mg PO DAILY [facility]; Protocol Cefuroxime Axetil (Cefuroxime Axetil 250 Mg Tablet) 250 mg PO BID ARIADNA Stop: 02/18/25 10:34 Last Admin: 02/13/25 22:27 Dose: 250 mg Clonazepam (Clonazepam 1 Mg Tablet) 1 mg PO DAILY PRN PRN Reason: Anxiety Last Admin: 02/13/25 22:28 Dose: 1 mg Hydroxyzine HCl (Hydroxyzine Hcl 25 Mg Tablet) 25 mg PO Q6H PRN PRN Reason: mild anxiety Lamotrigine (Lamotrigine 100 Mg Tablet) 400 mg PO DAILY ARIADNA Losartan Potassium (Losartan Potassium 50 Mg Tablet) 100 mg PO DAILY [facility]; Protocol Last Admin: 02/13/25 12:12 Dose: Not Given Magnesium Hydroxide (Milk Of Magnesia 30 Ml Oral.Susp) 30 ml PO DAILY PRN PRN Reason: Constipation Metoprolol Succinate (Metoprolol Succinate Er 25 Mg Tab.Er.24h) 25 mg PO DAILY [facility]; Protocol Last Admin: 02/13/25 12:12 Dose: 25 mg Metoprolol Succinate (Metoprolol Succinate Er 100 Mg Tab.Er.24h) 100 mg PO DAILY [facility] Last Admin: 02/13/25 12:12 Dose: 100 mg Nystatin (Nystatin Powder 15 Gm Bottle) 1 appl TOPICAL BID [facility]; Protocol Last Admin: 02/13/25 22:27 Dose: 1 appl Quetiapine Fumarate (Quetiapine Fumarate 25 Mg Tablet) 25 mg PO BEDTIME [facility] Last Admin: 02/13/25 22:27 Dose: 25 mg Trazodone HCl (Trazodone Hcl 50 Mg Tablet) 50 mg PO BEDTIME MRX1 PRN PRN Reason: Insomnia Home Medications ?Medication ?Instructions ?Recorded ?Confirmed ?Last Taken ?Type losartan 100 mg tablet 100 mg PO DAILY 01/23/23 02/13/25 02/12/25 History lamotrigine 200 mg tablet 400 mg PO DAILY 09/06/24 02/13/25 02/12/25 History amlodipine 5 mg tablet 5 mg PO DAILY 02/13/25 02/13/25 02/12/25 History clonazepam 0.5 mg tablet 0.5 - 1 mg PO DAILY PRN anxiety 02/13/25 02/13/25 02/12/25 History metoprolol succinate 100 mg 100 mg PO DAILY 02/13/25 02/13/25 02/12/25 History tablet,extended release 24 hr metoprolol succinate 25 mg 25 mg PO DAILY 02/13/25 02/13/25 02/12/25 History tablet,extended release 24 hr quetiapine 25 mg tablet 25 mg PO DAILY 02/13/25 02/13/25 02/12/25 History tizanidine 4 mg tablet 4 mg PO TID 02/13/25 02/13/25 02/12/25 History Physical Exam Vital Signs and Narrative: Vital Signs: Last Vital Signs Temp 97.2 F 02/14/25 07:42 Pulse 81 02/14/25 07:42 Resp 16 02/14/25 07:42 BP 136/65 02/14/25 07:42 Pulse Ox 92 02/14/25 07:42 O2 Del Method Room Air 02/14/25 07:42 O2 Flow Rate 1 02/13/25 03:52 BMI result Body Mass Index 41.0 Alert and oriented X3, calm and cooperative. Answers questions. Neuro: CN II-X11 intact, no deficits, visual acuity intact. Left foot moving in a circular motion. EYES: PERRLA, EOM intact ENT: Hearing intact, MMM Cardiac: S1 S2 RRR, No ectopy Pulmonary: Lungs clear to auscultation, No increased WOB. Abdominal: BS active in all 4 quadrants, no guarding or tenderness MSK: Strength 5/5 upper and lower extremities. No edema : Deferred Psych: Mood stable, Cooperative. Skin: Warm and dry, Intact Results Labs 02/12/25 20:45 02/14/25 08:01 Assessment and Plan (1) Lupus: Status: Acute Plan 54-year-old female with past medical history as listed below, presented to the emergency room with decreased oral intake, severe depression associated with her multiple medical conditions. Patient is admitted for stabilization. PTSD/bipolar 1 disorderr/MICHELLE/MDD Treatment per psychiatric team SANTI CPAP at home Diet-controlled type 2 diabetes Recent A1c 5.7 Continue diet and exercise Lupus-patient reports that lupus was diagnosed recently. Patient was trialed on prednisone which she was unable to tolerate. It was also recommended that she take hydroxychloroquine which she is not taking due to concerns about medication. She is scheduled to follow up with Dr. Desai from Rheumatology in 4 weeks. Abnormal mammogram- patient reports she is not worried about this she has a follow up appointment for an ultrasound regarding an area that was abnormal on mammogram. She has had ultrasounds in the past with benign breast changes. Hypertension Currently controlled on current regime Continue Losartan, metoprolol, amlodipine Vertigo Reports an ongoing history of vertigo, this is unchanged, has tried several medications. She feels is under control. Abdominal issues including constipation gas pain and diarrhea/IBS Patient has known diverticulosis, is followed by a GI doctor outpatient Dr. Ambriz. Persistent foot tremor/paresthesias- Patient reports she has had a significant neurological workup for this with no known etiology. Thank you for allowing me to participate in the care of this patient. Will follow with you, please notify medical provider with any changes in condition or concerns.
[2025-02-14] MEDS: Metoprolol Succinate ER 100 MG TAB.ER.24H PO (08:23)
[2025-02-14] MEDS: Metoprolol Succinate ER 25 MG TAB.ER.24H PO (08:24)
[2025-02-14 08:34] LABS: Alanine Aminotransferase 20 U/L (0-31); Albumin Level 4.7 g/dL (3.5-5.0); Alkaline Phosphatase 77 U/L (39-117); Anion Gap 15 (12-20); Aspartate Amino Transferase 21 U/L (5-31); Blood Urea Nitrogen 18 mg/dL (9-16); Calcium 10.1 mg/dL (8.4-10.2); Carbon Dioxide 27 mmol/L (22-29); Chloride 104 mmol/L (96-108); Cholesterol 230 mg/dL (<200); Creatinine Clr Calc Pharmacy 82.0; Estimated Glomerular Filt Rate > 60; HDL Cholesterol 33 mg/dL (>40); Potassium 4.1 mmol/L (3.3-5.1); Sodium 142 mmol/L (135-145); Total Protein 7.6 g/dL (6.5-8.0); Triglycerides 131 mg/dL (<150)
--- NOTE | 2025-02-14 10:26 | P.PNPSI_ITS ---
Subjective Subjective Date of Service: 02/14/25 Reason For Visit: SI Subjective Notes: Conditional Voluntary Interim History: Active on unit. social with peers. attending groups. Patient reports feeling calmer today; pt stated, I feel like I'm settling in. I slept well last night and my appetite has improved. I don't have the day to day stress . denies SI/HI/VH/AH. She denies passive SI. She is requesting to be restarted on Abilify 2mg PO bedtime d/t hx of being beneficial for her. risks/benefits reviewed. Medication Compliance: Yes Side effects from medications: No Attending Groups: Yes Mental Status Exam Mental Status Exam Narrative: Pt is alert and oriented; behavior is cooperative and calm; dressed in casual attire; mood is described as improving ; eye contact appropriate; Speech is normal rate, volume and not pressured; thought process is organized; Thought content is on tx; denies SI/HI/AH/VH. Diagnostics Vital Signs (24Hr): Vital Signs - 24 hr 02/13/25 12:11 02/13/25 13:10 02/13/25 20:00 Temperature 98.2 F 97.3 F 98.3 F Pulse Rate 61 65 92 Respiratory Rate 16 18 16 Blood Pressure 118/60 123/78 124/58 L Pulse Oximetry 95 98 95 Oxygen Delivery Method Room Air Room Air Room Air 02/14/25 07:42 Temperature 97.2 F Pulse Rate 81 Respiratory Rate 16 Blood Pressure 136/65 Pulse Oximetry 92 Oxygen Delivery Method Room Air BMI result Body Mass Index 41.0 Labs 02/12/25 20:45 02/14/25 08:01 Labs: Laboratory Results - last 48 hr 02/12/25 02/12/25 02/14/25 20:45 22:47 08:01 WBC 12.3 H RBC 4.75 Hgb 14.6 Hct 43.3 MCV 91.2 MCH 30.7 MCHC 33.7 RDW 12.9 Plt Count 348 MPV 8.7 L Immature Gran % (Auto) 0.2 Neut % (Auto) 63.4 Lymph % (Auto) 30.1 Wheeler % (Auto) 5.6 Eos % (Auto) 0.0 Baso % (Auto) 0.7 Lymph # (Auto) 3.7 Wheeler # (Auto) 0.7 Eos # (Auto) 0.0 Baso # (Auto) 0.1 Abs Immat Gran (auto) 0.03 Absolute Neuts (auto) 7.8 Absolute Nucleated RBC 0.000 Nucleated RBC % (auto) 0.0 Sodium 142 142 Potassium 4.1 4.1 Chloride 102 104 Carbon Dioxide 29 27 Anion Gap 15 15 BUN 19 H 18 H Creatinine 0.97 0.80 Estim Creat Clear Calc 70.8 82.0 Estimated GFR 60 > 60 Random Glucose 99 128 H Estimat Average Glucose 117 Hemoglobin A1c % 5.7 Calcium 9.9 10.1 Total Bilirubin 0.6 0.7 AST 17 21 ALT 17 20 Alkaline Phosphatase 68 77 Troponin I High Sens < 2.7 Total Protein 7.3 7.6 Albumin 4.6 4.7 Triglycerides 131 Cholesterol 230 H LDL Cholesterol, Calc 171 H HDL Cholesterol 33 L Urine Color Dark Yellow Urine Appearance Cloudy Urine pH 5.5 Ur Specific [place] 1.025 Urine Protein Trace Urine Glucose (UA) Negative Urine Ketones 15 Urine Blood Negative Urine Nitrite Negative Ur Leukocyte Esterase Small (1+) H Urine RBC 0-2 Urine WBC 21-50 H Ur Squamous Epith Cells >20 Urine Bacteria 4+ Hyaline Casts 3-5 Urine Test NEGATIVE Salicylates < 5.0 L Urine Opiates Screen Not Detected Ur Buprenorphine Scrn Not Detected Ur Oxycodone Screen Not Detected Urine Methadone Screen Not Detected Urine Fentanyl Screen Not Detected Acetaminophen < 3 Ur Barbiturates Screen Not Detected Ur Phencyclidine Scrn Not Detected Ur Amphetamines Screen Not Detected U Benzodiazepines Scrn POSITIVE H Urine Cocaine Screen Not Detected U Marijuana (THC) Screen POSITIVE H Ethyl Alcohol < 10 Medications Medications Current Medications Acetaminophen (Acetaminophen 325 Mg Tablet) 650 mg PO Q6H PRN PRN Reason: Headache/Pain, Scale 1-10 Last Admin: 02/14/25 09:16 Dose: 650 mg Al Hydroxide/Mg Hydroxide (Magnesium Hydrox/Alum Hydrox 30 Ml Oral.Susp) 30 ml PO Q6H PRN PRN Reason: Heartburn/Nausea Amlodipine Besylate (Amlodipine Besylate 5 Mg Tablet) 5 mg PO DAILY [facility]; Protocol Last Admin: 02/14/25 08:23 Dose: 5 mg Cefuroxime Axetil (Cefuroxime Axetil 250 Mg Tablet) 250 mg PO BID [facility] Stop: 02/18/25 10:34 Last Admin: 02/14/25 08:23 Dose: 250 mg Clonazepam (Clonazepam 1 Mg Tablet) 1 mg PO DAILY PRN PRN Reason: Anxiety Last Admin: 02/13/25 22:28 Dose: 1 mg Hydroxyzine HCl (Hydroxyzine Hcl 25 Mg Tablet) 25 mg PO Q6H PRN PRN Reason: mild anxiety Lamotrigine (Lamotrigine 100 Mg Tablet) 400 mg PO DAILY [facility] Last Admin: 02/14/25 08:23 Dose: 400 mg Losartan Potassium (Losartan Potassium 50 Mg Tablet) 100 mg PO DAILY [facility]; Protocol Last Admin: 02/14/25 08:23 Dose: 100 mg Magnesium Hydroxide (Milk Of Magnesia 30 Ml Oral.Susp) 30 ml PO DAILY PRN PRN Reason: Constipation Metoprolol Succinate (Metoprolol Succinate Er 25 Mg Tab.Er.24h) 25 mg PO DAILY [facility]; Protocol Last Admin: 02/14/25 08:24 Dose: 25 mg Metoprolol Succinate (Metoprolol Succinate Er 100 Mg Tab.Er.24h) 100 mg PO DAILY [facility] Last Admin: 02/14/25 08:23 Dose: 100 mg Nystatin (Nystatin Powder 15 Gm Bottle) 1 appl TOPICAL BID [facility]; Protocol Last Admin: 02/14/25 09:18 Dose: 1 appl Quetiapine Fumarate (Quetiapine Fumarate 25 Mg Tablet) 25 mg PO BEDTIME [facility] Last Admin: 02/13/25 22:27 Dose: 25 mg Trazodone HCl (Trazodone Hcl 50 Mg Tablet) 50 mg PO BEDTIME MRX1 PRN PRN Reason: Insomnia Allergies Allergies Allergy/AdvReac Type Severity Reaction Status Date / Time haloperidol (From Haldol) Allergy Angioedema Verified 02/12/25 20:21 Assessment & Plan Assessment & Plan (1) Bipolar 1 disorder: Status: Acute Code(s): F31.9 - Bipolar disorder, unspecified (2) PTSD (post-traumatic stress disorder): Status: Acute Code(s): F43.10 - Post-traumatic stress disorder, unspecified Plan Patient is a 54 year old female with hx of Bipolar d/o and PTSD who presented to ER via ambulance d/t suicidal ideation secondary to increased depression and medical problems. Plan: CV 5 minute safety checks continue home medications obtain collateral encourage groups discharge planning 02/14: Active on unit. social with peers. attending groups. Patient reports feeling calmer today; pt stated, I feel like I'm settling in. I slept well last night and my appetite has improved. I don't have the day to day stress . denies SI/HI/VH/AH. She denies passive SI. She is requesting to be restarted on Abilify 2mg PO bedtime d/t hx of being beneficial for her. risks/benefits reviewed. Patient educated on: diagnosis, medication risk/benefits and therapeutic strategies Reason for continued inpatient stay Substantial Risk for: med/psych decompensation Time Spent With Patient Time: Total time managing care of this patient today _20___ minutes.
--- NOTE | 2025-02-14 17:52 | PC.NURSE ---
Patient submitted 3 day notice.
[2025-02-14 20:00] VITALS: BP 127/61; PULSE 66; RESP 16; TEMP 36.4; O2SAT 96
[2025-02-14] MEDS: Flu Vacc TS2025-26(6mo up)/PF 0.5 ML SYRINGE IM (22:42)
[2025-02-15 07:42] VITALS: BP 129/76; PULSE 83; RESP 18; TEMP 36; O2SAT 96
[2025-02-15 08:43] VITALS: BP 129/76; PULSE 83
[2025-02-15] MEDS: Metoprolol Succinate ER 25 MG TAB.ER.24H PO (08:43)
[2025-02-15 08:44] VITALS: BP 129/76
[2025-02-15 08:45] VITALS: BP 129/76; PULSE 83
[2025-02-15] MEDS: Metoprolol Succinate ER 100 MG TAB.ER.24H PO (08:45)
--- NOTE | 2025-02-15 13:12 | P.PNPSI_ITS ---
Subjective Subjective Date of Service: 02/15/25 Reason For Visit: SI Subjective Notes: 3 Day Interim History: Active on unit. social with peers. attending groups. Patient reports feeling better today; pt stated, I've been realizing this is a little time away and calming. I have to remember to keep doing my coping skills. I've realized that hopelessness is not going to get me anywhere. I have a lot to live for . Patient reports she does not want to continue taking Abilify and wants to continue on her home medication of Lexapro 10mg PO bedtime; pt reports she plans on discussing any medication changes with her outpatient prescriber. denies SI/HI/VH/AH. 3 day notice up on 02/17/25. Medication Compliance: Yes Side effects from medications: No Attending Groups: Yes Mental Status Exam Mental Status Exam Narrative: Pt is alert and oriented; behavior is cooperative and calm; dressed in casual attire; mood is described as better ; eye contact appropriate; Speech is normal rate, volume and not pressured; thought process is organized, future oriented; Thought content is on tx/discharge; denies SI/HI/AH/VH. Diagnostics Vital Signs (24Hr): Vital Signs - 24 hr 02/14/25 20:00 02/15/25 07:42 02/15/25 08:43 Temperature 97.5 F 96.8 F Pulse Rate 66 83 83 Respiratory Rate 16 18 Blood Pressure 127/61 129/76 129/76 Pulse Oximetry 96 96 Oxygen Delivery Method Room Air Room Air 02/15/25 08:44 02/15/25 08:44 02/15/25 08:45 Temperature Pulse Rate 83 Respiratory Rate Blood Pressure 129/76 129/76 129/76 Pulse Oximetry Oxygen Delivery Method BMI result Body Mass Index 41.0 Labs 02/12/25 20:45 02/14/25 08:01 Labs: Laboratory Results - last 48 hr 02/14/25 08:01 Sodium 142 Potassium 4.1 Chloride 104 Carbon Dioxide 27 Anion Gap 15 BUN 18 H Creatinine 0.80 Estim Creat Clear Calc 82.0 Estimated GFR > 60 Random Glucose 128 H Estimat Average Glucose 117 Hemoglobin A1c % 5.7 Calcium 10.1 Total Bilirubin 0.7 AST 21 ALT 20 Alkaline Phosphatase 77 Total Protein 7.6 Albumin 4.7 Triglycerides 131 Cholesterol 230 H LDL Cholesterol, Calc 171 H HDL Cholesterol 33 L Medications Medications Current Medications Acetaminophen (Acetaminophen 325 Mg Tablet) 650 mg PO Q6H PRN PRN Reason: Headache/Pain, Scale 1-10 Last Admin: 02/14/25 09:16 Dose: 650 mg Al Hydroxide/Mg Hydroxide (Magnesium Hydrox/Alum Hydrox 30 Ml Oral.Susp) 30 ml PO Q6H PRN PRN Reason: Heartburn/Nausea Amlodipine Besylate (Amlodipine Besylate 5 Mg Tablet) 5 mg PO DAILY [facility]; Protocol Last Admin: 02/15/25 08:44 Dose: 5 mg Cefuroxime Axetil (Cefuroxime Axetil 250 Mg Tablet) 250 mg PO BID [facility] Stop: 02/18/25 10:34 Last Admin: 02/15/25 08:43 Dose: 250 mg Clonazepam (Clonazepam 1 Mg Tablet) 1 mg PO DAILY PRN PRN Reason: Anxiety Last Admin: 02/13/25 22:28 Dose: 1 mg Escitalopram Oxalate (Escitalopram Oxalate 10 Mg Tablet) 10 mg PO BEDTIME [facility] Hydroxyzine HCl (Hydroxyzine Hcl 25 Mg Tablet) 25 mg PO Q6H PRN PRN Reason: mild anxiety Lamotrigine (Lamotrigine 100 Mg Tablet) 400 mg PO DAILY [facility] Last Admin: 02/15/25 08:44 Dose: 400 mg Losartan Potassium (Losartan Potassium 50 Mg Tablet) 100 mg PO DAILY [facility]; Protocol Last Admin: 02/15/25 08:44 Dose: 100 mg Magnesium Hydroxide (Milk Of Magnesia 30 Ml Oral.Susp) 30 ml PO DAILY PRN PRN Reason: Constipation Metoprolol Succinate (Metoprolol Succinate Er 25 Mg Tab.Er.24h) 25 mg PO DAILY [facility]; Protocol Last Admin: 02/15/25 08:43 Dose: 25 mg Metoprolol Succinate (Metoprolol Succinate Er 100 Mg Tab.Er.24h) 100 mg PO DAILY [facility] Last Admin: 02/15/25 08:45 Dose: 100 mg Nystatin (Nystatin Powder 15 Gm Bottle) 1 appl TOPICAL BID [facility]; Protocol Last Admin: 02/15/25 08:46 Dose: Not Given Quetiapine Fumarate (Quetiapine Fumarate 25 Mg Tablet) 25 mg PO BEDTIME [facility] Last Admin: 02/14/25 22:42 Dose: 25 mg Trazodone HCl (Trazodone Hcl 50 Mg Tablet) 50 mg PO BEDTIME MRX1 PRN PRN Reason: Insomnia Allergies Allergies Allergy/AdvReac Type Severity Reaction Status Date / Time haloperidol (From Haldol) Allergy Angioedema Verified 02/12/25 20:21 Assessment & Plan Assessment & Plan (1) Bipolar 1 disorder: Status: Acute Code(s): F31.9 - Bipolar disorder, unspecified (2) PTSD (post-traumatic stress disorder): Status: Acute Code(s): F43.10 - Post-traumatic stress disorder, unspecified Plan Patient is a 54 year old female with hx of Bipolar d/o and PTSD who presented to ER via ambulance d/t suicidal ideation secondary to increased depression and medical problems. Plan: CV 5 minute safety checks continue home medications obtain collateral encourage groups discharge planning 02/14: Active on unit. social with peers. attending groups. Patient reports feeling calmer today; pt stated, I feel like I'm settling in. I slept well last night and my appetite has improved. I don't have the day to day stress . denies SI/HI/VH/AH. She denies passive SI. She is requesting to be restarted on Abilify 2mg PO bedtime d/t hx of being beneficial for her. risks/benefits reviewed. 02/15: Active on unit. social with peers. attending groups. Patient reports feeling better today; pt stated, I've been realizing this is a little time away and calming. I have to remember to keep doing my coping skills. I've realized that hopelessness is not going to get me anywhere. I have a lot to live for . Patient reports she does not want to continue taking Abilify and wants to continue on her home medication of Lexapro 10mg PO bedtime; pt reports she plans on discussing any medication changes with her outpatient prescriber. denies SI/HI/VH/AH. 3 day notice up on 02/17/25. Patient educated on: diagnosis and medication risk/benefits Reason for continued inpatient stay Substantial Risk for: med/psych decompensation Time Spent With Patient Time: Total time managing care of this patient today __20__ minutes.
[2025-02-15 19:25] VITALS: BP 130/73; PULSE 80; RESP 16; TEMP 36.8; O2SAT 98
[2025-02-16 07:00] VITALS: BMI 39.3
[2025-02-16 08:00] VITALS: BP 107/61; PULSE 72; RESP 16; TEMP 36.3; O2SAT 97
[2025-02-16 08:36] VITALS: BP 107/61; PULSE 72
[2025-02-16] MEDS: Metoprolol Succinate ER 25 MG TAB.ER.24H PO (08:36)
[2025-02-16 08:37] VITALS: BP 107/61; PULSE 72
[2025-02-16] MEDS: Metoprolol Succinate ER 100 MG TAB.ER.24H PO (08:37)
--- NOTE | 2025-02-16 09:45 | PC.NURSE ---
Pt asked this junior copywriter if she would take photographs of her sternal area, which she reports has some bruising on it from the sternal rubs that she received in [facility] ED. This junior copywriter asked provider who stated that pt can take photos upon d/c tomorrow. This junior copywriter communicated that informaiton to the patient. The patient disagreed with this and junior copywriter referred her back to provider. Pt stated understanding.
--- NOTE | 2025-02-16 13:40 | HO.PSYCHPN ---
Subjective Subjective Date of Service: 02/16/25 Reason For Visit: SI Subjective Notes: 3 Day Interim History: Active on unit. social with peers. attending groups. Patient reports doing very well today; pt reports she is looking forward to returning home. denies SI/HI/VH/AH. Patient reports she does not need scripts sent to pharmacy d/t having them at home; pt reports she plans on following up with her outpatient providers. 3 day notice up on 02/17/25. Medication Compliance: Yes Side effects from medications: No Attending Groups: Yes Mental Status Exam Mental Status Exam Narrative: Pt is alert and oriented; behavior is cooperative and calm; dressed in casual attire; mood is described as good ; eye contact appropriate; Speech is normal rate, volume and not pressured; thought process is organized; Thought content is on discharge; denies SI/HI/AH/VH. Diagnostics Vital Signs (24Hr): Vital Signs - 24 hr 02/15/25 19:25 02/16/25 08:00 02/16/25 08:36 Temperature 98.2 F 97.3 F Pulse Rate 80 72 Respiratory Rate 16 16 Blood Pressure 130/73 107/61 107/61 Pulse Oximetry 98 97 Oxygen Delivery Method Room Air Room Air 02/16/25 08:36 02/16/25 08:36 02/16/25 08:37 Temperature Pulse Rate 72 72 Respiratory Rate Blood Pressure 107/61 107/61 107/61 Pulse Oximetry Oxygen Delivery Method BMI result Body Mass Index 41.0 Labs 02/12/25 20:45 02/14/25 08:01 Medications Medications Current Medications Acetaminophen (Acetaminophen 325 Mg Tablet) 650 mg PO Q6H PRN PRN Reason: Headache/Pain, Scale 1-10 Last Admin: 02/14/25 09:16 Dose: 650 mg Al Hydroxide/Mg Hydroxide (Magnesium Hydrox/Alum Hydrox 30 Ml Oral.Susp) 30 ml PO Q6H PRN PRN Reason: Heartburn/Nausea Amlodipine Besylate (Amlodipine Besylate 5 Mg Tablet) 5 mg PO DAILY [facility]; Protocol Last Admin: 02/16/25 08:36 Dose: 5 mg Cefuroxime Axetil (Cefuroxime Axetil 250 Mg Tablet) 250 mg PO BID [facility] Stop: 02/18/25 10:34 Last Admin: 02/16/25 08:37 Dose: 250 mg Clonazepam (Clonazepam 1 Mg Tablet) 1 mg PO DAILY PRN PRN Reason: Anxiety Last Admin: 02/15/25 22:40 Dose: 1 mg Escitalopram Oxalate (Escitalopram Oxalate 10 Mg Tablet) 10 mg PO BEDTIME [facility] Last Admin: 02/15/25 22:35 Dose: 10 mg Hydroxyzine HCl (Hydroxyzine Hcl 25 Mg Tablet) 25 mg PO Q6H PRN PRN Reason: mild anxiety Lamotrigine (Lamotrigine 100 Mg Tablet) 400 mg PO DAILY [facility] Last Admin: 02/16/25 08:38 Dose: 400 mg Losartan Potassium (Losartan Potassium 50 Mg Tablet) 100 mg PO DAILY [facility]; Protocol Last Admin: 02/16/25 08:36 Dose: 100 mg Magnesium Hydroxide (Milk Of Magnesia 30 Ml Oral.Susp) 30 ml PO DAILY PRN PRN Reason: Constipation Metoprolol Succinate (Metoprolol Succinate Er 25 Mg Tab.Er.24h) 25 mg PO DAILY [facility]; Protocol Last Admin: 02/16/25 08:36 Dose: 25 mg Metoprolol Succinate (Metoprolol Succinate Er 100 Mg Tab.Er.24h) 100 mg PO DAILY [facility] Last Admin: 02/16/25 08:37 Dose: 100 mg Nystatin (Nystatin Powder 15 Gm Bottle) 1 appl TOPICAL BID [facility]; Protocol Last Admin: 02/16/25 08:38 Dose: Not Given Quetiapine Fumarate (Quetiapine Fumarate 25 Mg Tablet) 25 mg PO BEDTIME [facility] Last Admin: 02/15/25 22:35 Dose: 25 mg Trazodone HCl (Trazodone Hcl 50 Mg Tablet) 50 mg PO BEDTIME MRX1 PRN PRN Reason: Insomnia Allergies Allergies Allergy/AdvReac Type Severity Reaction Status Date / Time haloperidol (From Haldol) Allergy Angioedema Verified 02/12/25 20:21 Assessment & Plan Assessment & Plan (1) Bipolar 1 disorder: Status: Acute Code(s): F31.9 - Bipolar disorder, unspecified (2) PTSD (post-traumatic stress disorder): Status: Acute Code(s): F43.10 - Post-traumatic stress disorder, unspecified Plan Patient is a 54 year old female with hx of Bipolar d/o and PTSD who presented to ER via ambulance d/t suicidal ideation secondary to increased depression and medical problems. Plan: CV 5 minute safety checks continue home medications obtain collateral encourage groups discharge planning 02/14: Active on unit. social with peers. attending groups. Patient reports feeling calmer today; pt stated, I feel like I'm settling in. I slept well last night and my appetite has improved. I don't have the day to day stress . denies SI/HI/VH/AH. She denies passive SI. She is requesting to be restarted on Abilify 2mg PO bedtime d/t hx of being beneficial for her. risks/benefits reviewed. 02/15: Active on unit. social with peers. attending groups. Patient reports feeling better today; pt stated, I've been realizing this is a little time away and calming. I have to remember to keep doing my coping skills. I've realized that hopelessness is not going to get me anywhere. I have a lot to live for . Patient reports she does not want to continue taking Abilify and wants to continue on her home medication of Lexapro 10mg PO bedtime; pt reports she plans on discussing any medication changes with her outpatient prescriber. denies SI/HI/VH/AH. 3 day notice up on 02/17/25. 02/16: Active on unit. social with peers. attending groups. Patient reports doing very well today; pt reports she is looking forward to returning home. denies SI/HI/VH/AH. Patient reports she does not need scripts sent to pharmacy d/t having them at home; pt reports she plans on following up with her outpatient providers. 3 day notice up on 02/17/25. Patient educated on: diagnosis and medication risk/benefits Reason for continued inpatient stay Substantial Risk for: stable for discharge Time Spent With Patient Time: Total time managing care of this patient today _20___ minutes.
--- NOTE | 2025-02-16 15:12 | HO.PM.IMPN ---
Subjective Subjective Date of Service: 02/16/25 Interval History: Patient requested to see me for pain on her chest wall. Patient has a feeding bruise. Patient reports that she received a sternal rub in the ED and that she has had pain ever since. On exam there is bruising noted to her mid chest, no crepitus, tender to palpation, she denies shortness of breath or chest pain denies inability to take a big breath. Denies any fever or chills. Review of Systems Patient has no acute medical complaints at this time All other systems are reviewed and are negative Physical Exam Exam: Exam: Alert and oriented X3, calm and cooperative Neuro: CN II-X11 intact Cardiac: S1 S2 RRR, No ectopy Pulmonary: lungs clear to auscultation, No increased WOB. Abdominal: BS active in all 4 quadrants, no guarding or tenderness MSK: Strength 5/5 upper and lower extremities, ambulating with steady gait and a walker : Deferred Extremities: No edema in lower extremities Psych: Mood stable, Quiet and cooperative. Skin: Warm and dry, Intact. Yellow bruise noted to mid chest Vital Signs: Vital Signs: Last Vital Signs Temp 97.3 F 02/16/25 08:00 Pulse 72 02/16/25 08:37 Resp 16 02/16/25 08:00 BP 107/61 02/16/25 08:37 Pulse Ox 97 02/16/25 08:00 O2 Del Method Room Air 02/16/25 08:00 O2 Flow Rate 1 02/13/25 03:52 BMI result Body Mass Index 39.3 Objective Data Active Medications Acetaminophen (Acetaminophen 325 Mg Tablet) 650 mg PO Q6H PRN PRN Reason: Headache/Pain, Scale 1-10 Last Admin: 02/14/25 09:16 Dose: 650 mg Documented By: FIDELINA Al Hydroxide/Mg Hydroxide (Magnesium Hydrox/Alum Hydrox 30 Ml Oral.Susp) 30 ml PO Q6H PRN PRN Reason: Heartburn/Nausea Amlodipine Besylate (Amlodipine Besylate 5 Mg Tablet) 5 mg PO DAILY REPLACED BY [facility]; Protocol Last Admin: 02/16/25 08:36 Dose: 5 mg Documented By: MAUREEN Cefuroxime Axetil (Cefuroxime Axetil 250 Mg Tablet) 250 mg PO BID REPLACED BY [facility] Stop: 02/18/25 10:34 Last Admin: 02/16/25 08:37 Dose: 250 mg Documented By: MAUREEN Clonazepam (Clonazepam 1 Mg Tablet) 1 mg PO DAILY PRN PRN Reason: Anxiety Last Admin: 02/15/25 22:40 Dose: 1 mg Documented By: OFELIA Escitalopram Oxalate (Escitalopram Oxalate 10 Mg Tablet) 10 mg PO BEDTIME [facility] Last Admin: 02/15/25 22:35 Dose: 10 mg Documented By: OFELIA Hydroxyzine HCl (Hydroxyzine Hcl 25 Mg Tablet) 25 mg PO Q6H PRN PRN Reason: mild anxiety Lamotrigine (Lamotrigine 100 Mg Tablet) 400 mg PO DAILY REPLACED BY [facility] Last Admin: 02/16/25 08:38 Dose: 400 mg Documented By: MAUREEN Losartan Potassium (Losartan Potassium 50 Mg Tablet) 100 mg PO DAILY REPLACED BY [facility]; Protocol Last Admin: 02/16/25 08:36 Dose: 100 mg Documented By: MAUREEN Magnesium Hydroxide (Milk Of Magnesia 30 Ml Oral.Susp) 30 ml PO DAILY PRN PRN Reason: Constipation Metoprolol Succinate (Metoprolol Succinate Er 25 Mg Tab.Er.24h) 25 mg PO DAILY REPLACED BY [facility]; Protocol Last Admin: 02/16/25 08:36 Dose: 25 mg Documented By: MAUREEN Metoprolol Succinate (Metoprolol Succinate Er 100 Mg Tab.Er.24h) 100 mg PO DAILY REPLACED BY [facility] Last Admin: 02/16/25 08:37 Dose: 100 mg Documented By: MAUREEN Nystatin (Nystatin Powder 15 Gm Bottle) 1 appl TOPICAL BID REPLACED BY [facility]; Protocol Last Admin: 02/16/25 08:38 Dose: Not Given Documented By: MAUREEN Non-Admin Reason: Patient Refused Quetiapine Fumarate (Quetiapine Fumarate 25 Mg Tablet) 25 mg PO BEDTIME REPLACED BY [facility] Last Admin: 02/15/25 22:35 Dose: 25 mg Documented By: OFELIA Trazodone HCl (Trazodone Hcl 50 Mg Tablet) 50 mg PO BEDTIME MRX1 PRN PRN Reason: Insomnia Labs 02/12/25 20:45 02/14/25 08:01 Assessment and Plan (1) Sternal contusion: Status: Acute Plan 54-year-old female with past medical history as listed below, presented to the emergency room with decreased oral intake, severe depression associated with her multiple medical conditions. Patient is admitted for stabilization. Seen today for reports of sternal pain. Sternal pain Fading bruising noted to mid sternum Patient reports this as a result of sternal rub that she received during ED visits X-ray to rule out any abnormality due to area of being extremely tender to touch No redness, no warmth, no other concerns noted Tylenol as needed for pain Thank you for allowing me to participate in the care of this patient. Will follow with you, please notify medical provider with any changes in condition or concerns. Quality Stroke Does the patient have a stroke diagnosis?: No VTE Prior VTE?: No VTE Risk Level:: Medical - low VTE Device Contraindication: Treatment Not Indicated VTE Drug Contraindication: Treatment Not Indicated
[2025-02-16 19:10] VITALS: BP 128/61; PULSE 67; RESP 16; TEMP 36; O2SAT 98
[2025-02-17 08:00] VITALS: BP 107/51; PULSE 62; RESP 14; TEMP 36.2; O2SAT 94
[2025-02-17] MEDS: Metoprolol Succinate ER 25 MG TAB.ER.24H PO (08:38)
[2025-02-17] MEDS: Metoprolol Succinate ER 100 MG TAB.ER.24H PO (08:38)
--- NOTE | 2025-02-17 10:00 | PM.PSYDC ---
DS: Providers Provider Date of Service: 02/17/25 Date of admission: 02/13/25 11:39 Date of discharge: 02/17/25 Primary care physician: Unknown Physician Admitting clinician: Diana Grace Attending physician on admission: Norbert Emerson Attending physician on discharge: Norbert Emerson Discharging clinician: Diana Grace DS: Diagnosis Discharge Diagnosis (1) Sternal contusion: Status: Acute DS: Medications Discharge Medications Home Medications: Home Medications ?Medication ?Instructions ?Recorded ?Confirmed losartan 100 mg tablet 100 mg PO DAILY 01/23/23 02/13/25 lamotrigine 200 mg tablet 400 mg PO DAILY 09/06/24 02/13/25 amlodipine 5 mg tablet 5 mg PO DAILY 02/13/25 02/13/25 clonazepam 0.5 mg tablet 0.5 - 1 mg PO DAILY PRN anxiety 02/13/25 02/13/25 metoprolol succinate 100 mg 100 mg PO DAILY 02/13/25 02/13/25 tablet,extended release 24 hr metoprolol succinate 25 mg 25 mg PO DAILY 02/13/25 02/13/25 tablet,extended release 24 hr quetiapine 25 mg tablet 25 mg PO DAILY 02/13/25 02/13/25 Previous Rx's ?Medication ?Instructions ?Recorded cefuroxime axetil 250 mg tablet 250 mg PO BID 2 days #4 tabs 02/16/25 escitalopram oxalate 10 mg tablet 10 mg PO BEDTIME #0 tabs 02/16/25 Mental Status Exam Mental Status Exam Narrative: Pt is alert and oriented; behavior is cooperative and calm; dressed in casual attire; mood is described as good ; eye contact appropriate; Speech is normal rate, volume and not pressured; thought process is organized; Thought content is on discharge; denies SI/HI/AH/VH. Data Data Completed and Pending Completed studies during hospitalization [Text1]: 02/12/25 22:47 Urine clean catch - Clean Catch Midstream Urine Culture - Final DS: Summary Hospital Course Hospital Course: Patient is a 54 year old female with hx of Bipolar d/o and PTSD who presented to ER via ambulance d/t suicidal ideation secondary to increased depression and medical problems. Per crisis report, patient reports suicidal ideation with a plan to walk in front of a truck. Patient stated, I have a lot of issues, I'm just fed up . Patient reports over the last 5 years she has been diagnosed with multiple medical problems which has caused an increase in depression. Patient reports she has not left her bed over the past week and has not been able to eat as much as she usually does. Patient reports sleeping more than usual. Tearful throughout evaluation. Denies HI/VH/AH. History of multiple inpatient psychiatric hospitalizations. History of respite admissions and PHP. hx of 2 suicide attempts via ingesting a bottle of medications. History of self-injurious behavior via cutting however, reports she has not cut in 15 years. History of receiving ECT treatments in 2011. Patient reports marijuana use. Utox positive for marijuana and benzodiazepines. During admission assessment, patient presents alert and oriented x3. Calm and cooperative. Patient reports feeling depressed ; patient stated, I was having gastro problems and didn't want to eat. I was so weak that way boyfriend called hospital. I never said I was suicidal. I just said that I wish I could poof and disappear. I would never do anything to harm myself. I feel depressed and hopeless because every function of my body is breaking down. I have multiple doctors who just throw medication at me . Patient denies SI/HI/VH/AH however, she does present with passive SI. Patient stated, I don't have active thoughts of wanting to go out and do something. I didn't have, nor do I have any intention. I shouldn't have said that . When discussing medication history patient reports she does not want to be started on anything until she speaks with her outpatient prescriber. Plan: CV 5 minute safety checks continue home medications obtain collateral encourage groups discharge planning Active on unit. social with peers. attending groups. Patient reports feeling calmer today; pt stated, I feel like I'm settling in. I slept well last night and my appetite has improved. I don't have the day to day stress . denies SI/HI/VH/AH. She denies passive SI. She is requesting to be restarted on Abilify 2mg PO bedtime d/t hx of being beneficial for her. risks/benefits reviewed. Active on unit. social with peers. attending groups. Patient reports feeling better today; pt stated, I've been realizing this is a little time away and calming. I have to remember to keep doing my coping skills. I've realized that hopelessness is not going to get me anywhere. I have a lot to live for . Patient reports she does not want to continue taking Abilify and wants to continue on her home medication of Lexapro 10mg PO bedtime; pt reports she plans on discussing any medication changes with her outpatient prescriber. denies SI/HI/VH/AH. 3 day notice up on 02/17/25. Active on unit. social with peers. attending groups. Patient reports doing very well today; pt reports she is looking forward to returning home. denies SI/HI/VH/AH. Patient reports she does not need scripts sent to pharmacy d/t having them at home; pt reports she plans on following up with her outpatient providers. 3 day notice up on 02/17/25. Status at Discharge Cognitive/behavioral status at discharge: Patient has insight and demonstrates good judgment in terms of wanting to pursue treatment. Patient has a safety plan that includes presenting to the closest ER or calling 911 if feeling unsafe. Functional status at discharge: independent ambulation Overall status at discharge: patient is back to baseline Time Spent with Patient Time attestation: Total time managing care of this patient today _20___ minutes. Time spent: Less than 30 minutes Discharge Plan Discharge Anticipated Discharge Date/Time: 02/17/25 10:30 Patient Disposition: Home, Self-Care Discharge Diagnosis: Bipolar d/o, PTSD Referrals: Claudia Tomlin (Therapy) [Other] - 02/21/25 11:15 am Referral Note: TELEHEALTH APPOINTMENT Dr. Medina (Psychiatry) [Other] - 02/20/25 11:00 am Referral Note: IN PERSON APPOINTMENT Cici Miller MD [Physician, Primary Care] - 1 Week Referral Note: 02-17-25 Your Primary Care Provider has been advised of your discharge and will be making contact with you to provide the date and time of your follow up appt. Discharge Medications: New cefuroxime axetil 250 mg Tablet 250 mg PO BID 2 Days Qty: 4 0RF escitalopram oxalate 10 mg Tablet 10 mg PO BEDTIME Qty: 0 0RF Continued lamotrigine 200 mg Tablet 400 mg PO DAILY clonazepam 0.5 mg tablet 0.5 - 1 mg PO DAILY PRN (Reason: anxiety) quetiapine 25 mg tablet 25 mg PO DAILY metoprolol succinate 25 mg tablet extended release 24 hr 25 mg PO DAILY amlodipine 5 mg tablet 5 mg PO DAILY metoprolol succinate 100 mg tablet extended release 24 hr 100 mg PO DAILY losartan 100 mg tablet 100 mg PO DAILY Discontinued tizanidine 4 mg tablet 4 mg PO TID Discharge Orders: Discharge Order (Routine); Ordered 02/17/25 Ordered By: Diana Grace Diet: Regular diet Activity on Discharge: As tolerated Stand Alone Forms: Patient Portal Discharge page, Community Support Print Language: Sudanese Care Plan Goals: Maintain mood and safe behaviors Take medications as prescribed Practice coping skills Continue with outpatient providers and reach out to them as needed Health Concerns: Mood stability and behaviors Plan of Treatment: Follow up with your PCP, psychiatric provider and other outpatient providers regarding above concerns Take medications as prescribed Assessment: Patient has insight and demonstrates good judgment in terms of wanting to pursue treatment. Patient has a safety plan that includes presenting to the closest ER or calling 911 if feeling unsafe. Discharge Date/Time: 02/17/25 10:34
== END 2025-02-17 10:34 | disposition home or self-care (01) | DRG 885 ==
LOC: HO.ED 02-13 11:37 → HO.PADLT16 02-13 11:40
PROVIDERS: Admitting Provider Registered Nurse; Emergency Provider Emergency Medicine; Responsible Provider Registered Nurse; Visit Provider Psychiatry & Neurology Psychiatry
DX: F31.9 Bipolar disorder, unspecified (principal); R45.851 Suicidal ideations; F41.1 Generalized anxiety disorder; R25.1 Tremor, unspecified; F43.10 Post-traumatic stress disorder, unspecified; K57.90 Diverticulosis of intestine, part unspecified, without perforation or abscess without bleeding; M32.9 Systemic lupus erythematosus, unspecified; Z23 Encounter for immunization; Z79.899 Other long term (current) drug therapy
CPT/HCPCS: 36415; 71120; 80053; 80061; 80143; 80179; 80307; 81001; 81025; 83036; 84484; 85025; 87086; 90656; 93005; 99285; S9485

== ENCOUNTER → 2025-02-12 20:48 | Outpatient (BNV) | payer OTHER, SELFPAY | PROVIDERS: Emergency Provider Emergency Medicine; Visit Provider Internal Medicine Cardiovascular Disease | DX: R00.1 Bradycardia, unspecified (principal) | CPT/HCPCS: 93010 ==

== ENCOUNTER 2025-02-13 11:39 | Outpatient (BNV) | payer OTHER, SELFPAY | END 2025-02-16 18:08 | PROVIDERS: Admitting Provider Registered Nurse; Emergency Provider Emergency Medicine; Responsible Provider Registered Nurse; Visit Provider Radiology Diagnostic Radiology | DX: R07.89 Other chest pain (principal); S20.219A Contusion of unspecified front wall of thorax, initial encounter | CPT/HCPCS: 71120 ==

== ENCOUNTER → 2025-02-13 11:39 | Outpatient (BNV) | payer OTHER, SELFPAY | PROVIDERS: Admitting Provider Registered Nurse; Emergency Provider Emergency Medicine; Responsible Provider Registered Nurse; Visit Provider Nurse Practitioner Family | DX: M32.9 Systemic lupus erythematosus, unspecified (principal) | CPT/HCPCS: 99221; 99231 ==

== ENCOUNTER → 2025-02-13 11:39 | Outpatient (BNV) | payer OTHER, SELFPAY | PROVIDERS: Admitting Provider Registered Nurse; Emergency Provider Emergency Medicine; Responsible Provider Registered Nurse; Visit Provider Registered Nurse | DX: F31.9 Bipolar disorder, unspecified (principal); F43.10 Post-traumatic stress disorder, unspecified | CPT/HCPCS: 90792; 99232 ==